=== PATIENT | female | born 1955 | race Caucasian/White ===

== ENCOUNTER 2022-09-22 14:19 | Inpatient (IN) ==
[2022-09-22] MEDS ORDERED: ACETAMINOPHEN 500 MG TAB PO PRN (14:46)
[2022-09-22] MEDS ORDERED: MoRPHine SULFATE 2 MG/ML CARP IV PRN ×2 (14:46→20:45)
[2022-09-22] MEDS ORDERED: MoRPHine SULFATE 4 MG/ML 1 ML CARP\\VIAL IV PRN ×2 (14:46→20:45)
--- NOTE | 2022-09-22 14:51 | Emergency Department Note ---
Impression & Plan Intertrochanteric fracture of left hip, Fall ED Provider Note NAME: LAKSHMI CHEN AGE: 67 SEX: F : 1955 ARRIVES VIA: Ambulance INFORMANT: Patient ED PROVIDER(S): Art Haile DO CHIEF COMPLAINT: left hip pain HPI: Patient is a 67-year-old female who presents to the ER as she was getting out of the car. She kicked the door open and fell onto her left hip. Pain is a 4 out of 10. She is unable to walk since then. Denies hitting her head or neck. Has some tingling/numbness in the leg. No chest pain or shortness of breath. No nausea, vomiting, or diarrhea. No other exacerbating or remitting factors. ROS: See above HPI for pertinent positives & negatives. A total of 10 systems reviewed and were otherwise negative. PAST MEDICAL HISTORY:See Below PAST SURGICAL HISTORY:See Below FAMILY HISTORY:See Below SOCIAL HISTORY:See Below HOME MEDICATIONS:See Below ALLERGIES:See Below VITALS:See Below PHYSICAL EXAMINATION: GENERAL: Sitting up in bed, alert, well appearing, well nourished, no distress, non-toxic EYE EXAM: normal conjunctiva. PERRL and EOM's grossly intact. OROPHARYNX: no exudate, no erythema, lips, buccal mucosa, and tongue normal and mucous membranes are moist NECK: supple, no nuchal rigidity, no adenopathy, non-tender LUNGS: Clear to auscultation. Normal chest wall mechanics HEART: no murmurs, S1 normal and S2 normal ABDOMEN: abdomen soft, non-tender, normo-active bowel sounds, no masses, no rebound or guarding. UPPER EXTREMITIES: upper extremities are grossly normal. LOWER EXTREMITIES: No tenderness at the entire right lower extremity palpation. Unable to move left hip and moderate pain over left pelvis and hip. No tenderness throughout the knee mcdonald ankle. Plantar and dorsiflexion intact. DPs 2 out of 4 bilaterally. NEURO EXAM: Normal sensorium, cranial nerves II-XII grossly intact, normal speech, no gross weakness of arms, no gross weakness of legs. MEDICAL DECISION MAKING: Patient is a 67-year-old female that presents ER following mechanical fall. Complaining of left hip pain. Unable to move it. IV was established blood was obtained. Labs show no significant leukocytosis. Mild anemia 10. INR unremarkable. BMP with mild hyponatremia 133. LFTs bilirubin was unremarkable. COVID was negative. X-ray left hip shows inner troches fracture. Discussed with Dr. Foley. Discussed with the [facility] hospitalist Clarita for further evaluation. Later had 9:30 PM received a text message from Dr. Schwartz. Any question if this was a pathological fracture. He recommended a CT which I did order. Triage Nursing notes reviewed. Limited review of prior medical records performed Vital Signs: reviewed and remarkable for no significant abnormalities Differential diagnosis: Differential diagnoses include major intracranial, cervical, spinal, thoracic, abdominal, pelvic and neurologic injury. Fracture, contusion, sprain, strain, laceration, abrasions included as well. ER treatment provided: See below Diagnostics interpreted by me: ECG: none Cardiac Monitoring: An order was placed for continuous cardiac monitoring. The monitor shows a rate of 80 with sinus rhythm. Laboratory studies: As stated above and show below. Imaging studies: X-rays of the left hip show inotrope fracture Consultation(s): Discussed with Dr. Foley from orthopedics as described above Discussed with S as above Discussed with Dr. Ashraf as described above Procedures: none Critical Care: None Past Med/Surg History Medical History (Updated 09/22/22 @ 21:26 by Art Haile DO) Anemia Chronic kidney disease follows w/ dr. pineda ([facility]) Connective tissue disease Degenerative disc disease Diabetes mellitus, type 2 NIDDM Glaucoma (increased eye pressure) "PRE-GLAUCOMA" Hyperlipidemia Hypertension Pulmonary hypertension Sjogren's disease Transient ischemic attack (TIA) 2009 Valvular heart disease follows w/ dr. 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 Beliefs That Will Affect Care: None Current Living Situation: Family Current Living Situation Comment: lives w/ sister Feels Safe at Home: Yes Assistive Devices: Denture - Upper, Denture - Lower and Glasses Allergies Allergies Allergy/AdvReac Type Severity Reaction Status Date / Time hydrochlorothiazide AdvReac hyponatremi Verified 09/22/22 18:46 a Home Meds Home Medications Medication Instructions Recorded Confirmed ascorbic acid (vitamin C) 500 mg 500 mg PO DAILY 11/22/18 09/22/22 tablet (Vitamin C) aspirin 81 mg tablet,delayed 2 tab PO QPM 11/22/18 09/22/22 release atorvastatin 10 mg tablet 10 mg PO PM 11/22/18 09/22/22 bimatoprost 0.01 % eye drops 1 drp OPB PM 11/22/18 09/22/22 (Lumigan) calcium carbonate 500 mg calcium 500 mg PO DAILY 11/22/18 09/22/22 (1,250 mg) tablet (Calcium 500) cholecalciferol (vitamin D3) 25 1,000 unit PO DAILY 11/22/18 09/22/22 mcg (1,000 unit) tablet (Vitamin D3) cinnamon bark 500 mg capsule 1 dose PO BID 11/22/18 09/22/22 (Cinnamon) coenzyme Q10 100 mg capsule 100 mg PO DAILY 11/22/18 09/22/22 (CoQ-10) cyanocobalamin (vitamin B-12) 1,000 mcg PO QAM 11/22/18 09/22/22 1,000 mcg tablet (Vitamin B-12) ferrous gluconate 240 mg (27 mg 240 mg PO TID 11/22/18 09/22/22 iron) tablet hydroxychloroquine 200 mg tablet 200 mg PO PM 11/22/18 09/22/22 metformin 1,000 mg tablet 1,000 mg PO BID 11/22/18 09/22/22 metoprolol succinate 50 mg capsule 50 mg PO BID 11/22/18 09/22/22 sprinkle, ext. release 24 hr vit A 300 mcg-C 200 mg-E 27 1 tab PO DAILY 11/22/18 09/22/22 mg-lutein 2 mg and minerals tablet (Ocuvite with Lutein) glucosamine sulf dipot 1 cap PO BID 05/27/19 09/22/22 chlr,msm,chond 550 mg-C 30 mg-eleno 1 mg capsule (Glucosamine Chondroitin) amlodipine 5 mg tablet 5 mg PO DAILY 09/22/22 09/22/22 furosemide 20 mg tablet 20 mg PO SUTUTHSA 09/22/22 09/22/22 furosemide 20 mg tablet 40 mg PO MOWEFR 09/22/22 09/22/22 glyburide 5 mg tablet 5 mg PO BID 09/22/22 09/22/22 Results & Data (ED) Vital Signs Vital Signs - 24 hr 09/22/22 14:08 09/22/22 16:08 09/22/22 18:00 Temperature 36.6 C Temperature Source Oral Pulse Rate 87 Pulse Rate [Apical] 100 H 100 H Respiratory Rate 18 15 17 Respiratory Effort / Characteristics Non-Labored Spontaneous Respiratory Depth Normal Respiratory Pattern Regular Blood Pressure 147/71 H Blood Pressure [Left Arm] 133/70 129/72 Blood Pressure Mean 96 Blood Pressure Mean [Left Arm] 91 91 Blood Pressure Position Sitting Pulse Oximetry 99 98 99 Oxygen Delivery Method Room Air Room Air Room Air Sepsis Recent Fever Within 48 Hours No Sepsis New/Unexplained Change in Mental Status N/A Sepsis Action Taken by Nursing No Action Required Laboratory Data Result diagrams: 09/22/22 15:32 09/22/22 15:32 Lab Results 09/22/22 09/22/22 09/22/22 Range/Units 15:32 15:32 15:32 WBC 8.93 (4.8-10.8) K/ul RBC 3.18 L (3.93-5.22) M/uL Hgb 10.2 L (12.0-16.0) g/dl Hct 29.3 L (34.1-44.9) % MCV 92.1 (80.0-100.0) fL MCH 32.1 (25.0-34.0) pg MCHC 34.8 (32.0-36.0) g/dL RDW Std Deviation 41.0 (36.4-46.3) fL RDW Coeff of Evlira 12.1 (11.5-14.5) % Plt Count 187 (130-400) K/uL MPV 9.8 (9.4-12.3) fL Immature Gran % (Auto) 0.6 % Neut % (Auto) 81.9 % Lymph % (Auto) 11.0 % Esmeralda % (Auto) 5.0 % Eos % (Auto) 1.1 % Baso % (Auto) 0.4 % Neut # (Auto) 7.31 H (1.4-6.5) K/uL Lymph # (Auto) 0.98 L (1.2-3.4) K/uL Esmeralda # (Auto) 0.45 (0.24-0.82) K/uL Eos # (Auto) 0.10 (0-0.50) K/uL Baso # (Auto) 0.04 (0-0.2) K/uL Immature Gran # (Auto) 0.05 H (0.00-0.02) K/uL PT 10.9 (9.0-12.0) Seconds INR 1.0 (0.9-1.1) APTT 23.4 (21.0-31.0) Seconds PTT Ratio 0.9 Sodium 133 L (136-145) mmol/L Potassium 4.9 (3.5-5.1) mmol/L Chloride 96 L (98-107) mmol/L Carbon Dioxide 27 (21-32) mmol/L Anion Gap 10 (3-11) BUN 16 (6-23) mg/dl Creatinine 0.83 (0.6-1.2) mg/dl Est Cr Clr Drug Dosing 59.5 ml/min Est GFR ( Amer) 83.4 ml/min Est GFR (Non-Af Amer) 71.9 ml/min BUN/Creatinine Ratio 19.3 (10-20) Glucose 268 H (70-99(Fasting)) mg/dl Calcium 8.9 (8.5-10.1) mg/dl Total Bilirubin 0.3 (0.2-1.0) mg/dl AST 15 (13-39) U/L ALT 11 (7-52) U/L Alkaline Phosphatase 43 (34-104) U/L Total Protein 6.9 (6.0-8.3) gm/dl Albumin 4.3 (3.4-5.0) gm/dl Globulin 2.6 (2.5-4.0) gm/dl Albumin/Globulin Ratio 1.7 (0.9-2) SARS-CoV-2, RNA, NAAT (NEGATIVE) 09/22/22 Range/Units 15:44 WBC (4.8-10.8) K/ul RBC (3.93-5.22) M/uL Hgb (12.0-16.0) g/dl Hct (34.1-44.9) % MCV (80.0-100.0) fL MCH (25.0-34.0) pg MCHC (32.0-36.0) g/dL RDW Std Deviation (36.4-46.3) fL RDW Coeff of Elvira (11.5-14.5) % Plt Count (130-400) K/uL MPV (9.4-12.3) fL Immature Gran % (Auto) % Neut % (Auto) % Lymph % (Auto) % Esmeralda % (Auto) % Eos % (Auto) % Baso % (Auto) % Neut # (Auto) (1.4-6.5) K/uL Lymph # (Auto) (1.2-3.4) K/uL Esmeralda # (Auto) (0.24-0.82) K/uL Eos # (Auto) (0-0.50) K/uL Baso # (Auto) (0-0.2) K/uL Immature Gran # (Auto) (0.00-0.02) K/uL PT (9.0-12.0) Seconds INR (0.9-1.1) APTT (21.0-31.0) Seconds PTT Ratio Sodium (136-145) mmol/L Potassium (3.5-5.1) mmol/L Chloride (98-107) mmol/L Carbon Dioxide (21-32) mmol/L Anion Gap (3-11) BUN (6-23) mg/dl Creatinine (0.6-1.2) mg/dl Est Cr Clr Drug Dosing ml/min Est GFR ( Amer) ml/min Est GFR (Non-Af Amer) ml/min BUN/Creatinine Ratio (10-20) Glucose (70-99(Fasting)) mg/dl Calcium (8.5-10.1) mg/dl Total Bilirubin (0.2-1.0) mg/dl AST (13-39) U/L ALT (7-52) U/L Alkaline Phosphatase (34-104) U/L Total Protein (6.0-8.3) gm/dl Albumin (3.4-5.0) gm/dl Globulin (2.5-4.0) gm/dl Albumin/Globulin Ratio (0.9-2) SARS-CoV-2, RNA, NAAT NEGATIVE (NEGATIVE) Administered Medications Discontinued Medications Morphine Sulfate (Morphine Sulfate 2 Mg/Ml Carp) 2 mg IV Q1H PRN PRN Reason: Moderate Pain (Rating 3,4,5,6) Stop: 10/06/22 14:45 Last Admin: 09/22/22 18:52 Dose: 2 mg Documented By: ML Imaging Data Radiologist's Impression: Hip/Pelvis X-Ray 09/22/22 14:46 SINGLE VIEW PELVIS; 2 VIEWS LEFT HIP CLINICAL HISTORY: Left hip pain. FINDINGS: An AP view of the pelvis with AP and crosstable lateral portable views of the left hip are correlated with pelvic CT dated 04/03/2010. The skeletal structures are osteopenic. There is a comminuted and mildly displaced intertrochanteric fracture of the left proximal femur. There is medial displacement of the lesser trochanter. Overlying soft tissue edema is noted. There is chronic appearing posttraumatic deformity of the left pubic ring. The bony pelvis and right hip otherwise appear maintained. Mild arthritic change and joint space narrowing is seen in both hips. Is minimal degenerative sclerosis of the sacroiliac joints. Lumbosacral spondylosis is partially imaged. No bowel obstruction is seen. There is atherosclerotic calcification of the femoral arter ies. IMPRESSION: 1. Comminuted and mildly displaced intertrochanteric fracture of the left proximal femur as above. 2. No additional acute fracture is identified. 3. Posttraumatic deformity of the left pubic ring is likely chronic. Electronically signed by: Singh Ashraf M.D. 09/22/2022 4:33 PM Discharge Plan Visit Data Chief Complaint: Fall Stated Complaint: FALL/LEFT HIP PAIN ED Provider: Art Haile Discharge Problem: Intertrochanteric fracture of left hip, Fall Patient Disposition: Admitted As Inpatient Discharge Instructions Interventions: ED Discharge Assessment Last Done: 09/22/22 20:27
[2022-09-22 15:45] LABS: Basophils # (auto) 0.04 K/uL (0-0.2); Basophils % (auto) 0.4 %; Eosinophils % (auto) 1.1 %; Hematocrit (blood only) 29.3 % (34.1-44.9); Hemoglobin 10.2 g/dl (12.0-16.0); Immature Granulocytes # (auto) 0.05 K/uL (0.00-0.02); Immature Granulocytes % (auto) 0.6 %; Lymphocytes # (auto) 0.98 K/uL (1.2-3.4); Mean Corpuscular Hemoglobin 32.1 pg (25.0-34.0); Mean Corpuscular Hgb Conc 34.8 g/dL (32.0-36.0); Mean Corpuscular Volume 92.1 fL (80.0-100.0); Mean Platelet Volume 9.8 fL (9.4-12.3); Monocytes # (auto) 0.45 K/uL (0.24-0.82); Neutrophils # (auto) 7.31 K/uL (1.4-6.5); Neutrophils % (auto) 81.9 %; Platelet Count 187 K/uL (130-400); RDW Coefficient of Variation 12.1 % (11.5-14.5); Red Blood Count 3.18 M/uL (3.93-5.22); White Blood Count 8.93 K/ul (4.8-10.8)
[2022-09-22 15:58] LABS: Partial Thromboplastin Ratio 0.9; Partial Thromboplastin Time 23.4 Seconds (21.0-31.0); Prothrombin Time 10.9 Seconds (9.0-12.0)
[2022-09-22 16:17] LABS: Albumin Globulin Ratio 1.7 (0.9-2); Albumin Level 4.3 gm/dl (3.4-5.0); BUN Creatinine Ratio 19.3 (10-20); Bilirubin,Total 0.3 mg/dl (0.2-1.0); Calcium 8.9 mg/dl (8.5-10.1); Creatinine Clr Calc Pharmacy 59.5 ml/min; Est GFR (African American) 83.4 ml/min; Est GFR (Non-African American) 71.9 ml/min; Globulin 2.6 gm/dl (2.5-4.0); Potassium 4.9 mmol/L (3.5-5.1); Total Protein 6.9 gm/dl (6.0-8.3)
--- NOTE | 2022-09-22 16:35 | XRay Report ---
SINGLE VIEW PELVIS; 2 VIEWS LEFT HIP CLINICAL HISTORY: Left hip pain. FINDINGS: An AP view of the pelvis with AP and crosstable lateral portable views of the left hip are correlated with pelvic CT dated 04/03/2010. The skeletal structures are osteopenic. There is a comminu gudelia and mildly displaced intertrochanteric fracture of the left proximal femur. There is medial displ acement of the lesser trochanter. Overlying soft tissue edema is noted. There is chronic appearing po sttraumatic deformity of the left pubic ring. The bony pelvis and right hip otherwise appear maintain ed. Mild arthritic change and joint space narrowing is seen in both hips. Is minimal degenerative scl erosis of the sacroiliac joints. Lumbosacral spondylosis is partially imaged. No bowel obstruction is seen. There is atherosclerotic calcification of the femoral arteries. IMPRESSION: 1. Comminuted and mildly displaced intertrochanteric fracture of the left proximal femur as above. 2. No additional acute fracture is identified. 3. Posttraumatic deformity of the left pubic ring is likely chronic. Electronically signed by: Singh Ashraf M.D. 09/22/2022 4:33 PM
--- NOTE | 2022-09-22 16:54 | Electrocardiogram Report ---
Test Reason : Blood Pressure : / mmHG Vent. Rate : 085 BPM Atrial Rate : 085 BPM P-R Int : 132 ms QRS Dur : 076 ms QT Int : 360 ms P-R-T Axes : -03 057 028 degrees QTc Int : 428 ms Normal sinus rhythm Nonspecific T wave abnormality Abnormal ECG When compared with ECG of 31-MAR-2010 07:01, Nonspecific T wave abnormality, worse in Inferior leads Nonspecific T wave abnormality now evident in Anterolateral leads Confirmed by Surinder Murphy ([id number]) on 09/22/2022 4:53:57 PM Referred By: REFERRED SELF Confirmed By:Surinder Murphy
--- NOTE | 2022-09-22 19:03 | History & Physical Report ---
Date of Service September 22, 2022 Assessment & Plan (1) Intertrochanteric fracture of left hip: Plan: Patient is 67 y/o F with PMH HTN, dyslipidemia, CVA, DM II, iron deficiency anemia, anemia of chronic disease, connective tissue disorder, CKD II, mitral regurgitation, pulmonary hypertension and others listed below presents to ER with c/o mechanical fall and left hip pain Left Hip Xray: Comminuted and mildly displaced intertrochanteric fracture of the left proximal femur. Posttraumatic deformity of the left pubic ring is likely chronic. In ER given 2mg Morphine IV with moderate pain relief Bedrest Pain control Ortho consult. Dr Foley recommends NPO midnight with plans for procedure tomorrow CBC, BMP in am (2) Diabetes mellitus, type 2: Plan: A1c: 6.7 on 03/29/2022 Hold home oral medication Basal bolus insulin per protocol A1c in a.m. (3) Hypertension: Plan: Continue amlodipine (4) Hyperlipidemia: Plan: Continue statin (5) Transient ischemic attack (TIA): Plan: Continue aspirin, statin (6) Connective tissue disease: Plan: Follows with [facility] Continue hydroxychloroquine (7) Anemia: Plan: Anemia of chronic disease, iron deficiency anemia Hgb: 10. Baseline 10-12 Continue iron supplement Monitor H&H (8) Valvular heart disease: (9) Pulmonary hypertension: Plan: Follows with [facility] cardiology History echo in 08/18/22: EF: 60-645, grade I diastolic dysfunction, moderate- severe MR, moderate TR, mild pulmonary hypertension Monitor volume status closely Plan to resume Lasix on POD #1 DVT Prophylaxis SCDs Full Code as per discussion with pt Follows with Cyn Vivar PA-C for routine care Pt was seen and care coordinated with Dr Urias. See addendum History of Present Illness Chief Complaint: fall, hip pain Primary Care Provider: Emilee Hdz DO Patient is 67 y/o F with PMH HTN, dyslipidemia, CVA, DM II, iron deficiency anemia, anemia of chronic disease, connective tissue disorder, CKD II, mitral regurgitation, pulmonary hypertension and others listed below presents to ER with c/o fall and left hip pain. Patient states today was getting out of car and she leaned against the car door and it opened and she fell out onto left side. Had pain in left hip and was unable to get up. Denies hitting head or LOC. Denies any other known injury. Denies dizziness or CP, SOB prior to fall. Reports started amlodipine in August and patient reports feeling dizzy and achy. She reports was taken off losartan in August. Denies fever/chills, diaphoresis, N/V/D/C, [place], syncope, vision changes, neck pain, CP, SOB, orthopnea, palpitations, cough, sore throat, choking, otalgia, rhinorrhea, abdominal pain, paresthesias, weakness, extremity edema, rashes, urinary symptoms. History echo in 08/18/22: EF: 60-645, grade I diastolic dysfunction, moderate- severe MR, moderate TR, mild pulmonary hypertension. Allergies Allergy/AdvReac Type Severity Reaction Status Date / Time hydrochlorothiazide AdvReac hyponatremi Verified 09/22/22 18:46 a Home Medications Medication Instructions Recorded Confirmed Type ascorbic acid (vitamin C) 500 mg 500 mg PO DAILY 11/22/18 09/22/22 History tablet (Vitamin C) aspirin 81 mg tablet,delayed 2 tab PO QPM 11/22/18 09/22/22 History release atorvastatin 10 mg tablet 10 mg PO PM 11/22/18 09/22/22 History bimatoprost 0.01 % eye drops 1 drp OPB PM 11/22/18 09/22/22 History (Lumigan) calcium carbonate 500 mg calcium 500 mg PO DAILY 11/22/18 09/22/22 History (1,250 mg) tablet (Calcium 500) cholecalciferol (vitamin D3) 25 1,000 unit PO DAILY 11/22/18 09/22/22 History mcg (1,000 unit) tablet (Vitamin D3) cinnamon bark 500 mg capsule 1 dose PO BID 11/22/18 09/22/22 History (Cinnamon) coenzyme Q10 100 mg capsule 100 mg PO DAILY 11/22/18 09/22/22 History (CoQ-10) cyanocobalamin (vitamin B-12) 1,000 mcg PO QAM 11/22/18 09/22/22 History 1,000 mcg tablet (Vitamin B-12) ferrous gluconate 240 mg (27 mg 240 mg PO TID 11/22/18 09/22/22 History iron) tablet hydroxychloroquine 200 mg tablet 200 mg PO PM 11/22/18 09/22/22 History metformin 1,000 mg tablet 1,000 mg PO BID 11/22/18 09/22/22 History metoprolol succinate 50 mg capsule 50 mg PO BID 11/22/18 09/22/22 History sprinkle, ext. release 24 hr vit A 300 mcg-C 200 mg-E 27 1 tab PO DAILY 11/22/18 09/22/22 History mg-lutein 2 mg and minerals tablet (Ocuvite with Lutein) glucosamine sulf dipot 1 cap PO BID 05/27/19 09/22/22 History chlr,msm,chond 550 mg-C 30 mg-eleno 1 mg capsule (Glucosamine Chondroitin) amlodipine 5 mg tablet 5 mg PO DAILY 09/22/22 09/22/22 History furosemide 20 mg tablet 20 mg PO SUTUTHSA 09/22/22 09/22/22 History furosemide 20 mg tablet 40 mg PO MOWEFR 09/22/22 09/22/22 History glyburide 5 mg tablet 5 mg PO BID 09/22/22 09/22/22 History Past Med/Surg History Medical History Anemia Chronic kidney disease follows w/ dr. pineda ([facility]) Connective tissue disease Degenerative disc disease Diabetes mellitus, type 2 NIDDM Glaucoma (increased eye pressure) "PRE-GLAUCOMA" Hyperlipidemia Hypertension Pulmonary hypertension Sjogren's disease Transient ischemic attack (TIA) 2009 Valvular heart disease follows w/ dr. 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 Beliefs That Will Affect Care: None Current Living Situation: Family Current Living Situation Comment: lives w/ sister Feels Safe at Home: Yes Assistive Devices: Denture - Upper, Denture - Lower and Glasses Review of Systems Review of Systems: All systems reviewed & are unremarkable except as noted in HPI & below Physical Exam Physical Exam: General: no acute distress, WDWN elderly female Head: normocephalic, atraumatic Eyes: conjunctiva non-injected, anicteric ENT: normal inspection external ears, nose, mucous membranes moist Neck: supple, trachea midline Lungs: clear, no respiratory distress, no wheezing/rhonchi/rales CV: RRR, + murmur, trace pretibial edema Abd: normal BS, soft, non-tender Ext: no cyanosis, no calf tenderness; LLE: +foot externally rotated and shortened. +pain to lateral hip with palpation, ROM not tested, distal pulses palpable, sensation to light touch intact Neuro: A&O x 3, no focal deficits noted, normal affect Skin: warm, dry Results & Data Results & Data ([facility]) Vital Signs (Past 12 Hours) Vital Signs Temp Pulse Pulse Resp BP BP Pulse Ox 09/22/22 18:00 100 H 17 129/72 99 09/22/22 16:08 100 H 15 133/70 98 09/22/22 14:08 36.6 C 87 18 147/71 H 99 O2 Del Method 09/22/22 18:00 Room Air 09/22/22 16:08 Room Air 09/22/22 14:08 Room Air Laboratory Results Short CBC 09/22/22 Range/Units 15:32 WBC 8.93 (4.8-10.8) K/ul Hgb 10.2 L (12.0-16.0) g/dl Hct 29.3 L (34.1-44.9) % Plt Count 187 (130-400) K/uL BMP 09/22/22 15:32 Sodium 133 L Potassium 4.9 Chloride 96 L Carbon Dioxide 27 BUN 16 Creatinine 0.83 Glucose 268 H Calcium 8.9 Liver Function 09/22/22 Range/Units 15:32 Total Bilirubin 0.3 (0.2-1.0) mg/dl AST 15 (13-39) U/L ALT 11 (7-52) U/L Alkaline Phosphatase 43 (34-104) U/L Albumin 4.3 (3.4-5.0) gm/dl Urine 09/22/22 Range/Units 18:35 Urine Color Yellow Urine Appearance Clear (Clear) Urine pH 5.0 (4.5-7.5) Ur Specific [place] 1.011 (1.000-1.030) Urine Protein Negative (Negative) Urine Glucose (UA) 2+ H (Negative) Diagnostic Findings Hip/Pelvis X-Ray 09/22/22 14:46 SINGLE VIEW PELVIS; 2 VIEWS LEFT HIP CLINICAL HISTORY: Left hip pain. FINDINGS: An AP view of the pelvis with AP and crosstable lateral portable views of the left hip are correlated with pelvic CT dated 04/03/2010. The skeletal structures are osteopenic. There is a comminuted and mildly displaced intertrochanteric fracture of the left proximal femur. There is medial displacement of the lesser trochanter. Overlying soft tissue edema is noted. There is chronic appearing posttraumatic deformity of the left pubic ring. The bony pelvis and right hip otherwise appear maintained. Mild arthritic change and joint space narrowing is seen in both hips. Is minimal degenerative sclerosis of the sacroiliac joints. Lumbosacral spondylosis is partially imaged. No bowel obstruction is seen. There is atherosclerotic calcification of the femoral arteries. IMPRESSION: 1. Comminuted and mildly displaced intertrochanteric fracture of the left proximal femur as above. 2. No additional acute fracture is identified. 3. Posttraumatic deformity of the left pubic ring is likely chronic. Electronically signed by: Singh Ashraf M.D. 09/22/2022 4:33 PM Femur X-Ray 09/22/22 19:06 LEFT FEMUR 2 VIEWS CLINICAL HISTORY: Left hip pain. Proximal hip fracture. FINDINGS: AP and crosstable lateral views of the left femur correlated with radiograph 7 the left hip and bony pelvis performed the same day 09/22/2022. The skeletal structures are osteopenic. There is significant abnormality of the intertrochanteric left femur. There is acute appearing avulsion with medial displacement of the lesser trochanter. The intertrochanteric cortex and greater trochanter appear lucent, likely resenting age indeterminant fracture. The distal femur appears intact. There are chronic appearing fractures of the left pubic ring degenerative change is noted in the left hip and knee joints. Mild soft tissue edema overlies left hip. There is evidence of chronic calcification of the left femoral artery. IMPRESSION: 1. Significant abnormality involving the intertrochanteric left femur as above. 2. There is acute appearing avulsion of the lesser trochanter which is medially displaced. 3. Lucency throughout the intertrochanteric region and the greater trochanter is also likely posttraumatic. An underlying osteolytic lesion would be difficult to exclude. Consider a CT scan of the left hip for further assessment. 4. There are chronic appearing left pubic ring fractures. Electronically signed by: Singh Ashraf M.D. 09/22/2022 8:27 PM ECG Rate (beats per minute): 85 Rhythm: sinus rhythm Additional Comments: nonspecific t wave changes inferior, anterior, lateral Code Status & VTE Plan VTE Prophylaxis Plan VTE Prophylaxis will be ordered: Yes Supervising Physician Co-Signing Physician Notes Pt seen and examined by me, care coordinated with Yazan Andrade PA-C, please refer to her note above for further detail. Pt is 67 y/o F w/ HTN, dyslipidemia, CVA, DM II, iron deficiency anemia, anemia of chronic disease, connective tissue disorder, CKD II, mitral regurgitation, pulmonary hypertension who presents w/ L hip fx after mechanical fall. Currently laying in bed, in no acute distress. She is awake alert oriented answering questions appropriately. Heart sounds regular, positive murmur, lung sounds clear to auscultation bilaterally without any wheezing rhonchi or crackles. Abdomen soft nontender nondistended. No lower extremity edema. Patient reports being quite active, walks daily, lifts small weights. Never experiences any chest pain shortness of breath with exercise. She has history of mitral regurg. Followed by cardiology. Her last echo was done in August. echo in 08/18/22: EF: 60-645, grade I diastolic dysfunction, moderate-severe MR, moderate TR, mild pulmonary hypertension. Orthopedic surgeon also present at the bedside. Plan for surgical repair tomorrow morning. Continue to closely monitor the patient. Plan to resume furosemide when appropriate after surgery. MD Adonay
--- NOTE | 2022-09-22 19:05 | History & Physical Report ---
Date of Service September 22, 2022 Assessment & Plan (1) Intertrochanteric fracture of left hip: I discussed the diagnosis and treatment options with her at bedside. I recommended intramedullary nail fixation of her left hip. She understands the risk, benefits, and alternatives to the procedure and has elected to proceed. Questions were answered at bedside. Time was spent describing the procedure and postop expectations. She will be n.p.o. past midnight tonight. We will plan to fix her hip tomorrow morning. History of Present Illness Chief Complaint: Left intertrochanteric hip fracture . Primary Care Provider: Emilee Hdz DO Nemo is a pleasant 67-year-old female who is normally a community ambulator without assistance. She lives in a ranch style house with her sister. She has friends and family that lives nearby. She was getting out of her car today when she fell directly onto her left hip. She began having left hip pain. She came to the emergency room where radiographs demonstrated a displaced left intertrochanteric hip fracture. She is being admitted to the hospitalist service. Orthopedics was consulted to evaluate and treat. . Allergies Allergy/AdvReac Type Severity Reaction Status Date / Time hydrochlorothiazide AdvReac hyponatremi Verified 09/22/22 18:46 a Home Medications Medication Instructions Recorded Confirmed Type ascorbic acid (vitamin C) 500 mg 500 mg PO BID 11/22/18 09/22/22 History tablet (Vitamin C) aspirin 81 mg tablet,delayed 2 tab PO QPM 11/22/18 09/22/22 History release atorvastatin 10 mg tablet 10 mg PO PM 11/22/18 09/22/22 History bimatoprost 0.01 % eye drops 1 drp OPB PM 11/22/18 09/22/22 History (Lumigan) calcium carbonate 500 mg calcium 500 mg PO DAILY 11/22/18 09/22/22 History (1,250 mg) tablet (Calcium 500) cholecalciferol (vitamin D3) 25 1,000 unit PO DAILY 11/22/18 09/22/22 History mcg (1,000 unit) tablet (Vitamin D3) cinnamon bark 500 mg capsule 1 dose PO BID 11/22/18 09/22/22 History (Cinnamon) coenzyme Q10 100 mg capsule 100 mg PO DAILY 11/22/18 09/22/22 History (CoQ-10) cyanocobalamin (vitamin B-12) 1,000 mcg PO QAM 11/22/18 09/22/22 History 1,000 mcg tablet (Vitamin B-12) ferrous gluconate 240 mg (27 mg 240 mg PO TID 11/22/18 09/22/22 History iron) tablet glipizide 5 mg tablet 5 mg PO BID 11/22/18 09/22/22 History hydroxychloroquine 200 mg tablet 200 mg PO PM 11/22/18 09/22/22 History metformin 1,000 mg tablet 1,000 mg PO BID 11/22/18 09/22/22 History metoprolol succinate 50 mg capsule 50 mg PO BID 11/22/18 09/22/22 History sprinkle, ext. release 24 hr vit A 300 mcg-C 200 mg-E 27 1 tab PO DAILY 11/22/18 09/22/22 History mg-lutein 2 mg and minerals tablet (Ocuvite with Lutein) glucosamine sulf dipot 1 cap PO BID 05/27/19 09/22/22 History chlr,msm,chond 550 mg-C 30 mg-eleno 1 mg capsule (Glucosamine Chondroitin) amlodipine 5 mg tablet 5 mg PO DAILY 09/22/22 09/22/22 History furosemide 20 mg tablet 20 mg PO SUTUTHSA 09/22/22 09/22/22 History furosemide 20 mg tablet 40 mg PO MOWEFR 09/22/22 09/22/22 History losartan 50 mg tablet 50 mg PO DAILY 09/22/22 09/22/22 History Past Med/Surg History Medical History (Updated 09/22/22 @ 19:03 by Genaro Foley DO) Anemia Chronic kidney disease follows w/ dr. pineda ([facility]) Degenerative disc disease Diabetes mellitus, type 2 NIDDM Glaucoma (increased eye pressure) "PRE-GLAUCOMA" Hyperlipidemia Hypertension Pulmonary hypertension Sjogren's disease Transient ischemic attack (TIA) 2010 Valvular heart disease follows w/ dr. 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 Physical Exam On physical examination of the left hip, her leg is shortened and externally rotated. She has active dorsiflexion plantarflexion of her left ankle. Sensation is intact throughout. . Constitutional WD/WN, vitals as above Eyes PERRL, conjunctivae normal, anicteric sclerae ENMT external ear and nose normal, oropharynx normal Neck trachea midline, no thyromegaly Respiratory normal respiratory effort, lungs clear to auscultation Cardiovascular RRR, no murmur, no edema Gastrointestinal (Abdomen) normal bowel sounds, soft, nontender, no hepatosplenomegaly Skin no rashes, warm and dry Psychiatric A+Ox3, euthymic affect Results & Data Results & Data Laboratory Results . Diagnostic Findings X-rays of her left hip show a comminuted displaced left intertrochanteric hip fracture. PG Care Time/CCT Total # of Minutes Spent Total Time Spent with Patient: Total time spent is greater than 50% in coordination of care (as documented) at patient's floor/unit and/or counseling patient: Coding Level of Care Code 79028 Initial Inpt Care Lvl 2 (57 - DECISION FOR SURGERY) Diagnoses Intertrochanteric fracture of left hip S72.142A
[2022-09-22 19:09] LABS: Appearance Urine Clear (Clear); Bilirubin Urine Negative (Negative); Blood Urine Negative (Negative); Color Urine Yellow; Glucose Urine UA 2+ (Negative); Ketones Urine Trace (Negative); Leukocyte Esterase Urine Negative (Negative); Nitrite Urine Negative (Negative); Protein Urine Negative (Negative); Specific Gravity Urine 1.011 (1.000-1.030); Urobilinogen Urine Negative (Negative)
--- NOTE | 2022-09-22 20:29 | XRay Report ---
LEFT FEMUR 2 VIEWS CLINICAL HISTORY: Left hip pain. Proximal hip fracture. FINDINGS: AP and crosstable lateral views of the left femur correlated with radiograph 7 the left hip and bony pelvis performed the same day 09/22/2022. The skeletal structures are osteopenic. There is s ignificant abnormality of the intertrochanteric left femur. There is acute appearing avulsion with me dial displacement of the lesser trochanter. The intertrochanteric cortex and greater trochanter appea r lucent, likely resenting age indeterminant fracture. The distal femur appears intact. There are chr onic appearing fractures of the left pubic ring degenerative change is noted in the left hip and knee joints. Mild soft tissue edema overlies left hip. There is evidence of chronic calcification of the left femoral artery. IMPRESSION: 1. Significant abnormality involving the intertrochanteric left femur as above. 2. There is acute appearing avulsion of the lesser trochanter which is medially displaced. 3. Lucency throughout the intertrochanteric region and the greater trochanter is also likely posttrau matic. An underlying osteolytic lesion would be difficult to exclude. Consider a CT scan of the left hip for further assessment. 4. There are chronic appearing left pubic ring fractures. Electronically signed by: Singh Ashraf M.D. 09/22/2022 8:27 PM
[2022-09-22] MEDS ORDERED: GLUCOSE 10 TAB/TUBE PO PRN (20:45)
[2022-09-22] MEDS ORDERED: ONDANSETRON INJ 2 MG/ML 2 ML VIAL IV PRN (20:45)
[2022-09-22] MEDS ORDERED: CARBOHYDRATES FOR HYPOGLYCEMIA PO PRN (20:45)
[2022-09-22] MEDS ORDERED: NALOXONE HCL 0.4 MG/1 ML VIAL/CARP IV PRN (20:45)
[2022-09-22] MEDS ORDERED: MAGNESIUM HYDROXIDE SUSP 30 ML UDC PO PRN ×2 (20:45)
[2022-09-22] MEDS ORDERED: POLYETHYLENE (MIRALAX) 17 GM PACK PO PRN (20:45)
[2022-09-22] MEDS ORDERED: DEXTROSE 50% 50 ML SYRINGE IV PRN (20:45)
[2022-09-22] MEDS ORDERED: bisacodyL 10 MG SUPP PR PRN (20:45)
[2022-09-22] MEDS ORDERED: GLUCOSE 40% GEL 15 GM TUBE PO PRN (20:45)
[2022-09-22] MEDS ORDERED: oxyCODONE HCL IR 5 MG TAB (IMMEDIATE RELEASE) PO PRN (20:45)
[2022-09-22] MEDS ORDERED: GLUCAGON FOR INJ 1 MG VIAL SQ PRN (20:45)
[2022-09-22] MEDS ORDERED: DOCUSATE SODIUM/SENNA 50/8.6MG TAB PO SCH (21:00)
[2022-09-22] MEDS ORDERED: INSULIN ASPART PER UNIT SC SCH (21:00)
[2022-09-22] MEDS ORDERED: ASPIRIN 81 MG ECTAB PO SCH (21:30)
[2022-09-22] MEDS: HYDROXYCHLOROQUINE SULFATE 200 MG TAB PO SCH (22:12)
[2022-09-22] MEDS: ATORVASTATIN 10 MG TAB PO SCH (22:14)
[2022-09-22] MEDS: LANTUS PER UNIT CHARGE SQ SCH (22:20)
[2022-09-22] MEDS ORDERED: Nursing to Pharmacy Communication SCH (23:45)
[2022-09-23] MEDS ORDERED: LACTATED RINGER'S 1,000 ML IV SCH
[2022-09-23] MEDS: INSULIN ASPART PER UNIT SC SCH ×5 (00:15→21:09)
[2022-09-23] MEDS ORDERED: ceFAZolin 2000MG 2,000 MG/15 ML SYR IV SCH (06:00)
[2022-09-23] MEDS ORDERED: TRANEXAMIC ACID / 0.7% NACL 1,000 MG/100 ML BAG IV SCH ×2 (06:00→06:30)
[2022-09-23 06:42] LABS: Hematocrit (blood only) 23.1 % (34.1-44.9); Mean Corpuscular Hemoglobin 31.4 pg (25.0-34.0); Mean Corpuscular Hgb Conc 34.6 g/dL (32.0-36.0); Mean Corpuscular Volume 90.6 fL (80.0-100.0); Platelet Count 170 K/uL (130-400); RDW Standard Deviation 39.9 fL (36.4-46.3); Red Blood Count 2.55 M/uL (3.93-5.22); White Blood Count 6.63 K/ul (4.8-10.8)
[2022-09-23 07:05] LABS: BUN Creatinine Ratio 25.7 (10-20); Calcium 8.5 mg/dl (8.5-10.1); Est GFR (African American) 102.5 ml/min; Est GFR (Non-African American) 88.4 ml/min
--- NOTE | 2022-09-23 07:50 | Hospitalist Progress Note ---
Date of Service September 23, 2022 Assessment & Plan (1) Intertrochanteric fracture of left hip: Plan: 67 y/o F w/ HTN, dyslipidemia, CVA, DM II, iron deficiency anemia, anemia of chronic disease, connective tissue disorder, CKD II, mitral regurgitation, pulmonary hypertension who presents w/ L hip fx after mechanical fall. Left Hip Xray: Comminuted and mildly displaced intertrochanteric fracture of the left proximal femur. Posttraumatic deformity of the left pubic ring is likely chronic. In ER given 2mg Morphine IV with moderate pain relief Bedrest Pain control Orthopedics consulted. Plan for surgical repair today with Dr. Foley. Monitor CBC, BMP (2) Diabetes mellitus, type 2: Plan: A1c: 6.7 on 03/29/2022 Hold home oral medication Basal bolus insulin per protocol Current A1c 7.0% (3) Hypertension: Plan: hold amlodipine for now (4) Hyperlipidemia: Plan: Continue statin (5) Transient ischemic attack (TIA): Plan: Continue aspirin, statin (6) Connective tissue disease: Plan: Follows with [facility] rheumatology Continue hydroxychloroquine (7) Anemia: Plan: Anemia of chronic disease, iron deficiency anemia Hgb: 10. Baseline 10-12 Continue iron supplement Monitor H&H (8) Valvular heart disease: (9) Pulmonary hypertension: Plan: Follows with [facility] cardiology History echo in 08/18/22: EF: 60-645, grade I diastolic dysfunction, moderate- severe MR, moderate TR, mild pulmonary hypertension Monitor volume status closely Plan to resume Lasix on POD #1 DVT Prophylaxis SCDs Full Code as per discussion with pt Follows with Cyn Vivar PA-C for routine care Admission and Anticipated Discharge Date Admission Date: September 22, 2022 Subjective Patient seen in follow-up of left hip fracture. She is lying in bed, in no acute distress. Pain seems to be well controlled. Plan for surgical repair later today. No chest pain, shortness of breath, palpitations. No abdominal pain nausea vomiting. No fevers chills. Review of Systems Review of Systems: All systems reviewed & are unremarkable except as noted in Subjective Physical Exam Physical Exam: General: no acute distress, WDWN elderly female Head: normocephalic, atraumatic Eyes: conjunctiva non-injected, anicteric ENT: normal inspection external ears, nose, mucous membranes moist Neck: supple Lungs: clear, no respiratory distress, no wheezing/rhonchi/rales CV: RRR, + murmur, trace pretibial edema Abd: normal BS, soft, non-tender Ext: no cyanosis, no calf tenderness; LLE: +pain to lateral hip with palpation, ROM not tested, distal pulses palpable, sensation to light touch intact Neuro: A&O x 3, no focal deficits noted, normal affect Skin: warm, dry Results & Data Results & Data ([facility]) Vital Signs (Past 12 Hours) Vital Signs Temp Pulse Pulse Pulse Resp BP BP 09/22/22 20:45 36.6 C 81 18 09/23/22 03:00 36.6 C 95 H 16 97/63 L 09/23/22 00:44 104 H 09/22/22 23:33 36.4 C L 66 16 115/52 L 09/22/22 23:09 36.9 C 105 H 16 09/22/22 22:42 36.6 C 81 18 127/80 09/22/22 20:48 36.6 C 81 18 127/80 09/22/22 20:27 93 H 135/86 09/22/22 20:00 92 H 18 127/70 BP Pulse Ox O2 Del Method 09/22/22 20:45 127/80 99 Room Air 09/23/22 03:00 100 Room Air 09/23/22 00:44 09/22/22 23:33 92 Room Air 09/22/22 23:09 127/78 96 Room Air 09/22/22 22:42 99 Room Air 09/22/22 20:48 99 Room Air 09/22/22 20:27 97 Room Air 09/22/22 20:00 99 Room Air Laboratory Results 09/23/22 09/23/22 09/23/22 Range/Units 06:10 06:10 06:10 WBC 6.63 (4.8-10.8) K/ul RBC 2.55 L (3.93-5.22) M/uL Hgb 8.0 L (12.0-16.0) g/dl Hct 23.1 L (34.1-44.9) % MCV 90.6 (80.0-100.0) fL MCH 31.4 (25.0-34.0) pg MCHC 34.6 (32.0-36.0) g/dL RDW Std Deviation 39.9 (36.4-46.3) fL RDW Coeff of Elvira 12.0 (11.5-14.5) % Plt Count 170 (130-400) K/uL MPV 10.0 (9.4-12.3) fL Immature Gran % (Auto) % Neut % (Auto) % Lymph % (Auto) % [place] % (Auto) % Eos % (Auto) % Baso % (Auto) % Neut # (Auto) (1.4-6.5) K/uL Lymph # (Auto) (1.2-3.4) K/uL [place] # (Auto) (0.24-0.82) K/uL Eos # (Auto) (0-0.50) K/uL Baso # (Auto) (0-0.2) K/uL Immature Gran # (Auto) (0.00-0.02) K/uL PT (9.0-12.0) Seconds INR (0.9-1.1) APTT (21.0-31.0) Seconds PTT Ratio Sodium 136 (136-145) mmol/L Potassium 4.0 (3.5-5.1) mmol/L Chloride 100 (98-107) mmol/L Carbon Dioxide 30 (21-32) mmol/L Anion Gap 6 (3-11) BUN 18 (6-23) mg/dl Creatinine 0.70 (0.6-1.2) mg/dl Est Cr Clr Drug Dosing 70.0 ml/min Est GFR ( Amer) 102.5 ml/min Est GFR (Non-Af Amer) 88.4 ml/min BUN/Creatinine Ratio 25.7 H (10-20) Glucose 136 H (70-99(Fasting)) mg/dl POC Glucose (70-99) mg/dl Estimat Average Glucose Pending Hemoglobin A1c Pending Calcium 8.5 (8.5-10.1) mg/dl Total Bilirubin (0.2-1.0) mg/dl AST (13-39) U/L ALT (7-52) U/L Alkaline Phosphatase (34-104) U/L Total Protein (6.0-8.3) gm/dl Albumin (3.4-5.0) gm/dl Globulin (2.5-4.0) gm/dl Albumin/Globulin Ratio (0.9-2) Urine Color Urine Appearance (Clear) Urine pH (4.5-7.5) Ur Specific [place] (1.000-1.030) Urine Protein (Negative) Urine Glucose (UA) (Negative) Urine Ketones (Negative) Urine Blood (Negative) Urine Nitrite (Negative) Urine Bilirubin (Negative) Urine Urobilinogen (Negative) Ur Leukocyte Esterase (Negative) SARS-CoV-2, RNA, NAAT (NEGATIVE) Blood Type Antibody Screen 09/23/22 09/23/22 09/22/22 Range/Units 05:57 00:12 20:58 WBC (4.8-10.8) K/ul RBC (3.93-5.22) M/uL Hgb (12.0-16.0) g/dl Hct (34.1-44.9) % MCV (80.0-100.0) fL MCH (25.0-34.0) pg MCHC (32.0-36.0) g/dL RDW Std Deviation (36.4-46.3) fL RDW Coeff of Elvira (11.5-14.5) % Plt Count (130-400) K/uL MPV (9.4-12.3) fL Immature Gran % (Auto) % Neut % (Auto) % Lymph % (Auto) % [place] % (Auto) % Eos % (Auto) % Baso % (Auto) % Neut # (Auto) (1.4-6.5) K/uL Lymph # (Auto) (1.2-3.4) K/uL [place] # (Auto) (0.24-0.82) K/uL Eos # (Auto) (0-0.50) K/uL Baso # (Auto) (0-0.2) K/uL Immature Gran # (Auto) (0.00-0.02) K/uL PT (9.0-12.0) Seconds INR (0.9-1.1) APTT (21.0-31.0) Seconds PTT Ratio Sodium (136-145) mmol/L Potassium (3.5-5.1) mmol/L Chloride (98-107) mmol/L Carbon Dioxide (21-32) mmol/L Anion Gap (3-11) BUN (6-23) mg/dl Creatinine (0.6-1.2) mg/dl Est Cr Clr Drug Dosing ml/min Est GFR ( Amer) ml/min Est GFR (Non-Af Amer) ml/min BUN/Creatinine Ratio (10-20) Glucose (70-99(Fasting)) mg/dl POC Glucose 140 H 329 H* (70-99) mg/dl Estimat Average Glucose Hemoglobin A1c Calcium (8.5-10.1) mg/dl Total Bilirubin (0.2-1.0) mg/dl AST (13-39) U/L ALT (7-52) U/L Alkaline Phosphatase (34-104) U/L Total Protein (6.0-8.3) gm/dl Albumin (3.4-5.0) gm/dl Globulin (2.5-4.0) gm/dl Albumin/Globulin Ratio (0.9-2) Urine Color Urine Appearance (Clear) Urine pH (4.5-7.5) Ur Specific [place] (1.000-1.030) Urine Protein (Negative) Urine Glucose (UA) (Negative) Urine Ketones (Negative) Urine Blood (Negative) Urine Nitrite (Negative) Urine Bilirubin (Negative) Urine Urobilinogen (Negative) Ur Leukocyte Esterase (Negative) SARS-CoV-2, RNA, NAAT (NEGATIVE) Blood Type A Negative Antibody Screen NEGATIVE 09/22/22 09/22/22 09/22/22 Range/Units 20:44 18:35 15:44 WBC (4.8-10.8) K/ul RBC (3.93-5.22) M/uL Hgb (12.0-16.0) g/dl Hct (34.1-44.9) % MCV (80.0-100.0) fL MCH (25.0-34.0) pg MCHC (32.0-36.0) g/dL RDW Std Deviation (36.4-46.3) fL RDW Coeff of Elvira (11.5-14.5) % Plt Count (130-400) K/uL MPV (9.4-12.3) fL Immature Gran % (Auto) % Neut % (Auto) % Lymph % (Auto) % [place] % (Auto) % Eos % (Auto) % Baso % (Auto) % Neut # (Auto) (1.4-6.5) K/uL Lymph # (Auto) (1.2-3.4) K/uL [place] # (Auto) (0.24-0.82) K/uL Eos # (Auto) (0-0.50) K/uL Baso # (Auto) (0-0.2) K/uL Immature Gran # (Auto) (0.00-0.02) K/uL PT (9.0-12.0) Seconds INR (0.9-1.1) APTT (21.0-31.0) Seconds PTT Ratio Sodium (136-145) mmol/L Potassium (3.5-5.1) mmol/L Chloride (98-107) mmol/L Carbon Dioxide (21-32) mmol/L Anion Gap (3-11) BUN (6-23) mg/dl Creatinine (0.6-1.2) mg/dl Est Cr Clr Drug Dosing ml/min Est GFR ( Amer) ml/min Est GFR (Non-Af Amer) ml/min BUN/Creatinine Ratio (10-20) Glucose (70-99(Fasting)) mg/dl POC Glucose 285 H (70-99) mg/dl Estimat Average Glucose Hemoglobin A1c Calcium (8.5-10.1) mg/dl Total Bilirubin (0.2-1.0) mg/dl AST (13-39) U/L ALT (7-52) U/L Alkaline Phosphatase (34-104) U/L Total Protein (6.0-8.3) gm/dl Albumin (3.4-5.0) gm/dl Globulin (2.5-4.0) gm/dl Albumin/Globulin Ratio (0.9-2) Urine Color Yellow Urine Appearance Clear (Clear) Urine pH 5.0 (4.5-7.5) Ur Specific [place] 1.011 (1.000-1.030) Urine Protein Negative (Negative) Urine Glucose (UA) 2+ H (Negative) Urine Ketones Trace H (Negative) Urine Blood Negative (Negative) Urine Nitrite Negative (Negative) Urine Bilirubin Negative (Negative) Urine Urobilinogen Negative (Negative) Ur Leukocyte Esterase Negative (Negative) SARS-CoV-2, RNA, NAAT NEGATIVE (NEGATIVE) Blood Type Antibody Screen 09/22/22 09/22/22 09/22/22 Range/Units 15:32 15:32 15:32 WBC 8.93 (4.8-10.8) K/ul RBC 3.18 L (3.93-5.22) M/uL Hgb 10.2 L (12.0-16.0) g/dl Hct 29.3 L (34.1-44.9) % MCV 92.1 (80.0-100.0) fL MCH 32.1 (25.0-34.0) pg MCHC 34.8 (32.0-36.0) g/dL RDW Std Deviation 41.0 (36.4-46.3) fL RDW Coeff of Elvira 12.1 (11.5-14.5) % Plt Count 187 (130-400) K/uL MPV 9.8 (9.4-12.3) fL Immature Gran % (Auto) 0.6 % Neut % (Auto) 81.9 % Lymph % (Auto) 11.0 % [place] % (Auto) 5.0 % Eos % (Auto) 1.1 % Baso % (Auto) 0.4 % Neut # (Auto) 7.31 H (1.4-6.5) K/uL Lymph # (Auto) 0.98 L (1.2-3.4) K/uL [place] # (Auto) 0.45 (0.24-0.82) K/uL Eos # (Auto) 0.10 (0-0.50) K/uL Baso # (Auto) 0.04 (0-0.2) K/uL Immature Gran # (Auto) 0.05 H (0.00-0.02) K/uL PT 10.9 (9.0-12.0) Seconds INR 1.0 (0.9-1.1) APTT 23.4 (21.0-31.0) Seconds PTT Ratio 0.9 Sodium 133 L (136-145) mmol/L Potassium 4.9 (3.5-5.1) mmol/L Chloride 96 L (98-107) mmol/L Carbon Dioxide 27 (21-32) mmol/L Anion Gap 10 (3-11) BUN 16 (6-23) mg/dl Creatinine 0.83 (0.6-1.2) mg/dl Est Cr Clr Drug Dosing 59.5 ml/min Est GFR ( Amer) 83.4 ml/min Est GFR (Non-Af Amer) 71.9 ml/min BUN/Creatinine Ratio 19.3 (10-20) Glucose 268 H (70-99(Fasting)) mg/dl POC Glucose (70-99) mg/dl Estimat Average Glucose Hemoglobin A1c Calcium 8.9 (8.5-10.1) mg/dl Total Bilirubin 0.3 (0.2-1.0) mg/dl AST 15 (13-39) U/L ALT 11 (7-52) U/L Alkaline Phosphatase 43 (34-104) U/L Total Protein 6.9 (6.0-8.3) gm/dl Albumin 4.3 (3.4-5.0) gm/dl Globulin 2.6 (2.5-4.0) gm/dl Albumin/Globulin Ratio 1.7 (0.9-2) Urine Color Urine Appearance (Clear) Urine pH (4.5-7.5) Ur Specific [place] (1.000-1.030) Urine Protein (Negative) Urine Glucose (UA) (Negative) Urine Ketones (Negative) Urine Blood (Negative) Urine Nitrite (Negative) Urine Bilirubin (Negative) Urine Urobilinogen (Negative) Ur Leukocyte Esterase (Negative) SARS-CoV-2, RNA, NAAT (NEGATIVE) Blood Type Antibody Screen Medications Administered Current Inpatient Medications Acetaminophen (Acetaminophen 500 Mg Tab) 1,000 mg PO Q8H PRN PRN Reason: Mild Pain (Rating 1,2,3) Stop: 10/22/22 14:45 Amlodipine Besylate (Amlodipine Besylate 5 Mg Tab) 5 mg PO DAILY [facility] Stop: 10/23/22 08:59 Aspirin (Aspirin 81 Mg Ectab) 162 mg PO QPM [facility] Stop: 10/22/22 21:29 Last Admin: 09/22/22 22:13 Dose: 162 mg Atorvastatin Calcium (Atorvastatin 10 Mg Tab) 10 mg PO PM [facility] Stop: 10/22/22 21:29 Last Admin: 09/22/22 22:14 Dose: 10 mg Bimatoprost (Bimatoprost 0.01% Op Soln 2.5 Ml Btl) 1 drops OPB PM [facility] Stop: 10/23/22 21:29 Bisacodyl (Bisacodyl 10 Mg Supp) 10 mg GA DAILY PRN PRN Reason: Constipation Stop: 10/22/22 20:44 Calcium Carbonate (Calcium Carbonate 500 Mg Chewable Tab) 500 mg PO DAILY [facility] Stop: 10/23/22 08:59 Cyanocobalamin (Cyanocobalamin (B-12) 500 Mcg Tablet) 1,000 mcg PO QAM [facility] Stop: 10/23/22 08:59 Dextrose (Dextrose 50% 50 Ml Syringe) 25 - 50 ml IV UD PRN; Protocol PRN Reason: Hypoglycemia Protocol Stop: 10/22/22 20:44 Ferrous Sulfate (Ferrous Sulfate 325 Mg Tab) 325 mg PO DAILY [facility] Stop: 10/23/22 08:59 Furosemide (Furosemide 40 Mg Tab) 40 mg PO MOWEFR [facility] Stop: 10/25/22 08:59 Furosemide (Furosemide 20 Mg Tab) 20 mg PO SUTUTHSA [facility] Stop: 10/24/22 08:59 Glucagon (Glucagon For Inj 1 Mg Vial) 1 mg SQ UD PRN; Protocol PRN Reason: Hypoglycemia Protocol Stop: 10/22/22 20:44 Glucose (Glucose 40% Gel 15 Gm Tube) 15 - 30 gm PO UD PRN; Protocol PRN Reason: Hypoglycemia Protocol Stop: 10/22/22 20:44 Glucose (Glucose 10 Tab/Tube) 4 - 8 tab PO UD PRN; Protocol PRN Reason: Hypoglycemia Treatment Stop: 10/22/22 20:44 Hydroxychloroquine Sulfate (Hydroxychloroquine Sulfate 200 Mg Tab) 200 mg PO PM [facility] Stop: 10/22/22 20:59 Last Admin: 09/22/22 22:12 Dose: 200 mg Tranexamic Acid (Tranexamic Acid / 0.7% Nacl) 1,000 mg in 100 mls @ 600 mls/hr IV TODAY@06 [facility] Tranexamic Acid (Tranexamic Acid / 0.7% Nacl) 1,000 mg in 100 mls @ 600 mls/hr IV TODAY@0630 [facility] Cefazolin Sodium (Ancef 2000mg) 2,000 mg in 15 mls @ 3.75 mls/min IV PREOP [facility]; Protocol Stop: 09/24/22 05:59 Lactated Ringer's (Lr) 1,000 mls @ 80 mls/hr IV .[id number] [facility] Stop: 09/23/22 12:29 Last Admin: 09/23/22 00:07 Dose: 80 mls/hr Insulin Aspart (Insulin Aspart Per Unit) 0 units SC Q6 [facility] Stop: 10/23/22 00:00 Last Admin: 09/23/22 06:03 Dose: Not Given Insulin Glargine (Lantus Per Unit Charge) 0 - 8 units SQ BID [facility] Stop: 10/22/22 20:59 Last Admin: 09/22/22 22:20 Dose: 8 units Magnesium Hydroxide (Magnesium Hydroxide Susp 30 Ml Udc) 30 ml PO Q12H PRN PRN Reason: Constipation Stop: 10/22/22 20:44 Metoprolol Succinate (Metoprolol Succ 50mg Ext Rel Tab) 50 mg PO BID [facility] Stop: 10/23/22 08:59 Miscellaneous (Carbohydrates For Hypoglycemia ) 15 - 30 gm PO UD PRN PRN Reason: Hypoglycemia Protocol Stop: 10/22/22 20:44 Morphine Sulfate (Morphine Sulfate 2 Mg/Ml Carp) 2 mg IV Q3H PRN PRN Reason: Pain (1,2,3,4,5) & Pre PT Stop: 10/06/22 20:44 Morphine Sulfate (Morphine Sulfate 4 Mg/Ml 1 Ml Carp\Vial) 4 mg IV Q3H PRN PRN Reason: Pain (6,7,8,9,10) Stop: 10/06/22 20:44 Naloxone HCl (Naloxone Hcl 0.4 Mg/1 Ml Vial/Carp) 0.1 mg IV UD PRN PRN Reason: Opiate Overdose Stop: 10/22/22 20:44 Ondansetron HCl (Ondansetron Inj 2 Mg/Ml 2 Ml Vial) 4 mg IV Q6H PRN PRN Reason: Nausea Stop: 10/22/22 20:44 Oxycodone HCl (Oxycodone Hcl Ir 5 Mg Tab (Immediate Release)) 5 mg PO Q4H PRN PRN Reason: MODERATE Pain (4,5,6) & Pre PT Stop: 10/06/22 20:44 Last Admin: 09/22/22 23:15 Dose: 5 mg Polyethylene Glycol (Polyethylene (Miralax) 17 Gm Pack) 17 gm PO DAILY PRN PRN Reason: Constipation Stop: 10/22/22 20:44 Senna/Docusate Sodium (Docusate Sodium/Senna 50/8.6mg Tab) 2 tab PO HS YUNG Stop: 10/22/22 20:59 Last Admin: 09/22/22 22:11 Dose: 2 tab Vitamin D (Cholecalciferol 1,000 Units 25 Mcg Tab) 1,000 units PO DAILY [facility] Stop: 10/23/22 08:59
--- NOTE | 2022-09-23 07:55 | Anesthesiology Consultation ---
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 History Surgery Operation Date: 09/23/22 10:30 Proposed Procedures p Intramedullary Pranav Femur - Genaro Foley DO Height/Weight Height: 5 ft 3 in Weight: 67.585 kg Allergies Allergy/AdvReac Type Severity Reaction Status Date / Time hydrochlorothiazide AdvReac hyponatremi Verified 09/22/22 18:46 a Medications Home Medications Medication Instructions Recorded Confirmed Last Taken ascorbic acid (vitamin C) 500 mg 500 mg PO DAILY 11/22/18 09/22/22 09/22/22 tablet (Vitamin C) aspirin 81 mg tablet,delayed 2 tab PO QPM 11/22/18 09/22/22 09/21/22 release atorvastatin 10 mg tablet 10 mg PO PM 11/22/18 09/22/22 09/21/22 bimatoprost 0.01 % eye drops 1 drp OPB PM 11/22/18 09/22/22 09/21/22 (Lumigan) calcium carbonate 500 mg calcium 500 mg PO DAILY 11/22/18 09/22/22 09/22/22 (1,250 mg) tablet (Calcium 500) cholecalciferol (vitamin D3) 25 1,000 unit PO DAILY 11/22/18 09/22/22 09/22/22 mcg (1,000 unit) tablet (Vitamin D3) cinnamon bark 500 mg capsule 1 dose PO BID 11/22/18 09/22/22 09/22/22 (Cinnamon) coenzyme Q10 100 mg capsule 100 mg PO DAILY 11/22/18 09/22/22 09/22/22 (CoQ-10) cyanocobalamin (vitamin B-12) 1,000 mcg PO QAM 11/22/18 09/22/22 09/22/22 1,000 mcg tablet (Vitamin B-12) ferrous gluconate 240 mg (27 mg 240 mg PO TID 11/22/18 09/22/22 09/22/22 iron) tablet hydroxychloroquine 200 mg tablet 200 mg PO PM 11/22/18 09/22/22 09/21/22 metformin 1,000 mg tablet 1,000 mg PO BID 11/22/18 09/22/22 09/21/22 metoprolol succinate 50 mg capsule 50 mg PO BID 11/22/18 09/22/22 09/22/22 sprinkle, ext. release 24 hr vit A 300 mcg-C 200 mg-E 27 1 tab PO DAILY 11/22/18 09/22/22 09/22/22 mg-lutein 2 mg and minerals tablet (Ocuvite with Lutein) glucosamine sulf dipot 1 cap PO BID 05/27/19 09/22/22 09/22/22 chlr,msm,chond 550 mg-C 30 mg-eleno 1 mg capsule (Glucosamine Chondroitin) amlodipine 5 mg tablet 5 mg PO DAILY 09/22/22 09/22/22 09/22/22 furosemide 20 mg tablet 20 mg PO SUTUTHSA 09/22/22 09/22/22 09/21/22 furosemide 20 mg tablet 40 mg PO MOWEFR 09/22/22 09/22/22 09/22/22 glyburide 5 mg tablet 5 mg PO BID 09/22/22 09/22/22 09/22/22 Active Medications Generic Name Dose Route Start Last Admin Trade Name Minesh PRN Reason Stop Dose Admin Aspirin 162 mg 09/22/22 21:30 09/22/22 22:13 Aspirin 81 Mg Ectab PO 10/22/22 21:29 162 mg QPM YUNG Administration Atorvastatin Calcium 10 mg 09/22/22 21:30 09/22/22 22:14 Atorvastatin 10 Mg Tab PO 10/22/22 21:29 10 mg PM YUNG Administration Hydroxychloroquine Sulfate 200 mg 09/22/22 21:00 09/22/22 22:12 Hydroxychloroquine Sulfate 200 Mg Tab PO 10/22/22 20:59 200 mg PM YUNG Administration Lactated Ringer's 1,000 mls @ 80 mls/hr 09/23/22 00:00 09/23/22 00:07 Lr IV 09/23/22 12:29 80 mls/hr .[id number] YUNG Administration Insulin Aspart 0 units 09/23/22 00:00 09/23/22 06:03 Insulin Aspart Per Unit SC 10/23/22 00:00 Not Given Q6 YUNG Insulin Glargine 0 - 8 units 09/22/22 21:00 09/22/22 22:20 Lantus Per Unit Charge SQ 10/22/22 20:59 8 units BID YUNG Administration Oxycodone HCl 5 mg 09/22/22 20:45 09/22/22 23:15 Oxycodone Hcl Ir 5 Mg Tab (Immediate Release) PO 10/06/22 20:44 5 mg Q4H PRN Administration MODERATE Pain (4,5,6) & Pre PT Senna/Docusate Sodium 2 tab 09/22/22 21:00 09/22/22 22:11 Docusate Sodium/Senna 50/8.6mg Tab PO 10/22/22 20:59 2 tab HS YUNG Administration Past Medical History Medical History Anemia Chronic kidney disease follows w/ dr. pineda ([facility]) Connective tissue disease Degenerative disc disease Diabetes mellitus, type 2 NIDDM Glaucoma (increased eye pressure) "PRE-GLAUCOMA" Hyperlipidemia Hypertension Pulmonary hypertension Sjogren's disease Transient ischemic attack (TIA) 2009 Valvular heart disease follows w/ dr. chan Past Family History Family History Father Family history of diabetes mellitus Brother Family hx of colon cancer Past Surgical History Surgical History History of adenoidectomy History of cataract surgery RT CATARACT History of colonoscopy History of esophagogastroduodenoscopy (EGD) History of tonsillectomy History of tooth extraction Social History Smoking Status: Never smoker Hx Alcohol Use: No Hx Substance Use: No substance use type: does not use Physical Exam Vital Signs Last Vital Signs Temp 97.9 F 09/23/22 03:00 Pulse 93 H 09/23/22 07:49 Resp 16 09/23/22 03:00 BP 97/63 L 09/23/22 03:00 Pulse Ox 100 09/23/22 03:00 O2 Del Method 09/23/22 03:00 Testing Laboratory Results 09/23/22 06:10 09/23/22 06:10 PT 10.9 Seconds (9.0-12.0) 09/22/22 15:32 INR 1.0 (0.9-1.1) 09/22/22 15:32 APTT 23.4 Seconds (21.0-31.0) 09/22/22 15:32 Urine Color Yellow 09/22/22 18:35 Urine Appearance Clear (Clear) 09/22/22 18:35 Urine pH 5.0 (4.5-7.5) 09/22/22 18:35 Ur Specific [place] 1.011 (1.000-1.030) 09/22/22 18:35 Urine Protein Negative (Negative) 09/22/22 18:35 Urine Glucose (UA) 2+ (Negative) H 09/22/22 18:35 Urine Ketones Trace (Negative) H 09/22/22 18:35 Urine Nitrite Negative (Negative) 09/22/22 18:35 Ur Leukocyte Esterase Negative (Negative) 09/22/22 18:35 Blood Type A Negative 09/22/22 20:58 Antibody Screen NEGATIVE 09/22/22 20:58 09/23/22 09/23/22 09/22/22 05:57 00:12 20:44 POC Glucose 140 H 329 H* 285 H Electrocardiogram Date: 09/22/22 Normal sinus rhythm, rate 85 bpm Nonspecific T wave abnormality Abnormal ECG When compared with ECG of 31-MAR-2010 07:01, Nonspecific T wave abnormality, worse in Inferior leads Nonspecific T wave abnormality now evident in Anterolateral leads Confirmed by Surinder Murphy ([id number]) on 09/22/2022 4:53:57 PM
[2022-09-23 08:03] LABS: Estimated Average Glucose 154 mg/dl
[2022-09-23] MEDS: LANTUS PER UNIT CHARGE SQ SCH (08:41)
[2022-09-23] MEDS: FERROUS SULFATE 325 MG TAB PO SCH (08:42)
[2022-09-23] MEDS: METOPROLOL SUCC 50MG EXT REL TAB PO SCH ×2 (08:42→21:08)
[2022-09-23] MEDS ORDERED: CYANOCOBALAMIN (B-12) 500 MCG TABLET PO SCH (09:00)
[2022-09-23] MEDS ORDERED: CHOLECALCIFEROL 1,000 UNITS 25 MCG TAB PO SCH (09:00)
[2022-09-23] MEDS ORDERED: CALCIUM CARBONATE 500 MG CHEWABLE TAB PO SCH (09:00)
[2022-09-23] MEDS ORDERED: amLODIPine BESYLATE 5 MG TAB PO SCH (09:00)
--- NOTE | 2022-09-23 09:05 | CT Scan Report ---
LEFT HIP CT WITHOUT CONTRAST CLINICAL HISTORY: Left hip pain/ fx ? Pathological fracture COMPARISON STUDY: Left femur radiographs performed earlier today. TECHNIQUE: Axial images of the left hip were obtained without IV contrast. Sagittal and coronal recon structions were viewed. Automated exposure control was utilized for the study. A dose lowering techn ique was utilized adhering to the principles of ALARA. FINDINGS: Note is made of an acute displaced significantly comminuted and moderately displaced intert rochanteric fracture of the left femur. No underlying osseous lesion is identified by CT. There is as sociated moderate intramuscular hemorrhage within the adjacent musculature, including the left iliacu s and adductor muscles. There is no soft tissue gas. No additional acute fractures are present. Moder ate degenerative changes of the left sacroiliac joint are present. There is an old left inferior pubi c ramus fracture. IMPRESSION: 1. Acute comminuted displaced intertrochanteric fracture of the left femur. No underlying lesion by C T. 2. Moderate associated intramuscular hemorrhage, as described above. ACT 112: Negative or not required by law. Electronically signed by: Derian Chacko M.D. 09/23/2022 9:04 AM
[2022-09-23] MEDS ORDERED: BUPIVACAINE 0.5 % 5 MG/1 ML PF 10ML VIAL ONE (10:21)
[2022-09-23] MEDS ORDERED: ATROPINE SULFATE 0.1 MG/ML 10ML SYR IV PRN (10:48)
[2022-09-23] MEDS ORDERED: ONDANSETRON INJ 2 MG/ML 2 ML VIAL IV PRN ×2 (10:48→16:40)
[2022-09-23] MEDS ORDERED: fentaNYL citrate 100 MCG/2 ML VIAL IV PRN (10:48)
[2022-09-23] MEDS ORDERED: ePHEDrine sulfate 50 MG/ML AMP IV PRN (10:48)
[2022-09-23] MEDS ORDERED: fentaNYL citrate 100 MCG/2 ML VIAL ONE (10:52)
[2022-09-23] MEDS ORDERED: MIDAZOLAM HCL 1 MG/ML 2ML VIAL ONE (10:52)
[2022-09-23] MEDS ORDERED: BUPIVACAINE/EPINEPHRINE 0.25% 1:200,000 30 ML VIAL ONE (11:17)
--- NOTE | 2022-09-23 12:54 | Operative Report ---
PG Post Operative Report Pre & Post Diagnosis Operation Date: 09/23/22 10:30 Pre-Op Diagnosis: Intertrochanteric fracture of left hip Post-Op Diagnosis: Intertrochanteric fracture of left hip I identified the patient and participated in the time-out.: Yes Procedure Operation Date: 09/23/22 10:30 Actual Procedures p Intramedullary Nail Fixation Left Hip(Left) - Genaro Foley DO Surgeon Genaro Foley DO [employer] Genaro Watson PA-C Estimated Blood Loss 50 Findings Consistent with Post-Op Diagnosis Specimens None Description of Procedure On September 23, 2022 Nemo was brought down from her hospital room to the preoperative holding area. The operative extremity identified and signed. She is given a preoperative antibiotic. She was taken back the operating room and given a spinal anesthetic. She was transferred over to the fracture table. The left leg was brought out to traction. The left hip was then prepped and draped in sterile fashion. A timeout was done. The patient and the operative extremity was properly identified. She does have a history of a prior hip fracture that was treated nonoperatively. It made the reduction in this hip fracture fairly difficult. I was able to get adequate reduction of the hip under fluoroscopic imaging. A longitudinal incision was then made proximal to the greater trochanter. Dissection was taken down through the fascia. A guidepin was placed at the tip of the greater trochanter and sent down the femoral canal. Appropriate placement of the guidepin was checked on orthogonal fluoroscopic images. A 17 mm opening reamer was then used to open up the greater trochanter. A ball-tipped guidewire was then sent down the femoral canal. A single 12.5 mm reamer was then sent down the femoral canal. A Synthes 380 mm TFN nail was then impacted down the femoral shaft. Appropriate placement was checked on fluoroscopy. A lateral incision was made for the helical blade and the cannula was advanced to the lateral cortex. A guidepin was then placed into the center center position of the femoral head. The lateral cortex was drilled. A helical blade was then impac gudelia into place. The fracture was then compressed and the helical blade was locked. The outrigger was then removed. Final fluoroscopic images of the hip showed the fracture to be in acceptable alignment. Attention was turned to the distal femur. A single locking screw was placed using the perfect [place] technique. The wounds were then irrigated. The deep fascia was closed with #1 Vicryl. Skin was closed with 2-0 Vicryl and juan carlos. She was then placed in a soft dressing. She was then transferred back to the hospital bed. She was taken to the postanesthesia care unit in stable condition. She tolerated the procedure well. Genaro Watson PA-C, was present for the entire procedure. He was critical for patient positioning, prepping, draping, retraction exposure, wound closure and application of sterile dressing. I attest to the content of the Intraoperative Record and any orders documented therein. Any exceptions are noted below.
--- NOTE | 2022-09-23 13:00 | Fluoroscopy Report ---
FL hip LT 2-3V CLINICAL HISTORY: LEFT HIP LONG NAIL COMPARISON STUDY: Left hip radiographs and left hip CT August 23, 2022. FLUOROSCOPY TIME: 115 seconds. FLUOROSCOPIC IMAGES: 3 FINDINGS: Fluoroscopy was provided during internal fixation of the intertrochanteric fracture of the left femur with trochanteric nail. Fracture alignment has significantly improved. No unexpected radio paque foreign bodies. IMPRESSION: Fluoroscopy provided during internal fixation of the intertrochanteric fracture of the l eft femur. ACT 112: Negative or not required by law. Electronically signed by: Derian Chacko M.D. 09/23/2022 12:59 PM
--- NOTE | 2022-09-23 13:34 | Anesthesiology Progress Note ---
Date of Service September 23, 2022 Anesthesia Post Procedure Vital Signs Vital Signs: Temp Pulse Pulse Pulse Resp BP BP 09/23/22 13:30 98.1 F 92 H 24 09/23/22 13:20 93 H 20 09/23/22 13:10 94 H 12 09/23/22 13:01 98.2 F 86 12 09/23/22 09:35 09/23/22 07:54 98.2 F 105 H 16 09/23/22 07:49 93 H 09/22/22 20:45 97.9 F 81 18 09/23/22 03:00 97.9 F 95 H 16 97/63 L 09/23/22 00:44 104 H 09/22/22 23:33 97.5 F L 66 16 115/52 L 09/22/22 23:09 98.5 F 105 H 16 09/22/22 22:42 97.9 F 81 18 127/80 09/22/22 20:48 97.9 F 81 18 127/80 09/22/22 20:27 93 H 135/86 09/22/22 20:00 92 H 18 127/70 09/22/22 18:00 100 H 17 129/72 09/22/22 16:08 100 H 15 133/70 09/22/22 14:08 97.9 F 87 18 147/71 H BP Pulse Ox O2 Del Method O2 Flow Rate 09/23/22 13:30 120/59 L 100 Room Air 09/23/22 13:20 101/60 100 Oxymask 4 09/23/22 13:10 97/65 L 100 Oxymask 6 09/23/22 13:01 80/48 L 98 Oxymask 6 09/23/22 09:35 Room Air 09/23/22 07:54 125/73 99 Room Air 09/23/22 07:49 09/22/22 20:45 127/80 99 Room Air 09/23/22 03:00 100 Room Air 09/23/22 00:44 09/22/22 23:33 92 Room Air 09/22/22 23:09 127/78 96 Room Air 09/22/22 22:42 99 Room Air 09/22/22 20:48 99 Room Air 09/22/22 20:27 97 Room Air 09/22/22 20:00 99 Room Air 09/22/22 18:00 99 Room Air 09/22/22 16:08 98 Room Air 09/22/22 14:08 99 Room Air Pain Intensity Left Hip: Pain Intensity: 2 Transfer of Care Handoff Completed per policy Notes Mental Status: alert / awake / arousable and participated in evaluation Patient Amnestic to Procedure: Yes Nausea / Vomiting: adequately controlled Pain: adequately controlled Airway Patency, RR, SpO2: stable & adequate BP & HR: stable & adequate Hydration State: stable & adequate Neuraxial Anesthesia: was administered and sensory block is resolving Anesthetic Complications: no major complications apparent and Pt Satisfied with anesthetic care
[2022-09-23] MEDS ORDERED: SOD PHOSPHATE/SOD BIPHOSPHATE ENEMA 132 ML BTL PR PRN (14:44)
[2022-09-23] MEDS ORDERED: oxyCODONE HCL IR 5 MG TAB (IMMEDIATE RELEASE) PO PRN (14:44)
[2022-09-23] MEDS ORDERED: PHARMACY GLYCEMIC MGMT CONSULT PRN (14:44)
[2022-09-23] MEDS: ACETAMINOPHEN 500 MG TAB PO PRN ×2 (17:22→23:31)
--- NOTE | 2022-09-23 19:34 | XRay Report ---
XR hip LT min 2V CLINICAL HISTORY: Post-Operative implant position COMPARISON: Left hip radiographs and CT of the left hip September 22, 2022. FINDINGS: Postoperative findings consistent with internal fixation of the intertrochanteric fracture of the left femur are noted. Fracture alignment has significantly improved. Skin juan carlos are present . There are no unexpected radiopaque foreign bodies. Old left inferior pubic ramus fracture is presen t. IMPRESSION: Expected findings following internal fixation of the intertrochanteric fracture of the le ft femur. ACT 112: Negative or not required by law. Electronically signed by: Derian Chacko M.D. 09/23/2022 7:33 PM
[2022-09-23] MEDS ORDERED: LANTUS PER UNIT CHARGE SQ SCH (21:00)
[2022-09-23] MEDS: ATORVASTATIN 10 MG TAB PO SCH (21:08)
[2022-09-23] MEDS: APIXABAN 2.5 MG TAB PO SCH (21:08)
[2022-09-23] MEDS: HYDROXYCHLOROQUINE SULFATE 200 MG TAB PO SCH (21:08)
[2022-09-23] MEDS: BIMATOPROST 0.01% OP SOLN 2.5 ML BTL OPB SCH (21:09)
--- NOTE | 2022-09-24 07:26 | Hospitalist Progress Note ---
Date of Service September 24, 2022 Assessment & Plan (1) Intertrochanteric fracture of left hip: Plan: 67 y/o F w/ HTN, dyslipidemia, CVA, DM II, iron deficiency anemia, anemia of chronic disease, connective tissue disorder, CKD II, mitral regurgitation, pulmonary hypertension who presents w/ L hip fx after mechanical fall. Left Hip Xray: Comminuted and mildly displaced intertrochanteric fracture of the left proximal femur. Posttraumatic deformity of the left pubic ring is likely chronic. Orthopedics consulted. Pt s/p surgical repair on 09/[address] Foley. Pain control DVT ppx - apixaban 2.5 bid started by surgery - will hold now Monitor CBC, BMP Acute on chronic anemia Patient has history of iron-deficiency anemia, follows with Dr. Estrada Baseline Hgb 10-12 Now superimposed blood loss anemia due to surgery Current hemoglobin 5.8 2 units of PRBCs ordered Patient denies any chest pain palpitations or shortness of breath Continue close monitor H&H Continue iron supplement (2) Diabetes mellitus, type 2: Plan: A1c: 6.7 on 03/29/2022 Hold home oral medication Basal bolus insulin per protocol Current A1c 7.0% (3) Hypertension: Plan: hold amlodipine for now (4) Hyperlipidemia: Plan: Continue statin (5) Transient ischemic attack (TIA): Plan: Continue aspirin, statin (6) Connective tissue disease: Plan: Follows with [facility]ology Continue hydroxychloroquine (7) Anemia: Plan: Acute on chronic anemia Patient has history of iron-deficiency anemia, follows with Dr. Estrada Baseline Hgb 10-12 Now superimposed blood loss anemia due to surgery Current hemoglobin 5.8 2 units of PRBCs ordered Patient denies any chest pain palpitations or shortness of breath Continue close monitor H&H Continue iron supplement (8) Valvular heart disease: (9) Pulmonary hypertension: Plan: Follows with [facility] cardiology History echo in 08/18/22: EF: 60-645, grade I diastolic dysfunction, moderate- severe MR, moderate TR, mild pulmonary hypertension Monitor volume status closely Plan to resume Lasix after surgery DVT Prophylaxis SCDs Full Code as per discussion with pt Follows with Cyn Vivar PA-C for routine care Admission and Anticipated Discharge Date Admission Date: September 22, 2022 Subjective Patient seen in follow-up of left hip fracture. She is lying in bed, in no acute distress. Pain seems to be well controlled. She is s/p surgical repair yesterday No chest pain, shortness of breath, palpitations. No abdominal pain nausea vomiting. No fevers chills. Bleeding at surg. site noted by nursing staff. This AM at my exam dressings are clean and dry. Hgb low this AM - chronically low however now decreased d/t bleed - 2 units of pRBCs ordered Review of Systems Review of Systems: All systems reviewed & are unremarkable except as noted in Subjective Physical Exam Physical Exam: General: no acute distress, WDWN elderly female Head: normocephalic, atraumatic Eyes: conjunctiva non-injected, anicteric ENT: normal inspection external ears, nose, mucous membranes moist Neck: supple Lungs: clear, no respiratory distress, no wheezing/rhonchi/rales CV: RRR, + murmur, trace pretibial edema Abd: normal BS, soft, non-tender Ext: LLE: +pain to lateral hip with palpation, ROM not tested, distal pulses palpable, sensation to light touch intact Neuro: A&O x 3, no focal deficits noted, normal affect Skin: warm, dry Results & Data Results & Data ([facility]) Vital Signs (Past 12 Hours) Vital Signs Temp Pulse Pulse Resp BP BP Pulse Ox 09/24/22 03:16 36.6 C 95 H 18 108/68 100 09/24/22 00:07 93 H 09/23/22 23:20 36.9 C 76 20 121/69 97 09/23/22 23:18 09/23/22 19:46 36.8 C 107 H 18 117/72 100 O2 Del Method 09/24/22 03:16 Room Air 09/24/22 00:07 09/23/22 23:20 Room Air 09/23/22 23:18 Room Air 09/23/22 19:46 Room Air Laboratory Results 09/24/22 09/24/22 09/24/22 Range/Units 11:29 07:26 06:51 WBC (4.8-10.8) K/ul RBC (3.93-5.22) M/uL Hgb (12.0-16.0) g/dl Hct (34.1-44.9) % MCV (80.0-100.0) fL MCH (25.0-34.0) pg MCHC (32.0-36.0) g/dL RDW Std Deviation (36.4-46.3) fL RDW Coeff of Elvira (11.5-14.5) % Plt Count (130-400) K/uL MPV (9.4-12.3) fL Sodium (136-145) mmol/L Potassium (3.5-5.1) mmol/L Chloride (98-107) mmol/L Carbon Dioxide (21-32) mmol/L Anion Gap (3-11) BUN (6-23) mg/dl Creatinine (0.6-1.2) mg/dl Est Cr Clr Drug Dosing ml/min Est GFR ( Amer) ml/min Est GFR (Non-Af Amer) ml/min BUN/Creatinine Ratio (10-20) Glucose (70-99(Fasting)) mg/dl POC Glucose 217 H 168 H (70-99) mg/dl Calcium (8.5-10.1) mg/dl Phosphorus (2.5-4.9) mg/dl Magnesium (1.7-2.4) mg/dl Blood Type Blood Type Recheck A Negative Antibody Screen Crossmatch 09/24/22 09/24/22 09/23/22 Range/Units 06:51 06:51 20:33 WBC 7.79 (4.8-10.8) K/ul RBC 1.85 L (3.93-5.22) M/uL Hgb 5.8 L* (12.0-16.0) g/dl Hct 16.8 L* (34.1-44.9) % MCV 90.8 (80.0-100.0) fL MCH 31.4 (25.0-34.0) pg MCHC 34.5 (32.0-36.0) g/dL RDW Std Deviation 39.8 (36.4-46.3) fL RDW Coeff of Elvira 12.0 (11.5-14.5) % Plt Count 145 (130-400) K/uL MPV 10.6 (9.4-12.3) fL Sodium 136 (136-145) mmol/L Potassium 4.7 (3.5-5.1) mmol/L Chloride 101 (98-107) mmol/L Carbon Dioxide 30 (21-32) mmol/L Anion Gap 5 (3-11) BUN 21 (6-23) mg/dl Creatinine 0.73 (0.6-1.2) mg/dl Est Cr Clr Drug Dosing 67.1 ml/min Est GFR ( Amer) 97.4 ml/min Est GFR (Non-Af Amer) 84.0 ml/min BUN/Creatinine Ratio 28.8 H (10-20) Glucose 147 H (70-99(Fasting)) mg/dl POC Glucose 273 H (70-99) mg/dl Calcium 8.4 L (8.5-10.1) mg/dl Phosphorus 3.8 (2.5-4.9) mg/dl Magnesium 1.5 L (1.7-2.4) mg/dl Blood Type Blood Type Recheck Antibody Screen Crossmatch 09/23/22 09/23/22 09/22/22 Range/Units 16:31 14:08 20:58 WBC (4.8-10.8) K/ul RBC (3.93-5.22) M/uL Hgb (12.0-16.0) g/dl Hct (34.1-44.9) % MCV (80.0-100.0) fL MCH (25.0-34.0) pg MCHC (32.0-36.0) g/dL RDW Std Deviation (36.4-46.3) fL RDW Coeff of Elvira (11.5-14.5) % Plt Count (130-400) K/uL MPV (9.4-12.3) fL Sodium (136-145) mmol/L Potassium (3.5-5.1) mmol/L Chloride (98-107) mmol/L Carbon Dioxide (21-32) mmol/L Anion Gap (3-11) BUN (6-23) mg/dl Creatinine (0.6-1.2) mg/dl Est Cr Clr Drug Dosing ml/min Est GFR ( Amer) ml/min Est GFR (Non-Af Amer) ml/min BUN/Creatinine Ratio (10-20) Glucose (70-99(Fasting)) mg/dl POC Glucose 284 H 221 H (70-99) mg/dl Calcium (8.5-10.1) mg/dl Phosphorus (2.5-4.9) mg/dl Magnesium (1.7-2.4) mg/dl Blood Type A Negative Blood Type Recheck Antibody Screen NEGATIVE Crossmatch See Detail Medications Administered Current Inpatient Medications Acetaminophen (Acetaminophen 500 Mg Tab) 1,000 mg PO Q6H PRN PRN Reason: Moderate Pain Stop: 10/23/22 14:43 Last Admin: 09/23/22 23:31 Dose: 1,000 mg Amlodipine Besylate (Amlodipine Besylate 5 Mg Tab) 5 mg PO DAILY YUNG Stop: 10/23/22 08:59 Apixaban (Apixaban 2.5 Mg Tab) 2.5 mg PO BID YUNG Stop: 10/23/22 20:59 Last Admin: 09/23/22 21:08 Dose: 2.5 mg Atorvastatin Calcium (Atorvastatin 10 Mg Tab) 10 mg PO PM YUNG Stop: 10/22/22 21:29 Last Admin: 09/23/22 21:08 Dose: 10 mg Bimatoprost (Bimatoprost 0.01% Op Soln 2.5 Ml Btl) 1 drops OPB PM YUNG Stop: 10/23/22 21:29 Last Admin: 09/23/22 21:09 Dose: 1 drops Dextrose (Dextrose 50% 50 Ml Syringe) 25 - 50 ml IV UD PRN; Protocol PRN Reason: Hypoglycemia Protocol Stop: 10/22/22 20:44 Ferrous Sulfate (Ferrous Sulfate 325 Mg Tab) 325 mg PO DAILY YUNG Stop: 10/23/22 08:59 Last Admin: 09/23/22 08:42 Dose: 325 mg Furosemide (Furosemide 40 Mg Tab) 40 mg PO MOWEFR YUNG Stop: 10/25/22 08:59 Furosemide (Furosemide 20 Mg Tab) 20 mg PO SUTUTHSA YUNG Stop: 10/24/22 08:59 Glucagon (Glucagon For Inj 1 Mg Vial) 1 mg SQ UD PRN; Protocol PRN Reason: Hypoglycemia Protocol Stop: 10/22/22 20:44 Glucose (Glucose 40% Gel 15 Gm Tube) 15 - 30 gm PO UD PRN; Protocol PRN Reason: Hypoglycemia Protocol Stop: 10/22/22 20:44 Glucose (Glucose 10 Tab/Tube) 4 - 8 tab PO UD PRN; Protocol PRN Reason: Hypoglycemia Treatment Stop: 10/22/22 20:44 Hydroxychloroquine Sulfate (Hydroxychloroquine Sulfate 200 Mg Tab) 200 mg PO PM [facility] Stop: 10/22/22 20:59 Last Admin: 09/23/22 21:08 Dose: 200 mg Insulin Aspart (Insulin Aspart Per Unit) 0 units SC ACHS YUNG Stop: 10/23/22 16:29 Last Admin: 09/23/22 21:09 Dose: 6 units Insulin Glargine (Lantus Per Unit Charge) 8 units SQ HS YUNG Stop: 10/23/22 20:59 Last Admin: 09/23/22 21:09 Dose: 8 units Metoprolol Succinate (Metoprolol Succ 50mg Ext Rel Tab) 50 mg PO BID [facility] Stop: 10/23/22 08:59 Last Admin: 09/23/22 21:08 Dose: 50 mg Miscellaneous (Carbohydrates For Hypoglycemia ) 15 - 30 gm PO UD PRN PRN Reason: Hypoglycemia Protocol Stop: 10/22/22 20:44 Miscellaneous Information (Pharmacy Glycemic Mgmt Consult) 1 each N/A UD PRN; Protocol PRN Reason: Consult Stop: 10/23/22 14:43 Multivitamins/Minerals (Cerovite Adv Formula Tab) 1 tab PO QDL [facility] Stop: 10/24/22 11:29 Ondansetron HCl (Ondansetron Inj 2 Mg/Ml 2 Ml Vial) 2 mg IV Q4H PRN PRN Reason: Nausea Stop: 10/23/22 16:39 Oxycodone HCl (Oxycodone Hcl Ir 5 Mg Tab (Immediate Release)) 5 mg PO Q6H PRN PRN Reason: Pain Stop: 10/07/22 14:43 Polyethylene Glycol (Polyethylene (Miralax) 17 Gm Pack) 17 gm PO Q6 [facility] Stop: 10/25/22 17:59 Sodium Biphosphate/Sodium Phosphate (Sod Phosphate/Sod Biphosphate Enema 132 Ml Btl) 132 ml ID DAILY PRN PRN Reason: Constipation Stop: 10/23/22 14:43
[2022-09-24 07:45] LABS: Hematocrit (blood only) 16.8 % (34.1-44.9); Hemoglobin 5.8 g/dl (12.0-16.0); Mean Corpuscular Hemoglobin 31.4 pg (25.0-34.0); Mean Corpuscular Hgb Conc 34.5 g/dL (32.0-36.0); Mean Corpuscular Volume 90.8 fL (80.0-100.0); Mean Platelet Volume 10.6 fL (9.4-12.3); Platelet Count 145 K/uL (130-400); RDW Standard Deviation 39.8 fL (36.4-46.3); Red Blood Count 1.85 M/uL (3.93-5.22); White Blood Count 7.79 K/ul (4.8-10.8)
[2022-09-24] MEDS ORDERED: SODIUM CHLORIDE 0.9% 250 ML IV PRN (07:46)
[2022-09-24 07:53] LABS: BUN Creatinine Ratio 28.8 (10-20); Calcium 8.4 mg/dl (8.5-10.1); Creatinine Clr Calc Pharmacy 67.1 ml/min; Est GFR (African American) 97.4 ml/min; Magnesium 1.5 mg/dl (1.7-2.4); Phosphorus 3.8 mg/dl (2.5-4.9); Potassium 4.7 mmol/L (3.5-5.1)
--- NOTE | 2022-09-24 09:31 | Pharmacy Report ---
Pharmacy Glycemic Short Note 2 - Date of Service September 24, 2022 - Glycemic Short BSG Results (Last 24 hours): 09/23/22 09/23/22 09/23/22 14:08 16:31 20:33 Glucose POC Glucose 221 H 284 H 273 H 09/24/22 09/24/22 06:51 07:26 Glucose 147 H POC Glucose 168 H OUTPATIENT ANTIDIABETIC REGIMEN: * Metformin 1000 mg PO BID * Glyburide 5 mg PO BID HbA1c: 7% (09/23/22) ASSESSMENT: * DC is a 67 year old female POD #1 s/p intramedullary nail fixation of left hip * No perioperative steroids nor ongoing * BSGs elevated postoperatively, ranging 221-284 mg/dL w/ fasting BSG this morning of 168 mg/dL * Reasonable outpatient glycemic control with multiple oral medications * Will increase Lantus to ~0.2 unit/kg today and allow for HS dose up to weight- based stress of 2 basal dosing (~25 units) PLAN FOR INPATIENT GLYCEMIC CONTROL: * Hold outpatient oral diabetes medications * Basal insulin * Lantus 15 units SC daily * Lantus 0-10 units SC HS (see EHR for details) * Bolus insulin * NovoLog per scale ACHS or Q6hrs while NPO * Goal Range: Low 110 mg/dL - High 140 mg/dL * Correction Factor: 20 mg/dL/unit * Nutritional / Prandial insulin per carb ratio of 1 unit per 6 grams CHO consumed
[2022-09-24] MEDS: INSULIN ASPART PER UNIT SC SCH ×4 (09:36→21:24)
[2022-09-24] MEDS: ACETAMINOPHEN 500 MG TAB PO PRN ×2 (09:36→21:45)
[2022-09-24] MEDS: LANTUS PER UNIT CHARGE SQ SCH (09:36)
[2022-09-24] MEDS: METOPROLOL SUCC 50MG EXT REL TAB PO SCH ×2 (09:37→21:45)
[2022-09-24] MEDS: FERROUS SULFATE 325 MG TAB PO SCH (09:38)
[2022-09-24] MEDS: CEROVITE ADV FORMULA TAB PO SCH (09:38)
[2022-09-24] MEDS: FUROSEMIDE 20 MG TAB PO SCH (09:38)
[2022-09-24] MEDS ORDERED: MAGNESIUM SULFATE / D5W 1 GM/100 ML BAG IV ONE (12:38)
[2022-09-24] MEDS ORDERED: HYDROCORTISONE 1% CRM 30 GM TUBE EXT PRN (12:48)
[2022-09-24] MEDS: MAGNESIUM OXIDE 400 MG TAB PO SCH ×2 (14:36→21:44)
[2022-09-24 17:31] LABS: Hematocrit (blood only) 26.4 % (34.1-44.9); Hemoglobin 9.3 g/dl (12.0-16.0)
[2022-09-24] MEDS ORDERED: LANTUS PER UNIT CHARGE SQ SCH (21:00)
[2022-09-24] MEDS: HYDROXYCHLOROQUINE SULFATE 200 MG TAB PO SCH (21:44)
[2022-09-24] MEDS: BIMATOPROST 0.01% OP SOLN 2.5 ML BTL OPB SCH (21:44)
[2022-09-24] MEDS: ATORVASTATIN 10 MG TAB PO SCH (21:44)
--- NOTE | 2022-09-25 07:36 | Hospitalist Progress Note ---
Date of Service September 25, 2022 Assessment & Plan (1) Intertrochanteric fracture of left hip: Plan: 67 y/o F w/ HTN, dyslipidemia, CVA, DM II, iron deficiency anemia, anemia of chronic disease, connective tissue disorder, CKD II, mitral regurgitation, pulmonary hypertension who presents w/ L hip fx after mechanical fall. Left Hip Xray: Comminuted and mildly displaced intertrochanteric fracture of the left proximal femur. Posttraumatic deformity of the left pubic ring is likely chronic. Orthopedics consulted. Pt s/p surgical repair on 09/[address] Foley. Pain control Weight-bear as tolerated DVT ppx - apixaban 2.5 bid started by surgery - plan for 4 weeks PT/OT Monitor CBC, BMP Acute on chronic anemia Patient has history of iron-deficiency anemia, follows with Dr. Estrada Baseline Hgb 10-12 Now superimposed blood loss anemia due to surgery hemoglobin 5.8 on 09/24 s/p 2 units of PRBCs Patient denies any chest pain palpitations or shortness of breath Continue close monitor H&H, current hgb 8.6 Continue iron supplement (2) Diabetes mellitus, type 2: Plan: A1c: 6.7 on 03/29/2022 Hold home oral medication Basal bolus insulin per protocol Current A1c 7.0% (3) Hypertension: Plan: hold amlodipine for now (4) Hyperlipidemia: Plan: Continue statin (5) Transient ischemic attack (TIA): Plan: Continue aspirin, statin (6) Connective tissue disease: Plan: Follows with [facility] rheumatology Continue hydroxychloroquine (7) Anemia: (8) Valvular heart disease: (9) Pulmonary hypertension: Plan: Follows with [facility] cardiology History echo in 08/18/22: EF: 60-645, grade I diastolic dysfunction, moderate- severe MR, moderate TR, mild pulmonary hypertension Monitor volume status closely Plan to resume Lasix after surgery DVT Prophylaxis SCDs, apixaban Full Code as per discussion with pt Follows with Cyn Vivar PA-C for routine care Admission and Anticipated Discharge Date Admission Date: September 22, 2022 Subjective Patient seen in follow-up of left hip fracture. She is lying in bed, in no acute distress. Pain seems to be well controlled. She is s/p surgical repair No chest pain, shortness of breath, palpitations. No abdominal pain nausea vomiting. No fevers chills. Yesterday Hgb 5.8 and pt received 2 units of pRBCs. Hgb seem stable - apixaban resumed. Review of Systems Review of Systems: All systems reviewed & are unremarkable except as noted in Subjective Physical Exam Physical Exam: General: no acute distress, WDWN elderly female Head: normocephalic, atraumatic Eyes: conjunctiva non-injected, anicteric ENT: normal inspection external ears, nose, mucous membranes moist Neck: supple Lungs: clear, no respiratory distress, no wheezing/rhonchi/rales CV: RRR, + murmur, trace pretibial edema Abd: normal BS, soft, non-tender Ext: LLE: +pain to lateral hip with palpation, ROM not tested, distal pulses palpable, sensation to light touch intact Neuro: A&O x 3, no focal deficits noted, normal affect Skin: warm, dry Results & Data Results & Data ([facility]) Vital Signs (Past 12 Hours) Vital Signs Temp Pulse Pulse Resp BP Pulse Ox O2 Del Method 09/25/22 07:21 Room Air 09/25/22 06:01 74 09/25/22 02:58 36.6 C 72 18 125/70 99 Room Air 09/24/22 23:29 36.7 C 86 18 121/67 96 Room Air 09/24/22 23:21 89 Laboratory Results 09/25/22 09/25/22 09/25/22 Range/Units 08:51 08:51 07:41 WBC 6.16 (4.8-10.8) K/ul RBC 2.76 L (3.93-5.22) M/uL Hgb 8.6 L (12.0-16.0) g/dl Hct 24.1 L (34.1-44.9) % MCV 87.3 (80.0-100.0) fL MCH 31.2 (25.0-34.0) pg MCHC 35.7 (32.0-36.0) g/dL RDW Std Deviation 46.2 (36.4-46.3) fL RDW Coeff of Elvira 14.5 (11.5-14.5) % Plt Count 137 (130-400) K/uL MPV 9.7 (9.4-12.3) fL Platelet Estimate Normal (Normal) Sodium 136 (136-145) mmol/L Potassium 3.9 (3.5-5.1) mmol/L Chloride 100 (98-107) mmol/L Carbon Dioxide 30 (21-32) mmol/L Anion Gap 6 (3-11) BUN 13 (6-23) mg/dl Creatinine 0.66 (0.6-1.2) mg/dl Est Cr Clr Drug Dosing 74.3 ml/min Est GFR ( Amer) 104.5 ml/min Est GFR (Non-Af Amer) 90.1 ml/min BUN/Creatinine Ratio 19.7 (10-20) Glucose 215 H (70-99(Fasting)) mg/dl POC Glucose 147 H (70-99) mg/dl Calcium 8.1 L (8.5-10.1) mg/dl Phosphorus 3.4 (2.5-4.9) mg/dl Magnesium 1.7 (1.7-2.4) mg/dl Blood Type Antibody Screen Crossmatch 09/24/22 09/24/22 09/24/22 Range/Units 20:24 16:56 16:28 WBC (4.8-10.8) K/ul RBC (3.93-5.22) M/uL Hgb 9.3 L D (12.0-16.0) g/dl Hct 26.4 L (34.1-44.9) % MCV (80.0-100.0) fL MCH (25.0-34.0) pg MCHC (32.0-36.0) g/dL RDW Std Deviation (36.4-46.3) fL RDW Coeff of Elvira (11.5-14.5) % Plt Count (130-400) K/uL MPV (9.4-12.3) fL Platelet Estimate (Normal) Sodium (136-145) mmol/L Potassium (3.5-5.1) mmol/L Chloride (98-107) mmol/L Carbon Dioxide (21-32) mmol/L Anion Gap (3-11) BUN (6-23) mg/dl Creatinine (0.6-1.2) mg/dl Est Cr Clr Drug Dosing ml/min Est GFR ( Amer) ml/min Est GFR (Non-Af Amer) ml/min BUN/Creatinine Ratio (10-20) Glucose (70-99(Fasting)) mg/dl POC Glucose 106 H 115 H (70-99) mg/dl Calcium (8.5-10.1) mg/dl Phosphorus (2.5-4.9) mg/dl Magnesium (1.7-2.4) mg/dl Blood Type Antibody Screen Crossmatch 09/24/22 09/22/22 Range/Units 11:29 20:58 WBC (4.8-10.8) K/ul RBC (3.93-5.22) M/uL Hgb (12.0-16.0) g/dl Hct (34.1-44.9) % MCV (80.0-100.0) fL MCH (25.0-34.0) pg MCHC (32.0-36.0) g/dL RDW Std Deviation (36.4-46.3) fL RDW Coeff of Elvira (11.5-14.5) % Plt Count (130-400) K/uL MPV (9.4-12.3) fL Platelet Estimate (Normal) Sodium (136-145) mmol/L Potassium (3.5-5.1) mmol/L Chloride (98-107) mmol/L Carbon Dioxide (21-32) mmol/L Anion Gap (3-11) BUN (6-23) mg/dl Creatinine (0.6-1.2) mg/dl Est Cr Clr Drug Dosing ml/min Est GFR ( Amer) ml/min Est GFR (Non-Af Amer) ml/min BUN/Creatinine Ratio (10-20) Glucose (70-99(Fasting)) mg/dl POC Glucose 217 H (70-99) mg/dl Calcium (8.5-10.1) mg/dl Phosphorus (2.5-4.9) mg/dl Magnesium (1.7-2.4) mg/dl Blood Type A Negative Antibody Screen NEGATIVE Crossmatch See Detail Medications Administered Current Inpatient Medications Acetaminophen (Acetaminophen 500 Mg Tab) 1,000 mg PO Q6H PRN PRN Reason: Moderate Pain Stop: 10/23/22 14:43 Last Admin: 09/24/22 21:45 Dose: 1,000 mg Amlodipine Besylate (Amlodipine Besylate 5 Mg Tab) 5 mg PO DAILY [facility] Stop: 10/23/22 08:59 Apixaban (Apixaban 2.5 Mg Tab) 2.5 mg PO BID [facility] Stop: 10/23/22 20:59 Last Admin: 09/23/22 21:08 Dose: 2.5 mg Atorvastatin Calcium (Atorvastatin 10 Mg Tab) 10 mg PO PM [facility] Stop: 10/22/22 21:29 Last Admin: 09/24/22 21:44 Dose: 10 mg Bimatoprost (Bimatoprost 0.01% Op Soln 2.5 Ml Btl) 1 drops OPB PM [facility] Stop: 10/23/22 21:29 Last Admin: 09/24/22 21:44 Dose: 1 drops Dextrose (Dextrose 50% 50 Ml Syringe) 25 - 50 ml IV UD PRN; Protocol PRN Reason: Hypoglycemia Protocol Stop: 10/22/22 20:44 Ferrous Sulfate (Ferrous Sulfate 325 Mg Tab) 325 mg PO DAILY [facility] Stop: 10/23/22 08:59 Last Admin: 09/24/22 09:38 Dose: 325 mg Furosemide (Furosemide 40 Mg Tab) 40 mg PO MOWEFR [facility] Stop: 10/25/22 08:59 Furosemide (Furosemide 20 Mg Tab) 20 mg PO SUTUTHSA [facility] Stop: 10/24/22 08:59 Last Admin: 09/24/22 09:38 Dose: 20 mg Glucagon (Glucagon For Inj 1 Mg Vial) 1 mg SQ UD PRN; Protocol PRN Reason: Hypoglycemia Protocol Stop: 10/22/22 20:44 Glucose (Glucose 40% Gel 15 Gm Tube) 15 - 30 gm PO UD PRN; Protocol PRN Reason: Hypoglycemia Protocol Stop: 10/22/22 20:44 Glucose (Glucose 10 Tab/Tube) 4 - 8 tab PO UD PRN; Protocol PRN Reason: Hypoglycemia Treatment Stop: 10/22/22 20:44 Hydrocortisone (Hydrocortisone 1% Crm 30 Gm Tube) 1 appln EXT BID PRN PRN Reason: itching, rash Stop: 10/24/22 12:47 Last Admin: 09/24/22 14:36 Dose: 1 appln Hydroxychloroquine Sulfate (Hydroxychloroquine Sulfate 200 Mg Tab) 200 mg PO PM [facility] Stop: 10/22/22 20:59 Last Admin: 09/24/22 21:44 Dose: 200 mg Insulin Aspart (Insulin Aspart Per Unit) 0 units SC ACHS [facility] Stop: 10/23/22 16:29 Last Admin: 09/24/22 21:24 Dose: Not Given Insulin Glargine (Lantus Per Unit Charge) 15 units SQ DAILY [facility] Stop: 10/24/22 08:59 Last Admin: 09/24/22 09:36 Dose: 15 units Insulin Glargine (Lantus Per Unit Charge) 0 units SQ HS [facility]; Protocol Stop: 10/24/22 20:59 Last Admin: 09/24/22 21:24 Dose: Not Given Magnesium Oxide (Magnesium Oxide 400 Mg Tab) 400 mg PO BID [facility] Stop: 10/24/22 12:44 Last Admin: 09/24/22 21:44 Dose: 400 mg Metoprolol Succinate (Metoprolol Succ 50mg Ext Rel Tab) 50 mg PO BID [facility] Stop: 10/23/22 08:59 Last Admin: 09/24/22 21:45 Dose: 50 mg Miscellaneous (Carbohydrates For Hypoglycemia ) 15 - 30 gm PO UD PRN PRN Reason: Hypoglycemia Protocol Stop: 10/22/22 20:44 Miscellaneous Information (Pharmacy Glycemic Mgmt Consult) 1 each N/A UD PRN; Protocol PRN Reason: Consult Stop: 10/23/22 14:43 Multivitamins/Minerals (Cerovite Adv Formula Tab) 1 tab PO QDL [facility] Stop: 10/24/22 11:29 Last Admin: 09/24/22 09:38 Dose: 1 tab Ondansetron HCl (Ondansetron Inj 2 Mg/Ml 2 Ml Vial) 2 mg IV Q4H PRN PRN Reason: Nausea Stop: 10/23/22 16:39 Oxycodone HCl (Oxycodone Hcl Ir 5 Mg Tab (Immediate Release)) 5 mg PO Q6H PRN PRN Reason: Pain Stop: 10/07/22 14:43 Polyethylene Glycol (Polyethylene (Miralax) 17 Gm Pack) 17 gm PO Q6 [facility] Stop: 10/25/22 17:59 Sodium Biphosphate/Sodium Phosphate (Sod Phosphate/Sod Biphosphate Enema 132 Ml Btl) 132 ml [place] DAILY PRN PRN Reason: Constipation Stop: 10/23/22 14:43
[2022-09-25] MEDS: INSULIN ASPART PER UNIT SC SCH ×4 (08:06→21:04)
[2022-09-25] MEDS: MAGNESIUM OXIDE 400 MG TAB PO SCH ×2 (08:07→20:14)
[2022-09-25] MEDS: FERROUS SULFATE 325 MG TAB PO SCH (08:07)
[2022-09-25] MEDS: METOPROLOL SUCC 50MG EXT REL TAB PO SCH ×2 (08:08→20:14)
[2022-09-25] MEDS: LANTUS PER UNIT CHARGE SQ SCH (08:10)
--- NOTE | 2022-09-25 08:54 | Orthopedic Progress Note ---
Date of Service September 25, 2022 Assessment & Plan (1) Intertrochanteric fracture of left hip: Overall she is doing fairly well. She not in too much pain in the left hip. She will be seen by physical therapy again today for ambulation and range of motion exercises. She will likely need SNF placement. She is currently on Eliquis 2.5 mg twice a day for 4 weeks for DVT prophylaxis. She can be weightbearing as tolerated. She is orthopedically stable for discharge when medically ready. Full orthopedic discharge instructions were placed in the discharge summary. Faith Chester was seen and examined at bedside this morning. Overall she is doing fair ly well. She is having too much pain in the left hip. She was not able to ambulate yesterday with physical therapy. She has no new complaints.. Review of Systems All systems reviewed & are unremarkable except as noted in HPI & below. Physical Exam On physical examination of the left hip, the dressings are clean and dry. Her leg is out full extension. She is at dorsiflexion plantarflexion of her left ankle.. Results & Data Results & Data Laboratory Results . Diagnostic Findings . PG Care Time/CCT Total # of Minutes Spent Total Time Spent with Patient: Total time spent is greater than 50% in coordination of care (as documented) at patient's floor/unit and/or counseling patient: Coding Level of Care Code 64843 Post Operative Follow-Up Diagnoses Intertrochanteric fracture of left hip S72.142A
[2022-09-25] MEDS ORDERED: FUROSEMIDE 40 MG TAB PO SCH (09:00)
[2022-09-25] MEDS: APIXABAN 2.5 MG TAB PO SCH ×2 (09:29→20:14)
[2022-09-25 09:37] LABS: BUN Creatinine Ratio 19.7 (10-20); Calcium 8.1 mg/dl (8.5-10.1); Creatinine Clr Calc Pharmacy 74.3 ml/min; Est GFR (African American) 104.5 ml/min; Est GFR (Non-African American) 90.1 ml/min; Magnesium 1.7 mg/dl (1.7-2.4); Phosphorus 3.4 mg/dl (2.5-4.9); Potassium 3.9 mmol/L (3.5-5.1)
[2022-09-25 09:44] LABS: Hematocrit (blood only) 24.1 % (34.1-44.9); Hemoglobin 8.6 g/dl (12.0-16.0); Mean Corpuscular Hemoglobin 31.2 pg (25.0-34.0); Mean Corpuscular Hgb Conc 35.7 g/dL (32.0-36.0); Mean Corpuscular Volume 87.3 fL (80.0-100.0); Mean Platelet Volume 9.7 fL (9.4-12.3); Platelet Count 137 K/uL (130-400); Platelet Estimate Normal (Normal); RDW Coefficient of Variation 14.5 % (11.5-14.5); RDW Standard Deviation 46.2 fL (36.4-46.3); Red Blood Count 2.76 M/uL (3.93-5.22); White Blood Count 6.16 K/ul (4.8-10.8)
[2022-09-25] MEDS: CEROVITE ADV FORMULA TAB PO SCH (11:56)
[2022-09-25] MEDS: POLYETHYLENE (MIRALAX) 17 GM PACK PO SCH (17:00)
[2022-09-25] MEDS: HYDROXYCHLOROQUINE SULFATE 200 MG TAB PO SCH (20:13)
[2022-09-25] MEDS: ATORVASTATIN 10 MG TAB PO SCH (20:14)
[2022-09-25] MEDS: BIMATOPROST 0.01% OP SOLN 2.5 ML BTL OPB SCH (20:14)
[2022-09-25] MEDS: ACETAMINOPHEN 500 MG TAB PO PRN (21:03)
[2022-09-26] MEDS: POLYETHYLENE (MIRALAX) 17 GM PACK PO SCH ×3 (00:26→13:13)
--- NOTE | 2022-09-26 07:15 | Orthopedic Progress Note ---
Date of Service September 26, 2022 Assessment & Plan (1) Intertrochanteric fracture of left hip: Overall she is doing well. She is not having too much pain in the left hip. She will be seen by physical therapy for ambulation and range of motion exercises. She is orthopedically stable for discharge to rehab when medically ready. Full orthopedic discharge instructions were placed in the discharge summary. She will be on Eliquis 2.5 mg twice a day for 4 weeks. She will follow-up orthopedics in 2 weeks. Faith Chester was seen and examined at bedside this morning. Overall she is doing okay. She was able to ambulate some yesterday with physical therapy. She is not having too much pain. She has no complaints.. Review of Systems All systems reviewed & are unremarkable except as noted in HPI & below. Physical Exam On physical examination of the left hip, the dressings are clean and dry. Her leg is out full extension. She has active dorsiflexion plantarflexion of her left ankle.. Results & Data Results & Data Laboratory Results . Diagnostic Findings . PG Care Time/CCT Total # of Minutes Spent Total Time Spent with Patient: Total time spent is greater than 50% in coordination of care (as documented) at patient's floor/unit and/or counseling patient: Coding Level of Care Code 89312 Post Operative Follow-Up Diagnoses Intertrochanteric fracture of left hip S72.142A
[2022-09-26 08:25] LABS: Hemoglobin 8.7 g/dl (12.0-16.0); Mean Corpuscular Hemoglobin 31.3 pg (25.0-34.0); Mean Corpuscular Hgb Conc 34.8 g/dL (32.0-36.0); Mean Corpuscular Volume 89.9 fL (80.0-100.0); Mean Platelet Volume 9.9 fL (9.4-12.3); Platelet Count 164 K/uL (130-400); RDW Coefficient of Variation 13.6 % (11.5-14.5); Red Blood Count 2.78 M/uL (3.93-5.22)
[2022-09-26] MEDS: METOPROLOL SUCC 50MG EXT REL TAB PO SCH (08:27)
[2022-09-26] MEDS: MAGNESIUM OXIDE 400 MG TAB PO SCH (08:27)
[2022-09-26] MEDS: APIXABAN 2.5 MG TAB PO SCH (08:27)
[2022-09-26] MEDS: FERROUS SULFATE 325 MG TAB PO SCH (08:28)
[2022-09-26] MEDS: FUROSEMIDE 20 MG TAB PO SCH (08:28)
[2022-09-26] MEDS: LANTUS PER UNIT CHARGE SQ SCH (08:34)
[2022-09-26] MEDS: INSULIN ASPART PER UNIT SC SCH ×2 (08:34→13:11)
[2022-09-26 08:48] LABS: Calcium 8.3 mg/dl (8.5-10.1); Est GFR (African American) 102.5 ml/min; Est GFR (Non-African American) 88.4 ml/min; Magnesium 1.9 mg/dl (1.7-2.4); Phosphorus 3.6 mg/dl (2.5-4.9); Potassium 3.7 mmol/L (3.5-5.1)
--- NOTE | 2022-09-26 08:52 | Hospitalist Progress Note ---
Date of Service September 26, 2022 Assessment & Plan (1) Intertrochanteric fracture of left hip: Plan: 67 y/o F w/ HTN, dyslipidemia, CVA, DM II, iron deficiency anemia, anemia of chronic disease, connective tissue disorder, CKD II, mitral regurgitation, pulmonary hypertension who presents w/ L hip fx after mechanical fall. Left Hip Xray: Comminuted and mildly displaced intertrochanteric fracture of the left proximal femur. Posttraumatic deformity of the left pubic ring is likely chronic. Orthopedics consulted. Pt s/p surgical repair on 09/[address] Foley. Pain control Weight-bear as tolerated DVT ppx - apixaban 2.5 bid started by surgery - plan for 4 weeks PT/OT Monitor CBC, BMP Acute on chronic anemia Patient has history of iron-deficiency anemia, follows with Dr. Estrada Baseline Hgb 10-12 Now superimposed blood loss anemia due to surgery hemoglobin 5.8 on 09/24 s/p 2 units of PRBCs Patient denies any chest pain palpitations or shortness of breath Continue close monitor H&H, current hgb 8.7 (stable from yesterday) Continue iron supplement (2) Diabetes mellitus, type 2: Plan: A1c: 6.7 on 03/29/2022 Hold home oral medication Basal bolus insulin per protocol Current A1c 7.0% (3) Hypertension: Plan: hold amlodipine for now (4) Hyperlipidemia: Plan: Continue statin (5) Transient ischemic attack (TIA): Plan: Continue aspirin, statin (6) Connective tissue disease: Plan: Follows with [facility] rheumatology Continue hydroxychloroquine (7) Anemia: (8) Valvular heart disease: (9) Pulmonary hypertension: Plan: Follows with [facility] cardiology History echo in 08/18/22: EF: 60-645, grade I diastolic dysfunction, moderate- severe MR, moderate TR, mild pulmonary hypertension Monitor volume status closely Plan to resume Lasix after surgery DVT Prophylaxis SCDs, apixaban Full Code as per discussion with pt Follows with Cyn Vivar PA-C for routine care Admission and Anticipated Discharge Date Admission Date: September 22, 2022 Subjective Patient seen in follow-up of left hip fracture. She is sitting up in chair, in no acute distress. Pain is well controlled. She is s/p surgical repair No chest pain, shortness of breath, palpitations. No abdominal pain nausea vomiting. No fevers chills. Received 2 units of pRBCs. Hgb stable and pt is on apixaban. Review of Systems Review of Systems: All systems reviewed & are unremarkable except as noted in Subjective Physical Exam Physical Exam: General: no acute distress, WDWN elderly female Head: normocephalic, atraumatic Eyes: conjunctiva non-injected, anicteric ENT: normal inspection external ears, nose, mucous membranes moist Neck: supple Lungs: clear, no respiratory distress, no wheezing/rhonchi/rales CV: RRR, + murmur, trace pretibial edema Abd: normal BS, soft, non-tender Ext: LLE: +pain to lateral hip with palpation, ROM not tested, distal pulses palpable, sensation to light touch intact Neuro: A&O x 3, no focal deficits noted, normal affect Skin: warm, dry Results & Data Results & Data ([facility]) Vital Signs (Past 12 Hours) Vital Signs Temp Pulse Pulse Pulse Resp BP BP 09/26/22 08:18 36.9 C 101 H 18 135/75 09/26/22 07:26 92 H 09/26/22 04:00 37.0 C 80 19 120/66 09/26/22 00:00 89 09/25/22 22:17 37.2 C 84 118/68 Pulse Ox O2 Del Method 09/26/22 08:18 99 Room Air 09/26/22 07:26 09/26/22 04:00 97 Room Air 09/26/22 00:00 09/25/22 22:17 96 Room Air Laboratory Results 09/26/22 09/26/22 09/26/22 Range/Units 08:01 07:55 07:55 WBC 6.20 (4.8-10.8) K/ul RBC 2.78 L (3.93-5.22) M/uL Hgb 8.7 L (12.0-16.0) g/dl Hct 25.0 L (34.1-44.9) % MCV 89.9 (80.0-100.0) fL MCH 31.3 (25.0-34.0) pg MCHC 34.8 (32.0-36.0) g/dL RDW Std Deviation 45.0 (36.4-46.3) fL RDW Coeff of Elvira 13.6 (11.5-14.5) % Plt Count 164 (130-400) K/uL MPV 9.9 (9.4-12.3) fL Platelet Estimate (Normal) Sodium 136 (136-145) mmol/L Potassium 3.7 (3.5-5.1) mmol/L Chloride 99 (98-107) mmol/L Carbon Dioxide 32 (21-32) mmol/L Anion Gap 5 (3-11) BUN 14 (6-23) mg/dl Creatinine 0.70 (0.6-1.2) mg/dl Est Cr Clr Drug Dosing 70.0 ml/min Est GFR ( Amer) 102.5 ml/min Est GFR (Non-Af Amer) 88.4 ml/min BUN/Creatinine Ratio 20.0 (10-20) Glucose 140 H (70-99(Fasting)) mg/dl POC Glucose 134 H (70-99) mg/dl Calcium 8.3 L (8.5-10.1) mg/dl Phosphorus 3.6 (2.5-4.9) mg/dl Magnesium 1.9 (1.7-2.4) mg/dl 09/25/22 09/25/22 09/25/22 Range/Units 20:38 16:39 11:39 WBC (4.8-10.8) K/ul RBC (3.93-5.22) M/uL Hgb (12.0-16.0) g/dl Hct (34.1-44.9) % MCV (80.0-100.0) fL MCH (25.0-34.0) pg MCHC (32.0-36.0) g/dL RDW Std Deviation (36.4-46.3) fL RDW Coeff of Elvira (11.5-14.5) % Plt Count (130-400) K/uL MPV (9.4-12.3) fL Platelet Estimate (Normal) Sodium (136-145) mmol/L Potassium (3.5-5.1) mmol/L Chloride (98-107) mmol/L Carbon Dioxide (21-32) mmol/L Anion Gap (3-11) BUN (6-23) mg/dl Creatinine (0.6-1.2) mg/dl Est Cr Clr Drug Dosing ml/min Est GFR ( Amer) ml/min Est GFR (Non-Af Amer) ml/min BUN/Creatinine Ratio (10-20) Glucose (70-99(Fasting)) mg/dl POC Glucose 100 H 199 H 199 H (70-99) mg/dl Calcium (8.5-10.1) mg/dl Phosphorus (2.5-4.9) mg/dl Magnesium (1.7-2.4) mg/dl 09/25/22 09/25/22 Range/Units 08:51 08:51 WBC 6.16 (4.8-10.8) K/ul RBC 2.76 L (3.93-5.22) M/uL Hgb 8.6 L (12.0-16.0) g/dl Hct 24.1 L (34.1-44.9) % MCV 87.3 (80.0-100.0) fL MCH 31.2 (25.0-34.0) pg MCHC 35.7 (32.0-36.0) g/dL RDW Std Deviation 46.2 (36.4-46.3) fL RDW Coeff of Elvira 14.5 (11.5-14.5) % Plt Count 137 (130-400) K/uL MPV 9.7 (9.4-12.3) fL Platelet Estimate Normal (Normal) Sodium 136 (136-145) mmol/L Potassium 3.9 (3.5-5.1) mmol/L Chloride 100 (98-107) mmol/L Carbon Dioxide 30 (21-32) mmol/L Anion Gap 6 (3-11) BUN 13 (6-23) mg/dl Creatinine 0.66 (0.6-1.2) mg/dl Est Cr Clr Drug Dosing 74.3 ml/min Est GFR ( Amer) 104.5 ml/min Est GFR (Non-Af Amer) 90.1 ml/min BUN/Creatinine Ratio 19.7 (10-20) Glucose 215 H (70-99(Fasting)) mg/dl POC Glucose (70-99) mg/dl Calcium 8.1 L (8.5-10.1) mg/dl Phosphorus 3.4 (2.5-4.9) mg/dl Magnesium 1.7 (1.7-2.4) mg/dl Medications Administered Current Inpatient Medications Acetaminophen (Acetaminophen 500 Mg Tab) 1,000 mg PO Q6H PRN PRN Reason: Moderate Pain Stop: 10/23/22 14:43 Last Admin: 09/25/22 21:03 Dose: 1,000 mg Amlodipine Besylate (Amlodipine Besylate 5 Mg Tab) 5 mg PO DAILY [facility] Stop: 10/23/22 08:59 Apixaban (Apixaban 2.5 Mg Tab) 2.5 mg PO BID [facility] Stop: 10/23/22 20:59 Last Admin: 09/26/22 08:27 Dose: 2.5 mg Atorvastatin Calcium (Atorvastatin 10 Mg Tab) 10 mg PO PM [facility] Stop: 10/22/22 21:29 Last Admin: 09/25/22 20:14 Dose: 10 mg Bimatoprost (Bimatoprost 0.01% Op Soln 2.5 Ml Btl) 1 drops OPB PM [facility] Stop: 10/23/22 21:29 Last Admin: 09/25/22 20:14 Dose: 1 drops Dextrose (Dextrose 50% 50 Ml Syringe) 25 - 50 ml IV UD PRN; Protocol PRN Reason: Hypoglycemia Protocol Stop: 10/22/22 20:44 Ferrous Sulfate (Ferrous Sulfate 325 Mg Tab) 325 mg PO DAILY [facility] Stop: 10/23/22 08:59 Last Admin: 09/26/22 08:28 Dose: 325 mg Furosemide (Furosemide 40 Mg Tab) 40 mg PO MOWEFR [facility] Stop: 10/25/22 08:59 Last Admin: 09/25/22 08:06 Dose: 40 mg Furosemide (Furosemide 20 Mg Tab) 20 mg PO SUTUTHSA [facility] Stop: 10/24/22 08:59 Last Admin: 09/26/22 08:28 Dose: 20 mg Glucagon (Glucagon For Inj 1 Mg Vial) 1 mg SQ UD PRN; Protocol PRN Reason: Hypoglycemia Protocol Stop: 10/22/22 20:44 Glucose (Glucose 40% Gel 15 Gm Tube) 15 - 30 gm PO UD PRN; Protocol PRN Reason: Hypoglycemia Protocol Stop: 10/22/22 20:44 Glucose (Glucose 10 Tab/Tube) 4 - 8 tab PO UD PRN; Protocol PRN Reason: Hypoglycemia Treatment Stop: 10/22/22 20:44 Hydrocortisone (Hydrocortisone 1% Crm 30 Gm Tube) 1 appln EXT BID PRN PRN Reason: itching, rash Stop: 10/24/22 12:47 Last Admin: 09/24/22 14:36 Dose: 1 appln Hydroxychloroquine Sulfate (Hydroxychloroquine Sulfate 200 Mg Tab) 200 mg PO PM [facility] Stop: 10/22/22 20:59 Last Admin: 09/25/22 20:13 Dose: 200 mg Insulin Aspart (Insulin Aspart Per Unit) 0 units SC ACHS [facility] Stop: 10/23/22 16:29 Last Admin: 09/26/22 08:34 Dose: 5 units Insulin Glargine (Lantus Per Unit Charge) 15 units SQ DAILY [facility] Stop: 10/24/22 08:59 Last Admin: 09/26/22 08:34 Dose: 15 units Magnesium Oxide (Magnesium Oxide 400 Mg Tab) 400 mg PO BID [facility] Stop: 10/24/22 12:44 Last Admin: 09/26/22 08:27 Dose: 400 mg Metoprolol Succinate (Metoprolol Succ 50mg Ext Rel Tab) 50 mg PO BID [facility] Stop: 10/23/22 08:59 Last Admin: 09/26/22 08:27 Dose: 50 mg Miscellaneous (Carbohydrates For Hypoglycemia ) 15 - 30 gm PO UD PRN PRN Reason: Hypoglycemia Protocol Stop: 10/22/22 20:44 Miscellaneous Information (Pharmacy Glycemic Mgmt Consult) 1 each N/A UD PRN; Protocol PRN Reason: Consult Stop: 10/23/22 14:43 Multivitamins/Minerals (Cerovite Adv Formula Tab) 1 tab PO QDL [facility] Stop: 10/24/22 11:29 Last Admin: 09/25/22 11:56 Dose: 1 tab Ondansetron HCl (Ondansetron Inj 2 Mg/Ml 2 Ml Vial) 2 mg IV Q4H PRN PRN Reason: Nausea Stop: 10/23/22 16:39 Oxycodone HCl (Oxycodone Hcl Ir 5 Mg Tab (Immediate Release)) 5 mg PO Q6H PRN PRN Reason: Pain Stop: 10/07/22 14:43 Polyethylene Glycol (Polyethylene (Miralax) 17 Gm Pack) 17 gm PO Q6 [facility] Stop: 10/25/22 17:59 Last Admin: 09/26/22 06:05 Dose: 17 gm Sodium Biphosphate/Sodium Phosphate (Sod Phosphate/Sod Biphosphate Enema 132 Ml Btl) 132 ml [place] DAILY PRN PRN Reason: Constipation Stop: 10/23/22 14:43
--- NOTE | 2022-09-26 12:36 | Discharge Summary ---
Date of Service September 26, 2022 Admission HPI Per Admitting Provider Patient is 67 y/o F with PMH HTN, dyslipidemia, CVA, DM II, iron deficiency anemia, anemia of chronic disease, connective tissue disorder, CKD II, mitral regurgitation, pulmonary hypertension and others listed below presents to ER with c/o fall and left hip pain. Patient states today was getting out of car and she leaned against the car door and it opened and she fell out onto left side. Had pain in left hip and was unable to get up. Denies hitting head or LOC. Denies any other known injury. Denies dizziness or CP, SOB prior to fall. Reports started amlodipine in August and patient reports feeling dizzy and achy. She reports was taken off losartan in August. Denies fever/chills, diaphoresis, N/V/D/C, [place], syncope, vision changes, neck pain, CP, SOB, orthopnea, palpitations, cough, sore throat, choking, otalgia, rhinorrhea, abdominal pain, paresthesias, weakness, extremity edema, rashes, urinary symptoms. History echo in 08/18/22: EF: 60-645, grade I diastolic dysfunction, moderate- severe MR, moderate TR, mild pulmonary hypertension. Admission Exam Per Admitting Provider General: no acute distress, WDWN elderly female Head: normocephalic, atraumatic Eyes: conjunctiva non-injected, anicteric ENT: normal inspection external ears, nose, mucous membranes moist Neck: supple, trachea midline Lungs: clear, no respiratory distress, no wheezing/rhonchi/rales CV: RRR, + murmur, trace pretibial edema Abd: normal BS, soft, non-tender Ext: no cyanosis, no calf tenderness; LLE: +foot externally rotated and shortened. +pain to lateral hip with palpation, ROM not tested, distal pulses palpable, sensation to light touch intact Neuro: A&O x 3, no focal deficits noted, normal affect Skin: warm, dry Principal Diagnosis Intertrochanteric fracture of left hip s/p Intramedullary Nail Fixation Left Hip(Left) Discharge Exam General: no acute distress, WDWN elderly female Head: normocephalic, atraumatic Eyes: conjunctiva non-injected, anicteric ENT: normal inspection external ears, nose, mucous membranes moist Neck: supple Lungs: clear, no respiratory distress, no wheezing/rhonchi/rales CV: RRR, + murmur, trace pretibial edema Abd: normal BS, soft, non-tender Ext: LLE: +pain to lateral hip with palpation, ROM not tested, distal pulses palpable, sensation to light touch intact Neuro: A&O x 3, no focal deficits noted, normal affect Skin: warm, dry Discharge Data Allergies Allergy/AdvReac Type Severity Reaction Status Date / Time tomato Allergy Unknown Verified 09/23/22 16:21 hydrochlorothiazide AdvReac hyponatremi Verified 09/22/22 18:46 a Procedures Performed Operation Date: 09/23/22 10:30 Actual Procedures p Intramedullary Nail Fixation Left Hip(Left) - Genaro Foley DO Ordered Studies 09/22/22 21:26 CT hip LT wo con Urgent FINDINGS: Note is made of an acute displaced significantly comminuted and moderately displaced intertrochanteric fracture of the left femur. No underlying osseous lesion is identified by CT. There is associated moderate intramuscular hemorrhage within the adjacent musculature, including the left iliacus and adductor muscles. There is no soft tissue gas. No additional acute fractures are present. Moderate degenerative changes of the left sacroiliac joint are present. There is an old left inferior pubic ramus fracture. IMPRESSION: 1. Acute comminuted displaced intertrochanteric fracture of the left femur. No underlying lesion by CT. 2. Moderate associated intramuscular hemorrhage, as described above. 09/23/22 FL hip LT 2-3V Routine Hospital Course (1) Intertrochanteric fracture of left hip: 67 y/o F w/ HTN, dyslipidemia, CVA, DM II, iron deficiency anemia, anemia of chronic disease, connective tissue disorder, CKD II, mitral regurgitation, pulmonary hypertension who presents w/ L hip fx after mechanical fall. Left Hip Xray: Comminuted and mildly displaced intertrochanteric fracture of the left proximal femur. Posttraumatic deformity of the left pubic ring is likely chronic. Orthopedics consulted. Pt s/p surgical repair on 09/[address] Foley. Pain control Weight-bear as tolerated DVT ppx - apixaban 2.5 bid started by surgery - plan for 4 weeks PT/OT Monitor CBC, BMP Acute on chronic anemia Patient has history of iron-deficiency anemia, follows with Dr. Natalie Baseline Hgb 10-12 Now superimposed blood loss anemia due to surgery hemoglobin 5.8 on 09/24 s/p 2 units of PRBCs Patient denies any chest pain palpitations or shortness of breath Continue close monitor H&H, current hgb 8.7 (stable from yesterday) Continue iron supplement (2) Diabetes mellitus, type 2: A1c: 6.7 on 03/29/2022 Hold home oral medication Basal bolus insulin per protocol Current A1c 7.0% (3) Hypertension: hold amlodipine for now (4) Hyperlipidemia: Continue statin (5) Transient ischemic attack (TIA): Continue aspirin, statin (6) Connective tissue disease: Follows with [facility] Continue hydroxychloroquine (7) Anemia: (8) Valvular heart disease: (9) Pulmonary hypertension: Follows with [facility] cardiology History echo in 08/18/22: EF: 60-645, grade I diastolic dysfunction, moderate- severe MR, moderate TR, mild pulmonary hypertension Monitor volume status closely Resumed Lasix after surgery DVT Prophylaxis SCDs, apixaban Full Code as per discussion with pt Follows with Cyn Vivar PA-C for routine care Total Time Total Time Spent Total Time Spent (In Minutes): 40 Discharge Plan Discharge Items Patient Disposition: Transfer Inpatient Rehab Fac Reason For Visit: FEMUR FRACTURE Discharge Diagnosis: Intertrochanteric fracture of left hip s/p Intramedullary Nail Fixation Left Hip(Left) - Genaro Foley DO Activity: Per Instructions section Non-emergency contact: Primary Care Provider and Surgeon Call non-emergency contact if: you have any medication questions and your symptoms worsen Follow-up/Referrals: Emilee Hdz DO [Primary Care Provider] - Diet: Carb Consistent or DM2 and Heart Healthy Addtl Attending Provider Instructions: Follow up with the primary care doctor, and follow-up with orthopedic surgeon in 2 weeks. Take Eliquis 2.5 mg twice a day for 4 weeks to prevent blood clots. Read instructions from orthopedic surgeon below in detail. Eliquis is a blood thinner. Decrease your intake of aspirin to 81 mg a day. Also decrease your amlodipine, blood pressure medication, to 2.5 mg daily. Monitor your blood pressure and adjust the dose with your primary care physician. For pain, take Tylenol 1000 mg 3 times a day, the max daily dose is 3000 mg. For more severe pain, use oxycodone, as prescribed. Addtl File System Installer Provider Instructions: ORTHOPEDIC INSTRUCTIONS Hip Fracture Activity and Therapy Recommendations: 1. You were shown a series of exercises in the hospital. Do these exercises three times each day if you are able. 2. Get up and walk several times each day if you are capable. Make sure you have assistance is needed. For the first four weeks, try not to stand or walk for more than one hour at a time. If you do stand or walk for more than one hour, you will not hurt anything, but your leg will likely swell. 3. As you feel comfortable, you may change from the walker or crutches to a cane and then to independent walking if you are able. Please be safe. Medications: 1. Narcotic You will likely be sent from the hospital with the narcotic pain medication that worked best throughout your stay. 2. Eliquis You will likely be required to take Eliquis twice a day for 4 weeks after discharge from the hospital 3. Other medications may be given for specific circumstances. If you have any questions, please call the office at [phone]. 4. Resume previous home medications unless otherwise instructed TEDs/Elastic Stockings: The white elastic stockings help limit swelling and prevent blood clots from forming in your legs. The more you wear them, the more they work. Wear them for six weeks. Dressing Care: Margarita can be open to air as long as the incisions are not draining. If the incisions are draining or if the margarita are getting caught on your clothes then please cover the margarita with dry gauze. Change the dressings as necessary to keep the incision as dry as possible Showering: You may shower 5 days from the day of surgery as long as the incisions are not draining. Do not soak the incision. Let soapy water run over the margarita and pat them dry. Things To Watch For: 1. Drainage from the incision site that occurs more than one week after your surgery. 2. Increased redness at the incision site. 3. Fever above 102 degrees Fahrenheit. 4. Unusual chest pain or shortness of breath. 5. Call [facility] at with any of the above problems Follow-Up Visit: Follow-up with Dr. Foley's PA (Genaro Walter) 2-3 weeks after your day of surgery. He will remove your margarita and answer any questions. If you have any additional questions or concerns, Dr Foley is usually in the office at the same time and will be available Please call the office to get an appointment for a time that works for you. Pending Studies at Discharge: No Stand-Alone Forms: [facility] Skilled Items Patient informed of condition?: Yes DNR: No Discharge Level of Care: Acute rehab Communicable Disease: No Discharge Prognosis: Stable Lines: None Urinary Catheter: No Medications and DC Order Prescriptions: New Eliquis 2.5 mg Tablet 2.5 mg PO BID 28 Days Qty: 56 0RF magnesium oxide 400 mg (241.3 mg magnesium) Tablet 400 mg PO BID 7 Days Qty: 14 0RF acetaminophen [Tylenol Extra Strength] 500 mg Tablet 1,000 mg PO Q6H PRN (Reason: pain) 5 Days Qty: 10 0RF oxycodone 5 mg Tablet 5 mg PO Q6H PRN (Reason: pain) Qty: 7 0RF Continued Glucosamine Chondroitin 550-30-1 mg Capsule 1 cap PO BID atorvastatin 10 mg Tablet 10 mg PO PM cyanocobalamin (vitamin B-12) [Vitamin B-12] 1,000 mcg Tablet 1,000 mcg PO QAM calcium carbonate [Calcium 500] 500 mg calcium (1,250 mg) Tablet 500 mg PO DAILY Rx Instructions: AT LUNCH ascorbic acid (vitamin C) [Vitamin C] 500 mg Tablet 500 mg PO DAILY metformin 1,000 mg Tablet 1,000 mg PO BID ferrous gluconate 240 mg (27 mg iron) Tablet 240 mg PO TID hydroxychloroquine 200 mg Tablet 200 mg PO PM coenzyme Q10 [CoQ-10] 100 mg Capsule 100 mg PO DAILY Rx Instructions: AT LUNCH cinnamon bark [Cinnamon] 500 mg Capsule 1 dose PO BID Ocuvite with Lutein 1,000 unit-200 mg-60 unit-2 mg Tablet 1 tab PO DAILY Rx Instructions: LUNCH cholecalciferol (vitamin D3) [Vitamin D3] 1,000 unit Tablet 1,000 unit PO DAILY Rx Instructions: LUNCH TIME Lumigan 0.01 % Drops 1 drp OPB PM metoprolol succinate 50 mg Capsule,Sprinkle,Er 24hr 50 mg PO BID furosemide 20 mg tablet 40 mg PO MOWEFR furosemide 20 mg tablet 20 mg PO SUTUTHSA glyburide 5 mg tablet 5 mg PO BID Changed aspirin 81 mg Tablet,Delayed Release (Dr/Ec) 81 mg PO QPM Qty: 10 0RF amlodipine 5 mg tablet 2.5 mg PO DAILY Qty: 10 0RF Discharge Orders: Discharge Order (Routine); Ordered 09/26/22 Ordered By: Frederic Urias Admission Data Admit Date/Time: 09/22/22 18:34 Attending Provider: Frederic Urias Admit Provider: Frederic Urias Primary Care Provider: Emilee Hdz Other Providers: [facility]
[2022-09-26] MEDS: CEROVITE ADV FORMULA TAB PO SCH (13:13)
== END 2022-09-26 16:34 | DRG 481 ==
LOC: ED 14:19 → 2W 18:34

== ENCOUNTER 2024-09-01 08:20 | Inpatient (IN) ==
[2024-09-01] MEDS: ASPIRIN CHEW 324 MG PO STA (08:46)
[2024-09-01 08:56] LABS: Basophils # (auto) 0.05 K/uL (0.00-0.20); Basophils % (auto) 0.5 %; Eosinophils # (auto) 0.08 K/uL (0.00-0.50); Eosinophils % (auto) 0.8 %; Hematocrit (blood only) 28.3 % (37.0-47.0); Hemoglobin 9.5 g/dl (12.0-16.0); Immature Granulocytes # (auto) 0.06 K/uL (0.01-0.20); Immature Granulocytes % (auto) 0.6 %; Lymphocytes # (auto) 1.13 K/uL (1.20-3.40); Lymphocytes % (auto) 11.6 %; Mean Corpuscular Hemoglobin 30.5 pg (25.0-34.0); Mean Corpuscular Hgb Conc 33.6 g/dL (32.0-36.0); Mean Platelet Volume 9.3 fL (9.4-12.4); Monocytes % (auto) 5.1 %; Neutrophils # (auto) 7.93 K/uL (1.40-6.50); Neutrophils % (auto) 81.4 %; Platelet Count 282 K/uL (130-400); RDW Coefficient of Variation 12.9 % (11.5-14.5); RDW Standard Deviation 42.3 fL (36.4-46.3); Red Blood Count 3.11 M/uL (4.20-5.40); White Blood Count 9.75 K/ul (4.8-10.8)
[2024-09-01 09:12] LABS: BUN Creatinine Ratio 16.2 (10-20); Calcium 9.2 mg/dl (8.6-10.3); Creatinine Clr Calc Pharmacy 62.8 ml/min; Potassium 4.3 mmol/L (3.5-5.1)
[2024-09-01 09:19] LABS: Troponin I High Sensitivity 7.3 pg/ml (0-14)
--- OUTSIDE RECORDS SUMMARY | 2024-09-01 09:28 | External Medical Summary | Summary of Care ---
Author Name Unknown Organization [facility] Address [address] [place] [address] Phone [phone] Care Team Providers Care Tire Service Technician Name Role Phone Cyn Vivar PA-C Primary Care Provider [phone] [phone] Reason for Visit * Reason Comments eRx-Medication Refill Encounter Details Date Type Department Care Team (Late st Contact Info) Description 07/30/2024 Refill Cardiology, [facility] [address] [place] [address] Jennifer Dunbar PA-C [address] [place] [address] Sinus tachycardia; HTN, goal below 130/80 Allergies Active Allergy Reactions Criticality Noted Date Comments Hydrochlorothiazide 09/19/2019 Hyponatremia documented as of this encounter (statuses as of 07/31/2024) Medications Medication Sig Dispensed Refills Start Date End Date Status OSTEO BI-FLEX ADV TRIPLE ST PO TABS one pill twice a day 60 Tab 0 08/29/2010 Active OCUVITE-LUTEIN PO CAPS 2 CAPSULE DAILY 60 Cap 0 08/29/2010 Active BIMATOPROST 0.01 % OP SOLN One drop each eye before bedtime 02/27/2013 Active CO Q10 100 MG PO CAPS 1 CAPSULE DAILY 1 Cap 0 02/27/2013 Active CALCIUM 600+D 600-200 MG-UNIT PO TABS 1 TABLET DAILY WITH FOOD 60 Tab 0 02/27/2013 Active VITAMIN C 500 MG PO TABS 1 daily 02/27/2013 Active CINNAMON 500 MG PO CAPS 1 twice daily 02/27/2013 Active Cholecalciferol (VITAMIN D3) 2000 UNITS Capsule Take 1,000 Units by mouth daily. 07/28/2015 Active vitamin b 12 (CYANOCOBALAMIN) 1000 MCG TABS Take 1 Tablet by mouth in the morning. 07/28/2015 Active Blood Glucose Monitoring Suppl (DIATHRIVE BLOOD GLUCOSE METER) DEVIIndications: Type 2 diabetes mellitus with hemoglobin A1c goal of less than 7.0% ([facility]) Use as directed. 04/28/2019 Active Glucose Blood In Vitro StripIndications :Type 2 diabetes mellitus with hemoglobin A1c goal of less than 7.0% ([facility]) Check blood sugars two times daily. 1 Box Dosing Unit 3 04/28/2019 Active Ferrous Gluconate 256 (28 Fe) MG Oral Tablet (Ferate) Take 2 Tablets by mouth in the morning. Patient takes one at breakfast and one at dinner. . Active Hair Skin & Nails Gummies 1250-7.5-7.5 MCG-MG-UNT Oral Tablet Chewable (Biotin w/ Vitamins C & E) Take by mouth 1 Each daily . Active Aspirin 81 MG Oral Tablet Delayed Release Take 1 Tablet by mouth in the morning and 1 Tablet in the evening. Active Acetaminophen 500 MG Oral Tablet (Tylenol) 2 Tablets. 09/26/2022 Active NATURAL SUPPLEMENT Take 1 Tablet by mouth in the morning. Nervive. Active NATURAL SUPPLEMENT Take 2 Tablets by mouth in the morning. Total Beets. Active glyBURIDE 5 MG Oral Tablet (Diabeta)Indicat ions:Type 2 diabetes mellitus with hemoglobin A1c goal of less than 7.0% (HCC) TAKE 1 TABLET BY MOUTH IN THE MORNING AND BEFORE BEDTIME 180 Tablet 2 01/16/2024 Active metFORMIN HCl 1000 MG Oral Tablet (Glucophage)Andra cations:Type 2 diabetes mellitus with hemoglobin A1c goal of less than 7.0% (HCC) TAKE 1 TABLET BY MOUTH TWICE DAILY WITH MORNING AND EVENING MEALS 180 Tablet 1 02/09/2024 Active Hydroxychloroqui ne Sulfate 200 MG Oral Tablet (Plaquenil)Indic ations:Polyarthr itis of hand TAKE 1 TABLET BY MOUTH AT BEDTIME 90 Tablet 3 02/09/2024 Active Atorvastatin Calcium 10 MG Oral Tablet (Lipitor)Indicat ions:Dyslipidemi a, goal LDL below 70 TAKE 1 TABLET BY MOUTH IN THE MORNING 90 Tablet 1 04/10/2024 Active Furosemide 20 MG Oral Tablet (Lasix)Indicatio ns:HTN, goal below 130/80,Hyperkale brittaney,Hyponatremia TAKE 2 TABLETS BY MOUTH IN THE MORNING 180 Tablet 3 05/19/2024 Active amLODIPine Besylate 5 MG Oral Tablet (Norvasc)Indicat ions:HTN, goal below 130/80,Hyperkale brittaney,Hyponatremia TAKE 1 TABLET BY MOUTH IN THE MORNING 90 Tablet 3 05/19/2024 Active Metoprolol Succinate ER 50 MG Oral Tablet Extended Release 24 Hour (toPROL XL)Indications:S inus tachycardia,HTN, goal below 130/80 TAKE 1 TABLET BY MOUTH IN THE MORNING AND 1 TABLET BY MOUTH BEFORE BEDTIME 180 Tablet 07/31/2024 Active Metoprolol Succinate ER 50 MG Oral Tablet Extended Release 24 Hour (toPROL XL)Indications:S inus tachycardia,HTN, goal below 130/80 TAKE 1 TABLET BY MOUTH IN THE MORNING AND 1 TABLET BY MOUTH BEFORE BEDTIME 180 Tablet 3 08/06/2023 4 Discontinued documented as of this encounter (statuses as of 07/31/2024) Active Problems Problem Noted Date Diagnosed Date Pulmonary hypertension 03/13/2023 Normochromic normocytic anemia 04/05/2021 Type 2 diabetes mellitus wit h stage 2 chronic kidney disease and hypertension 10/31/2019 Type 2 diabetes mellitus wit h hemoglobin A1c goal of less than 7.0% 09/30/2018 Hypercalcemia 06/13/2018 Age-related osteoporosis wit hout current pathological fracture 03/29/2018 Iron deficiency anemia 03/10/2014 HTN, goal below 150/90 11/21/2013 Asymptomatic left ventricular dysfunction 2011 Diffuse connective tissue disease 02/14/2011 Cerebrovascular disease, arteriosclerotic, post- stroke 08/12/2010 Dyslipidemia, goal LDL below 70 documented as of this encounter (statuses as of 07/31/2024) Resolved Problems Problem Noted Date Diagnosed Date Resolved Date Pulmonary hypertension 10/31/201905/02 Hypertensive kidney disease with chronic kidney disease stage III 09/30/2018 04/28/2019 Diabetes mellitus with stage 3 chronic kidney disease 09/30/2018 04/28/2019 Type 2 diabetes mellitus wit h hemoglobin A1c goal of less than 7.0% 09/20/2017 09/20/2017 Overview: ICD-10 update of inactive term Diabetes mellitus due to und erlying condition with diabetic chronic kidney disease 09/20/201704/2017 DM kidney disease 09/20/2017 09/20/2017 Diabetic nephropathy associa gudelia with type 2 diabetes mellitus 09/20/2017 04/28/2019 Encounter for long-term (cur rent) use of medications 03/20/2017 03/14/2024 Kidney disease, chronic, sta ge III (GFR 30-59 ml/min) 03/20/2017 04/28/2019 Routine medical exam 03/02/2016 017 Inflammatory polyarthritis 02/04/2016 0 03/19/2017 Overweight (BMI 25.0-29.9) 09/01/2015 0 03/19/2017 Overview: bmi= 26.78 09/01/15 CKD (chronic kidney disease) stage 2, GFR 60-89 ml/min 03/25/2015 03/20/2017 HTN, goal below 140/90 12/31/201403/02 Closed fracture of left hip 09/17/2014 03/19/2017 HTN, goal below 140/80 11/21/201312/31 Overweight (BMI 25.0-29.9) 09/02/2013 0 03/19/2017 Overview: bmi= 26.15 09/02/13 Acute URI 09/02/2013 03/19/2017 Vitamin D deficiency 09/02/2013 020 Screen for colon cancer 02/27/2013 06/0 02/2017 Proteinuria 08/27/2012 03/19/2017 Osteoporosis 08/22/2012 03/29/2018 Other screening mammogram 08/22/2012 Osteoporosis 02/14/2011 08/22/2012 Overview: T score left femoral neck -2.6 Type 2 diabetes mellitus wit h hemoglobin A1c goal of 7.0%-8.0% 04/14/2010 08/22/2012 Overview: ICD-10 update of inactive term Type 2 diabetes mellitus wit h hemoglobin A1c goal of 7.0%-8.0% 04/14/2010 04/14/2010 Overview: ICD-10 update of inactive term Tachycardia 04/14/2010 09/20/2017 Other specified anemias 04/11/201005/2012 Iron deficiency anemia 04/07/201003/10 MOLD CONTACT ALLERGY 02/03/2010 017 Family history of diabetes mellitus 02/03/2010 08/18/2011 FAMILY HX- COLON CANCER 02/03/201002/2017 PAST HX OF PANCREATIC CYST (RESOLVED) 02/03/2010 03/19/2017 HTN, goal below 130/80 11/21 Type 2 diabetes mellitus wit h hemoglobin A1c goal of less than 7.0% 08/27/2012 Overview: ICD-10 update of inactive term Adenomatous polyp of colon 0 03/14/2024 documented as of this encounter (statuses as of 07/31/2024) Immunizations Name Administration Dates Next Due COVID-19 mRNA, LNP-s, No Pre serve, 2-Dose Series ([employer]) 09/28/2021,01/28/2021,12/31/2020 COVID-19, MRNA-LNP, 23-24, P F, 30 MCG/0.3 mL, 12 YRS AND ABOVE, IM ([facility] 08/09/2023 Covid-19, Mrna, Lnp-s, Pf, B ivalent, 30 Mcg, IM, 12 yrs and above ([employer]) 08/07/2022 Pneumococcal Conjugate Vacc, 13 Valent (Prevnar) 03/29/2018 Pneumococcal Polysaccharide PPV23 (Pneumovax) 05/26/2019,07/04/2010 Season Influenza, Quad, PF, Adjuvanted, 65+ Yrs, IM (FLUAD) 08/03/2020 Seasonal Influenza Vac., MDV , IM, 0.5 mL (Fluzone) 07/28/2015,07/15/2014,07/22/2013,02/2012,08/18/2011 Seasonal Influenza, High Dos e, Trivalent, PF, IM (Fluzone HD) 07/23/2024 Seasonal Influenza, PF, 6 M & above, IM , (FluLaval or Fluzone) 07/15/2019,08/05/2018,07/30/2017 08/09/2018 Seasonal Influenza, Quadriva lent Hd (Fluzone Hd) 07/23/2023,08/02/2022,07/19/2021 Seasonal Influenza, Quadriva lent, No Preserve, IM 08/07/2016 08/07/2017 Varicella Zoster Vaccine (Adult) 02/26/2012 Zoster Vaccine Recombinant (Shingrix) 03/25/2020 ,11/24/2019 documented as of this encounter Social History Tobacco Use Types Packs/Day Years Used Date Smoking Tobacco: Never Smokeless Tobacco: Never Alcohol Use Standard Drinks/Week Comments No 0 (1 standard drink = 0.6 oz pur e alcohol) PHQ-2 Answer Date Recorded PHQ Adult Total Score 0 03/14/2024 Hunger Vital Sign Answer Date Recorded Within the past 12 months, y ou worried that your food would run out before you got the money to buy more. Never true 02/29/20 23 Within the past 12 months, t he food you bought just didn't last and you didn't have money to get more. Never true 02/28/2023 Utilities Answer Date Recorded Do you have trouble paying y our heating, water, or electric bill? (Adult - for ages 18 years and over) Not on file 04/01/2024 Is your family able to pay t he heat, water, or electric bill? (Household - for ages 0-17 years) Not on file 04/01/2024 Does your family have access to good internet? (Household - for ages 0-17 years) Not on file 04/01/2024 Social Connections Answer Date Recorded How often do you feel lonely or isolated from those around you? (Adult - for ages 18 years and over) Not on file 04/01/2024 Sex and Gender Information Value Date Recorded Sex Assigned at Female 04/29/2022 7:20 AM EDT Gender Identity Female 04/29/2022 7:20 AM EDT Sexual Orientation Straight 04/29/2022 7: 20 AM EDT Job Start Date Occupation Industry Not on file Not on file Not on file documented as of this encounter Miscellaneous Notes * Telephone Encounter - Allen Schilling [facility] - 07/31/2024 3:11 PM EDTSigned Prescriptions: Disp Refills Metoprolol Succinate ER 50 MG Oral Tablet *180 Ta*0 Sig: TAKE 1 TABLET BY MOUTH IN THE MORNING AND 1 TABLET BY MOUTH BEFORE BEDTIMEAuthorizing Provider: JENNIFER DUNBAR User: ALLEN SCHILLING * Telephone Encounter - Allen Schilling RPh - 07/31/2024 3:05 PM EDT Pulse on 03/25/24 elevated. Pt was being seen for humerus fracture and reported 7/10 pain. Previous HR readings within protocol parameters. RX authorized. Zero refills given until upcoming appt. 09/26/2024 Thank you, Allen Schilling, PharmD Clinical Pharmacist [facility]) [phone] 07/31/2024, 3:10 PM documented in this encounter Plan of Treatment Upcoming Encounters Date Type Department Care Team (Late st Contact Info) Description 09/24/2024 8:20 AM EST [facility] [address] [place] [id number] Cyn Vivar PA-C [address] [place] [address] 09/26/2024 9:30 AM EST Office Visit Cardiology, [facility] [address] [facility] [place] [id number] Jennifer Dunbar PA-C [address] [place] [address] 01/22/2025 9:40 AM EDT Office Visit Rheumatology [address] [place] [address] Genaro Johnson MD [address] [place] [address] 08/04/2025 11:15 AM EDT Imaging Radiology [facility], [place] [address] [place] [address] Health Maintenance Due Date Last Done Comments Hepatitis C Screening 1971 DTap/Tdap Vaccines (1 - Tdap) 01/18/1972 Cologuard 1998 Sigmoidoscopy 1998 DXA Scan 02/19/2015 02/19/2013, 12/2010, 02/14/2011 Colonoscopy 03/14/2018 03/14/2013, 02/14, 04/06/2010 Colorectal Cancer Screening 10/01/2018 Adult Wellness Visit 2019 Fecal Occult Blood Test 09/30/2019 09/30/2018, 09/24 COVID-19 Vaccine ( season) 2024 08/09/2023, 08/07/2022, 09/28/2021, Additional history exists Mammogram 07/25/2024 07/25/2023, 07/15, 07/10/2023, Additional history exists HbA1c 08/29/2024 02/27/2024, 08/17, 03/13/2023, Additional history exists Albumin/Creatinine Ratio 09/13/2024 023, 03/13/2023, 10/03/2021, Additional history exists GFR 01/27/2025 01/28/2024, 1006/2023, 06/21/2023, Additional history exists Diabetic Eye Exam 02/26/2025 02/27/2024, , 08/27/2023, Additional history exists Depression Screening 03/14/2025 03/14/2024, 09/20/2017, 03/04/2015 Diabetic Foot Exam 03/14/2025 03/14/2024, 0 03/13/2023, 11/02/2021, Additional history exists *BISPHONATE OR OTHER ACCEPTABLE MEDICATION NEEDED FOR OSTEOPOROSIS (REFER TO SMARTSET #1146) Addressed 03/29/2018 (Refused) Overridden wi th the intention of not completing the topic RETIRED - COLONOSCOPY-EVERY 5 YRS AGES 18-100 Discontinued 03/29/2018 (Declined), 03/18/2013, 03/14/2013, Additional history exists Pneumococcal Vaccine: 65+ Years Completed 05/26/2019, 03/29/2018, 07/04/2010 Zoster Vaccines Completed 03/25/2020, 11/15, 02/26/2012 VITAMIN D LEVEL ONCE IN A LIFETIME-USE SMARTSET# 49382 Completed 04/30/2020, 03/26/2018, 08/24/2015, Additional history exists Influenza Vaccine (FLU shot) Completed 07/23/2024, 07/23/2023, 08/02/2022, Additional history exists HPV (Gardasil) Vaccine Aged Out No lo nger eligible based on patient's age to complete this topic Hepatitis B Vaccine Aged Out No longe r eligible based on patient's age to complete this topic MENINGOCOCCAL (MENACTRA/MENVEO) Aged Out No longer eligible based on patient's age to complete this topic documented as of this encounter Medical Devices Not on filedocumented as of this encounter Visit Diagnoses Diagnosis Sinus tachycardia Other specified cardiac dysrhythmias HTN, goal below 130/80 Unspecified essential hypertension Screening mammogram for breast cancer documented in this encounter Care Teams Tire Service Technician Relationship Specialty Start Date End Date Cyn Vivar PA-C [address] [place] [facility] [place] [address] PCP - General Physician Motor Equipment Lieutenant 05/03/22 documented as of this encounter
--- OUTSIDE RECORDS SUMMARY | 2024-09-01 09:28 | External Medical Summary | Summary of Care ---
Author Name Unknown Organization [facility] Address [address] [facility] [place] [address] Phone [phone] Care Team Providers Care Margarine Churn Operator Name Role Phone Cyn Vivar PA-C Primary Care Provider [phone] [phone] Reason for Visit * Reason Comments eRx-Medication Refill Encounter Details Date Type Department Care Team (Late st Contact Info) Description 08/24/2024 Refill [facility] [address] [place] [address] MayRich MD [address] [place], [place] [id number] Type 2 diabetes mellitus with hemoglobin A1c goal of less than 7.0% ([facility]) Allergies Active Allergy Reactions Criticality Noted Date Comments Hydrochlorothiazide 09/19/2019 Hyponatremia documented as of this encounter (statuses as of 08/25/2024) Medications OSTEO BI-FLEX ADV TRIPLE ST PO TABS one pill twice a day 60 Tab 0 08/29/20 10 Active OCUVITE-LUTEIN PO CAPS 2 CAPSULE DAILY 60 Cap 0 08/29/20 10 Active BIMATOPROST 0.01 % OP SOLN One drop each eye before bedtime 02/28/20 13 Active CO Q10 100 MG PO CAPS 1 CAPSULE DAILY 1 Cap 0 02/28/20 13 Active CALCIUM 600+D 600-200 MG-UNIT PO TABS 1 TABLET DAILY WITH FOOD 60 Tab 0 02/28/20 13 Active VITAMIN C 500 MG PO TABS 1 daily 02/28/20 13 Active CINNAMON 500 MG PO CAPS 1 twice daily 02/28/20 13 Active Cholecalcifero l (VITAMIN D3) 2000 UNITS Capsule Take 1,000 Units by mouth daily. 07/28/20 Active vitamin b 12 (CYANOCOBALAMI N) 1000 MCG TABS Take 1 Tablet by mouth in the morning. 07/28/20 Active Blood Glucose Monitoring Suppl (DIATHRIVE BLOOD GLUCOSE METER) DEVIIndication s:Type 2 diabetes mellitus with hemoglobin A1c goal of less than 7.0% ([facility]) Use as directed. 04/28/20 Active Glucose Blood In Vitro StripIndicatio ns:Type 2 diabetes mellitus with hemoglobin A1c goal of less than 7.0% ([facility]) Check blood sugars two times daily. 1 Box Dosing Unit 3 04/28/20 Active Ferrous Gluconate 256 (28 Fe) MG [...] 500 MG Oral Tablet (Tylenol) 2 Tablets. 09/26/20 Active NATURAL SUPPLEMENT Take 1 Tablet by mouth in the morning. Nervive. Active NATURAL SUPPLEMENT Take 2 Tablets by mouth in the morning. Total Beets. Active glyBURIDE 5 MG Oral Tablet (Diabeta)Indic ations:Type 2 diabetes mellitus with hemoglobin A1c goal of less than 7.0% ([facility]) TAKE 1 TABLET BY MOUTH IN THE MORNING AND BEFORE BEDTIME 180 Tablet 2 01/16/20 24 Active Hydroxychloroq uine Sulfate 200 MG Oral Tablet (Plaquenil)Ind ications:Polya rthritis of hand TAKE 1 TABLET BY MOUTH AT BEDTIME 90 Tablet 3 02/09/20 24 Active Atorvastatin Calcium 10 MG Oral Tablet (Lipitor)Indic ations:Dyslipi demia, goal LDL below 70 TAKE 1 TABLET BY MOUTH IN THE MORNING 90 Tablet 1 04/10/20 24 Active Furosemide 20 MG Oral Tablet (Lasix)Indicat ions:HTN, goal below 130/80,Hyperka lemia,Hyponatr emia TAKE 2 TABLETS BY MOUTH IN THE MORNING 180 Tablet 3 05/19/20 24 Active amLODIPine Besylate 5 MG Oral Tablet (Norvasc)Indic ations:HTN, goal below 130/80,Hyperka lemia,Hyponatr emia TAKE 1 TABLET BY MOUTH IN THE MORNING 90 Tablet 3 05/19/20 24 Active Metoprolol Succinate ER 50 MG Oral Tablet Extended Release 24 Hour (toPROL XL)Indications :Sinus tachycardia,HT N, goal below 130/80 TAKE 1 TABLET BY MOUTH IN THE MORNING AND 1 TABLET BY MOUTH BEFORE BEDTIME 180 Tablet 07/31/20 24 Active metFORMIN HCl 1000 MG Oral Tablet (Glucophage)In dications:Type 2 diabetes mellitus with hemoglobin A1c goal of less than 7.0% (HCC) TAKE 1 TABLET BY MOUTH TWICE DAILY WITH MORNING AND EVENING MEALS 180 Tablet 2 08/25/20 24 Active metFORMIN HCl 1000 MG Oral Tablet (Glucophage)In dications:Type 2 diabetes mellitus with hemoglobin A1c goal of less than 7.0% (HCC) TAKE 1 TABLET BY MOUTH TWICE DAILY WITH MORNING AND EVENING MEALS 180 Tablet 1 02/09/20 24 024 Discontinued documented as of this encounter (statuses as of 08/25/2024) Active Problems Problem Noted Date Diagnosed Date [...] as of this encounter (statuses as of 08/25/2024) Resolved Problems Problem Noted Date Diagnosed Date Resolved Date Pulmonary hypertension 10/31/201905/02 Hypertensive kidney disease with chronic kidney disease stage III 09/30/2018 04/28/2019 Diabetes mellitus with stage 3 chronic kidney disease 09/30/2018 04/28/2019 Type 2 diabetes mellitus wit h hemoglobin A1c goal of less than 7.0% 09/20/2017 09/20/2017 Overview (02/08/2016): ICD-10 update of inactive term Diabetes mellitus [...] 03/19/2017 Overweight (BMI 25.0-29.9) 09/01/2015 0 03/19/2017 Overview (09/01/2015): bmi= 26.78 09/01/15 CKD (chronic kidney disease) stage 2, GFR 60-89 ml/min 03/25/2015 03/20/2017 HTN, goal below 140/90 12/31/201403/02 Closed fracture of left hip 09/17/2014 03/19/2017 HTN, goal below 140/80 11/21/201312/31 Overweight (BMI 25.0-29.9) 09/02/2013 0 03/19/2017 Overview (09/02/2013): bmi= 26.15 09/02/13 Acute URI 09/02/2013 03/19/2017 Vitamin D deficiency 09/02/2013 020 Screen for colon cancer 02/27/2013 06/0 02/2017 Proteinuria 08/27/2012 03/19/2017 Osteoporosis 08/22/2012 03/29/2018 Other screening mammogram 08/22/2012 Osteoporosis 02/14/2011 08/22/2012 Overview (02/14/2011): T score left femoral neck -2.6 Type 2 diabetes mellitus wit h hemoglobin A1c goal of 7.0%-8.0% 04/14/2010 08/22/2012 Overview (02/10/2016): ICD-10 update of inactive term Type 2 diabetes mellitus wit h hemoglobin A1c goal of 7.0%-8.0% 04/14/2010 04/14/2010 Overview (02/10/2016): ICD-10 update of inactive term Tachycardia 04/14/2010 09/20/2017 Other specified anemias 04/11/2010 0505/2012 Iron deficiency anemia 04/07/201003/10 MOLD CONTACT ALLERGY 02/03/2010 017 Family history of diabetes mellitus 02/03/2010 08/18/2011 FAMILY HX- COLON CANCER 02/03/201002/2017 PAST HX OF PANCREATIC CYST (RESOLVED) 02/03/2010 03/19/2017 HTN, goal below 130/80 11/21 Type 2 diabetes mellitus wit h hemoglobin A1c goal of less than 7.0% 08/27/2012 Overview (02/08/2016): ICD-10 update of inactive term Adenomatous polyp of colon 0 03/14/2024 documented as of this encounter (statuses as of 08/25/2024) Immunizations Name Administration Dates Next Due COVID-19 mRNA, LNP-s, No Pre serve, 2-Dose Series ([employer]) 09/28/2021,01/28/2021,12/31/2020 COVID-19, MRNA-LNP, PF, 30 M CG/0.3 mL, 12 YRS AND ABOVE, IM ([employer]) 08/09/2023 Covid-19, Mrna, Lnp-s, Pf, B ivalent, 30 Mcg, IM, 12 yrs and above ([employer]) 08/07/2022 Pneumococcal Conjugate Vacc, 13 Valent (Prevnar) [...] years and over) Not on file 04/01/2024 Comments No Sex and Gender Information Value Date Recorded Sex Assigned at Female 04/29/2022 7:20 AM EDT Legal Sex Female 6:47 AM EST Gender Identity Female 04/29/2022 7:20 AM EDT Sexual Orientation Straight 04/29/2022 7: 20 AM EDT Occupation Industry Job Start Date Job End Date teacher Not on file Not on file Not on file documented as of this encounter Miscellaneous Notes * Telephone Encounter - Kami Barrett [facility] - 08/25/2024 5:21 PM ESTSigned Prescriptions: Disp Refills metFORMIN HCl 1000 MG Oral Tablet (Glucoph*180 Ta*2 Sig: TAKE 1 TABLET BY MOUTH TWICE DAILY WITH MORNING AND EVENING MEALSAuthorizing Provider: CYN VIVAR AOrdering User: KAMI BARRETT documented in this encounter Plan of Treatment Upcoming Encounters Date Type Department Care Team (Late st Contact Info) Description 09/24/2024 8:20 AM EST Office Visit [facility] [address] [place] [address] Cyn Vivar PA-C [address] [place] [address] 09/26/2024 9:30 AM EST Office Visit Cardiology, [facility] [address] [facility] [place] [address] Jose Carlos Fuchs PA-C [address] [place] [address] 01/22/2025 9:40 AM EDT Office Visit Rheumatology [address] [place] [address] Genaro Johnson MD [address] [place] [address] [place] [address] 08/04/2025 11:15 AM EDT Imaging Radiology [address], [place] [address] [place] [address] Health Maintenance Due Date Last Done Comments Hepatitis C Screening 1971 DTap/Tdap Vaccines (1 - Tdap) 01/18/1972 Cologuard 1998 Sigmoidoscopy 1998 DXA Scan 02/19/2015 02/19/2013, 12/2010, 02/14/2011 Colonoscopy 03/14/2018 03/14/2013, 02/14, 04/06/2010 Colorectal Cancer Screening 10/01/2018 Adult Wellness Visit 2019 Fecal Occult Blood Test 09/30/2019 09/30/2018, 09/24 COVID-19 Vaccine ( season) 2024 08/09/2023, 08/07/2022, 09/28/2021, Additional history exists HbA1c 08/29/2024 02/27/2024, 08/17, 03/13/2023, Additional history exists Albumin/Creatinine Ratio 09/13/202409/13/ 023, 03/13/2023, 10/03/2021, Additional history exists GFR 01/27/2025 01/28/2024, 06/2023, 06/21/2023, Additional history exists Diabetic Eye Exam 02/26/2025 02/27/2024, , 08/27/2023, Additional history exists Depression Screening 03/14/2025 03/14/2024, 09/20/2017, 03/04/2015 Diabetic Foot Exam 03/14/2025 03/14/2024, 0 03/13/2023, 11/02/2021, Additional history exists Mammogram 07/31/2025 07/31/2024, 07/15, 07/25/2023, Additional history exists *BISPHONATE OR OTHER ACCEPTABLE [...] D LEVEL ONCE IN A LIFETIME-USE SMARTSET# [id number] Completed 04/30/2020, 03/26/2018, 08/24/2015, Additional history exists [...] as of this encounter Visit Diagnoses Diagnosis Type 2 diabetes mellitus with hemoglobin A1c goal of less than 7.0% (HCC) Screening mammogram for breast cancer documented in this encounter Care Teams Margarine Churn Operator Relationship Specialty Start Date End Date Cyn Vivar PA-C [address] [facility] [place] [address] PCP - General Physician Outdoor Power Equipment Mechanic 05/03/22 documented as of this encounter
--- OUTSIDE RECORDS SUMMARY | 2024-09-01 09:28 | External Medical Summary | Summary of Care ---
Author Name Unknown Organization [facility] Address [address] [facility] [place] [address] Phone [phone] Care Team Providers Care Railroad Dining Car Stewardess Name Role Phone Cyn Vivar PA-C Primary Care Provider [phone] [phone] Reason for Visit * Reason Onset Date Comments Test Results 08/29/2024 Encounter Details Date Type Department Care Team (Late st Contact Info) Description 08/29/2024 Telephone [facility] [address] [place] [address] Cyn Vivar PA-C [address] [place] [address] Test Results Allergies Active Allergy Reactions Criticality Noted Date Comments Hydrochlorothiazide 09/19/2019 Hyponatremia documented as of this encounter (statuses as of 08/29/2024) Medications OSTEO BI-FLEX ADV TRIPLE ST PO TABS one pill twice a day 60 Tab 0 0 Active OCUVITE-LUTEIN PO CAPS 2 CAPSULE DAILY 60 Cap 0 0 Active BIMATOPROST 0.01 % OP SOLN One drop each eye before bedtime 3 Active CO Q10 100 MG PO CAPS 1 CAPSULE DAILY 1 Cap 0 3 Active CALCIUM 600+D 600-200 MG-UNIT PO TABS 1 TABLET DAILY WITH FOOD 60 Tab 0 3 Active VITAMIN C 500 MG PO TABS 1 daily 3 Active CINNAMON 500 MG PO CAPS 1 twice daily 3 Active Cholecalciferol (VITAMIN D3) 2000 UNITS Capsule Take 1,000 Units by mouth daily. 5 Active vitamin b 12 (CYANOCOBALAMIN ) 1000 MCG TABS Take 1 Tablet by mouth in the morning. 5 Active Blood Glucose Monitoring Suppl (DIATHRIVE BLOOD GLUCOSE METER) DEVIIndications :Type 2 diabetes mellitus with hemoglobin A1c goal of less than 7.0% ([facility]) Use as directed. 9 Active Glucose Blood In Vitro StripIndication s:Type 2 diabetes mellitus with hemoglobin A1c goal of less than 7.0% ([facility]) Check blood sugars two times daily. 1 Box Dosing Unit 3 9 Active Ferrous Gluconate 256 (28 Fe) MG [...] 500 MG Oral Tablet (Tylenol) 2 Tablets. 2 Active NATURAL SUPPLEMENT Take 1 Tablet by mouth in the morning. Nervive. Active NATURAL SUPPLEMENT Take 2 Tablets by mouth in the morning. Total Beets. Active glyBURIDE 5 MG Oral Tablet (Diabeta)Indica tions:Type 2 diabetes mellitus with hemoglobin A1c goal of less than 7.0% ([facility]) TAKE 1 TABLET BY MOUTH IN THE MORNING AND BEFORE BEDTIME 180 Tablet 2 4 Active Hydroxychloroqu ine Sulfate 200 MG Oral Tablet (Plaquenil)Andra cations:Polyart hritis of hand TAKE 1 TABLET BY MOUTH AT BEDTIME 90 Tablet 3 4 Active Atorvastatin Calcium 10 MG Oral Tablet (Lipitor)Indica tions:Dyslipide brittaney, goal LDL below 70 TAKE 1 TABLET BY MOUTH IN THE MORNING 90 Tablet 1 4 Active Furosemide 20 MG Oral Tablet (Lasix)Indicati ons:HTN, goal below 130/80,Hyperkal emia,Hyponatrem ia TAKE 2 TABLETS BY MOUTH IN THE MORNING 180 Tablet 3 4 Active amLODIPine Besylate 5 MG Oral Tablet (Norvasc)Indica tions:HTN, goal below 130/80,Hyperkal emia,Hyponatrem ia TAKE 1 TABLET BY MOUTH IN THE MORNING 90 Tablet 3 4 Active Metoprolol Succinate ER 50 MG Oral Tablet Extended Release 24 Hour (toPROL XL)Indications: Sinus tachycardia,HTN , goal below 130/80 TAKE 1 TABLET BY MOUTH IN THE MORNING AND 1 TABLET BY MOUTH BEFORE BEDTIME 180 Tablet 4 Active metFORMIN HCl 1000 MG Oral Tablet (Glucophage)Ind ications:Type 2 diabetes mellitus with hemoglobin A1c goal of less than 7.0% (HCC) TAKE 1 TABLET BY MOUTH TWICE DAILY WITH MORNING AND EVENING MEALS 180 Tablet 2 4 Active documented as of this encounter (statuses as of 08/29/2024) Active Problems Problem Noted Date Diagnosed Date [...] as of this encounter (statuses as of 08/29/2024) Resolved Problems Problem Noted Date Diagnosed Date [...] as of this encounter (statuses as of 08/29/2024) Immunizations Name Administration Dates Next Due COVID-19 mRNA, LNP-s, No Pre serve, 2-Dose Series ([employer]) 09/28/2021,01/28/2021,12/31/2020 COVID-19, MRNA-LNP, PF, 30 M CG/0.3 mL, 12 YRS AND ABOVE, IM ([facility]) 08/09/2023 Covid-19, Mrna, Lnp-s, Pf, B ivalent, 30 Mcg, IM, 12 yrs and above ([employer]) 08/07/2022 Pneumococcal Conjugate Vacc, 13 Valent (Prevnar) [...] encounter Miscellaneous Notes * Telephone Encounter - Marion Mukherjee LPN - 08/29/2024 1:09 PM EST Sent MyG message to patient regarding message from provider. * Telephone Encounter - Marion Mukherjee LPN - 08/29/2024 1:08 PM EST ----- Message from Cyn Vivar sent at 08/28/2024 4:31 PM EST ----- Great news! Mammo was totally normal. Recommended repeat in 1 year as per norm. Please call the office at [phone] if you have any questions or concerns. documented in this encounter Plan of Treatment Upcoming Encounters Date Type Department Care Team (Late st Contact Info) Description 09/24/2024 8:20 AM EST Office Visit [facility] [address] [place] [address] Cyn Vivar PA-C [address] [place] [address] 09/26/2024 9:30 AM EST Office Visit Cardiology, [facility] [address] [facility] [place] [address] Jose Carlos Fuchs PA-C [address] [facility] [place] [address] 01/22/2025 9:40 AM EDT Office Visit Rheumatology [address] [place] [address] Genaro Johnson MD [address] [place] [address] [place] [address] 08/04/2025 11:15 AM EDT Imaging Radiology [address] [facility] [place] [address] Health Maintenance Due Date Last Done Comments [...] D LEVEL ONCE IN A LIFETIME-USE SMARTSET# [id number] Completed 04/30/2020, 03/26/2018, 08/24/2015, Additional history exists [...] Not on filedocumented as of this encounter Care Teams Railroad Dining Car Stewardess Relationship Specialty Start Date End Date Cyn Vivar PA-C [address] [place] [address] PCP - General Physician Chemical Radiation Technician 05/03/22 documented as of this encounter
--- OUTSIDE RECORDS SUMMARY | 2024-09-01 09:28 | External Medical Summary | Summary of Care ---
Author Name Unknown Organization [facility] Address [address] [facility] [place] [address] Phone [phone] Care Team Providers Care Pantograph I Engraver Name Role Phone Cyn Vivar PA-C Primary Care Provider [phone] [phone] Reason for Visit * Reason Onset Date Comments Immunizations fLU VACCINE Medication Administration 07/23/2024 Flu an d/or Pneumo Inj Encounter Details Date Type Department Care Team (Late st Contact Info) Description 07/23/2024 11:00 AM EDT Immunization Ancillary Department, [facility] [address] [place] [address] [facility] [address] [place] [address] Need for prophylactic vaccination and inoculation against influenza* Allergies Active Allergy Reactions Criticality Noted Date Comments Hydrochlorothiazide 09/19/2019 Hyponatremia documented as of this encounter (statuses as of 07/23/2024) Medications Medication Sig Dispensed Refills Start Date [...] Glucose Monitoring Suppl (DIATHRIVE BLOOD GLUCOSE METER) DEVIIndications:Ty pe 2 diabetes mellitus with hemoglobin A1c goal of less than 7.0% (HCC) Use as directed. 04/28/2019 Active Glucose Blood In Vitro StripIndications:T ype 2 diabetes mellitus with hemoglobin A1c goal of less than 7.0% (HCC) Check blood sugars two times daily. 1 [...] mouth in the morning. Total Beets. Active Metoprolol Succinate ER 50 MG Oral Tablet Extended Release 24 Hour (toPROL XL)Indications:Sin us tachycardia,HTN, goal below 130/80 TAKE 1 TABLET BY MOUTH IN THE MORNING AND 1 TABLET BY MOUTH BEFORE BEDTIME 180 Tablet 3 08/06/2023 Active glyBURIDE 5 MG Oral Tablet (Diabeta)Indicatio ns:Type 2 diabetes mellitus with hemoglobin A1c goal of less than 7.0% (HCC) TAKE 1 TABLET BY MOUTH IN THE MORNING AND BEFORE BEDTIME 180 Tablet 2 01/16/2024 Active metFORMIN HCl 1000 MG Oral Tablet (Glucophage)Indica tions:Type 2 diabetes mellitus with hemoglobin A1c goal of less than 7.0% (HCC) TAKE 1 TABLET BY MOUTH TWICE DAILY WITH MORNING AND EVENING MEALS 180 Tablet 1 02/09/2024 Active Hydroxychloroquine Sulfate 200 MG Oral Tablet (Plaquenil)Indicat ions:Polyarthritis of hand TAKE 1 TABLET BY MOUTH AT BEDTIME 90 Tablet 3 02/09/2024 Active Atorvastatin Calcium 10 MG Oral Tablet (Lipitor)Indicatio ns:Dyslipidemia, goal LDL below 70 TAKE 1 TABLET BY MOUTH IN THE MORNING 90 Tablet 1 04/10/2024 Active Furosemide 20 MG Oral Tablet (Lasix)Indications :HTN, goal below 130/80,Hyperkalemi a,Hyponatremia TAKE 2 TABLETS BY MOUTH IN THE MORNING 180 Tablet 3 05/19/2024 Active amLODIPine Besylate 5 MG Oral Tablet (Norvasc)Indicatio ns:HTN, goal below 130/80,Hyperkalemi a,Hyponatremia TAKE 1 TABLET BY MOUTH IN THE MORNING 90 Tablet 3 05/19/2024 Active documented as of this encounter (statuses as of 07/23/2024) Active Problems Problem Noted Date Diagnosed Date [...] as of this encounter (statuses as of 07/23/2024) Resolved Problems Problem Noted Date Diagnosed Date [...] deficiency 09/02/2013 020 Screen for colon cancer 02/27/201302/2017 Proteinuria 08/27/2012 03/19/2017 Osteoporosis 08/22/2012 03/29/2018 Other [...] Tachycardia 04/14/2010 09/20/2017 Other specified anemias 04/11/2010 050 05/2012 Iron deficiency anemia 04/07/201003/10 MOLD CONTACT ALLERGY [...] as of this encounter (statuses as of 07/23/2024) Immunizations Name Administration Dates Next Due COVID-19 mRNA, LNP-s, No Pre serve, 2-Dose Series ([facility]) 09/28/2021,01/28/2021,12/31/2020 COVID-19, MRNA-LNP, 23-24, P F, 30 MCG/0.3 mL, 12 YRS AND ABOVE, IM ([facility]) 08/09/2023 Covid-19, Mrna, Lnp-s, Pf, B ivalent, 30 Mcg, IM, 12 yrs and above ([facility]) 08/07/2022 Pneumococcal Conjugate Vacc, 13 Valent (Prevnar) [...] on file documented as of this encounter Progress Notes * Christin Pan LPN - 07/23/2024 10:55 AM EDT PRE - ADMINISTRATION DOCUMENTATION Are you experiencing any cold symptoms or fever? No Have you had Guillain-Center Syndrome (an illness that causes paralysis) within the last 6 weeks? No Have you had the flu shot in the past? YES Have you ever had a reaction to the flu shot? No Christin Hastingshizer, GAS METER REPAIRER, 07/23/2024 10:55 AM Immunization Administration Documentation Time Out Procedure Performed: Yes Patient Identified (Ask Name/Date of ): Yes Does the patient have a fever greater than 101 degrees today? No Patient allergic to latex? No VFC Stock: No Immunization(s) verified: Yes, Immunization Name: Flu, VIS Sheet(s) given: Yes Verified Side and Site: Yes Verified Shot(s) with Parent(s)/Patient: Yes documented in this encounter Nursing Notes * Christin Pan LPN - 07/23/2024 10:54 AM EDT Pre-Administration Time Out Procedure Performed: Yes Patient Identified (Ask Name/Date of ): Yes Does the patient have a fever greater than 101 degrees today? No Patient allergic to latex? No Has the patient ever fainted after receiving an injection? No VFC Stock: No Immunization(s) verified: Yes, Immunization Name: Flu, VIS Sheet(s) given: Yes Verified Side and Site: Yes Verified Shot(s) with Parent(s)/Patient: Yes documented in this encounter Plan of Treatment Upcoming Encounters Date Type Department Care Team (Late st Contact Info) Description 07/31/2024 11:30 AM EDT Imaging Radiology [facility] [address] [place] [address] 09/24/2024 8:20 AM EST Office Visit [facility] [address] [place] [address] Cyn Vivar PA-C [address] [place] [address] 09/26/2024 9:30 AM EST Office Visit Cardiology, [address] [place] [address] Jose Carlos Fuchs PA-C [address] [place] [address] 01/22/2025 9:40 AM EDT Office Visit Rheumatology [facility] [address] [place] [address] Genaro Johnson MD [address] [place] [address] Health Maintenance Due Date Last Done Comments [...] D LEVEL ONCE IN A LIFETIME-USE SMARTSET# [id number] Completed 04/30/2020, 03/26/2018, 08/24/2015, Additional history exists [...] as of this encounter Visit Diagnoses Diagnosis Need for prophylactic vaccination and inoculation against influenza- Primary documented in this encounter Care Teams Pantograph I Engraver Relationship Specialty Start Date End Date Cyn Vivar PA-C [address] [facility] [address] PCP - General Physician Barge Pilot 05/03/22 documented as of this encounter
--- OUTSIDE RECORDS SUMMARY | 2024-09-01 09:29 | External Medical Summary | Summary of Care ---
Author Name Unknown Organization [facility] Address [address] [facility] [place] [address] Phone [phone] Care Team Providers Care Door Cutter Name Role Phone Cyn Vivar PA-C Primary Care Provider [phone] [phone] Reason for Visit * Reason Onset Date Comments Health Maintenance 06/17/2024 Encounter Details Date Type Department Care Team (Late st Contact Info) Description 06/17/2024 Telephone [facility] [address] [place] [address] Cyn Vivar PA-C [address] [place] [address] Health Maintenance Allergies Active Allergy Reactions Criticality Noted Date Comments Hydrochlorothiazide 09/19/2019 Hyponatremia documented as of this encounter (statuses as of 06/17/2024) Medications Medication Sig Dispensed Refills Start Date [...] Oral Tablet Extended Release 24 Hour (toPROL XL)Indications:[facility] us tachycardia,HTN, goal below 130/80 TAKE 1 [...] as of this encounter (statuses as of 06/17/2024) Active Problems Problem Noted Date Diagnosed Date [...] as of this encounter (statuses as of 06/17/2024) Resolved Problems Problem Noted Date Diagnosed Date [...] 09/02/2013 020 Screen for colon cancer 02/27/2013 0602/2017 Proteinuria 08/27/2012 03/19/2017 Osteoporosis 08/22/2012 03/29/2018 Other [...] Tachycardia 04/14/2010 09/20/2017 Other specified anemias 04/11/2010 05/0 05/2012 Iron deficiency anemia 04/07/201003/10 MOLD CONTACT [...] as of this encounter (statuses as of 06/17/2024) Immunizations Name Administration Dates Next Due COVID-19 mRNA, LNP-s, No Pre serve, 2-Dose Series ([employer]) 09/28/2021,01/28/2021,12/31/2020 COVID-19, MRNA-LNP, 23-24, P F, 30 MCG/0.3 mL, 12 YRS AND ABOVE, IM ([email or web address]) 08/09/2023 Covid-19, Mrna, Lnp-s, Pf, B ivalent, 30 Mcg, IM, 12 yrs and above ([employer]) 08/07/2022 Pneumococcal Conjugate Vacc, 13 Valent (Prevnar) 03/29/2018 Pneumococcal Polysaccharide PPV23 (Pneumovax) 05/26/2019,07/04/2010 Season Influenza, Quad, PF, Adjuvanted, 65+ Yrs, IM (FLUAD) 08/03/2020 Seasonal Influenza, PF, 6 M & above, IM , (FluLaval or Fluzone) 07/15/2019,08/05/2018,07/30/2017 08/09/2018 Seasonal Influenza, Quadriva lent Hd (Fluzone Hd) 07/23/2023,08/02/2022,07/19/2021 Seasonal Influenza, Quadriva lent, No Preserve, IM 08/07/2016 08/07/2017 Seasonal Influenza, Trivalen t, (IIV3), with Preserv, (Fluzone) 07/28/2015,07/15/2014,07/22/2013,02/2012,08/18/2011 Varicella Zoster Vaccine (Adult) 02/26/2012 Zoster Vaccine [...] encounter Miscellaneous Notes * Telephone Encounter - Crista QuevedoCAMPBELL - 06/17/2024 1:12 PM EDT Care Gaps Comprehensive Care Outreach Last Office/Telemedicine Visit: 03/14/2024 (in office), Visit date not found (telemedicine) Next Office Visit: 09/24/2024 Hemoglobin AIC Results: Lab Results Component Value Date/Time HEMOGLOBIN A1C - [facility] 6.7 (H) 02/27/2024 09:40 AM HEMOGLOBIN A1C - [facility] 6.7 (H) 09/13/2023 08:58 AM HEMOGLOBIN A1C - [facility] 6.6 (H) 03/13/2023 08:52 AM HEMOGLOBIN A1C - [facility] 6.8 (H) 11/01/2020 09:42 AM HEMOGLOBIN A1C - [facility] 6.6 (H) 04/30/2020 11:00 AM HEMOGLOBIN A1C - [facility] 7.0 (H) 10/31/2019 11:16 AM BP Readings from Last 1 Encounters: 03/25/24 114/68 Reviewed Health Maintenance below: Health Maintenance Topic Date Due Hepatitis C Screening Never done DTap/Tdap Vaccines (1 - Tdap) Never done DXA Scan 02/19/2015 Colorectal Cancer Screening 10/01/2018 Adult Wellness Visit Never done Influenza Vaccine (FLU shot) (1) 06/15/2024 COVID-19 Vaccine ( season) 2024 Albumin/Creatinine Ratio 09/13/2024 Mammogram 07/25/2024 Mamm scheduled Flu scheduled Care Gap Outreach Action Taken: Spoke to patient documented in this encounter Plan of Treatment Upcoming Encounters Date Type Department Care Team (Late st Contact Info) Description 07/23/2024 11:00 AM EDT Immunization Ancillary Department, [place] [address] [facility] [address] [place] [address] [facility] [address] 07/31/2024 11:30 AM EDT Imaging Radiology [facility] [address] [place] [address] 09/24/2024 8:20 AM EST Office Visit Family Practice, [place] [address] [facility] [place] [address] Cyn Vivar PA-C [address] [facility] [place] [address] 09/26/2024 9:30 AM EST Office Visit Cardiology, [address] [place] [address] Jose Carlos Fuchs PA-C [address] [place] [address] 01/22/2025 9:40 AM EDT Office Visit Rheumatology [place] [address] [address] [facility] [place] [address] Genaro Johnson MD [facility] [employer] [place] [address] Scheduled Orders Name Type Priority Associated Diagnoses Orde r Schedule MAMMOGRAM SCREENING ANTHONY BILATERAL Medical Imaging Routine Encounter for screening mammogram for malignant neoplasm of breast Expected: 06/17/2024, Expires: 07/17/2025 Health Maintenance Due Date Last Done Comments Hepatitis C Screening 1971 DTap/Tdap Vaccines (1 - Tdap) 01/18/1972 Cologuard 1998 Sigmoidoscopy 1998 DXA Scan 02/19/2015 02/19/2013, 0512/2010, 02/14/2011 Colonoscopy 03/14/2018 03/14/2013, 02/14, 04/06/2010 Colorectal Cancer Screening 10/01/2018 Adult Wellness Visit 2019 Fecal Occult Blood Test 09/30/2019 09/30/2018, 09/24 COVID-19 Vaccine ( season) 2024 08/09/2023, 08/07/2022, 09/28/2021, Additional history exists Influenza Vaccine (FLU shot) (#1) 2024 07/23/2023, 08/02/2022, 07/19/2021, Additional history exists Mammogram 07/25/2024 07/25/2023, 07/15, 07/10/2023, Additional history exists HbA1c 08/29/2024 02/27/2024, 08/17, 03/13/2023, Additional history exists Albumin/Creatinine Ratio 09/13/202409/13/ 023, 03/13/2023, 10/03/2021, Additional history exists GFR 01/27/2025 01/28/2024, 100 06/2023, 06/21/2023, Additional history exists Diabetic Eye [...] D LEVEL ONCE IN A LIFETIME-USE SMARTSET# [id number] Completed 04/30/2020, 03/26/2018, 08/24/2015, Additional history exists HPV (Gardasil) Vaccine Aged [...] as of this encounter Visit Diagnoses Diagnosis Encounter for screening mammogram for malignant neoplasm of breast- Primary Other screening mammogram documented in this encounter Care Teams Door Cutter Relationship Specialty Start Date End Date Cyn Vivar PA-C [address] [facility] [place] [address] PCP - General Physician Carpet Sewer 05/03/22 documented as of this encounter
--- OUTSIDE RECORDS SUMMARY | 2024-09-01 09:29 | External Medical Summary | Summary of Care ---
Author Name Unknown Organization [facility] Address [address] [facility] [place] [address] Phone [phone] Care Team Providers Care Spinal Surgeon Name Role Phone Cyn Vivar PA-C Primary Care Provider [phone] [phone] Encounter Details Date Type Department Care Team (Late st Contact Info) Description 05/01/2024 Patient Reported Data Patient Survey Ortho OBERD Allergies Active Allergy Reactions Criticality Noted Date Comments Hydrochlorothiazide 09/19/2019 Hyponatremia documented as of this encounter (statuses as of 05/01/2024) Medications Medication Sig Dispensed Refills Start Date [...] Oral Tablet (Tylenol) 2 Tablets. 09/26/2022 Active amLODIPine Besylate 5 MG Oral Tablet (Norvasc)Indicatio ns:Hyperkalemia,Hy ponatremia,HTN, goal below 130/80 TAKE 1 TABLET BY MOUTH IN THE MORNING 90 Tablet 3 05/25/2023 Active NATURAL SUPPLEMENT Take 1 Tablet by mouth in the morning. Nervive. Active NATURAL SUPPLEMENT Take 2 Tablets by mouth in the morning. Total Beets. Active Furosemide 20 MG Oral Tablet (Lasix)Indications :HTN, goal below 130/80,Hyperkalemi a,Hyponatremia Take 2 Tablets by mouth in the morning. In the morning.. 180 Tablet 3 06/05/2023 Active Metoprolol Succinate ER 50 MG Oral [...] THE MORNING 90 Tablet 1 04/10/2024 Active documented as of this encounter (statuses as of 05/01/2024) Active Problems Problem Noted Date Diagnosed Date [...] as of this encounter (statuses as of 05/01/2024) Resolved Problems Problem Noted Date Diagnosed Date [...] 09/02/2013 020 Screen for colon cancer 02/27/2013 060 02/2017 Proteinuria 08/27/2012 03/19/2017 Osteoporosis 08/22/2012 03/29/2018 [...] mellitus 02/03/2010 08/18/2011 FAMILY HX- COLON CANCER 02/03/2010 0602/2017 PAST HX OF PANCREATIC CYST (RESOLVED) 02/03/2010 03/19/2017 HTN, goal below 130/80 11/21 Type 2 diabetes mellitus wit h hemoglobin A1c goal of less than 7.0% 08/27/2012 Overview: ICD-10 update of inactive term Adenomatous polyp of colon 0 03/14/2024 documented as of this encounter (statuses as of 05/01/2024) Immunizations Name Administration Dates Next Due COVID-19 mRNA, LNP-s, No Pre serve, 2-Dose Series ([employer]) 09/28/2021,01/28/2021,12/31/2020 COVID-19, MRNA-LNP, 23-24, P F, 30 MCG/0.3 mL, 12 YRS AND ABOVE, IM ([employer]) 08/09/2023 Covid-19, Mrna, Lnp-s, Pf, B ivalent, [...] No Preserve, IM 08/07/2016 08/07/2017 Seasonal Influenza, Split, I IV3, With Preserve, Inj 07/28/2015,07/15/2014,07/22/2013,02/2012,08/18/2011 Varicella Zoster Vaccine (Adult) 02/26/2012 Zoster [...] money to buy more. Never true 02/29/20 Within the past 12 months, t he [...] on file documented as of this encounter Plan of Treatment Upcoming Encounters Date Type Department Care Team (Late st Contact Info) Description 05/06/2024 9:15 AM EDT Office Visit Orthopaedics [facility] [place] [address] [place] [phone] Sebastián Barba PA-C [address] [place] [address] 06/26/2024 9:30 AM EDT Office Visit Cardiology, [facility] [address] [place] [address] Jose Carlos Fuchs PA-C [address] [place] [address] 09/24/2024 8:20 AM EST [address] [address] Cyn Vivar PA-C [address] [place] [address] 01/22/2025 9:40 AM EDT Office Visit Rheumatology [facility] [address] [place] [address] Genaro Johnson MD [address] [place] [address] Health Maintenance Due Date Last Done Comments Hepatitis C Screening 1971 DTaP,Tdap,and Td Vaccines (1 - Tdap) 01/18/1972 Cologuard 1998 Sigmoidoscopy 1998 DXA Scan 02/19/2015 02/19/2013, 12/2010, 02/14/2011 Colonoscopy 03/14/2018 03/14/2013, 02/14, 04/06/2010 Colorectal Cancer Screening 10/01/2018 Fecal Occult Blood Test 09/30/2019 09/30/2018, 09/24 COVID-19 Vaccine ( season) 2023 08/09/2023, 08/07/2022, 09/28/2021, Additional history exists Influenza Vaccine (FLU shot) (#1) 2024 07/23/2023, 08/02/2022, 07/19/2021, Additional history exists Mammogram 07/25/2024 07/25/2023, 07/15, 07/10/2023, Additional history exists HbA1c 08/29/2024 02/27/2024, 08/17, 03/13/2023, Additional history exists Albumin/Creatinine Ratio 09/13/202409/13/2 023, 03/13/2023, 10/03/2021, Additional history exists GFR [...] D LEVEL ONCE IN A LIFETIME-USE SMARTSET# [id number] Completed 04/30/2020, 03/26/2018, 08/24/2015, Additional history exists [...] filedocumented as of this encounter Care Teams Spinal Surgeon Relationship Specialty Start Date End Date Cyn Vivar PA-C [address] [facility] [place] [address] PCP - General Physician Endoscope Technician 05/03/22 documented as of this encounter
--- OUTSIDE RECORDS SUMMARY | 2024-09-01 09:29 | External Medical Summary | Summary of Care ---
Author Name Unknown Organization [facility] Address [address] [facility] [place] [address] Phone [phone] Care Team Providers Care Corporate Financial Analyst Name Role Phone Cyn Vivar PA-C Primary Care Provider +1 -[phone] Encounter Details Date Type Department Care Team [...] mRNA, LNP-s, No Pre serve, 2-Dose Series (tado) 09/28/2021,01/28/2021,12/31/2020 COVID-19, MRNA-LNP, 23-24, P F, 30 MCG/0.3 mL, 12 YRS AND ABOVE, IM ([employer]ComirnatSteelHouse) 08/09/2023 Covid-19, Mrna, Lnp-s, Pf, B ivalent, [...] 05/06/2024 9:15 AM EDT Office Visit Orthopaedics [facility] [address] [place] [phone] Sebastián Barba PA-C [address] [place] [address] 06/26/2024 9:30 AM EDT Office Visit Cardiology, [facility] [address] [place] [address] Jose Carlos Fuchs PA-C [address] [place] [address] 09/24/2024 8:20 AM EST Office [address] [address] Cyn Vivar PA-C [address] [place] [address] 01/22/2025 9:40 AM EDT Office Visit Rheumatology [facility] [address] [place] [address] Genaro Johnson MD [address] [place] [address] Health Maintenance Due Date Last Done Comments [...] D LEVEL ONCE IN A LIFETIME-USE SMARTSET# [id number] Completed 04/30/2020, 03/26/2018, 08/24/2015, Additional history exists [...] filedocumented as of this encounter Care Teams Corporate Financial Analyst Relationship Specialty Start Date End Date Cyn Vivar PA-C [address] [facility] [place] [address] PCP - General Physician Stave Hewer 05/03/22 documented as of this encounter
--- OUTSIDE RECORDS SUMMARY | 2024-09-01 09:29 | External Medical Summary | Summary of Care ---
Author Name Unknown Organization [facility] Address [address] [place] [place] [address] Phone [phone] Care Team Providers Care Facility Environmental Technician Name Role Phone Cyn Vivar PA-C Primary Care Provider +1 -[phone] Reason for Visit * Reason Comments eRx-Medication Refill Encounter Details Date Type Department Care Team (Late st Contact Info) Description 05/17/2024 Refill Cardiology, [facility] [address] [place] [address] Jennifer Dunbar PA-C [address] [place] [address] HTN, goal below 130/80; Hyperkalemia; Hyponatremia Allergies Active Allergy Reactions Criticality Noted Date Comments Hydrochlorothiazide 09/19/2019 Hyponatremia documented as of this encounter (statuses as of 05/19/2024) Medications Medication Sig Dispensed Refills Start Date [...] hemoglobin A1c goal of less than 7.0% ([facility]) Use as directed. 04/28/2019 Active Glucose Blood In Vitro StripIndications :Type 2 diabetes mellitus with hemoglobin A1c goal of less than 7.0% ([facility]) Check blood sugars two times daily. [...] 08/06/2023 Active glyBURIDE 5 MG Oral Tablet (Diabeta)Indicat ions:Type 2 diabetes mellitus with hemoglobin A1c goal of less than 7.0% ([facility]) TAKE 1 TABLET BY MOUTH IN THE [...] THE MORNING 90 Tablet 3 05/19/2024 Active amLODIPine Besylate 5 MG Oral Tablet (Norvasc)Indicat ions:Hyperkalemi a,Hyponatremia,H TN, goal below 130/80 TAKE 1 TABLET BY MOUTH IN THE MORNING 90 Tablet 3 05/25/2023 4 Discontinued Furosemide 20 MG Oral Tablet (Lasix)Indicatio ns:HTN, goal below 130/80,Hyperkale brittaney,Hyponatremia Take 2 Tablets by mouth in the morning. In the morning.. 180 Tablet 3 06/05/2023 4 Discontinued documented as of this encounter (statuses as of 05/19/2024) Active Problems Problem Noted Date Diagnosed Date [...] as of this encounter (statuses as of 05/19/2024) Resolved Problems Problem Noted Date Diagnosed Date [...] as of this encounter (statuses as of 05/19/2024) Immunizations Name Administration Dates Next Due COVID-19 mRNA, LNP-s, No Pre serve, 2-Dose Series ([employer]) 09/28/2021,01/28/2021,12/31/2020 COVID-19, MRNA-LNP, 23-24, P F, 30 MCG/0.3 mL, 12 YRS AND ABOVE, IM ([facility]) 08/09/2023 Covid-19, Mrna, Lnp-s, Pf, B ivalent, 30 Mcg, IM, 12 yrs and above ([employer]) 08/07/2022 Pneumococcal Conjugate Vacc, 13 Valent (Prevnar) [...] encounter Miscellaneous Notes * Telephone Encounter - Jennifer Dunbar PA-C - 05/19/2024 4:32 PM EDTSigned Prescriptions: Disp Refills Furosemide 20 MG Oral Tablet (Lasix) 180 Ta*3 Sig: TAKE 2 TABLETS BY MOUTH IN THE MORNING Authorizing Provider: JENNIFER DUNBAR amLODIPine Besylate 5 MG Oral Tablet (Norv*90 Tab*3 Sig: TAKE 1 TABLET BY MOUTH IN THE MORNING Authorizing Provider: JENNIFER DUNBAR < BR> * Telephone Encounter - Nicole Kaur CMA - 05/19/2024 12:59 PM EDTPending Prescriptions: Disp Refills Furosemide 20 MG Oral Tablet 180 Ta*3 Sig: TAKE 2 TABLETS BY MOUTH IN THE MORNING amLODIPine Besylate 5 MG Oral Tablet 90 Tab*3 Sig: TAKE 1 TABLET BY MOUTH IN THE MORNING * Telephone Encounter - Nicole Kaur CMA - 05/19/2024 12:56 PM EDT Did you pend patient's preferred pharmacy and medication before forwarding?yes Pharmacy: [facility] Pending Prescriptions: Disp Refills Furosemide 20 MG Oral Tablet (Lasix) [Pha*180 Ta*3 Sig: TAKE 2 TABLETS BY MOUTH IN THE MORNING amLODIPine Besylate 5 MG Oral Tablet (Nor*90 Tab*3 Sig: TAKE 1 TABLET BY MOUTH IN THE MORNING Last Visit: 12/19/2023 (in office), Visit date not found (telemedicine) Next Visit: 06/26/2024 If no future appointments scheduled, and last appointment is greater than a year ago, please schedule patient for a follow-up appointment Last date the medication was ordered: 05/25/23 - amlodipine 06/05/23 - furosemide Is this request for a controlled substance?No Urine Drug Screen:No results found for this or any previous visit. Patient Phone Numbers Labs: Lab Results Component Value Date/Time CREAT 0.8 01/28/2024 09:51 AM CREAT 0.8 11/01/2020 09:42 AM POTASSIUM 4.6 01/28/2024 09:51 AM POTASSIUM 4.7 11/01/2020 09:42 AM TSH 0.47 04/01/2024 10:03 AM TSH 0.72 09/20/2017 08:22 AM LDLCALC 41 09/13/2023 08:58 AM LDLCALC 34 11/01/2020 09:42 AM LDLDIRECT 37 03/13/2023 08:52 AM LDLDIRECT NOT APPLICABLE 11/01/2020 09:42 AM LDLDIRECT 87 03/03/2014 08:39 AM ALT 12 01/28/2024 09:51 AM ALT 17 11/01/2020 09:42 AM HGBA1C 6.7 (H) 02/27/2024 09:40 AM HGBA1C 6.8 (H) 11/01/2020 09:42 AM documented in this encounter Plan of Treatment Upcoming Encounters Date Type Department Care Team (Late st Contact Info) Description 06/26/2024 9:30 AM EDT Office Visit Cardiology, [facility] [address] [place] [address] Jennifer Dunbar PA-C [address] [place] [address] 09/24/2024 8:20 AM EST Office [address] [address] Cyn Vivar PA-C [address] [place] [address] 01/22/2025 9:40 AM EDT Office Visit Rheumatology [facility] [address] [place] [address] Genaro Johnson MD [address] [place], [place] [address] Health Maintenance Due Date Last Done Comments [...] D LEVEL ONCE IN A LIFETIME-USE SMARTSET# [id number] Completed 04/30/2020, 03/26/2018, 08/24/2015, Additional history exists [...] as of this encounter Visit Diagnoses Diagnosis HTN, goal below 130/80 Unspecified essential hypertension Hyperkalemia Hyperpotassemia Hyponatremia Hyposmolality and/or hyponatremia documented in this encounter Care Teams Facility Environmental Technician Relationship Specialty Start Date End Date Cyn Vivar PA-C [address] [place] [address] PCP - General Physician Edge Beader 05/03/22 documented as of this encounter
--- OUTSIDE RECORDS SUMMARY | 2024-09-01 09:29 | External Medical Summary | Summary of Care ---
Author Name Unknown Organization [facility] Address [address] [facility] [place] [address] Phone [phone] Care Team Providers Care Mat Maker Name Role Phone Cyn Vivar PA-C Primary Care Provider +1 -[phone] Encounter Details Date Type Department Care Team [...] mRNA, LNP-s, No Pre serve, 2-Dose Series ([employer]) 09/28/2021,01/28/2021,12/31/2020 COVID-19, MRNA-LNP, 23-24, P F, 30 MCG/0.3 mL, 12 YRS AND ABOVE, IM ([employer]-ComirnatbiNu) 08/09/2023 Covid-19, Mrna, Lnp-s, Pf, B ivalent, [...] 05/06/2024 9:15 AM EDT Office Visit Orthopaedics [facility] [address] [place] [phone] Sebastián Barba PA-C [address] [place] [address] 06/26/2024 9:30 AM EDT Office Visit Cardiology, [facility] [address] [place] [address] Jose Carlos Fuchs PA-C [address] [place] [address] 09/24/2024 8:20 AM EST Office [address] [address] Cyn Vivar PA-C [address] [place] [address] 01/22/2025 9:40 AM EDT Office Visit Rheumatology [facility] [address] [email or web address] [address] Genaro Johnson MD [address] [place] [address] Health Maintenance Due Date Last Done Comments [...] D LEVEL ONCE IN A LIFETIME-USE SMARTSET# [id number] Completed 04/30/2020, 03/26/2018, 08/24/2015, Additional history exists [...] filedocumented as of this encounter Care Teams Mat Maker Relationship Specialty Start Date End Date Cyn Vivar PA-C [address] [facility] [place] [address] PCP - General Physician Pulmonary Specialist 05/03/22 documented as of this encounter
--- OUTSIDE RECORDS SUMMARY | 2024-09-01 09:29 | External Medical Summary | Summary of Care ---
Author Name Unknown Organization [facility] Address [address] [facility] [place] [address] Phone [phone] Care Team Providers Care Water Aerobics Instructor Name Role Phone Cyn Vivar PA-C Primary Care Provider +1 -[phone] Encounter Details Date Type Department Care Team (Latest Contact Info) Description 05/06/2024 9:15 AM EDT - 05/06/2024 11:59 PM EDT Hospital Encounter [facility]iology [facility] [place] [facility] [place] [address] Arrived Discharge Disposition: Home - Self Care Allergies Active Allergy Reactions Criticality Noted Date Comments Hydrochlorothiazide 09/19/2019 Hyponatremia documented as of this encounter (statuses as of 05/07/2024) Medications Medication Sig Dispensed Refills Start Date [...] as of this encounter (statuses as of 05/07/2024) Active Problems Problem Noted Date Diagnosed Date [...] as of this encounter (statuses as of 05/07/2024) Resolved Problems Problem Noted Date Diagnosed Date [...] term Tachycardia 04/14/2010 09/20/2017 Other specified anemias 04/11/20100 05/2012 Iron deficiency anemia 04/07/201003/10 MOLD CONTACT ALLERGY 02/03/2010 017 Family history of diabetes mellitus 02/03/2010 08/18/2011 FAMILY HX- COLON CANCER 02/03/[address] 02/2017 PAST HX OF PANCREATIC CYST (RESOLVED) 02/03/2010 03/19/2017 HTN, goal below 130/80 11/21 Type 2 diabetes mellitus wit h hemoglobin A1c goal of less than 7.0% 08/27/2012 Overview: ICD-10 update of inactive term Adenomatous polyp of colon 0 03/14/2024 documented as of this encounter (statuses as of 05/07/2024) Immunizations Name Administration Dates Next Due COVID-19 mRNA, LNP-s, No Pre serve, 2-Dose Series ([employer]) 09/28/2021,01/28/2021,12/31/2020 COVID-19, MRNA-LNP, 23-24, P F, 30 MCG/0.3 mL, 12 YRS AND ABOVE, IM (Centrify-ComirnatLumate) 08/09/2023 Covid-19, Mrna, Lnp-s, Pf, B ivalent, 30 Mcg, IM, 12 yrs and above ([employer]) 08/07/2022 Pneumococcal Conjugate Vacc, 13 Valent (Prevnar) [...] 06/26/2024 9:30 AM EDT Office Visit Cardiology, [facility] [address] [place] [address] Jose Carlos Fuchs PA-C [address] [place] [address] 09/24/2024 8:20 AM EST Office Visit [facility] [address] [facility] [phone] Cyn Vivar PA-C [address] [facility] [place] [address] 01/22/2025 9:40 AM EDT Office Visit Rheumatology [facility] [address] [facility] [place] [address] Genaro Johnson MD [address] [place] [address] Pending Results Name Type Priority Associated Diagnoses Date /Time XR SHOULDER, 2 OR MORE VIEWS Medical Imaging Routine Closed fracture of proximal end of right humerus, unspecified fracture morphology, initial encounter 05/06/2024 9:29 AM EDT Health Maintenance Due Date Last Done Comments [...] D LEVEL ONCE IN A LIFETIME-USE SMARTSET# [id number] Completed 04/30/2020, 03/26/2018, 08/24/2015, Additional history exists *BASELINE EKG FOR HTN Completed 12/14/2021 , 12/08/2020, 08/08/2019, Additional history exists HPV (Gardasil) Vaccine Aged [...] filedocumented as of this encounter Care Teams Water Aerobics Instructor Relationship Specialty Start Date End Date Cyn Vivar PA-C [address] [facility] [place] [address] PCP - General Physician Probation Agent 05/03/22 documented as of this encounter
--- OUTSIDE RECORDS SUMMARY | 2024-09-01 09:29 | External Medical Summary | Summary of Care ---
Author Name Unknown Organization [facility] Address [address] [facility] [place] [address] Phone [phone] Care Team Providers Care Tab Builder Name Role Phone Cyn Vivar PA-C Primary Care Provider +1 -[phone] Encounter Details Date Type Department Care Team [...] mRNA, LNP-s, No Pre serve, 2-Dose Series ([employer]) 09/28/2021,01/28/2021,12/31/2020 COVID-19, MRNA-LNP, 23-24, P F, 30 MCG/0.3 mL, 12 YRS AND ABOVE, IM ([employer]imark-ComirnatEasel) 08/09/2023 Covid-19, Mrna, Lnp-s, Pf, B ivalent, [...] 05/06/2024 9:15 AM EDT Office Visit Orthopaedics [facility] [address] [place] [phone] Sebastián Barba PA-C [address] [place] [address] 06/26/2024 9:30 AM EDT Office Visit Cardiology, [facility] [address] [place] [address] Jose Carlos Fuchs PA-C [address] [address] 09/24/2024 8:20 AM EST Office [address] [address] Cyn Vivar PA-C [address] [place] [address] 01/22/2025 9:40 AM EDT Office Visit Rheumatology [facility] [address] [place] [address] Genaro Johnson MD [address] [employer] [place] [address] Health Maintenance Due Date Last Done Comments [...] D LEVEL ONCE IN A LIFETIME-USE SMARTSET# [id number] Completed 04/30/2020, 03/26/2018, 08/24/2015, Additional history exists [...] filedocumented as of this encounter Care Teams Tab Builder Relationship Specialty Start Date End Date Cyn Vivar PA-C [address] [facility] [place] [address] PCP - General Physician Loom Doffer 05/03/22 documented as of this encounter
--- OUTSIDE RECORDS SUMMARY | 2024-09-01 09:29 | External Medical Summary | Summary of Care ---
Author Name Unknown Organization [facility] Address [address] [facility] [place] [address] Phone [phone] Care Team Providers Care Entry Level Name Role Phone Cyn Vivar PA-C Primary Care Provider +1 -[phone] Encounter Details Date Type Department Care Team [...] mRNA, LNP-s, No Pre serve, 2-Dose Series ([employer]) 09/28/2021,01/28/2021,12/31/2020 COVID-19, MRNA-LNP, 23-24, P F, 30 MCG/0.3 mL, 12 YRS AND ABOVE, IM ([employer]-ComirnatThinkature) 08/09/2023 Covid-19, Mrna, Lnp-s, Pf, B ivalent, [...] 05/06/2024 9:15 AM EDT Office Visit Orthopaedics [facility] 16 [place] [phone] Sebastián Barba PA-C 16 [place] [address] 06/26/2024 9:30 AM EDT Office Visit Cardiology, [facility] [address] [place] [address] Jose Carlos Fuchs PA-C [address] [address] 09/24/2024 8:20 AM EST Office Visit [address] [address] Cyn Vivar PA-C [address] [place] [address] 01/22/2025 9:40 AM EDT Office Visit Rheumatology [facility] [address] [place] [address] Genaro Johnson MD [address] [place] [address] Health Maintenance Due Date Last Done Comments [...] D LEVEL ONCE IN A LIFETIME-USE SMARTSET# [id number] Completed 04/30/2020, 03/26/2018, 08/24/2015, Additional history exists [...] filedocumented as of this encounter Care Teams Entry Level Relationship Specialty Start Date End Date Cyn Vivar PA-C [address] [facility] [place] [address] PCP - General Physician Materials Planner 05/03/22 documented as of this encounter
--- OUTSIDE RECORDS SUMMARY | 2024-09-01 09:29 | External Medical Summary | Summary of Care ---
Author Name Unknown Organization [facility] Address [address] [address] Phone [phone] Care Team Providers Care Natural History Collections Curator Name Role Phone Cyn Vivar PA-C Primary Care Provider +1 -[phone] Reason for Visit * Reason Comments Follow Up Right shoulder f/u Encounter Details Date Type Department Care Team (Late st Contact Info) Description 05/06/2024 9:15 AM EDT Office Visit Orthopaedics [facility] [address] [place] [phone] Sebastián Barba PA-C [address] [facility] [place] [address] Closed fracture of proximal end of right humerus, unspecified fracture morphology, initial encounter* Allergies Active Allergy Reactions Criticality Noted Date Comments Hydrochlorothiazide 09/19/2019 Hyponatremia documented as of this encounter (statuses as of 05/06/2024) Medications Medication Sig Dispensed Refills Start Date [...] hemoglobin A1c goal of less than 7.0% ([facility]) Use as directed. 04/28/2019 Active Glucose Blood In Vitro StripIndications:T ype 2 diabetes mellitus with hemoglobin A1c goal of less than 7.0% ([facility]) Check blood sugars two times daily. [...] Active amLODIPine Besylate 5 MG Oral Tablet (Norvasc)Jeffersontio ns:Hyperkalemia,Hy ponatremia,HTN, goal below 130/80 TAKE 1 [...] as of this encounter (statuses as of 05/06/2024) Active Problems Problem Noted Date Diagnosed Date [...] as of this encounter (statuses as of 05/06/2024) Resolved Problems Problem Noted Date Diagnosed Date [...] as of this encounter (statuses as of 05/06/2024) Immunizations Name Administration Dates Next Due COVID-19 mRNA, LNP-s, No Pre serve, 2-Dose Series (Rayn) 09/28/2021,01/28/2021,12/31/2020 COVID-19, MRNA-LNP, 23-24, P F, 30 MCG/0.3 mL, 12 YRS AND ABOVE, IM ([employer]cake-ComirnatLight-Based Technologies) 08/09/2023 Covid-19, Mrna, Lnp-s, Pf, B ivalent, 30 Mcg, IM, 12 yrs and above (Rayn) 08/07/2022 Pneumococcal Conjugate Vacc, 13 Valent (Prevnar) [...] as of this encounter Progress Notes * Sebastián Barba PA-C - 05/06/2024 11:47 AM EDT CLINIC NOTE Orthopaedics [facility] [place] [address] [place] : 1955 05/06/2024 HISTORY: 69-year-old female here today for followup closed treatment of right proximal humerus fracture. She has been working with physical therapy. She reports minimal pain in her right shoulder. She reports improvement with her motion. She otherwise denies any neurological symptoms, fevers, chills. PHYSICAL EXAMINATION: Right shoulder shows deltoid and axillary nerve are clinically intact, she was at least 90 degrees of active forward elevation. Grossly intact sensation light touch, intact neurovascular exam. IMAGING: Repeat radiographs right shoulder show no change in alignment, interval callus formation, humeral head well-positioned in respect to the glenoid. ASSESSMENT: 69-year-old female right proximal humerus fracture, closed treatment PLAN: Patient will continue to progress with therapy. She was advised that at 12 weeks from injury she can progress activities as tolerated without restrictions. She may follow up as needed. This note was created in part with dictation software. It may contain grammatical and word substitution errors. Sebastián Barba PA-C 05/06/2024 11:47 AM documented in this encounter Plan of Treatment Upcoming Encounters Date Type Department Care Team (Late st Contact Info) Description 06/26/2024 9:30 AM EDT Office Visit Cardiology, [facility] [address] [place] [address] Jose Carlos Fuchs PA-C [address] [place] [address] 09/24/2024 8:20 AM EST Office Visit [facility] [address] [facility] [place] [address] Cyn Vivar PA-C [address] [place] [address] 01/22/2025 9:40 AM EDT Office Visit Rheumatology [place] [phone] [facility] [place] [address] Genaro Johnson MD [address] [place] [address] Pending Results Name Type Priority Associated Diagnoses [...] D LEVEL ONCE IN A LIFETIME-USE SMARTSET# [id number] Completed 04/30/2020, 03/26/2018, 08/24/2015, Additional history exists [...] as of this encounter Visit Diagnoses Diagnosis Closed fracture of proximal end of right humerus, unspecified fracture morphology, initial encounter- Primary documented in this encounter Care Teams Natural History Collections Curator Relationship Specialty Start Date End Date Cyn Vivar PA-C [address] [place] [address] PCP - General Physician Autocutter 05/03/22 documented as of this encounter
--- OUTSIDE RECORDS SUMMARY | 2024-09-01 09:30 | External Medical Summary | Summary of Care ---
Author Name Unknown Organization [facility] Address [address] [facility] [place] [address] Phone [phone] Care Team Providers Care Claims Technician Name Role Phone Cyn Vivar PA-C Primary Care Provider [phone] [phone] Reason for Referral * Evaluate & Treat - Unlimited Visits (Within 10 days (routine)) - Authorized Specialty Diagnoses / Procedures Referred By Contac t Referred To Contact Physical Therapy / Physical Medicine And Rehab Diagnoses Closed fracture of proximal end of right humerus, unspecified fracture morphology, initial encounter Sebastián Barba PA-C [address] [place] [address] Referral ID Status Reason Start Date Expiration Date Visits Requested Visits Authorized [id number] Authorized Specialty Services Required 04/04/2024 [id number] Question Answer Referral Priority Within 10 days (routine) Where should this appointment be scheduled? [facility] Comments R prox humerus fx, non-operative tx See PT packet Reason for Visit * Reason Comments NEW PATIENT Right shoulder * Evaluate & Treat - Unlimited Visits (Within 3 days (urgent)) - Authorized Specialty Diagnoses / Procedures Referred By Contac t Referred To Contact Orthopaedic Surgery / Orthopedics Diagnoses Closed fracture of proximal end of right humerus, unspecified fracture morphology, initial encounter Mik Clark PA-C [address] [place] [address] Charles Diaz, DO [address] [facility] [place] [address] Referral ID Status Reason Start Date Expiration Date Visits Requested Visits Authorized [id number] Authorized Specialty Services Required 03/25/2024 [id number] Encounter Details Date Type Department Care Team (Late st Contact Info) Description 04/04/2024 11:00 AM EDT Office Visit Orthopaedics [facility] [address] [place] [phone] Sebastián Barba PA-C [address] [place] [address] Closed fracture of proximal end of right humerus, unspecified fracture morphology, initial encounter* Allergies Active Allergy Reactions Criticality Noted Date Comments Hydrochlorothiazide 09/19/2019 Hyponatremia documented as of this encounter (statuses as of 04/04/2024) Medications Medication Sig Dispensed Refills Start Date [...] hemoglobin A1c goal of less than 7.0% ([facility]) Use as directed. 04/28/2019 Active Glucose Blood In Vitro StripIndications:T ype 2 diabetes mellitus with hemoglobin A1c goal of less than 7.0% ([facility]) Check blood sugars two times daily. [...] Oral Tablet (Tylenol) 2 Tablets. 09/26/2022 Active Atorvastatin Calcium 10 MG Oral Tablet (Lipitor)Indicatio ns:Dyslipidemia, goal LDL below 70 TAKE 1 TABLET BY MOUTH IN THE MORNING 90 Tablet 3 05/12/2023 Active amLODIPine Besylate 5 MG Oral Tablet [...] AT BEDTIME 90 Tablet 3 02/09/2024 Active documented as of this encounter (statuses as of 04/04/2024) Active Problems Problem Noted Date Diagnosed Date [...] as of this encounter (statuses as of 04/04/2024) Resolved Problems Problem Noted Date Diagnosed Date [...] 02/03/2010 08/18/2011 FAMILY HX- COLON CANCER 02/03/2010 060 02/2017 PAST HX OF PANCREATIC CYST (RESOLVED) 02/03/2010 03/19/2017 HTN, goal below 130/80 11/21 Type 2 diabetes mellitus wit h hemoglobin A1c goal of less than 7.0% 08/27/2012 Overview: ICD-10 update of inactive term Adenomatous polyp of colon 0 03/14/2024 documented as of this encounter (statuses as of 04/04/2024) Immunizations Name Administration Dates Next Due COVID-19 mRNA, LNP-s, No Pre serve, 2-Dose Series ([employer]) 09/28/2021,01/28/2021,12/31/2020 COVID-19, MRNA-LNP, 23-24, P F, 30 MCG/0.3 mL, 12 YRS AND ABOVE, IM ([employer]-Comirnaty) 08/09/2023 Covid-19, Mrna, Lnp-s, Pf, B ivalent, [...] Progress Notes * Sebastián Barba PA-C - 04/04/2024 11:17 AM EDT Orthopaedic Clinic History and Physical 04/04/2024 ? Name: Nemo Plata ? ? ? History of Present Illness: Bvxwj-xedd-qanvubyd 69-year-old female sustained a mechanical fall on 03/23/2024. She states that she tripped in a doorway, she fell approximately 2 feet onto her right side injuring her right shoulder. She previously saw another physician family assistant, x-rays demonstrated a 4 part right proximal humerus fracture, CT was ordered to evaluate fracture morphology. She was then scheduled for follow-up with myself. She reports mild to moderate pain in the right shoulder. Otherwise denies any neurological symptoms, fevers, chills. Past Medical History: Diagnosis Date Adenomatous polyp of colon 2009 Benign neoplasm of colon 04/06/10 adenomatous tissue--repeat 3 years Benign neoplasm of colon 03/14/13 repeat in 5 years-COLONOSCOPY FLEXIBLE PROXIMAL DIAGNOSTIC performed by Germaine Monteiro MD at END[facility]COPY [facility], normal tissue at previous polyp site, repeat colonoscopy in 5 year Diffuse connective tissue disease (HCC) 02/14/2011 DM type 2, goal A1c below 7 Dyslipidemia, goal LDL below 70 Family history of diabetes mellitus 02/03/2010 FAMILY HX- COLON CANCER 02/03/2010 HTN, goal below 150/90 11/21/2013 Iron deficiency anemia 04/07/2010 MOLD CONTACT ALLERGY 02/03/2010 Osteoporosis 02/14/2011 T score left femoral neck -2.6 Other specified anemias 04/11/2010 PAST HX OF PANCREATIC CYST (RESOLVED) 02/03/2010 Tachycardia 04/14/2010 ? Past Surgical History: Procedure Laterality Date BREAST LESION,OTHER,EXCISION Right 06/13/2010 Benign COLONOSCOPY 04/06/10 adenomatous tissue--repeat 3 years COLONOSCOPY, DIAGNOSTIC (RECTUM) 03/14/2013 repeat in 5 years-COLONOSCOPY FLEXIBLE PROXIMAL DIAGNOSTIC performed by Germaine Monteiro MD at [facility]COPY [facility], normal tissue at previous polyp site, repeat colonoscopy in 5 years REMOVE TONSILS & ADENOIDS, UNDER 12 ? Family History Problem Relation Name Age of Onset Cancer Brother colon Cancer Father leukemia Diabetes Father Arthritis Mother RA and OA Musculo-skeletal Disorder Mother 78 knee replacement ? ? Social History Socioeconomic History Marital status: Single Spouse name: Not on file Number of children: 0 Years of education: Not on file Highest education level: Not on file Occupational History Occupation: teacher Employer: [employer] Comment: retired lbd teacher from [employer] Tobacco Use Smoking status: Never Smokeless tobacco: Never Vaping Use Vaping status: Never Used Substance and Sexual Activity Alcohol use: No Drug use: No Sexual activity: Never Other Topics Concern Service Not Asked Blood Transfusions Not Asked Caffeine Concern Not Asked Occupational Exposure Not Asked Hobby Hazards Not Asked Sleep Concern Not Asked Stress Concern Not Asked Weight Concern Not Asked Special Diet Not Asked Back Care Not Asked Exercise Not Asked Bike Helmet Not Asked Seat Belt Yes Self-Exams Not Asked Social History Narrative job: Teacher- [employer] at [employer]- retired at age 55 employer: n/a education: Master equivalent service: no hobbies/interests: Cruising, pan, reading,. music transfusions: yes exercise: walk diet: Watch carbs protestant/anglican: Islam of [place] marital status: single children: 0 gc: 0 ggc: 0 pets: no exposure to violence/threats/abuse: no things to improve: weight Social Determinants of Health Financial Resource Strain: Not on file Food Insecurity: No Food Insecurity (02/28/2023) Hunger Vital Sign Worried About Running Out of Food in the Last Year: Never true Ran Out of Food in the Last Year: Never true Transportation Needs: Not on file Social Connections: Unknown (04/01/2024) Social Connections How often do you feel lonely or isolated from those around you? (Adult - for ages 18 years and over): Not on file Housing Stability: Not on file ? Current Outpatient Medications Medication Sig Dispense Refill OSTEO BI-FLEX ADV TRIPLE ST PO TABS one pill twice a day 60 Tab 0 OCUVITE-LUTEIN PO CAPS 2 CAPSULE DAILY 60 Cap 0 BIMATOPROST 0.01 % OP SOLN One drop each eye before bedtime CO Q10 100 MG PO CAPS 1 CAPSULE DAILY 1 Cap 0 CALCIUM 600+D 600-200 MG-UNIT PO TABS 1 TABLET DAILY WITH FOOD 60 Tab 0 VITAMIN C 500 MG PO TABS 1 daily CINNAMON 500 MG PO CAPS 1 twice daily Cholecalciferol (VITAMIN D3) 2000 UNITS Capsule Take 1,000 Units by mouth daily. vitamin b 12 (CYANOCOBALAMIN) 1000 MCG TABS Take 1 Tablet by mouth in the morning. Blood Glucose Monitoring Suppl (MetaNotes[employer] BLOOD GLUCOSE METER) OTTO Use as directed. Glucose Blood In Vitro Strip Check blood sugars two times daily. 1 Box Dosing Unit 3 Ferrous Gluconate 256 (28 Fe) MG Oral Tablet (Ferate) Take 2 Tablets by mouth in the morning. Patient takes one at breakfast and one at dinner. . Hair Skin & Nails Gummies 1250-7.5-7.5 MCG-MG-UNT Oral Tablet Chewable (Biotin w/ Vitamins C & E) Take by mouth 1 Each daily . Aspirin 81 MG Oral Tablet Delayed Release Take 1 Tablet by mouth in the morning and 1 Tablet in theevening. Acetaminophen 500 MG Oral Tablet (Tylenol) 2 Tablets. Atorvastatin Calcium 10 MG Oral Tablet (Lipitor) TAKE 1 TABLET BY MOUTH IN THE MORNING 90 Tablet 3 amLODIPine Besylate 5 MG Oral Tablet (Norvasc) TAKE 1 TABLET BY MOUTH IN THE MORNING 90 Tablet 3 NATURAL SUPPLEMENT Take 1 Tablet by mouth in the morning. Nervive. NATURAL SUPPLEMENT Take 2 Tablets by mouth in the morning. Total Beets. Furosemide 20 MG Oral Tablet (Lasix) Take 2 Tablets by mouth in the morning. In the morning.. 180 Tablet 3 Metoprolol Succinate ER 50 MG Oral Tablet Extended Release 24 Hour (toPROL XL) TAKE 1 TABLET BY MOUTH IN THE MORNING AND 1 TABLET BY MOUTH BEFORE BEDTIME 180 Tablet 3 glyBURIDE 5 MG Oral Tablet (Diabeta) TAKE 1 TABLET BY MOUTH IN THE MORNING AND BEFORE BEDTIME 180 Tablet 2 metFORMIN HCl 1000 MG Oral Tablet (Glucophage) TAKE 1 TABLET BY MOUTH TWICE DAILY WITH MORNING AND EVENING MEALS 180 Tablet 1 Hydroxychloroquine Sulfate 200 MG Oral Tablet (Plaquenil) TAKE 1 TABLET BY MOUTH AT BEDTIME 90 Tablet 3 No current facility-administered medications for this visit. ? Review of patient's allergies indicates: Allergen Reactions Hctz [Hydrochlorothiazide] Hyponatremia ? ? ? Review of Systems CONSTITUTIONAL: No weight loss, no weakness and no fatigue. RESP: No cough, no sputum, no wheezing and no SOB. CARDIAC: No chest pain, no orthopnea and no dyspnea on exertion. GI: No pain, no heartburn, no diarrhea, no constipation. MSK: As above. NEURO: No memory loss and no weakness. PSYCH: Denies feeling down, depressed or hopeless in past month, denies being bothered by little interest or pleasure in doing things in past month and no insomnia. HEME: No fever, no chills, no sweats and no bleeding/bruising. ENDO: No unplanned weight change. SKIN: No rash, no itching and no new/changing skin lesions. ? Physical Exam There were no vitals taken for this visit. CONSTITUTIONAL State of Health: Well. Level of consciousness: Alert. Distress: None. NEURO: Oriented to self, place and time. PSYCH: Normal mood and affect. EYES: Sclerae and conjunctivae normal. HEART: Pulses equal bilaterally LUNGS: Normal respiratory effort, SKIN: Warm, dry, intact. MUSCULOSKELETAL Right shoulder reveals intact skin. Deltoid and axillary nerve are clinically intact. Shoulder motion not assessed. Grossly intact sensation light touch. ? Imaging: Radiograph repeat radiographs right shoulder today show no further displacement of the fractures. Humeral head well-positioned in respect to the glenoid. ? ? Assessment and Plan: 69-year-old female right proximal humerus fracture, 2 weeks from injury. I discussed proximal humerus fractures at length with the patient. We discussed both operative and nonoperative treatment. Nonoperative treatment includes analgesia, sling immobilization followed by progressive mobilization with physical therapy, repeat radiographs to assess for changes in fractureposition and healing. Operative treatment would include open reduction and internal fixation and insome cases, shoulder arthroplasty depending on age and fracture morphology. In cases of fragility fractures, we recommend a HiROC consultation for evaluation of underlying osteoporosis / metabolic bone disease with a goal of preventing future fragility fracture. The patient has elected for: Closed treatment. She will continue with sling. She was provided with the rehab packet as well as physical therapy prescription. She will follow up with me in 4 weeks forrepeat radiographs of right shoulder including AP of glenohumeral joint, scapular Y, Velpeau axillary view. ? ? This note was created in part with dictation software. It may contain grammatical and word substitution errors. Sebastián Barba PA-C 04/04/2024 11:17 AM documented in this encounter Plan of Treatment Upcoming Encounters Date Type Department Care Team (Late st Contact Info) Description 05/06/2024 9:15 AM EDT Office Visit Orthopaedics [facility] [address] [place] [phone] Sebastián Barba PA-C [address] [place] [address] 06/26/2024 9:30 AM EDT Office Visit Cardiology, [facility] 132 [facility] [place] [address] Jose Carlos Fuchs PA-C [facility] [address] 09/24/2024 8:20 AM EST Office Visit [facility] [address] [place] [phone] Cyn Vivar PA-C [address] [place] [address] 01/22/2025 9:40 AM EDT Office Visit Rheumatology [address] [place] [address] Genaro Johnson MD [address] [place] [address] Pending Results Name Type Priority Associated Diagnoses Date /Time XR SHOULDER, 2 OR MORE VIEWS Medical Imaging Routine Closed fracture of proximal end of right humerus, unspecified fracture morphology, initial encounter 04/04/2024 10:57 AM EDT Scheduled Orders Name Type Priority Associated Diagnoses Orde r Schedule PROX HUM FX W/OM Procedures Routine Closed fracture of proximal end of right humerus, unspecified fracture morphology, initial encounter Ordered: 04/04/2024 Scheduled Referrals Name Type Priority Associated Diagnoses Orde r Schedule PHYSICAL THERAPY REFERRAL OP Referral Within 10 days (routine) Closed fracture of proximal end of right humerus, unspecified fracture morphology, initial encounter Ordered: 04/04/2024 Health Maintenance Due Date Last Done Comments Hepatitis C Screening 1971 DTaP,Tdap,and Td Vaccines (1 - Tdap) 01/18/1972 Cologuard 1998 Sigmoidoscopy 1998 DXA Scan 02/19/2015 02/19/2013, 12/2010, 02/14/2011 Colonoscopy 03/14/2018 03/14/2013, 02/14, 04/06/2010 Colorectal Cancer Screening 10/01/2018 Fecal Occult Blood Test 09/30/2019 09/30/2018, 09/24 COVID-19 Vaccine ( season) 2023 08/09/2023, 08/07/2022, 09/28/2021, Additional history exists Mammogram 07/25/2024 07/25/2023, 07/15, 07/10/2023, Additional history exists Diabetic Eye Exam 08/27/2024 08/27/2023, (Done elsewhere), 02/04/2021, Additional history exists HbA1c 08/29/2024 02/27/2024, 08/17, 03/13/2023, Additional history exists Albumin/Creatinine Ratio 09/13/2024 023, 03/13/2023, 10/03/2021, Additional history exists GFR 01/27/2025 01/28/2024, 06/2023, 06/21/2023, Additional history exists Depression Screening 03/14/2025 03/14/2024, [...] D LEVEL ONCE IN A LIFETIME-USE SMARTSET# [id number] Completed 04/30/2020, 03/26/2018, 08/24/2015, Additional history exists Influenza Vaccine (FLU shot) Completed 07/23/2023, 08/02/2022, 07/19/2021, Additional history exists GARDASIL-HPV IMMUNIZATION SERIES Aged Out No longer eligible based on patient's age to complete this topic Hepatitis B Aged Out No longer eligi ble based on patient's age to complete this topic MENINGOCOCCAL (MENACTRA/MENVEO) Aged Out No longer eligible based on patient's age to complete this topic documented as of this encounter Medical Devices Not on filedocumented as of this encounter Visit Diagnoses Diagnosis Closed fracture of proximal end of right humerus, unspecified fracture morphology, initial encounter- Primary documented in this encounter Care Teams Claims Technician Relationship Specialty Start Date End Date Cyn Vivar PA-C [address] [facility] [phone] PCP - General Physician Oven Attendant 05/03/22 documented as of this encounter
--- OUTSIDE RECORDS SUMMARY | 2024-09-01 09:30 | External Medical Summary | Summary of Care ---
Author Name Unknown Organization [facility] Address [address] [facility] [place] [address] Phone [phone] Care Team Providers Care Bladder Trimmer Name Role Phone Cyn Vivar PA-C Primary Care Provider [phone] Encounter Details Date Type Department Care Team [...] mRNA, LNP-s, No Pre serve, 2-Dose Series ([employer]) 09/28/2021,01/28/2021,12/31/2020 COVID-19, MRNA-LNP, 23-24, P F, 30 MCG/0.3 mL, 12 YRS AND ABOVE, IM ([employer]-ComirnatFuturefleet) 08/09/2023 Covid-19, Mrna, Lnp-s, Pf, B ivalent, [...] 05/06/2024 9:15 AM EDT Office Visit Orthopaedics [facility] [address] [place] [phone] Sebastián Barba PA-C [address] [place] [address] 06/26/2024 9:30 AM EDT Office Visit Cardiology, [facility] [address] [place] [address] Jose Carlos Fuchs PA-C [address] [place] [address] 09/24/2024 8:20 AM EST [address] [address] Cyn Vivar PA-C [address] [place] [address] 01/22/2025 9:40 AM EDT Office Visit Rheumatology [facility] [address] [place] [address] Genaro Johnson MD [address] [place] [address] Health Maintenance Due Date Last Done Comments [...] D LEVEL ONCE IN A LIFETIME-USE SMARTSET# [id number] Completed 04/30/2020, 03/26/2018, 08/24/2015, Additional history exists [...] filedocumented as of this encounter Care Teams Bladder Trimmer Relationship Specialty Start Date End Date Cyn Vivar PA-C [address] [facility] [place] [address] PCP - General Physician Assistant Buyer 05/03/22 documented as of this encounter
--- OUTSIDE RECORDS SUMMARY | 2024-09-01 09:30 | External Medical Summary | Summary of Care ---
Author Name Unknown Organization [facility] Address [address] [facility] [place] [address] Phone [phone] Care Team Providers Care Department Store General Manager Name Role Phone Cyn Vivar PA-C Primary Care Provider [phone] [phone] Encounter Details Date Type Department Care Team [...] mRNA, LNP-s, No Pre serve, 2-Dose Series ([employer]) 09/28/2021,01/28/2021,12/31/2020 COVID-19, MRNA-LNP, 23-24, P F, 30 MCG/0.3 mL, 12 YRS AND ABOVE, IM ([employer]-ComirnatEqu[employer]) 08/09/2023 Covid-19, Mrna, Lnp-s, Pf, B [...] 05/06/2024 9:15 AM EDT Office Visit Orthopaedics [facility] [address] [place] [phone] Sebastián Barba PA-C [address] [place] [address] 06/26/2024 9:30 AM EDT Office Visit Cardiology, [facility] [address] [place] [address] Jose Carlos Fuchs PA-C [address] [address] 09/24/2024 8:20 AM EST [address] [address] Cyn Vivar PA-C [address] [place] [address] 01/22/2025 9:40 AM EDT Office Visit Rheumatology [facility] [address] [place] [address] Genaro Johnson MD [address] [place] [address] Health Maintenance Due Date Last Done Comments [...] D LEVEL ONCE IN A LIFETIME-USE SMARTSET# [id number] Completed 04/30/2020, 03/26/2018, 08/24/2015, Additional history exists [...] filedocumented as of this encounter Care Teams Department Store General Manager Relationship Specialty Start Date End Date Cyn Vivar PA-C [address] [facility] [place] [address] PCP - General Physician Inker 05/03/22 documented as of this encounter
--- OUTSIDE RECORDS SUMMARY | 2024-09-01 09:30 | External Medical Summary | Summary of Care ---
Author Name Unknown Organization [facility] Address [address] [facility] [place] [address] Phone [phone] Care Team Providers Care Wind Energy Technician Name Role Phone Cyn Vivar PA-C Primary Care Provider [phone] Reason for Visit * Reason Comments eRx-Medication Refill Encounter Details Date Type Department Care Team (Late st Contact Info) Description 04/10/2024 Refill [facility] [address] [place] [address] Cyn Vivar PA-C [address] [place] [address] Dyslipidemia, goal LDL below 70 Allergies Active Allergy Reactions Criticality Noted Date Comments Hydrochlorothiazide 09/19/2019 Hyponatremia documented as of this encounter (statuses as of 04/10/2024) Medications Medication Sig Dispensed Refills Start Date [...] goal of less than 7.0% ([facility]) Use as directed. 04/28/2019 Active Glucose Blood In Vitro StripIndications :Type 2 diabetes mellitus with hemoglobin A1c goal of less than 7.0% ([facility]) Check blood sugars two times [...] Beets. Active Furosemide 20 MG Oral Tablet (Lasix)Indicatio [...] goal of less than 7.0% ([facility]) TAKE 1 TABLET BY MOUTH [...] THE MORNING 90 Tablet 1 04/10/2024 Active Atorvastatin Calcium 10 MG Oral Tablet (Lipitor)Indicat ions:Dyslipidemi a, goal LDL below 70 TAKE 1 TABLET BY MOUTH IN THE MORNING 90 Tablet 3 05/12/2023 4 Discontinued documented as of this encounter (statuses as of 04/10/2024) Active Problems Problem Noted Date Diagnosed Date [...] as of this encounter (statuses as of 04/10/2024) Resolved Problems Problem Noted Date Diagnosed Date [...] as of this encounter (statuses as of 04/10/2024) Immunizations Name Administration Dates Next Due COVID-19 mRNA, LNP-s, No Pre serve, 2-Dose Series (Octro) 09/28/2021,01/28/2021,12/31/2020 COVID-19, MRNA-LNP, 23-24, P F, 30 MCG/0.3 mL, 12 YRS AND ABOVE, IM (transOMIC-ComirnatTM3 Systems) 08/09/2023 Covid-19, Mrna, Lnp-s, Pf, B ivalent, 30 Mcg, IM, 12 yrs and above (Octro) 08/07/2022 Pneumococcal Conjugate Vacc, 13 Valent (Prevnar) 03/29/2018 Pneumococcal Polysaccharide PPV23 (Pneumovax) 05/26/2019,07/04/2010 Season Influenza, Quad, PF, Adjuvanted, 65+ Yrs, IM (FLUAD) 08/03/2020 Seasonal Influenza, PF, 6 M & above, IM , (FluLaval or Fluzone) 07/15/2019,08/05/2018,07/30/2017 08/09/2018 Seasonal Influenza, Quadriva lent Hd (Fluzone Hd) 07/23/2023,08/02/2022,07/19/2021 Seasonal Influenza, Quadriva lent, No Preserve, IM 08/07/2016 08/07/2017 Seasonal Influenza, Split, I IV3, With Preserve, Inj 07/28/2015,07/15/2014,07/22/2013,10/0 02/2012,08/18/2011 Varicella Zoster Vaccine (Adult) 02/26/2012 Zoster Vaccine [...] encounter Miscellaneous Notes * Telephone Encounter - Dot Mayen RPh - 04/10/2024 11:43 AM EDTSigned Prescriptions: Disp Refills Atorvastatin Calcium 10 MG Oral Tablet (Li*90 Tab*1 Sig: TAKE 1 TABLET BY MOUTH IN THE MORNINGAuthorizing Provider: CYN VIVAR AOrdering User: DOT MAYEN documented in this encounter Plan of Treatment Upcoming Encounters Date Type Department Care Team (Late st Contact Info) Description 05/06/2024 9:15 AM EDT Office Visit [facility]opaedics [place] [place] [address] [place] [phone] Sebastián Barba PA-C [address] [place] [address] 06/26/2024 9:30 AM EDT Office Visit Cardiology, [facility] 132 [facility] [place] [address] Jose Carlos Fuchs PA-C 132 [facility] [place] [address] 09/24/2024 8:20 AM EST Office Visit [facility] [place] [address] [place] [phone] Cyn Vivar PA-C [address] [place] [address] 01/22/2025 9:40 AM EDT Office Visit Rheumatology [place] [address] [place] [address] Genaor Johnson MD [address] [place] [address] [place] [address] Health Maintenance Due Date Last Done Comments [...] D LEVEL ONCE IN A LIFETIME-USE SMARTSET# [id number] Completed 04/30/2020, 03/26/2018, 08/24/2015, Additional history exists [...] as of this encounter Visit Diagnoses Diagnosis Dyslipidemia, goal LDL below 70 Other and unspecified hyperlipidemia documented in this encounter Care Teams Wind Energy Technician Relationship Specialty Start Date End Date Cyn Vivar PA-C [address] [facility] [place] [address] PCP - General Physician Fundraising Coordinator 05/03/22 documented as of this encounter
--- OUTSIDE RECORDS SUMMARY | 2024-09-01 09:30 | External Medical Summary | Summary of Care ---
Author Name Unknown Organization [facility] Address [address] [place] [address] Phone [phone] Care Team Providers Care Sales Estimator Name Role Phone Cyn Vivar PA-C Primary Care Provider +1 -[phone] Encounter Details Date Type Department Care Team (Late st Contact Info) Description 04/07/2024 Orders Only Outcomes Research Department [address] [place], [place] [id number] Miri Boyce CHRA [employer] Other*[id number] Allergies Active Allergy Reactions Criticality Noted Date Comments Hydrochlorothiazide 09/19/2019 Hyponatremia documented as of this encounter (statuses as of 04/07/2024) Medications Medication Sig Dispensed Refills Start Date [...] hemoglobin A1c goal of less than 7.0% ([facility]) Use as directed. 04/28/2019 Active Glucose Blood In Vitro StripIndications:T ype 2 diabetes mellitus with hemoglobin A1c goal of less than 7.0% ([facility]) Check blood sugars two times daily. 1 [...] hemoglobin A1c goal of less than 7.0% ([facility]) TAKE 1 TABLET BY MOUTH IN THE [...] as of this encounter (statuses as of 04/07/2024) Active Problems Problem Noted Date Diagnosed Date [...] as of this encounter (statuses as of 04/07/2024) Resolved Problems Problem Noted Date Diagnosed Date [...] kidney disease 09/20/2017 09/20/2017 Diabetic nephropathy associa gduelia with type 2 diabetes mellitus 09/20/2017 04/28/2019 [...] as of this encounter (statuses as of 04/07/2024) Immunizations Name Administration Dates Next Due COVID-19 mRNA, LNP-s, No Pre serve, 2-Dose Series ([employer]) 09/28/2021,01/28/2021,12/31/2020 COVID-19, MRNA-LNP, 23-24, P F, 30 MCG/0.3 mL, 12 YRS AND ABOVE, IM ([employer]ir[employer]) 08/09/2023 Covid-19, Mrna, Lnp-s, Pf, B ivalent, [...] 05/06/2024 9:15 AM EDT Office Visit Orthopaedics [facility] [address] [place] [phone] Sebastián Barba PA-C 16 [facility] [place] [address] 06/26/2024 9:30 AM EDT Office Visit Cardiology, [facility] 132 [facility] [place] [address] Jose Carlos Fuchs PA-C 132 [facility] [place] [address] 09/24/2024 8:20 AM EST Office Visit [facility] [place] [address] [facility] [phone] Cyn Vivar PA-C [address] [facility] [place] [address] 01/22/2025 9:40 AM EDT Office Visit Rheumatology [address] [place] [address] Genaro Johnson MD [facility] [address] [place] [address] Scheduled Orders Name Type Priority Associated Diagnoses Orde r Schedule MYCODE SUBSEQUENT ADULT Lab Routine [employer] Other*[id number] Every 6 Months for 2 Occurrences starting 04/07/2024 until 04/27/2025 Health Maintenance Due Date Last Done Comments [...] D LEVEL ONCE IN A LIFETIME-USE SMARTSET# [id number] Completed 04/30/2020, 03/26/2018, 08/24/2015, Additional history exists [...] as of this encounter Visit Diagnoses Diagnosis My[employer] Research Other*[id number] documented in this encounter Care Teams Sales Estimator Relationship Specialty Start Date End Date Cyn Vivar PA-C [address] [facility] [place] [address] PCP - General Physician Diesel Powerplant Supervisor 05/03/22 documented as of this encounter
--- OUTSIDE RECORDS SUMMARY | 2024-09-01 09:30 | External Medical Summary | Summary of Care ---
Author Name Unknown Organization [facility] Address [address] [facility] [place] [address] Phone [phone] Care Team Providers Care Music Producer Name Role Phone Cyn Vivar PA-C Primary Care Provider +1 [phone] Reason for Visit * Reason Comments Outpatient Testing Encounter Details Date Type Department Care Team (Late st Contact Info) Description 04/01/2024 10:00 AM EDT Laboratory Laboratory, [place] [address] [place] [address] [place], Laboratory [address] [place], [place] [phone] [employer] Other*[id number]; Multiple thyroid nodules Allergies Active Allergy Reactions Criticality Noted Date Comments Hydrochlorothiazide 09/19/2019 Hyponatremia documented as of this encounter (statuses as of 04/01/2024) Medications Medication Sig Dispensed Refills Start Date [...] hemoglobin A1c goal of less than 7.0% ([facility]) Use as directed. 04/28/2019 Active Glucose Blood In Vitro StripIndications:T ype 2 diabetes mellitus with hemoglobin A1c goal of less than 7.0% ([facility]) Check blood sugars two times [...] as of this encounter (statuses as of 04/01/2024) Active Problems Problem Noted Date Diagnosed Date [...] as of this encounter (statuses as of 04/01/2024) Resolved Problems Problem Noted Date Diagnosed Date [...] as of this encounter (statuses as of 04/01/2024) Immunizations Name Administration Dates Next Due COVID-19 mRNA, LNP-s, No Pre serve, 2-Dose Series ([employer]) 09/28/2021,01/28/2021,12/31/2020 COVID-19, MRNA-LNP, 23-24, P F, 30 MCG/0.3 mL, 12 YRS AND ABOVE, IM ([facility]) 08/09/2023 Covid-19, Mrna, Lnp-s, Pf, B ivalent, 30 Mcg, IM, 12 yrs and above ([employer]) 08/07/2022 Pneumococcal Conjugate Vacc, 13 Valent (Prevnar) [...] money to get more. Never true 02/28/2023 Sex and Gender Information Value Date Recorded [...] Care Team (Late st Contact Info) Description 04/01/2024 10:30 AM EDT Imaging Radiology, [address] [address] Multiple thyroid nodules 04/04/2024 11:00 AM EDT Office Visit Orthopaedics [facility] 16 [place] [phone] Sebastián Barba PA-C 16 [place] [address] 06/26/2024 9:30 AM EDT Office Visit Cardiology, [facility] 132 [facility] [place] [address] Jose Carlos Fuchs PA-C [address] [place] [address] 09/24/2024 8:20 AM EST Office Visit Family Practice, [address] [phone] Cyn Vivar PA-C [address] [place] [address] 01/22/2025 9:40 AM EDT Office Visit Rheumatology [facility] [address] [facility] [place] [address] Genaro Johnson MD [address] [place] [address] Pending Results Name Type Priority Associated Diagnoses Date /Time MYCODE INITIAL ADULT Lab Routine MyCode Research Other*[id number] 04/01/2024 10:03 AM EDT TSH Lab Routine Multiple thyroid nodules 04/01/2024 10:03 AM EDT T4, FREE Lab Routine Multiple thyroid nodules 04/01/2024 10:03 AM EDT THYROID ANTIBODY AND TPO ANTIBODY Lab Routine Multiple thyroid nodules 04/01/2024 10:03 AM EDT MYCODE INITIAL ADULT-PINK Lab Routine [employer] Other*[id number] 04/01/2024 10:03 AM EDT MYCODE SST1 Lab Routine [employer] Other*[id number] 04/01/2024 10:03 AM EDT MYCODE SST2 Lab Routine [employer] Other*[id number] 04/01/2024 10:03 AM EDT Health Maintenance Due Date Last [...] 10/03/2021, Additional history exists GFR 01/27/2025 01/28/2024, 10/0 06/2023, 06/21/2023, Additional history exists Depression Screening [...] D LEVEL ONCE IN A LIFETIME-USE SMARTSET# [id number] Completed 04/30/2020, 03/26/2018, 08/24/2015, Additional history exists [...] as of this encounter Visit Diagnoses Diagnosis Multiple thyroid nodules Nontoxic multinodular goiter [employer] Other*[id number] Multiple thyroid nodules Nontoxic multinodular goiter documented in this encounter Care Teams Music Producer Relationship Specialty Start Date End Date Cyn Vivar PA-C [address] [facility] [place] [address] PCP - General Physician Ear Mold Laboratory Technician 05/03/22 documented as of this encounter
--- OUTSIDE RECORDS SUMMARY | 2024-09-01 09:30 | External Medical Summary | Summary of Care ---
Author Name Unknown Organization [facility] Address [address] [facility] [place] [address] Phone [phone] Care Team Providers Care Peel Oven Tender Name Role Phone Cyn Vivra PA-C Primary Care Provider +1 [phone] Encounter Details Date Type Department Care Team (Latest Contact Info) Description 04/04/2024 10:44 AM EDT - 04/04/2024 11:59 PM EDT Hospital Encounter Radiology [facility] [place] 16 [place] [address] Arrived Discharge Disposition: Home - Self Care Allergies Active Allergy Reactions Criticality Noted Date Comments Hydrochlorothiazide 09/19/2019 Hyponatremia documented as of this encounter (statuses as of 04/05/2024) Medications Medication Sig Dispensed Refills Start Date [...] as of this encounter (statuses as of 04/05/2024) Active Problems Problem Noted Date Diagnosed Date [...] as of this encounter (statuses as of 04/05/2024) Resolved Problems Problem Noted Date Diagnosed Date [...] as of this encounter (statuses as of 04/05/2024) Immunizations Name Administration Dates Next Due COVID-19 mRNA, LNP-s, No Pre serve, 2-Dose Series ([employer]) 09/28/2021,01/28/2021,12/31/2020 COVID-19, MRNA-LNP, 23-24, P F, 30 MCG/0.3 mL, 12 YRS AND ABOVE, IM ([employer]) 08/09/2023 Covid-19, Mrna, Lnp-s, Pf, B ivalent, 30 Mcg, IM, 12 yrs and above ([employer]) 08/07/2022 Pneumococcal Conjugate Vacc, 13 Valent (Prevnar) [...] EDT Office Visit Orthopaedics [facility] [address] [place] [phone] Sebastián Barba PA-C 16 [place] [address] 06/26/2024 9:30 AM EDT Office Visit Cardiology, [facility] 132 [facility] [place] [address] Jose Carlos Fuchs PA-C [address] [place] [address] 09/24/2024 8:20 AM EST Office Visit [facility], [place] [address] [facility], [place] [phone] Cyn Vivar PA-C [address] [facility] [address] 01/22/2025 9:40 AM EDT Office Visit Rheumatology [place] [phone] [employer] [place] [address] Genaro Johnson MD [email or web address] [place] [address] Pending Results Name Type Priority Associated Diagnoses Date /Time XR SHOULDER, 2 OR MORE VIEWS Medical Imaging Routine Closed fracture of proximal end of right humerus, unspecified fracture morphology, initial encounter 04/04/2024 10:57 AM EDT Health Maintenance Due Date Last [...] D LEVEL ONCE IN A LIFETIME-USE SMARTSET# [id number] Completed 04/30/2020, 03/26/2018, 08/24/2015, Additional history exists [...] filedocumented as of this encounter Care Teams Peel Oven Tender Relationship Specialty Start Date End Date Cyn Vivar PA-C [address] [facility] [place] [address] PCP - General Physician Records Associate 05/03/22 documented as of this encounter
--- OUTSIDE RECORDS SUMMARY | 2024-09-01 09:30 | External Medical Summary | Summary of Care ---
Author Name Unknown Organization [facility] Address [address] [facility] [place] [address] Phone [phone] Care Team Providers Care Char Conveyor Tender Cellar Name Role Phone Cyn Vivar PA-C Primary Care Provider +1 -[phone] Encounter Details Date Type Department Care Team [...] mRNA, LNP-s, No Pre serve, 2-Dose Series ([employer]) 09/28/2021,01/28/2021,12/31/2020 COVID-19, MRNA-LNP, 23-24, P F, 30 MCG/0.3 mL, 12 YRS AND ABOVE, IM ([employer]natThe [facility]) 08/09/2023 Covid-19, Mrna, Lnp-s, Pf, B ivalent, [...] 05/06/2024 9:15 AM EDT Office Visit Orthopaedics [facility] 16 [place] [phone] Sebastián Barba PA-C 16 [place] [address] 06/26/2024 9:30 AM EDT Office Visit Cardiology, [facility] [address] [place] [address] Jose Carlos Fuchs PA-C [address] [address] 09/24/2024 8:20 AM EST Office [address] [address] Cyn Vivar PA-C [address] [place] [address] 01/22/2025 9:40 AM EDT Office Visit Rheumatology [facility] [address] [email or web address] [address] Genaro Johnson MD [address] [place] [address] Health Maintenance Due Date Last Done Comments [...] D LEVEL ONCE IN A LIFETIME-USE SMARTSET# [id number] Completed 04/30/2020, 03/26/2018, 08/24/2015, Additional history exists [...] filedocumented as of this encounter Care Teams Char Conveyor Tender Cellar Relationship Specialty Start Date End Date Cyn Vivar PA-C [address] [facility] [place] [address] PCP - General Physician Physical Therapist Center Manager 05/03/22 documented as of this encounter
--- OUTSIDE RECORDS SUMMARY | 2024-09-01 09:31 | External Medical Summary | Summary of Care ---
Author Name Unknown Organization [facility] Address [address] [place] [address] Phone [phone] Care Team Providers Care Material Coordinator Name Role Phone Cyn Vivar PA-C Primary Care Provider +1 -[phone] Reason for Visit * Reason Onset Date Comments Test Results 03/27/2024 Encounter Details Date Type Department Care Team (Late st Contact Info) Description [facility] [address] [place] [address] Mik Clark PA-C [address] [place] [address] Test Results Allergies Active Allergy Reactions Criticality Noted Date Comments Hydrochlorothiazide 09/19/2019 Hyponatremia documented as of this encounter (statuses as of 03/28/2024) Medications Medication Sig Dispensed Refills Start Date [...] hemoglobin A1c goal of less than 7.0% ([facility]) Use as directed. 04/28/2019 Active Glucose Blood In Vitro StripIndications:T ype 2 diabetes mellitus with hemoglobin A1c goal of less than 7.0% ([facility]) Check blood sugars two times daily. [...] as of this encounter (statuses as of 03/28/2024) Active Problems Problem Noted Date Diagnosed Date [...] as of this encounter (statuses as of 03/28/2024) Resolved Problems Problem Noted Date Diagnosed Date [...] as of this encounter (statuses as of 03/28/2024) Immunizations Name Administration Dates Next Due COVID-19 mRNA, LNP-s, No Pre serve, 2-Dose Series ([employer]) 09/28/2021,01/28/2021,12/31/2020 COVID-19, MRNA-LNP, 23-24, P F, 30 MCG/0.3 mL, 12 YRS AND ABOVE, IM ([facility]) 08/09/2023 Covid-19, Mrna, Lnp-s, Pf, B ivalent, 30 Mcg, IM, 12 yrs and above ([employer]) 08/07/2022 Pneumococcal Conjugate Vacc, 13 Valent (Prevnar) [...] encounter Miscellaneous Notes * Telephone Encounter - Cyn Vivar PA-C - 03/28/2024 1:[address] had thyroid nodules that need follows up on I did order lab work as well as an ultrasound to rule out anything dnagerous Multiple thyroid nodules (Primary) - US HEAD AND NECK; Future; Expected date: 03/28/2024 - TSH; Future; Expected date: 03/28/2024 - T4, FREE; Future; Expected date: 03/28/2024 - THYROID ANTIBODY AND TPO ANTIBODY; Future; Expected date: 03/28/2024 Cyn Vivar PA-C 03/28/2024 1:25 PM * Telephone Encounter - Mik Clark PA-C - 03/28/2024 7:58 AM EDT Report reviewed * Telephone Encounter - Tea Hernandez OSA - 03/27/2024 10:10 PM EDT Luis Manuel- The radiologist discovered an unexpected or indeterminate finding on [place]o [place]ata ([id number]) and asksthat you review the following report. Study Type:CT UPPER EXTREMITY RIGHT WO CONTRAST Date of Study: 03/27/2024 MPRESSION: Acute-subacute comminuted right proximal humerus fracture, with post-traumatic changes in the surrounding muscles/soft tissues/SA-SD bursa. Likely additional acute-subacute slightly displaced right anteromedial 2nd rib fracture. Incompletely evaluated numerous thyroid nodules. If not previously assessed/worked up, then RECOMMEND non emergent (outpatient) thyroid ultrasound for better characterization (e.g. TIRADS), when patient is able (given humerus fracture). Please respond to this encounter to acknowledge receipt of this message and take responsibility to ensure this report is reviewed. Thank you, NOEL Awad Client Service [facility] documented in this encounter Plan of Treatment Upcoming Encounters Date Type Department Care Team (Late st Contact Info) Description 04/04/2024 11:00 AM EDT Office Visit Orthopaedics [facility] [address] [place] [phone] Sebastián Barba PA-C 16 [place] [address] 06/26/2024 9:30 AM EDT Office Visit Cardiology, [facility] [place] [address] Jose Carlos Fuchs PA-C [address] [facility] [place] [address] 09/24/2024 8:20 AM EST Office Visit [facility] [address] [place] [phone] Cyn Vivar PA-C [address] [place] [address] 01/22/2025 9:40 AM EDT Office Visit Rheumatology [facility] [address] [place], [place] [address] Genaro Johnson MD [address] [employer] [place], [place] [address] Scheduled Orders Name Type Priority Associated Diagnoses Orde r Schedule US HEAD AND NECK Medical Imaging Routine Multiple thyroid nodules Expected: 03/28/2024, Expires: 04/27/2025 TSH Lab Routine Multiple thyroid nodules Expected: 03/28/2024 (Approximate), Expires: 03/28/2025 T4, FREE Lab Routine Multiple thyroid nodules Expected: 03/28/2024 (Approximate), Expires: 03/28/2025 THYROID ANTIBODY AND TPO ANTIBODY Lab Routine Multiple thyroid nodules Expected: 03/28/2024 (Approximate), Expires: 03/28/2025 Health Maintenance Due Date Last Done Comments [...] 01/27/2025 01/28/2024, 1006/2023, 06/21/2023, Additional history exists Depression Screening 03/14/2025 [...] D LEVEL ONCE IN A LIFETIME-USE SMARTSET# [id number] Completed 04/30/2020, 03/26/2018, 08/24/2015, Additional history exists [...] this encounter Visit Diagnoses Diagnosis Multiple thyroid nodules- Primary Nontoxic multinodular goiter documented in this encounter Care Teams Material Coordinator Relationship Specialty Start Date End Date Cyn Vivar PA-C [address] [facility] [place] [address] PCP - General Physician Neurology Nurse 05/03/22 documented as of this encounter
--- OUTSIDE RECORDS SUMMARY | 2024-09-01 09:31 | External Medical Summary ---
Author Name Unknown Address Unknown Organization K01:LAB[facility]ATORY C - [address] [place] [address] Laboratory Report Ordering Provider Test Date Status AMIE MILLERJIMMY 04/01/2024 10:03:58 Final Observation Date Value Abnormality Reference (Units ) Status T4, Free 04/01/2024 10:03:58 1.5 0.9-1.7 (n g/dL) Final Performing Location [facility] - [address] [place] [address]
--- OUTSIDE RECORDS SUMMARY | 2024-09-01 09:31 | External Medical Summary | Summary of Care ---
Author Name Unknown Organization [facility] Address [address] [place] [address] Phone [phone] Care Team Providers Care Clock Repairer Name Role Phone Cyn Vivar PA-C Primary Care Provider +1 -[phone] Encounter Details Date Type Department Care Team (Late st Contact Info) Description [facility] [address] [place] [address] Mik Clark PA-C [address] [place] [address] Allergies Active Allergy Reactions Criticality Noted Date Comments Hydrochlorothiazide 09/19/2019 Hyponatremia documented as of this encounter (statuses as of 03/26/2024) Medications Medication Sig Dispensed Refills Start Date [...] A1c goal of less than 7.0% ([facility]) Use as directed. 04/28/2019 Active Glucose Blood In Vitro StripIndications:T ype 2 diabetes mellitus with hemoglobin A1c goal of less than 7.0% ([facility]) Check blood sugars two times daily. 1 [...] as of this encounter (statuses as of 03/26/2024) Active Problems Problem Noted Date Diagnosed Date [...] as of this encounter (statuses as of 03/26/2024) Resolved Problems Problem Noted Date Diagnosed Date [...] as of this encounter (statuses as of 03/26/2024) Immunizations Name Administration Dates Next Due COVID-19 mRNA, LNP-s, No Pre serve, 2-Dose Series ([employer]) 09/28/2021,01/28/2021,12/31/2020 COVID-19, MRNA-LNP, 23-24, P F, 30 MCG/0.3 mL, 12 YRS AND ABOVE, IM ([employer]irnat[employer]) 08/09/2023 Covid-19, Mrna, Lnp-s, Pf, B ivalent, [...] encounter Miscellaneous Notes * Telephone Encounter - Angeline Rodriguez MED ASSIST - 03/25/2024 2:18 PM EDT Luis Manuel I saw this patient today for proximal humerus fracture of right shoulder, initial injury on Thursday 03/22. Has xray in chart and will be getting CT. My recommendation was for urgent surgical consult. Patient is requesting [facility]. Could she please be added to Dr. Nelson's schedule this week? Thank you so much! --Mik Spoke with Holger regarding this, he will discuss this with dr. nelson documented in this encounter Plan of Treatment Upcoming Encounters Date Type Department Care Team (Late st Contact Info) Description 06/26/2024 9:30 AM EDT Office Visit Cardiology, [facility] [address] [place] [address] Jose Carlos Fuchs PA-C [address] [place] [address] 09/24/2024 8:20 AM EST Office Visit [address] [place] [address] Cyn Vivar PA-C [address] [place] [address] 01/22/2025 9:40 AM EDT Office Visit Rheumatology [facility] [address] [employer] [place] [address] Genaro Johnson MD [email or web address] [place] [address] Health Maintenance Due Date Last Done Comments [...] D LEVEL ONCE IN A LIFETIME-USE SMARTSET# [id number] Completed 04/30/2020, 03/26/2018, 08/24/2015, Additional history exists [...] filedocumented as of this encounter Care Teams Clock Repairer Relationship Specialty Start Date End Date Cyn Vivar PA-C [address] [place] [address] PCP - General Physician Bakery Associate 05/03/22 documented as of this encounter
--- OUTSIDE RECORDS SUMMARY | 2024-09-01 09:31 | External Medical Summary | Summary of Care ---
Author Name Unknown Organization [facility] Address [address] [address] Phone [phone] Care Team Providers Care Bricklayer Paving Brick Name Role Phone Cyn Vivar PA-C Primary Care Provider +1 [phone] Reason for Visit * Reason Onset Date Comments Test Results 03/27/2024 Encounter Details Date Type Department Care Team (Late st Contact Info) Description 03/27[facility] [address] [place] [address] Mik Clark PA-C [address] [place] [address] Test Results Allergies Active Allergy Reactions Criticality Noted Date Comments Hydrochlorothiazide 09/19/2019 Hyponatremia documented as of this encounter (statuses as of 03/31/2024) Medications Medication Sig Dispensed Refills Start Date [...] as of this encounter (statuses as of 03/31/2024) Active Problems Problem Noted Date Diagnosed Date [...] as of this encounter (statuses as of 03/31/2024) Resolved Problems Problem Noted Date Diagnosed Date [...] as of this encounter (statuses as of 03/31/2024) Immunizations Name Administration Dates Next Due COVID-19 mRNA, LNP-s, No Pre serve, 2-Dose Series (Accumetrics) 09/28/2021,01/28/2021,12/31/2020 COVID-19, MRNA-LNP, 23-24, P F, 30 MCG/0.3 mL, 12 YRS AND ABOVE, IM (Sigma Force-ComirfirsthealthNtirety) 08/09/2023 Covid-19, Mrna, Lnp-s, Pf, B ivalent, 30 Mcg, IM, 12 yrs and above (Accumetrics) 08/07/2022 Pneumococcal Conjugate Vacc, 13 Valent (Prevnar) [...] encounter Miscellaneous Notes * Telephone Encounter - Radha Mendez OSA - 03/31/2024 1:58 PM EDT Done. 03/31/2024 * Telephone Encounter - Radha Mendez OSA - 03/31/2024 9:47 AM EDT LMOM to schedule. Spoke with [employer] here at [facility] and she states that patient can be "reclined" not completely flat. She states she can also place a pillow under her elbow so that her shoulder isn't back if need be. 03/31/2024 * Telephone Encounter - Lissette Best LPN - 03/29/2024 9:38 AM EDT Patient was contacted and verbalized understanding. When called for her appt please make sure she is able to get the ultrasound done due to her having a broken shoulder and is not able to lay completely flat. * Telephone Encounter - Cyn Vivar PA-C [...] Hernandez OSA - 03/27/2024 10:10 PM EDT Hello- The radiologist discovered an unexpected or indeterminate finding on Nemo Plata ([id number]) and asksthat you review the following report. [...] reviewed. Thank you, NOEL Awad Client Service [facility] documented in this encounter Plan of Treatment Upcoming Encounters Date Type Department Care Team (Late st Contact Info) Description 04/01/2024 10:00 AM EDT [facility] [address] [facility] [phone] [facility] [address] [place] [place] [id number] 04/01/2024 10:30 AM EDT Imaging Radiology, [facility] [address] [place] [id number] 04/04/2024 11:00 AM EDT Office Visit Orthopaedics [facility] [address] [place] [phone] Sebastián Barba PA-C [address] [place] [address] 06/26/2024 9:30 AM EDT Office Visit Cardiology, [facility] [address] [facility] [place] [address] Jose Carlos Fuchs PA-C [address] [facility] [address] 09/24/2024 8:20 AM EST Office Visit Family Practice, [facility] [address] [facility] [phone] Cyn Vivar PA-C [address] [place] [id number] 01/22/2025 9:40 AM EDT Office Visit Rheumatology [place] [id number] [facility] [place] [address] Genaro Johnson MD [facility] [place] [address] Scheduled Orders Name Type Priority Associated Diagnoses [...] D LEVEL ONCE IN A LIFETIME-USE SMARTSET# [id number] Completed 04/30/2020, 03/26/2018, 08/24/2015, Additional history exists [...] goiter documented in this encounter Care Teams Bricklayer Paving Brick Relationship Specialty Start Date End Date Cyn Vivar PA-C [address] [place] [id number] PCP - General Physician Stock Controller 05/03/22 documented as of this encounter
--- OUTSIDE RECORDS SUMMARY | 2024-09-01 09:31 | External Medical Summary ---
Author Name Unknown Address Unknown Organization K01:LABORATORY [facility] - [address] [address] Laboratory Report Ordering Provider Test Date Status JACKLYN SHOOK 04/01/2024 10:03:58 Final Observation Date Value Abnormality Reference (Units ) Status MYCODE SPECIMEN-SST 04/01/2024 10:03:58 Freezing of extracted DNA, whole blood and/or serum. Final Performing Location LABORATORY [facility] - [address] [place] [address]
--- OUTSIDE RECORDS SUMMARY | 2024-09-01 09:31 | External Medical Summary | Summary of Care ---
Author Name Unknown Organization [facility] Address [address] [address] Phone [phone] Care Team Providers Care Program Management Manager Name Role Phone Cyn Vivar PA-C Primary Care Provider +1 [phone] Reason for Visit * Reason Onset Date Comments Test Results 03/27/2024 Encounter Details Date Type Department Care Team (Late st Contact Info) Description 03/27[facility]24 [facility] [address] [place] [address] Mik Clark PA-C [address] [place] [address] Test Results Allergies Active Allergy [...] A1c goal of less than 7.0% ([facility]) Use as directed. 04/28/2019 Active Glucose Blood In Vitro StripIndications:T ype 2 diabetes mellitus with hemoglobin A1c goal of less than 7.0% ([facility]) Check blood sugars two times daily. [...] mRNA, LNP-s, No Pre serve, 2-Dose Series (RoomClip) 09/28/2021,01/28/2021,12/31/2020 COVID-19, MRNA-LNP, 23-24, P F, 30 MCG/0.3 mL, 12 YRS AND ABOVE, IM (Finicity-[facility]Stat[facility]) 08/09/2023 Covid-19, Mrna, Lnp-s, Pf, B ivalent, 30 Mcg, IM, 12 yrs and above (RoomClip) 08/07/2022 Pneumococcal Conjugate Vacc, 13 Valent (Prevnar) [...] AM EDT LMOM to schedule. Spoke with [employer] here at [facility] and she states that patient can be [...] unexpected or indeterminate finding on Nemo Plata ([id number]) and asksthat you review the following report. [...] reviewed. Thank you, NOEL Awad Client Service [facility] [place] documented in this encounter Plan of Treatment Upcoming Encounters Date Type Department Care Team (Late st Contact Info) Description 04/04/2024 11:00 AM EDT Office Visit [facility] [address] [place] [address] [place] [address] Sebastián Barba PA-C [address] [place] [address] 06/26/2024 9:30 AM EDT Office Visit Cardiology, [facility] [address] [place] [address] Jose Carlos Fuchs PA-C [address] [facility] [place] [address] 09/24/2024 8:20 AM EST Office Visit Family Practice, [facility] [address] [place] [phone] Cyn Vivar PA-C [address] [place] [address] 01/22/2025 9:40 AM EDT Office Visit Rheumatology [facility] [address] [facility] [place] [address] Genaro Johnson MD [address] [employer] [place] [address] Scheduled Orders Name Type Priority Associated Diagnoses [...] MEDICATION NEEDED FOR OSTEOPOROSIS (REFER TO SMARTSET #[id number]) Addressed 03/29/2018 (Refused) Overridden wi th the intention of not completing the topic RETIRED - COLONOSCOPY-EVERY 5 YRS AGES 18-100 Discontinued 03/29/2018 (Declined), 03/18/2013, 03/14/2013, Additional history exists Pneumococcal Vaccine: 65+ Years Completed 05/26/2019, 03/29/2018, 07/04/2010 Zoster Vaccines Completed 03/25/2020, 11/15, 02/26/2012 VITAMIN D LEVEL ONCE IN A LIFETIME-USE SMARTSET# [id number] Completed 04/30/2020, 03/26/2018, 08/24/2015, Additional history exists [...] goiter documented in this encounter Care Teams Program Management Manager Relationship Specialty Start Date End Date Cyn Vivar PA-C [address] [place], [place] [phone] PCP - General Physician Credit Administration Officer 05/03/22 documented as of this encounter
--- OUTSIDE RECORDS SUMMARY | 2024-09-01 09:31 | External Medical Summary ---
Author Name Unknown Address Unknown Organization K01:LABORATORY [facility] - [address] [address] Laboratory Report Ordering Provider Test Date Status JACKLYN SHOOK 04/01/2024 10:03:58 Final Observation Date Value Abnormality Reference (Units ) Status DatalogixTREVOR SPECIMEN-LAV 04/01/2024 10:03:58 Freezing of extracted DNA, whole blood and/or serum. Final Performing Location LABORATORY [facility] - [address] [place] [address]
--- OUTSIDE RECORDS SUMMARY | 2024-09-01 09:31 | External Medical Summary ---
Author Name Unknown Address Unknown Organization K01:LABORATORY [facility] - [address] [place] [address] Laboratory Report Ordering Provider Test Date Status ANGELLA MILLER 04/01/2024 10:03:58 Final Observation Date Value Abnormality Reference (Units ) Status TSH 04/01/2024 10:03:58 0.47 0.27-4.20 (uIU/mL) Final Performing Location LABORATORY [facility] - [address] [facility] [address]
--- OUTSIDE RECORDS SUMMARY | 2024-09-01 09:31 | External Medical Summary | Summary of Care ---
Author Name Unknown Organization [facility] Address [address] [address] Phone [phone] Care Team Providers Care Software Trainer Name Role Phone Cyn Vivar PA-C Primary Care Provider [phone] [phone] Reason for Visit * Reason Onset Date Comments Test Results 03/27/2024 Encounter Details Date Type Department Care Team (Late st Contact Info) Description 03/27[facility] [address] [place] [address] Mik Clark PA-C [address] [place] [address] Test Results Allergies Active Allergy Reactions Criticality Noted Date Comments Hydrochlorothiazide 09/19/2019 Hyponatremia documented as of this encounter (statuses as of 03/29/2024) Medications Medication Sig Dispensed Refills Start Date [...] of less than 7.0% ([facility]) Use as directed. 04/28/2019 Active Glucose Blood In Vitro StripIndications:T ype 2 diabetes mellitus with hemoglobin A1c goal of less than 7.0% ([facility]) Check blood sugars two times daily. 1 [...] as of this encounter (statuses as of 03/29/2024) Active Problems Problem Noted Date Diagnosed Date [...] as of this encounter (statuses as of 03/29/2024) Resolved Problems Problem Noted Date Diagnosed Date [...] as of this encounter (statuses as of 03/29/2024) Immunizations Name Administration Dates Next Due COVID-19 mRNA, LNP-s, No Pre serve, 2-Dose Series (SkemA) 09/28/2021,01/28/2021,12/31/2020 COVID-19, MRNA-LNP, 23-24, P F, 30 MCG/0.3 mL, 12 YRS AND ABOVE, IM (SYLOB-Comirunc health nashMogotest) 08/09/2023 Covid-19, Mrna, Lnp-s, Pf, B ivalent, 30 Mcg, IM, 12 yrs and above (SkemA) 08/07/2022 Pneumococcal Conjugate Vacc, 13 Valent (Prevnar) [...] encounter Miscellaneous Notes * Telephone Encounter - Lissette Best LPN [...] unexpected or indeterminate finding on Nemo Plata ([id number]) and asksthat you review the following report. [...] reviewed. Thank you, NOEL Awad Client Service [facility] documented in this encounter Plan of Treatment Upcoming Encounters Date Type Department Care Team (Late st Contact Info) Description 04/04/2024 11:00 AM EDT Office Visit Orthopaedics [place] [address] [place] [phone] Sebastián Barba PA-C [address] [place] [address] 06/26/2024 9:30 AM EDT Office Visit Cardiology, [facility] [place] [address] Jose Carlos Fuchs PA-C [address] [place] [address] 09/24/2024 8:20 AM EST Office Visit [facility] [address] [place] [phone] Cyn Vivar PA-C [address] [place] [address] 01/22/2025 9:40 AM EDT Office Visit Rheumatology [place] [address] [employer] [place] [address] Genaro Johnson MD [facility] [employer] [place] [address] Scheduled Orders Name Type Priority Associated Diagnoses [...] D LEVEL ONCE IN A LIFETIME-USE SMARTSET# [id number] Completed 04/30/2020, 03/26/2018, 08/24/2015, Additional history exists [...] goiter documented in this encounter Care Teams Software Trainer Relationship Specialty Start Date End Date Cyn Vivar PA-C [address] [facility] [place] [address] PCP - General Physician Reliability Engineer 05/03/22 documented as of this encounter
--- OUTSIDE RECORDS SUMMARY | 2024-09-01 09:31 | External Medical Summary ---
Author Name Unknown Address Unknown Organization K01:[facility]ORY [facility] [place] [address] [address] Laboratory Report Ordering Provider Test Date Status JACKLYN SHOOK 04/01/2024 10:03:58 Final Observation Date Value Abnormality Reference (Units ) Status MYCODE SPECIMEN-SST 04/01/2024 10:03:58 Freezing of extracted DNA, whole blood and/or serum. Final Performing Location [facility] [place] [address] [place] [address]
--- OUTSIDE RECORDS SUMMARY | 2024-09-01 09:31 | External Medical Summary | Summary of Care ---
Author Name Unknown Organization [facility] Address [address] [facility] [place] [address] Phone [phone] Care Team Providers Care Azure Principal Solution Specialist Name Role Phone Cyn Vivar PA-C Primary Care Provider +1 [phone] Encounter Details Date Type Department Care Team (Late st Contact Info) Description 03/31/2024 Orders Only PATIENT PORTAL DO NOT DELETE THIS DEPT USED BY KATHLEEN HINDS [id number] Allergies Active Allergy Reactions Criticality Noted Date [...] 02/03/2010 08/18/2011 FAMILY HX- COLON CANCER 02/03/2010 06/0 02/2017 PAST HX OF PANCREATIC CYST (RESOLVED) 02/03/2010 03/19/2017 HTN, goal below 130/80 11/21 Type 2 diabetes mellitus wit h hemoglobin A1c goal of less than 7.0% 08/27/2012 Overview: ICD-10 update of inactive term Adenomatous polyp of colon 0 03/14/2024 documented as of this encounter (statuses as of 03/31/2024) Immunizations Name Administration Dates Next Due COVID-19 mRNA, LNP-s, No Pre serve, 2-Dose Series ([employer]) 09/28/2021,01/28/2021,12/31/2020 COVID-19, MRNA-LNP, 23-24, P F, 30 MCG/0.3 mL, 12 YRS AND ABOVE, IM (TwitJump-ComirnatBlockTrail) 08/09/2023 Covid-19, Mrna, Lnp-s, Pf, B ivalent, [...] 04/04/2024 11:00 AM EDT Office Visit Orthopaedics [place] [address] [place] [phone] Sebastián Barba PA-C 16 [place] [address] 06/26/2024 9:30 AM EDT Office Visit Cardiology, [facility] 132 [facility] [place] [address] Jose Carlos Fuchs PA-C 132 [facility] [place] [address] 09/24/2024 8:20 AM EST Office Visit Family [facility] [address] [place] [address] Cyn Vivar PA-C [address] [place] [address] 01/22/2025 9:40 AM EDT Office Visit Rheumatology [place] [address] [facility] [place] [address] Genaro Johnson MD [facility] [place] [address] Health Maintenance Due Date Last Done Comments [...] 01/28/2024, 100 06/2023, 06/21/2023, Additional history exists Depression Screening [...] D LEVEL ONCE IN A LIFETIME-USE SMARTSET# [id number] Completed 04/30/2020, 03/26/2018, 08/24/2015, Additional history exists [...] filedocumented as of this encounter Care Teams Azure Principal Solution Specialist Relationship Specialty Start Date End Date Cyn Vivar PA-C [address] [facility] [place] [address] PCP - General Physician Senior Construction Estimator 05/03/22 documented as of this encounter
--- OUTSIDE RECORDS SUMMARY | 2024-09-01 09:31 | External Medical Summary | Summary of Care ---
Author Name Unknown Organization [facility] Address [address] [facility] [place] [address] Phone [phone] Care Team Providers Care Breakdown Mill Operator Name Role Phone Cyn Vivar PA-C Primary Care Provider +1 -[phone] Reason for Visit * Reason Comments Outpatient Testing Encounter Details Date Type Department Care Team (Late st Contact Info) Description 04/01/2024 10:00 AM EDT Laboratory Laboratory, [facility] [address] [place] [address] [facility], Laboratory [address] [place], [place] [phone] [employer] Other*[id number]; Multiple thyroid nodules Allergies Active Allergy Reactions [...] mRNA, LNP-s, No Pre serve, 2-Dose Series (Zhihu) 09/28/2021,01/28/2021,12/31/2020 COVID-19, MRNA-LNP, 23-24, P F, 30 MCG/0.3 mL, 12 YRS AND ABOVE, IM (Inertia Beverage Groupirat[facility] kings mountainSimplist) 08/09/2023 Covid-19, Mrna, Lnp-s, Pf, B ivalent, 30 Mcg, IM, 12 yrs and above (Zhihu) 08/07/2022 Pneumococcal Conjugate Vacc, 13 Valent (Prevnar) [...] Description 04/01/2024 10:30 AM EDT Imaging Radiology, [address] [address] 04/04/2024 11:00 AM EDT Office Visit [facility]opaedics [facility] 16 [place] [phone] Sebastián Barba PA-C 16 [place] [address] 06/26/2024 9:30 AM EDT Office Visit Cardiology, [facility] [place] [address] Jose Carlos Fuchs PA-C [address] [facility] [place] [address] 09/24/2024 8:20 AM EST Office Visit Family Practice, [address] [phone] Cyn Vivar PA-C [address] [place] [address] 01/22/2025 9:40 AM EDT Office Visit Rheumatology [facility] [address] [facility] [place] [address] Genaro Johnson MD [address] [facility] [place] [address] Pending Results Name Type Priority Associated Diagnoses Date /Time MYCODE INITIAL ADULT Lab Routine [employer] Other*[id number] 04/01/2024 10:03 AM EDT TSH Lab Routine Multiple thyroid nodules 04/01/2024 10:03 AM EDT T4, FREE Lab Routine Multiple thyroid nodules 04/01/2024 10:03 AM EDT THYROID ANTIBODY AND TPO ANTIBODY Lab Routine Multiple thyroid nodules 04/01/2024 10:03 AM EDT MYCODE INITIAL ADULT-PINK Lab Routine [employer] Other*[id number] 04/01/2024 10:03 AM EDT MYCODE SST1 Lab Routine [employer] Other*[id number] 04/01/2024 10:03 AM EDT MYCODE SST2 Lab Routine [employer] Other*[id number] 04/01/2024 10:03 AM EDT Health Maintenance Due [...] D LEVEL ONCE IN A LIFETIME-USE SMARTSET# [id number] Completed 04/30/2020, 03/26/2018, 08/24/2015, Additional history exists [...] this encounter Visit Diagnoses Diagnosis [employer] Other*[id number] Multiple thyroid nodules Nontoxic multinodular goiter documented in this encounter Care Teams Breakdown Mill Operator Relationship Specialty Start Date End Date Mingear, Cyn A, PA-C [address] [place] [address] PCP - General Physician Industrial Relations Commissioner 05/03/22 documented as of this encounter
--- OUTSIDE RECORDS SUMMARY | 2024-09-01 09:32 | External Medical Summary | Summary of Care ---
Author Name Unknown Organization [facility] Address [address] [address] Phone [phone] Care Team Providers Care Debate Director Name Role Phone Cyn Vivar PA-C Primary Care Provider [phone] Reason for Referral * Evaluate & Treat - Unlimited Visits (Within 3 days (urgent)) - Authorized Specialty Diagnoses / Procedures Referred By Linda casillas Referred To Contact Orthopaedic Surgery / Orthopedics Diagnoses Closed fracture of proximal end of right humerus, unspecified fracture morphology, initial encounter Mik Clark PA-C [address] [place] [address] Charles Diaz, DO [address] [facility] [address] Referral ID Status Reason Start Date Expiration Date Visits Requested Visits Authorized [id number] Authorized Specialty Services Required 03/25/2024 999 [id number] Question Answer Referral Priority Within 3 days (urgent) Where should this appointment be scheduled? [facility] What body part is the patient being seen for? Shoulder What condition is the patient being seen for? Fracture including related infection * Precert (Within 10 days (routine)) - Authorized Specialty Diagnoses / Procedures Referred By Linda casillas Referred To Contact Radiology Diagnoses Closed fracture of proximal end of right humerus, unspecified fracture morphology, initial encounter Procedures CT UPPER EXTREMITY RIGHT WO CONTRAST Mik Clark PA-C [address] [place] [address] Referral ID Status Reason Start Date Expiration Date V isits Requested Visits Authorized [id number] Authorized 03/26/2024 999 999 Reason for Visit * Reason Comments NEW PATIENT Fracture * Evaluate & Treat - Unlimited Visits (Within 3 days (urgent)) - Authorized Specialty Diagnoses / Procedures Referred By Contac t Referred To Contact Orthopaedic Surgery / Orthopedics Diagnoses Injury of right shoulder, initial encounter Loretta Leon PA-C [address] [place] [address] Referral ID Status Reason Start Date Expiration Date Visits Requested Visits Authorized [id number] Authorized Specialty Services Required 03/25/2024 999 [id number] Encounter Details Date Type Department Care Team ([facility] st Contact Info) Description 03/25/2024 12:30 PM EDT Office Visit Orthopaedics [facility] [address] [place] [id number] Mik Clark PA-C [address] [place] [id number] Closed fracture of proximal end of right humerus, unspecified fracture morphology, initial encounter* Allergies Active Allergy Reactions Criticality Noted Date Comments Hydrochlorothiazide 09/19/2019 Hyponatremia documented as of this encounter (statuses as of 03/25/2024) Medications Medication Sig Dispensed Refills Start Date [...] goal of less than 7.0% ([facility]) Use as directed. 04/28/2019 Active Glucose Blood In Vitro StripIndications:T ype 2 diabetes mellitus with hemoglobin A1c goal of less than 7.0% ([facility]) Check blood sugars two times [...] as of this encounter (statuses as of 03/25/2024) Active Problems Problem Noted Date Diagnosed Date [...] as of this encounter (statuses as of 03/25/2024) Resolved Problems Problem Noted Date Diagnosed Date [...] as of this encounter (statuses as of 03/25/2024) Immunizations Name Administration Dates Next Due COVID-19 mRNA, LNP-s, No Pre serve, 2-Dose Series (apta[employer]me) 09/28/2021,01/28/2021,12/31/2020 COVID-19, MRNA-LNP, 23-24, P F, 30 MCG/0.3 mL, 12 YRS AND ABOVE, IM ([facility] 08/09/2023 Covid-19, Mrna, Lnp-s, Pf, B ivalent, 30 Mcg, IM, 12 yrs and above (apta[employer]me) 08/07/2022 Pneumococcal Conjugate Vacc, 13 Valent (Prevnar) [...] as of this encounter Progress Notes * Mik Clark PA-C - 03/25/2024 12:47 PM EDT Nemo Plata is a 69 year old right hand dominant female who is being seen because of an injury to her Right shoulder. Her injury was on Sunday03/22/2024 after she tripped while walking and landed directly on the right shoulder. She did not think it was broken at first, but pain and bruising persisted, prompting PCPand ortho evaluation today. She has been out of protection. She is still uncomfortable, pain rated 7/10 today. Her activity has been restricted, unable to lift right arm. Past Medical History: Diagnosis Date Adenomatous polyp of colon 2009 Benign neoplasm of colon 04/06/10 adenomatous tissue--repeat 3 years Benign neoplasm of colon 03/14/13 repeat in 5 years-COLONOSCOPY FLEXIBLE PROXIMAL DIAGNOSTIC performed by Germaine Monteiro MD at [facility], normal tissue at previous polyp site, [...] OF PANCREATIC CYST (RESOLVED) 02/03/2010 Tachycardia 04/14/2010 She has a history of no respiratory, cardiac or gastro-intestional problems except as noted above. Has known osteoporosis, prior left hip fracture s/p ORIF. Review of Symptoms is otherwise normal. Family History Problem Relation Name Age of Onset Cancer Brother colon Cancer Father leukemia Diabetes Father Arthritis Mother RA and OA Musculo-skeletal Disorder Mother 78 knee replacement On exam, her shoulder shows normal alignment, significant tenderness, pain on gentle motion, significant swelling, and significant ecchymosis. Neurovascular exam is intact. Her contralateral extremity is normal. Xray right shoulder: I reviewed xrays obtained here today. These Xrays show comminuted proximal humerus fracture with large subacromial fragment, axillary view shows good alignment of GH joint. Assessment: Right proximal humerus fracture Plan: Discussed exam, imaging findings, diagnosis, and treatment options with patient We will plan to continue protection. A new shoulder immobilizer was applied to be worn at all times. CT ordered with 3D recon for further evaluation of fracture Recommend urgent surgical consult- patient prefers [facility] due to location- urgent referral placed to Dr. Diaz Offered additional pain medications, but patient feels she is tolerating well with tylenol Follow up with me prn Mik Clark PA-C [facility] 03/25/2024 12:47 PM Enc #: [phone] documented in this encounter Nursing Notes * Cat Snider LPN - 03/25/2024 12:23 PM EDT Fell on Sunday injured right shoulder documented in this encounter Plan of Treatment Upcoming Encounters Date Type Department Care Team (Late st Contact Info) Description 06/26/2024 9:30 AM EDT Office Visit Cardiology, [facility] [address] [place] [address] Jose Carlos Fuchs PA-C [address] [place] [address] 09/24/2024 8:20 AM EST Office Visit [facility] [address] [place] [id number] Cyn Vivar PA-C [address] [place] [address] 01/22/2025 9:40 AM EDT Office Visit Rheumatology [place] [id number] [facility] [place] [address] Genaro Johnson MD [facility] [place] [address] Pending Results Name Type Priority Associated Diagnoses Date /Time XR SHOULDER, 1 VIEW Medical Imaging Routine Closed fracture of proximal end of right humerus, unspecified fracture morphology, initial encounter 03/25/2024 12:50 PM EDT Scheduled Orders Name Type Priority Associated Diagnoses Orde r Schedule CT UPPER EXTREMITY RIGHT WO CONTRAST Medical Imaging Routine Closed fracture of proximal end of right humerus, unspecified fracture morphology, initial encounter Expected: 03/26/2024, Expires: 04/24/2025 CT 3D RECONSTRUCTION MUSCULOSKELETAL Medical Imaging Routine Closed fracture of proximal end of right humerus, unspecified fracture morphology, initial encounter Expected: 03/26/2024, Expires: 04/24/2025 Scheduled Referrals Name Type Priority Associated Diagnoses Orde r Schedule ORTHOPAEDICS REFERRAL OP Referral Within 3 days (urgent) Closed fracture of proximal end of right humerus, unspecified fracture morphology, initial encounter Ordered: 03/25/2024 Health Maintenance Due Date Last Done Comments [...] MEDICATION NEEDED FOR OSTEOPOROSIS (REFER TO SMARTSET #[id number]) Addressed 03/29/2018 (Refused) Overridden wi th the intention of not completing the topic RETIRED - COLONOSCOPY-EVERY 5 YRS AGES 18-100 Discontinued 03/29/2018 (Declined), 03/18/2013, 03/14/2013, Additional history exists Pneumococcal Vaccine: 65+ Years Completed 05/26/2019, 03/29/2018, 07/04/2010 Zoster Vaccines Completed 03/25/2020, 11/15, 02/26/2012 VITAMIN D LEVEL ONCE IN A LIFETIME-USE SMARTSET# [id number] Completed 04/30/2020, 03/26/2018, 08/24/2015, Additional history exists [...] Primary documented in this encounter Care Teams Debate Director Relationship Specialty Start Date End Date Cyn Vivar PA-C [address] [facility] [place] [phone] PCP - General Physician [employer]or [employer] 05/03/22 documented as of this encounter
--- OUTSIDE RECORDS SUMMARY | 2024-09-01 09:32 | External Medical Summary | Summary of Care ---
Author Name Unknown Organization [facility] Address [address] [address] Phone [phone] Care Team Providers Care Financial Project Manager Name Role Phone Cyn Vivar PA-C Primary Care Provider [phone] Reason for Visit * Reason Comments Follow Up Patient is here toda y for a follow up. Patient states no concerns. Encounter Details Date Type Department Care Team (Latest Contact Info) Description 03/14/2024 8:00 AM EDT Office Visit [facility] [address] [place] [phone] Cyn Vivar PA-C [address] [place] [address] Age-related osteoporosis without current pathological fracture*; Type 2 diabetes mellitus with stage 2 chronic kidney disease and hypertension (HCC); Encounter for screening mammogram for breast cancer; Primary open angle glaucoma (POAG) of both eyes, indeterminate stage; Dyslipidemia, goal LDL below 70; HTN, goal below 150/90; Other iron deficiency anemia; Diffuse connective tissue disease (HCC); Deficiency of other specified B group vitamins Allergies Active Allergy Reactions Criticality Noted Date Comments Hydrochlorothiazide 09/19/2019 Hyponatremia documented as of this encounter (statuses as of 03/14/2024) Medications Medication Sig Dispensed Refills Start Date [...] as of this encounter (statuses as of 03/14/2024) Active Problems Problem Noted Date Diagnosed Date [...] as of this encounter (statuses as of 03/14/2024) Resolved Problems Problem Noted Date Diagnosed Date [...] as of this encounter (statuses as of 03/14/2024) Immunizations Name Administration Dates Next Due COVID-19 mRNA, LNP-s, No Pre serve, 2-Dose Series ([employer]) 09/28/2021,01/28/2021,12/31/2020 COVID-19, MRNA-LNP, 23-24, P F, 30 MCG/0.3 mL, 12 YRS AND ABOVE, IM ([employer]) 08/09/2023 Covid-19, Mrna, Lnp-s, Pf, B ivalent, 30 Mcg, IM, 12 yrs and above ([employer]) 08/07/2022 Pneumococcal Conjugate Vacc, 13 Valent (Prevnar) [...] pur e alcohol) PHQ-2 Answer Date Recorded PHQ-2 Score 0 10/24/2019 Hunger Vital Sign Answer Date Recorded Within [...] on file documented as of this encounter Last Filed Vital Signs Vital Sign Reading Time Taken Comments Blood Pressure 138/66 03/14/2024 7:49 AM EDT Pulse 73 03/14/2024 7:49 AM EDT Temperature 36.1 C (97 F) 03/14/2024 7:49 AM EDT Respiratory Rate 18 03/14/2024 7:49 AM EDT Oxygen Saturation - - Inhaled Oxygen Concentration - - Weight 63.2 kg (139 lb 6.4 oz) 03/14/2024 7:49 A M EDT Height 161 cm (5' 3.39") 03/14/2024 7:49 AM EDT Body Mass Index 24.39 03/14/2024 7:49 AM EDT documented in this encounter Patient Instructions * Patient Instructions* Casandra Alvarez LPN - 03/14/2024 7:48 AM EDT Osteoporosis: Screening for Bone Loss The strength of bones is measured by their density (thickness). High bone density means bones are less likely to fracture. If you are at risk for bone loss, your healthcare provider may refer you forbone density testing. Bone Density Testing Bone density testing is safe, quick, easy, and painless. Testing can detect osteoporosis before a fracture happens. It can also predict the risk of future fractures. And testing can measure the response to treatment. There are two types of tests that you may have: Peripheral tests are used for screening. They measure density in the finger, wrist, knee, mcdonald, or heel. A common peripheral test is the quantitative ultrasound (QUS). Central tests are used for diagnosis. They measure density in the hip or spine. The main centraltest is the dual energy x-ray absorptiometry (DXA). The DXA is the standard bone density test. Who Should Be Tested? All postmenopausal women under age 65, with one or more risk factors in addition to menopause. All women age 65 and older. Postmenopausal women with fractures. Women who are thinking about treatment for osteoporosis. Women who have been on hormone therapy for a long time. Men or women with certain medical conditions or who are taking certain medications (such as glucocorticoids or prednisone) for a long period. Common Testing Sites Any bone can fracture, but with osteoporosis some bones fracture more easily. These include bones in the spine, wrist, shoulder, and hip. Thats why bone density testing may be done at one or more of these sites. Understanding Your Results The results of your test may seem confusing at first. Dont be afraid to ask your provider to explain. Your bone mineral density (BMD) describes the thickness of the bone that was scanned. Your healthcare provider will compare your BMD with the BMD of young, healthy bone. The result is called a T-score. Bones remodel at different rates. So, a healthy T-score in the wrist doesnt mean the spine is also healthy. Thats why more than one site may be scanned. [id number] [facility], [address] [place] [address]. All rights reserved. This information is not intended as a substitute for professional medical care. Always follow your healthcare professional's instructions Diabetes: Keeping Feet Healthy Inspect your feet every day for signs of a problem. Diabetes can damage nerves in your feet and cause neuropathy. This condition makes it hard for you to feel injuries or sore spots. Diabetes can also change blood flow, making it harder for small problems, like a blister, to heal properly. In fact, minor injuries can quickly become serious infections that send you to the hospital. Practice self-care to protect your feet and keep them healthy. Take Special Care Inspect your feet daily for problems such as redness, blisters, cracks, dry skin, or numbness. Use a mirror to see the bottoms of your feet. Or, ask for help. Manage your diabetes. Monitor and control your blood sugar. Take all your medications as prescribed. Avoid walking barefoot, even indoors. Wash your feet with warm water and mild soap. Dry well, especially between toes. Dont treat corns or calluses yourself. Talk to your doctor or clay shop supervisor (a doctor who specializes in foot care) if you need assistance trimming your toenails. Use moisturizing cream or lotion if you have dry skin, but dont use it between toes. Dont use heating pads on your feet. If you have neuropathy, you could get a burn and not feel it. Stop smoking. Smoking restricts blood flow and can make it harder for wounds to heal. Have Regular Checkups Foot problems can develop quickly. So be sure to follow your healthcare teams schedule for regular checkups. During office visits, take off your shoes and socks as soon as you get in the exam room. Ask your healthcare provider to examine your feet for problems. This will make it easier to find and treat small skin irritations before they get worse. Regular checkups can also help keep track of the blood flow and feeling in your feet. If you have neuropathy, you may need to have checkups more often. Wear Proper Footwear Wearing proper footwear is very important. If areas of your feet have been damaged by too much pressure, your healthcare provider may recommend changing your footwear. In some cases, avoiding high heels or tight work boots may be all thats needed. Or, your healthcare provider may recommend special shoes or custom inserts. These help protect your feet and keep existing irritations from getting worse. If you need special footwear, ask your healthcare provider if you qualify for [employer] diabetic shoe program. Make Sure Shoes and Socks Fit Any pair of shoes--new or old--should feel comfortable as soon as you put them on. There shouldnt be any rubbing when you walk. Wear the right shoe for any activity. For instance, a running shoe is designed to keep your feet injury-free while jogging. Buy shoes at the end of the day, when your feet are larger. Make sure they provide support without feeling too loose. Make sure your socks fit, t oo. Wear soft, seamless, well-padded socks for activity. Cotton or microfiber socks are best to help to absorb sweat. To protect your feet, avoid shoes that are open-toed or open-heeled. If you have questions about what kinds of shoes and socks are best, talk to your healthcare team. Get Regular Exercise Regular exercise improves blood flow in your feet. It also increases foot strength and flexibility.Gentle exercises, like walking or riding a stationary bicycle, are best. You can also do special foot exercises. Just be sure to talk with your healthcare provider before starting any exercise program. Also mention if any exercise causes pain, redness, or other signs of foot problems. Note: If you have any kind of break in the skin of your foot or ankle, keep the area clean. Then call your doctor--especially if the area doesnt appear to be healing. [id number] [employer], [address] [place] [address], [place] [id number]. All rights reserved. This information is not intended as a substitute for professional medical care. Always follow your healthcare professional's instructions. documented in this encounter Progress Notes * Casandra Alvarez LPN - 03/14/2024 7:48 AM EDT Images from the original note were not included. The importance of having a yearly diabetic eye exam has been discussed with patient. Order and/or Referral placed along with patient instructions. Provider made aware. Casandra Alvarez LPN Socks and Shoes Removed for Annual Diabetic Foot Screening RIGHT FOOT: No Reddened, Cracking, Or Open Areas Noted. RIGHT Dorsalis Pedis Pulse: Palpable RIGHT Posterior Tibial Pulse: Palpable RIGHT Monofilament:Patient reports feeling monofilament pressure on plantar surface of foot LEFT FOOT: No Reddened, Cracking or Open Areas Noted. LEFT Dorsalis Pedis Pulse: Palpable LEFT Posterior Tibial Pulse: Palpable LEFT Monofilament:Patient reports feeling monofilament pressure on plantar surface of foot Do you need diabetic shoes: No Dexa scan ordered today. Provider aware. Casandra Alvarez LPN Diabetic Retinopathy: Evaluating Your Eyes Diabetic retinopathy is a condition that happens when diabetes damages blood vessels in the rear ofthe eye. It can lead to vision loss. To help catch it early, have a complete dilated eye exam at least once a year. During the exam, the eye healthcare provider will review your medical history, examine your eyes, and check your vision. Women who are and have pre-existing type 1 or type 2 diabetes have an increased risk of retinopathy. Women with diabetes should have an eye exam before or in the first trimester. They should continue to be monitored every trimester and for 1 year after delivery, depending on the severity of the retinopathy. The retina is the light-sensitive part of the eye that allows you to see. High blood sugar can damage blood vessels of the retina and cause them to leak or bleed. This damage can lead to abnormal blood vessel growth. This condition is called diabetic retinopathy. You may not have symptoms early in the disease. Later, there may be floaters, blurred vision, or poor night vision. There may also be partial or complete vision loss. Early cases of diabetic retinopathy can be treated by carefully controlling blood sugar, blood pressure, and cholesterol. Surgery or laser treatments may help restore lost vision. Laser surgery can shrink abnormal blood vessels or close ones that are leaking. Medicines injected in the eye can help decrease swelling of the retina. Home care Take all medicines, including insulin or oral diabetic medicine, exactly as prescribed. Follow the diet advised by your healthcare provider. If you have high cholesterol, follow a low-fat, low-cholesterol diet. Monitor blood sugars as advised. Try to achieve your ideal weight. If you smoke, quit smoking. Tobacco use worsens the effect of diabetes on your blood vessels. If you have high blood pressure, consider buying an automatic blood pressure machine. These are available at most pharmacies. Use this to monitor your blood pressure. Report your blood pressure readings to your healthcare provider. Exercise regularly. Follow-up care Follow up with your healthcare provider, or as advised. You must have a complete eye exam at least once a year, more often if needed. Untreated diabetic retinopathy can lead to complete loss of vision. Occupational therapists can help you adapt to any vision loss you have, including learning techniques to safely administer insulin. When to seek medical advice Call your healthcare provider right away if any of these occur. Increasing blurriness or any sudden changes in your vision Sudden flashes of light inside your eye New floaters (small dots or strings that seem to be moving across your field of vision) Eye pain, redness, or discharge from your eyelid New dark spots appearing in your field of vision Halos around lights Dimness of vision Partial or complete loss of vision Women with diabetes should have a complete eye exam before becoming , or as soon as possible when they find out they are . Retinopathy sometimes worsens during . Your eye exam Your eye healthcare provider uses an eye chart and other tools to check your vision. Then he or sheexamines your eyes for signs of disease. You are given eye drops to widen (dilate) your pupils. Youmay have one or more of the following tests: Tonometry to measure fluid pressure inside the eye. Slit lamp exam to allow the healthcare provider to view the structures of your eye. Ultrasound to create an image of the eye using sound waves. Ultrasound may be used if blood is found in the clear gel that fills the eye (vitreous). Ocular coherence tomography (OCT) to create an image of the retina using light waves. This shows ifthere is fluid leaking into certain parts of the eye. It can also measure the thickness of the retina. Fluorescein angiography This test may be done to check the health of the inside lining of the eye (retina). It also checks the tiny blood vessels (capillaries) that carry blood to the retina. During the test: Photographs are taken of the retina. A dye is then injected into the bloodstream through the arm or hand. The dye travels to the capillaries in the eye. More photographs are taken of the retina. The dye causes the capillaries to stand out on the photographs. You may feel brief nausea during the procedure. For a few hours after the test, your skin, eyes, and urine may appear yellow. Talk with your healthcare provider for more information about this test. Date Last Reviewed: 03/15/201619998729-[address] [employer]. [address] [place] [address]. All rights reserved. This information is not intended as a substitute for professional medical care. Always follow your healthcare professional's instructions. DM Foot Exam completed today. Provider aware. Casandra Alvarez LPN * Cyn Vivar PA-C - 03/14/2024 7:45 AM EDT Images from the original note were not included. History of Present Illness Nemo Plata is a 69 year old female that presents for Follow Up (Patient is here today for a followup. /Patient states no concerns. ) Here for regular return Labs are current She is due for several hm issues but has historically wanted to be conservative. Doing well overall. Has no significant concerns. Results for orders placed or performed in visit on 02/27/24 HEMOGLOBIN A1C Result Value Ref Range Hemoglobin A1C 6.7 (H) 4.0 - 5.6 % Estimated Average Glucose 146 (H) <126 mg/dL Hemoglobin AIC Results: Lab Results Component Value Date/Time HEMOGLOBIN A1C - [facility] 6.7 (H) 02/27/2024 09:40 AM HEMOGLOBIN A1C - [facility] 6.7 (H) 09/13/2023 08:58 AM HEMOGLOBIN A1C - [facility] 6.6 (H) 03/13/2023 08:52 AM HEMOGLOBIN A1C - [facility] 6.8 (H) 11/01/2020 09:42 AM HEMOGLOBIN A1C - [facility] 6.6 (H) 04/30/2020 11:00 AM HEMOGLOBIN A1C - [facility] 7.0 (H) 10/31/2019 11:16 AM Past Medical History: Diagnosis Date Adenomatous polyp of colon 2009 Benign neoplasm of colon 04/06/10 adenomatous tissue--repeat 3 years Benign neoplasm of colon 03/14/13 repeat in 5 years-COLONOSCOPY FLEXIBLE PROXIMAL DIAGNOSTIC performed by Germaine Monteiro MD at [facility], normal tissue at previous polyp site, repeat [...] OF PANCREATIC CYST (RESOLVED) 02/03/2010 Tachycardia 04/14/2010 Hydroxychloroquine Sulfate 200 MG Oral Tablet (Plaquenil) metFORMIN HCl 1000 MG Oral Tablet (Glucophage) glyBURIDE 5 MG Oral Tablet (Diabeta) Metoprolol Succinate ER 50 MG Oral Tablet Extended Release 24 Hour (toPROL XL) Furosemide 20 MG Oral Tablet (Lasix) NATURAL SUPPLEMENT NATURAL SUPPLEMENT amLODIPine Besylate 5 MG Oral Tablet (Norvasc) Atorvastatin Calcium 10 MG Oral Tablet (Lipitor) Acetaminophen 500 MG Oral Tablet (Tylenol) Aspirin 81 MG Oral Tablet Delayed Release Ferrous Gluconate 256 (28 Fe) MG Oral Tablet (Ferate) Hair Skin & Nails Gummies 1250-7.5-7.5 MCG-MG-UNT Oral Tablet Chewable (Biotin w/ Vitamins C & E) Blood Glucose Monitoring Suppl (DIATHRIVE BLOOD GLUCOSE METER) OTTO Glucose Blood In Vitro Strip Cholecalciferol (VITAMIN D3) 2000 UNITS Capsule vitamin b 12 (CYANOCOBALAMIN) 1000 MCG TABS BIMATOPROST 0.01 % OP SOLN CALCIUM 600+D 600-200 MG-UNIT PO TABS CINNAMON 500 MG PO CAPS CO Q10 100 MG PO CAPS VITAMIN C 500 MG PO TABS OCUVITE-LUTEIN PO CAPS OSTEO BI-FLEX ADV TRIPLE ST PO TABS Extensive ROS Constitutional (f/c/wt/vision/hearing): Negative and wears galsses, eye exam current, just a few weeks ago, sees Dr Goldberg, return in June for her glaucoma, pressures were 15 and 15 Resp (cough/sob/dan): Negative CV (cp/palp/fluttering/diaphoresis/dan/pnd):Negative GI (n/v/d/hrtburn): Negative Endo (hair/cold or heat intol/ 3 p's): Negative Neuro (shaking/weak/fatigu/parasthesi/): Negative Skin (rash/easy bruis/xerosis): Negative Psy (si/hi/halluc/): Negative (nocturia/hesit/drib/sexual review): Negative Lymph (swollen glands/b sx's/: Negative Physical Exam Vitals: 03/14/24 0749 Temp: 36.1 C (97 F) Pulse: 73 Resp: 18 BP: 138/66 BMI: 24.39 BP Readings from Last 3 Encounters: 03/14/24 138/66 02/04/24 142/63 01/22/24 130/60 Wt Readings from Last 3 Encounters: 03/14/24 63.2 kg (139 lb 6.4 oz) 02/04/24 64.1 kg (141 lb 6.4 oz) 01/22/24 63 kg (139 lb) BMI Readings from Last 3 Encounters: 03/14/24 24.39 kg/m 02/04/24 25.05 kg/m 01/22/24 24.62 kg/m Ht Readings from Last 3 Encounters: 03/14/24 1.61 m (5' 3.39") 03/13/23 1.6 m (5' 3") 05/03/22 1.6 m (5' 3") General: alert, healthy, and no distress Head: Normocephalic, No masses, lesions, tenderness or abnormalities Eye Exam: PERRLA, extraocular movements intact, conjunctiva are pink and non- injected, sclera clear Ears: External ears normal, Canals clear, TM's Normal Nose: no mucosal erythema, no mucosal edema, no purulent discharge Oropharynx: no exudate, no erythema, lips, buccal mucosa, and tongue normal, and mucous membranes are moist Neck: supple, no adenopathy, no bruits, thyroid normal size, non-tender, without nodularity, trachea midline Heart: regular rate & rhythm, no murmur, and no gallops, s1 and s2 Lungs: chest symmetric with normal AP diameter, no chest deformities noted, no chest wall tenderness, lungs clear to auscultation Abdomen: abdomen soft, non-tender, normal bowel sounds, and no masses or organomegaly Back: back symmetric, no curvature, no costovertebral angle tenderness, range of motion is normal Extremities: less than 2 second capillary refill, no joint deformities, effusion, or inflammation Neuro Exam: alert & oriented x 3 with fluent speech, no focal motor/sensory deficits, gait normal, reflexes normal and symmetric Skin: skin color, texture, turgor are normal, no rashes or significant lesions Assessment and Plan Age-related osteoporosis without current pathological fracture (Primary) - DEXA SCAN/BONE MINERAL AXIAL; Future; Expected date: 03/14/2024 - COMPREHENSIVE METABOLIC PANEL; Future; Expected date: 08/11/2024 - 25-HYDROXY VITAMIN D; Future; Expected date: 08/11/2024 Type 2 diabetes mellitus with stage 2 chronic kidney disease and hypertension (HCC) - TELEMEDICINE DIABETIC EYE - DIABETES FOOT EXAM - HEMOGLOBIN A1C; Future; Expected date: 08/11/2024 - ALBUMIN / CREATININE RATIO, URINE; Future; Expected date: 08/11/2024 - VITAMIN B12; Future; Expected date: 08/11/2024 - LIPID PANEL WITH DIRECT LDL IF TG IS HIGH; Future; Expected date: 08/11/2024 - COMPREHENSIVE METABOLIC PANEL; Future; Expected date: 08/11/2024 - 25-HYDROXY VITAMIN D; Future; Expected date: 08/11/2024 Encounter for screening mammogram for breast cancer - MAMMOGRAM SCREENING ANTHONY BILATERAL; Future; Expected date: 07/26/2024 Primary open angle glaucoma (POAG) of both eyes, indeterminate stage Dyslipidemia, goal LDL below 70 - LIPID PANEL WITH DIRECT LDL IF TG IS HIGH; Future; Expected date: 08/11/2024 - COMPREHENSIVE METABOLIC PANEL; Future; Expected date: 08/11/2024 HTN, goal below 150/90 - ALBUMIN / CREATININE RATIO, URINE; Future; Expected date: 08/11/2024 - LIPID PANEL WITH DIRECT LDL IF TG IS HIGH; Future; Expected date: 08/11/2024 - COMPREHENSIVE METABOLIC PANEL; Future; Expected date: 08/11/2024 Other iron deficiency anemia - CBC; Future; Expected date: 08/11/2024 - FERRITIN; Future; Expected date: 08/11/2024 Diffuse connective tissue disease (HCC) - CBC; Future; Expected date: 08/11/2024 - FERRITIN; Future; Expected date: 08/11/2024 - HEMOGLOBIN A1C; Future; Expected date: 08/11/2024 - ALBUMIN / CREATININE RATIO, URINE; Future; Expected date: 08/11/2024 - VITAMIN B12; Future; Expected date: 08/11/2024 - LIPID PANEL WITH DIRECT LDL IF TG IS HIGH; Future; Expected date: 08/11/2024 - COMPREHENSIVE METABOLIC PANEL; Future; Expected date: 08/11/2024 - 25-HYDROXY VITAMIN D; Future; Expected date: 08/11/2024 Deficiency of other specified B group vitamins - VITAMIN B12; Future; Expected date: 08/11/2024 Rev lab work No med changes Cont with rheum, cardiology Discuss diet Wrap-Up Time: I spent a total of 40-54 minutes (exact time 45 mins) on the date of service in preparation, delivery, and documentation of the care provided to Nemo Plata excluding any time spent in the performance of separately billed services. Cyn Vivar PA-C 03/14/2024 8:25 AM documented in this encounter Nursing Notes * Casandra Alvarez LPN - 03/14/2024 7:54 AM EDT The patient has been properly identified by confirmation of name and date of . Chief Complaint Patient presents with Follow Up Patient is here today for a follow up. Patient states no concerns. documented in this encounter Plan of Treatment Upcoming Encounters Date Type Department Care Team (Late st Contact Info) Description 06/26/2024 9:30 AM EDT Office Visit Cardiology, [facility] [address] [facility] [address] [place] [id number] Jose Carlos Fuchs PA-C [address] [place] [id number] 09/24/2024 8:20 AM EST [facility] [address] [facility] [phone] Cyn Vivar PA-C [address] [facility] [place] [address] 01/22/2025 9:40 AM EDT Office Visit Rheumatology [place] [id number] [place] [address] Genaro Johnson MD [address] [place] [address] Scheduled Orders Name Type Priority Associated Diagnoses Orde r Schedule DEXA SCAN/BONE MINERAL AXIAL Medical Imaging Routine Age-related osteoporosis without current pathological fracture Expected: 03/14/2024 (Approximate), Expires: 04/13/2025 MAMMOGRAM SCREENING ANTHONY BILATERAL Medical Imaging Routine Encounter for screening mammogram for breast cancer Expected: 07/26/2024, Expires: 04/13/2025 CBC Lab Routine Other iron deficiency anemia Diffuse connective tissue disease (HCC) Expected: 08/11/2024 (Approximate), Expires: 03/14/2025 FERRITIN Lab Routine Other iron deficiency anemia Diffuse connective tissue disease (HCC) Expected: 08/11/2024 (Approximate), Expires: 03/14/2025 HEMOGLOBIN A1C Lab Routine Type 2 diabetes mellitus with stage 2 chronic kidney disease and hypertension (HCC) Diffuse connective tissue disease (HCC) Expected: 08/11/2024 (Approximate), Expires: 03/14/2025 ALBUMIN / CREATININE RATIO, URINE Lab Routine Type 2 diabetes mellitus with stage 2 chronic kidney disease and hypertension (HCC) HTN, goal below 150/90 Diffuse connective tissue disease (HCC) Expected: 08/11/2024 (Approximate), Expires: 03/14/2025 VITAMIN B12 Lab Routine Type 2 diabetes mellitus with stage 2 chronic kidney disease and hypertension (HCC) Diffuse connective tissue disease (HCC) Deficiency of other specified B group vitamins Expected: 08/11/2024 (Approximate), Expires: 03/14/2025 LIPID PANEL WITH DIRECT LDL IF TG IS HIGH Lab Routine Type 2 diabetes mellitus with stage 2 chronic kidney disease and hypertension (HCC) Dyslipidemia, goal LDL below 70 HTN, goal below 150/90 Diffuse connective tissue disease (HCC) Expected: 08/11/2024 (Approximate), Expires: 03/14/2025 COMPREHENSIVE METABOLIC PANEL Lab Routine Type 2 diabetes mellitus with stage 2 chronic kidney disease and hypertension (HCC) Age-related osteoporosis without current pathological fracture Dyslipidemia, goal LDL below 70 HTN, goal below 150/90 Diffuse connective tissue disease (HCC) Expected: 08/11/2024 (Approximate), Expires: 03/14/2025 25-HYDROXY VITAMIN D Lab Routine Type 2 diabetes mellitus with stage 2 chronic kidney disease and hypertension (HCC) Age-related osteoporosis without current pathological fracture Diffuse connective tissue disease (HCC) Expected: 08/11/2024 (Approximate), Expires: 03/14/2025 Health Maintenance Due Date Last Done Comments Hepatitis C Screening 1971 DTaP,Tdap,and Td Vaccines (1 - Tdap) 01/18/1972 Cologuard 1998 Sigmoidoscopy 1998 DXA Scan 02/19/2015 02/19/2013, 12/2010, 02/14/2011 Colonoscopy 03/14/2018 03/14/2013, 02/14, 04/06/2010 Colorectal Cancer Screening 10/01/2018 Fecal Occult Blood Test 09/30/2019 09/30/2018, 09/24 Diabetic Eye Exam 02/06/2023 02/06/2022 (Do ne elsewhere), 02/04/2021, 03/01/2020, Additional history exists COVID-19 Vaccine ( season) 2023 08/09/2023, 08/07/2022, 09/28/2021, Additional history exists Mammogram 07/25/2024 07/25/2023, 06/16, 07/07/2022, Additional history exists HbA1c 08/29/2024 02/27/2024, 08/17, [...] D LEVEL ONCE IN A LIFETIME-USE SMARTSET# [id number] Completed 04/30/2020, 03/26/2018, 08/24/2015, Additional history exists [...] as of this encounter Visit Diagnoses Diagnosis Age-related osteoporosis without current pathological fracture- Primary Senile osteoporosis Type 2 diabetes mellitus with stage 2 chronic kidney disease and hypertension (HCC) Encounter for screening mammogram for breast cancer Primary open angle glaucoma (POAG) of both eyes, indeterminate stage Dyslipidemia, goal LDL below 70 Other and unspecified hyperlipidemia HTN, goal below 150/90 Other iron deficiency anemia Diffuse connective tissue disease (HCC) Unspecified diffuse connective tissue disease Deficiency of other specified B group vitamins documented in this encounter Care Teams Financial Project Manager Relationship Specialty Start Date End Date Cyn Vivar PA-C [address] [facility] [address] PCP - General Physician Packaging Sales Representative 05/03/22 documented as of this encounter
--- OUTSIDE RECORDS SUMMARY | 2024-09-01 09:32 | External Medical Summary | Summary of Care ---
Author Name Unknown Organization [facility] Address [address] [address] Phone [phone] Care Team Providers Care Neighborhood Planner Name Role Phone Cyn Vivar PA-C Primary Care Provider [phone] [phone] Reason for Visit * Reason Onset Date Comments MyCode Consent 03/25/2024 Encounter Details Date Type Department Care Team (Late st Contact Info) Description 03/25/2024 Orders Only Outcomes Research Department [address] [id number] Marni Giles CHRA MyCode Research Other*[id number]* Allergies Active Allergy Reactions Criticality Noted Date [...] mRNA, LNP-s, No Pre serve, 2-Dose Series ([employer]) 09/28/2021,01/28/2021,12/31/2020 COVID-19, MRNA-LNP, 23-24, P F, 30 MCG/0.3 mL, 12 YRS AND ABOVE, IM (ZapMe-ComirCopyright Agent) 08/09/2023 Covid-19, Mrna, Lnp-s, Pf, B ivalent, 30 Mcg, IM, 12 yrs and above ([employer]) 08/07/2022 Pneumococcal Conjugate Vacc, 13 Valent (Prevnar) [...] as of this encounter Progress Notes * Marni Giles CHRA - 03/25/2024 10:18 AM EDT [employer] Consent Documentation Nemo Plata provided consent/authorization to participate in the [employer] Project. documented in this encounter Plan of Treatment Upcoming Encounters Date Type Department Care Team (Late st Contact Info) Description 06/26/2024 9:30 AM EDT Office Visit Cardiology, [facility] [address] [facility] [place] [address] Jose Carlos Fuchs PA-C [facility] [place] [address] 09/24/2024 8:20 AM EST [facility] [address] [facility] [place] [phone] Cyn Vivar PA-C [address] [place] [address] 01/22/2025 9:40 AM EDT Office Visit Rheumatology [place] [id number] [facility] [place] [address] Genaro Johnson MD [address] [place] [address] Scheduled Orders Name Type Priority Associated Diagnoses Orde r Schedule MYCODE INITIAL ADULT Lab Routine MyCode Research Other*[id number] Expected: 03/25/2024 (Approximate), Expires: 04/14/2025 Health Maintenance Due Date Last Done Comments [...] D LEVEL ONCE IN A LIFETIME-USE SMARTSET# [id number] Completed 04/30/2020, 03/26/2018, 08/24/2015, Additional history exists [...] this encounter Visit Diagnoses Diagnosis MyCode Research Other*[id number]- Primary documented in this encounter Care Teams Neighborhood Planner Relationship Specialty Start Date End Date Cyn Vivar PA-C [address] [place] [facility] [place] [address] PCP - General Physician Hospital Aide 05/03/22 documented as of this encounter
--- OUTSIDE RECORDS SUMMARY | 2024-09-01 09:32 | External Medical Summary | Summary of Care ---
Author Name Unknown Organization [facility] Address [address] [address] Phone [phone] Care Team Providers Care Teacher Learning Disabled Name Role Phone Cyn Vivar PA-C Primary Care Provider [phone] [phone] Encounter Details Date Type Department Care Team (Late st Contact Info) Description [facility] [address] [place] [address] Mik Clark PA-C [address] [place] [address] Allergies Active Allergy Reactions Criticality [...] hemoglobin A1c goal of less than 7.0% ([facility]) Use as directed. 04/28/2019 Active Glucose Blood In Vitro StripIndications:T ype 2 diabetes mellitus with hemoglobin A1c goal of less than 7.0% ([facility]) Check blood sugars two times [...] mRNA, LNP-s, No Pre serve, 2-Dose Series ([employer]) 09/28/2021,01/28/2021,12/31/2020 COVID-19, MRNA-LNP, 23-24, P F, 30 MCG/0.3 mL, 12 YRS AND ABOVE, IM ([employer] 08/09/2023 Covid-19, Mrna, Lnp-s, Pf, B ivalent, [...] for urgent surgical consult. Patient is requesting [facility]. Could she please be added to Dr. Nelson's schedule this week? Thank you so much! --Mik Spoke with Holger regarding this, he will discuss this with dr. nelson documented in this encounter Plan of Treatment Upcoming Encounters Date Type Department Care Team (Late st Contact Info) Description 06/26/2024 9:30 AM EDT Office Visit Cardiology, [facility] [address] [place] [address] Jose Carlos Fuchs PA-C [address] [place] [address] 09/24/2024 8:20 AM EST Office Visit [address] [place] [address] Cyn Vivar PA-C [address] [place] [address] 01/22/2025 9:40 AM EDT Office Visit Rheumatology [facility] [address] [facility] [place] [address] Genaro Johnson MD [address] [place] [address] Health Maintenance Due Date Last Done Comments [...] D LEVEL ONCE IN A LIFETIME-USE SMARTSET# [id number] Completed 04/30/2020, 03/26/2018, 08/24/2015, Additional history exists [...] filedocumented as of this encounter Care Teams Teacher Learning Disabled Relationship Specialty Start Date End Date Cyn Vivar PA-C [address] [place] [address] PCP - General Physician Thermal Intelligence Analyst 05/03/22 documented as of this encounter
--- OUTSIDE RECORDS SUMMARY | 2024-09-01 09:32 | External Medical Summary | Summary of Care ---
Author Name Unknown Organization [facility] Address [address] [facility] [place] [address] Phone [phone] Care Team Providers Care Web Press Jogger Name Role Phone Cyn Vivar PA-C Primary Care Provider [phone] [phone] Reason for Referral * Evaluate & Treat - Unlimited Visits (Within 3 days (urgent)) - Authorized Specialty Diagnoses / Procedures Referred By Linda casillas Referred To Contact Orthopaedic Surgery / Orthopedics Diagnoses Injury of right shoulder, initial encounter Loretta Leon PA-C [address] [place] [address] [place] [address] Referral ID Status Reason Start Date Expiration Date Visits Requested Visits Authorized [id number] Authorized Specialty Services Required 03/25/2024 999 999 Question Answer Referral Priority Within 3 days (urgent) Where should this appointment be scheduled? [facility] What body part is the patient being seen for? Shoulder What condition is the patient being seen for? Sprain/Strain/Tear/Other Reason for Visit * Reason Comments Acute Patient is here with complaints of a fall on Sunday and she hurt her R arm/shoulder, she has a lot of bruising on her R arm and pain below the shoulder- requesting xrays. Encounter Details Date Type Department Care Team ([facility] Contact Info) Description 03/25/2024 10:20 AM EDT Office Visit [facility] [address] [facility] [place] [address] Loretta Leon PA-C [address] [place] [id number] Injury of right shoulder, initial encounter* Allergies Active Allergy Reactions Criticality [...] hemoglobin A1c goal of less than 7.0% ([facility]) Use as directed. 04/28/2019 Active Glucose Blood In Vitro StripIndications:T ype 2 diabetes mellitus with hemoglobin A1c goal of less than 7.0% ([facility]) Check blood sugars two times [...] mRNA, LNP-s, No Pre serve, 2-Dose Series ([employer]) 09/28/2021,01/28/2021,12/31/2020 COVID-19, MRNA-LNP, 23-24, P F, 30 MCG/0.3 mL, 12 YRS AND ABOVE, IM ([employer] technologies-Comirnaty) 08/09/2023 Covid-19, Mrna, Lnp-s, Pf, B ivalent, 30 Mcg, IM, 12 yrs and above ([employer]) 08/07/2022 Pneumococcal Conjugate Vacc, 13 Valent (Prevnar) [...] Sign Reading Time Taken Comments Blood Pressure 114/68 03/25/2024 10:45 AM EDT Pulse 108 03/25/2024 10:45 AM EDT Temperature 36.4 C (97.5 F) 03/25/2024 1 0:45 AM EDT Respiratory Rate 17 03/25/2024 10:4 5 AM EDT Oxygen Saturation 99% 03/25/2024 10: 45 AM EDT Inhaled Oxygen Concentration - - Weight 62.5 kg (137 lb 12.8 oz) 024 10:45 AM EDT Height - - Body Mass Index 24.11 03/14/2024 7:49 AM EDT documented in this encounter Progress Notes * Loretta Leon PA-C - 03/25/2024 10:59 AM EDT Subjective: Nemo Plata is a 69 year old female. Chief Complaint Patient presents with Acute Patient is here with complaints of a fall on Sunday and she hurt her R arm/shoulder, she has a lot of bruising on her R arm and pain below the shoulder- requesting xrays. HPI: Tripped over threashold on bottom of door 03/22 landing on right shoulder. Confirms fall was strictlymechanical. Denies any dizziness or lightheadedness leading up to fall. Denies head strike. Denies LOC. Reports increased swelling and echymosis on 03/23. Reports worst of pain is over lateral distal humerus. PMH: Patient Active Problem List Diagnosis Cerebrovascular disease, arteriosclerotic, post-stroke Diffuse connective tissue disease (HCC) Asymptomatic left ventricular dysfunction Iron deficiency anemia HTN, goal below 150/90 Dyslipidemia, goal LDL below 70 Age-related osteoporosis without current pathological fracture Hypercalcemia Type 2 diabetes mellitus with hemoglobin A1c goal of less than 7.0% (HCC) Type 2 diabetes mellitus with stage 2 chronic kidney disease and hypertension (HCC) Normochromic normocytic anemia Pulmonary hypertension (HCC) Current Outpatient Medications Medication Sig Dispense Refill [...] in the morning. Blood Glucose Monitoring Suppl (GooseChaseIVE BLOOD GLUCOSE METER) OTTO Use as directed. [...] No current facility-administered medications for this visit. Review of patient's allergies indicates: Allergen Reactions Hctz [Hydrochlorothiazide] Hyponatremia Objective: BP 114/68 | Pulse 108 | Temp 36.4 C (97.5 F) (Tympanic) | Resp 17 | Wt 62.5 kg (137 lb 12.8 oz)| SpO2 99% | BMI 24.11 kg/m | BSA 1.67 m Extremities: Decreased range of motion of right shoulder. Tenderness over humeral head. Significant swelling and ecchymosis of right upper extremity noted. Patient has full range of motion of elbow and wrist. ASSESSMENT: Injury of right shoulder, initial encounter (Primary) - XR SHOULDER, 2 OR MORE VIEWS - ORTHOPAEDICS REFERRAL OP Plan: Plain film obtained in office and appears to show a right proximal humerus fracture with dislocation. Spoke with orthopedics team who will evaluate patient immediately. Follow Up: Return for directly to orthopedics (upstairs) to be added to schedule . | For: directly to orthopedics (upstairs) to be added to schedule I spent a total of 20-29 minutes (exact time 29 mins) on the date of service in preparation, delivery, and documentation of the care provided to Nemo Plata excluding any time spent in the performance of separately billed services. Loretta Leon PA-C documented in this encounter Nursing Notes * Angeline Botello LPN - 03/25/2024 10:47 AM EDT The patient has been properly identified by confirmation of name and date of . Chief Complaint Patient presents with Acute Patient is here with complaints of a fall on Sunday and she hurt her R arm/shoulder, she has a lot of bruising on her R arm and pain below the shoulder- requesting xrays. documented in this encounter Plan of Treatment Upcoming Encounters Date Type Department Care Team (Late st Contact Info) Description 06/26/2024 9:30 AM EDT Office Visit Cardiology, [facility] [address] [place] [address] Jose Carlos Fuchs PA-C [address] [place] [address] 09/24/2024 8:20 AM EST Office Visit [place] [address] [facility] [place] [phone] Cyn Vivar PA-C [address] [facility] [place] [place] [address] 01/22/2025 9:40 AM EDT Office Visit Rheumatology [place] [address] [facility] [place] [address] Genaro Johnson MD [address] [employer] [place] [address] Pending Results Name Type Priority Associated Diagnoses Date /Time XR SHOULDER, 2 OR MORE VIEWS Medical Imaging Routine Injury of right shoulder, initial encounter 03/25/2024 11:26 AM EDT Scheduled Referrals Name Type Priority Associated Diagnoses Order Schedule ORTHOPAEDICS REFERRAL OP Referral Within 3 days (urgent) Injury of right shoulder, initial encounter Ordered: 03/25/2024 Health Maintenance Due [...] D LEVEL ONCE IN A LIFETIME-USE SMARTSET# [id number] Completed 04/30/2020, 03/26/2018, 08/24/2015, Additional history exists [...] as of this encounter Visit Diagnoses Diagnosis Injury of right shoulder, initial encounter- Primary documented in this encounter Care Teams Web Press Jogger Relationship Specialty Start Date End Date Cyn Vivar PA-C [address] [facility] [place] [address] PCP - General Physician Fermentation Engineer 05/03/22 documented as of this encounter"
--- OUTSIDE RECORDS SUMMARY | 2024-09-01 09:32 | External Medical Summary | Summary of Care ---
Author Name Unknown Organization [facility] Address [address] [facility] [place] [address] Phone [phone] Care Team Providers Care Absorption Plant Operator Helper Name Role Phone Cyn Vivar PA-C Primary Care Provider [phone] [phone] Reason for Referral * Evaluate & Treat - Unlimited Visits (Within 3 days (urgent)) - Authorized Specialty Diagnoses / Procedures Referred By Linda casillas Referred To Contact Orthopaedic Surgery / Orthopedics Diagnoses Injury of right shoulder, initial encounter Loretta Leon PA-C [address] [place] [address] [place] [address] Referral ID Status Reason Start Date Expiration Date Visits Requested Visits Authorized [id number] Authorized Specialty Services Required 03/25/2024 999 999 [...] Encounter Details Date Type Department Care Team ([facility] Contact Info) Description 03/25/2024 10:20 AM EDT Office Visit [facility] [address] [facility] [place] [address] Loretta Leon PA-C [address] [place] [address] [phone] (work) Closed fracture of head of right humerus, initial encounter*; Injury of right shoulder, initial encounter Allergies Active Allergy Reactions Criticality Noted Date [...] hemoglobin A1c goal of less than 7.0% ([facility]) Use as directed. 04/28/2019 Active Glucose Blood In Vitro StripIndications:T ype 2 diabetes mellitus with hemoglobin A1c goal of less than 7.0% ([facility]) Check blood sugars two times [...] mRNA, LNP-s, No Pre serve, 2-Dose Series ([employer]) 09/28/2021,01/28/2021,12/31/2020 COVID-19, MRNA-LNP, 23-24, P F, 30 MCG/0.3 mL, 12 YRS AND ABOVE, IM ([employer]) 08/09/2023 Covid-19, Mrna, Lnp-s, Pf, B ivalent, 30 Mcg, IM, 12 yrs and above ([employer]) 08/07/2022 Pneumococcal Conjugate Vacc, 13 Valent (Prevnar) [...] in the morning. Blood Glucose Monitoring Suppl (LifeBookIVE BLOOD GLUCOSE METER) OTTO Use as directed. [...] 06/26/2024 9:30 AM EDT Office Visit Cardiology, [facility] [address] [place] [address] Jose Carlos Fuchs PA-C [address] [place] [address] 09/24/2024 8:20 AM EST [address] [phone] Cyn Vivar PA-C [address] [place] [address] 01/22/2025 9:40 AM EDT Office Visit Rheumatology [place] [address] [employer] [place] [address] Genaro Johnson MD [address] [facility] [place] [address] Pending Results Name Type Priority Associated Diagnoses [...] D LEVEL ONCE IN A LIFETIME-USE SMARTSET# [id number] Completed 04/30/2020, 03/26/2018, 08/24/2015, Additional history exists [...] encounter Visit Diagnoses Diagnosis Closed fracture of head of right humerus, initial encounter- Primary Injury of right shoulder, initial encounter documented in this encounter Care Teams Absorption Plant Operator Helper Relationship Specialty Start Date End Date Cyn Vivar PA-C [address] [facility] [place] [address] PCP - General Physician Ceramic Design Engineer 05/03/22 documented as of this encounter"
--- OUTSIDE RECORDS SUMMARY | 2024-09-01 09:32 | External Medical Summary | Summary of Care ---
Author Name Unknown Organization [facility] Address [address] [address] Phone [phone] Care Team Providers Care Pipe Fitter Apprentice Name Role Phone Cyn Vivar PA-C Primary Care Provider +1 [phone] Reason for Visit * Reason Comments Follow Up Patient is here toda y for a follow up. Patient states no concerns. Encounter Details Date Type Department Care Team (Latest Contact Info) Description 03/14/2024 8:00 AM EDT Office Visit [facility] [address] [place] [phone] Cyn Vivar PA-C [address] [place] [address] Age-related osteoporosis without current pathological [...] as of this encounter (statuses as of 03/17/2024) Medications Medication Sig Dispensed Refills Start Date [...] A1c goal of less than 7.0% ([facility]) Use as directed. 04/28/2019 Active Glucose Blood In Vitro StripIndications:T ype 2 diabetes mellitus with hemoglobin A1c goal of less than 7.0% ([facility]) Check blood sugars two times daily. [...] as of this encounter (statuses as of 03/17/2024) Active Problems Problem Noted Date Diagnosed Date [...] as of this encounter (statuses as of 03/17/2024) Resolved Problems Problem Noted Date Diagnosed Date [...] as of this encounter (statuses as of 03/17/2024) Immunizations Name Administration Dates Next Due COVID-19 mRNA, LNP-s, No Pre serve, 2-Dose Series ([employer]) 09/28/2021,01/28/2021,12/31/2020 COVID-19, MRNA-LNP, 23-24, P F, 30 MCG/0.3 mL, 12 YRS AND ABOVE, IM (L[employer]tyLion-Comirnat) 08/09/2023 Covid-19, Mrna, Lnp-s, Pf, B ivalent, 30 Mcg, IM, 12 yrs and above ([employer]) 08/07/2022 Pneumococcal Conjugate Vacc, 13 Valent (Prevnar) [...] more than one site may be scanned. [phone] [facility], [address] [place] [address]. All rights reserved. This information is not [...] calluses yourself. Talk to your doctor or assistant winemaker (a doctor who specializes in foot care) [...] the area doesnt appear to be healing. [phone] [employer], [address] [place] [address], [place] [address]. All rights reserved. This information is not [...] information about this test. Date Last Reviewed: 03/15/201619994546-[address] [employer] [place] [address]. All rights reserved. This information is not [...] performed by Germaine Monteiro MD at [facility], normal tissue at previous polyp site, repeat [...] states no concerns. documented in this encounter Miscellaneous Notes * Addendum Note - Heidy Culver OSA - 03/17/2024 1:22 PM EDTAddended by: HEIDY CULVER on: 03/17/2024 01:22 PM Modules accepted: Orders documented in this encounter Plan of Treatment Upcoming Encounters Date Type Department Care Team (Late st Contact Info) Description 06/26/2024 9:30 AM EDT Office Visit Cardiology, [facility] [address] [place] [address] Jose Carlos Fuchs PA-C [address] [place] [address] 09/24/2024 8:20 AM EST [facility] [address] [place] [phone] Cyn Vivar PA-C [address] [facility] [place] [address] 01/22/2025 9:40 AM EDT Office Visit Rheumatology [facility] [address] [facility] [place] [address] Genaro Johnson MD [facility] [employer] [facility] [place] [address] Scheduled Orders Name Type Priority Associated Diagnoses [...] D LEVEL ONCE IN A LIFETIME-USE SMARTSET# [id number] Completed 04/30/2020, 03/26/2018, 08/24/2015, Additional history exists [...] vitamins documented in this encounter Care Teams Pipe Fitter Apprentice Relationship Specialty Start Date End Date Cyn Vivar PA-C [address] [place] [address] PCP - General Physician Feeder Associate 05/03/22 documented as of this encounter
--- OUTSIDE RECORDS SUMMARY | 2024-09-01 09:32 | External Medical Summary | Summary of Care ---
Author Name Unknown Organization [facility] Address [address] [address] Phone [phone] Care Team Providers Care Home Performance Consultant Name Role Phone Cyn Vivar PA-C Primary Care Provider [phone] Encounter Details Date Type Department Care Team (Late st Contact Info) Description [facility] [address] [place] [address] Mik Clark PA-C [address] [place] [address] Allergies Active Allergy Reactions Criticality [...] goal of less than 7.0% ([facility]) Use as directed. 04/28/2019 Active Glucose Blood In Vitro StripIndications:T ype 2 diabetes mellitus with hemoglobin A1c goal of less than 7.0% ([facility]) Check blood sugars two times daily. 1 [...] mRNA, LNP-s, No Pre serve, 2-Dose Series ([employer]) 09/28/2021,01/28/2021,12/31/2020 COVID-19, MRNA-LNP, 23-24, P F, 30 MCG/0.3 mL, 12 YRS AND ABOVE, IM ([employer]) 08/09/2023 Covid-19, Mrna, Lnp-s, Pf, B ivalent, [...] for urgent surgical consult. Patient is requesting [facility]. Could she please be added to Dr. Nelson's schedule this week? Thank you so much! --Mik Spoke with [facility] regarding this, he will discuss this with dr. nelson documented in this encounter Plan of Treatment Upcoming Encounters Date Type Department Care Team (Late st Contact Info) Description 06/26/2024 9:30 AM EDT Office Visit Cardiology, [facility] [address] [place] [address] Jose Carlos Fuchs PA-C [address] [place] [phone] 09/24/2024 8:20 AM EST [facility] [address] [facility] [address] Cyn Vivar PA-C [address] [place] [address] 01/22/2025 9:40 AM EDT Office Visit Rheumatology [facility] [address] [place] [address] Genaro Johnson MD [address] [place] [address] Health Maintenance Due Date Last Done Comments [...] D LEVEL ONCE IN A LIFETIME-USE SMARTSET# [id number] Completed 04/30/2020, 03/26/2018, 08/24/2015, Additional history exists [...] filedocumented as of this encounter Care Teams Home Performance Consultant Relationship Specialty Start Date End Date Cyn Vivar PA-C [address] [place] [address] PCP - General Physician Resident Assistant Cna 05/03/22 documented as of this encounter
--- NOTE | 2024-09-01 09:47 | XRay Report ---
XR chest 1V portable HISTORY: 69 years-old Female Chest pain, nonspecific COMPARISON: Chest CT 04/03/2010 TECHNIQUE: AP view of the chest FINDINGS: Heart size is normal. Atherosclerosis of the aorta. Blunting of the costophrenic angles without pleur al effusion. Degenerative changes of the shoulders and spine. Corticated ossification surrounding the right glenohumeral joint measure up to 3.7 cm which appear chronic. IMPRESSION: No acute process. ACT 112: Negative or not required by law. The above report was generated using voice recognition software. It may contain grammatical, syntax o r spelling errors. Electronically signed by: Tristin Hurt M.D. 09/01/2024 9:45 AM
[2024-09-01 10:01] LABS: Partial Thromboplastin Time 28 Seconds (21-31); Prothrombin Time 11.2 Seconds (9.0-12.0)
[2024-09-01 10:12] LABS: D Dimer 1040 ug/L FEU (0-500)
[2024-09-01] MEDS: OPTIRAY 320 125ml IV ONE (10:32)
--- NOTE | 2024-09-01 11:29 | CT Scan Report ---
CT ANGIOGRAPHY OF THE CHEST, PULMONARY EMBOLUS PROTOCOL CLINICAL HISTORY: Left-sided chest pain. Evaluate for pulmonary embolus. COMPARISON STUDY: Chest CT April 03, 2010. Chest radiograph performed earlier today. TECHNIQUE: Following IV administration of 119 mL of Optiray, helical axial images of the chest were o btained utilizing the pulmonary embolus protocol. Maximal intensity projections and sagittal and cor onal reformats were viewed on an independent 3D workstation. IV contrast was administered without co mplication. Automated exposure control was utilized for the study. A dose lowering technique was ut ilized adhering to the principles of ALARA. CT DOSE: 508.63 mGy.cm FINDINGS: No pulmonary emboli are identified. There is no thoracic aortic dissection. A multinodular thyroid goiter similar appearance to CT of April 03, 2010. There is no pneumothorax. There are small bilateral pleural effusions. There is no consolidation to suggest pneumonia. Groundglass opacities fa vor atelectasis or pulmonary edema. Interlobular septal thickening is present. T7 compression fractur e is unchanged. IMPRESSION: 1. No pulmonary emboli identified. 2. Pulmonary edema with small bilateral pleural effusions. 3. Cardiomegaly. ACT 112: Negative or not required by law. Electronically signed by: Derian Chacko M.D. 09/01/2024 11:27 AM
[2024-09-01] MEDS ORDERED: HEPARIN SOD (PORCINE) 1000 UNIT/ML IV ONE (13:07)
--- NOTE | 2024-09-01 13:08 | History & Physical Report ---
Date of Service September 01, 2024 Assessment & Plan (1) Pleuritic chest pain: (2) New onset atrial fibrillation: (3) Connective tissue disease: (4) Iron deficiency anemia: (5) Diabetes mellitus, type 2: (6) Hypertension: Plan This is a 69 y/o female with pulmonary hypertension, DM2 w/ proteinuria, HTN, diffuse connective tissue disease, multifactorial anemia, prior small vessel CVA, chronic resting tachycardia, mitral regurgitation, and other history as outlined who presented to the ED today with left sided chest pain and palpitations. Work-up in the ED showed atrial fibrillation with rates in the 110s to 130s so patient was referred for admission. D-dimer was elevated at 1040 so CTA chest ordered and was negative for PE. Initial troponin normal at 7.3. #New-onset atrial fibrillation - rates in the 110s to 130s #Pleuritic chest pain - negative CTA chest #Hypertension Admit to PCU Consult cardiology for recommendations - spoke with Dr. Flores who recommended to stop metoprolol succinate and start metoprolol tartrate 50 mg po QID Update ECHO Elevated [id number] - start heparin gtt and monitor H&H Received IV furosemide in the ED x 1 dose - repeat BMP in the AM and reassess volume status Trend troponin, repeat EKG in the AM and prn worsening chest pain #Type 2 Diabetes BSG ACHS Diabetic Diet Insulin sliding scale A1c in the AM #Diffuse Connective Tissue Disease - follows with rheumatology Continue hydroxychloroquine #Iron deficiency anemia Follow H&H on heparin gtt Pt seen and reviewed with collaborating physician, Dr. Park. Plan of care discussed and as outlined above. Code status: Full code DVT prophylaxis: on heparin gtt Admit to PCU. PT/OT evaluations. Yazan Vale PA-C History of Present Illness Chief Complaint: chest pain Primary Care Provider: Cyn Vivar PA-C This is a 69 y/o female with pulmonary hypertension, DM2 w/ proteinuria, HTN, diffuse connective tissue disease, multifactorial anemia, prior small vessel CVA, chronic resting tachycardia, and other history as outlined who presented to the ED today with left sided chest pain and palpitations. Pt reports symptoms started abruptly early this morning - describes pain in the left lateral chest that was worse with breathing. Associated sensation of heart racing and "thumping" but denies sensation of skipping beats or feeling lightheaded. The symptoms have improved at present but are not completely resolved. She does have a history of chronic resting tachycardia, which has been controlled on metoprolol succinate 50 mg BID. She denies prior history of atrial fibrillation. She denies significant dyspnea or peripheral edema. She denies fevers, chills, N/V, urinary symptoms. She has a small amount of diarrhea with a recent URI but this seems to have improved. ECHO September 03, 2023: The left ventricular cavity size is normal. The LV wall thickness is borderline increased (concentric). The left ventricular wall motion is normal. The qualitative LV ejection fraction is 60-64% (normal). The left ventricular diastolic function is abnormal by 2-D findings. The left atrium is severely enlarged (>48 ml/m^2,). The mitral valve leaflets thickness is moderately increased. There is focal calcification of the posterior mitral valve annulus with shadowing below Moderate to severe mitral regurgitation is present with an eccentric posteriorly directed jet. Mild tricuspid regurgitation is present. Mild pulmonary hypertension is present. The estimated pulmonary artery systolic pressure is 35-40mm Hg. Allergies Allergy/AdvReac Type Severity Reaction Status Date / Time tomato Allergy Unknown Verified 09/01/24 11:01 hydrochlorothiazide AdvReac hyponatremi Verified 09/01/24 11:01 a Home Medications Medication Instructions Recorded Confirmed Type ascorbic acid (vitamin C) 500 mg 500 mg PO DAILY 11/22/18 09/01/24 History tablet (Vitamin C) atorvastatin 10 mg tablet 10 mg PO PM 11/22/18 09/01/24 History bimatoprost 0.01 % eye drops 1 drp OPB PM 11/22/18 09/01/24 History (Lumigan) cholecalciferol (vitamin D3) 25 1,000 unit PO DAILY 11/22/18 09/01/24 History mcg (1,000 unit) tablet (Vitamin D3) cinnamon bark 500 mg capsule 1 dose PO BID 11/22/18 09/01/24 History (Cinnamon) coenzyme Q10 100 mg capsule 100 mg PO DAILY 11/22/18 09/01/24 History (CoQ-10) cyanocobalamin (vitamin B-12) 1,000 mcg PO QAM 11/22/18 09/01/24 History 1,000 mcg tablet (Vitamin B-12) ferrous gluconate 240 mg (27 mg 240 mg PO BID 11/22/18 09/01/24 History iron) tablet hydroxychloroquine 200 mg tablet 200 mg PO PM 11/22/18 09/01/24 History metformin 1,000 mg tablet 1,000 mg PO BID 11/22/18 09/01/24 History metoprolol succinate 50 mg capsule 50 mg PO BID 11/22/18 09/01/24 History sprinkle, ext. release 24 hr vit A 300 mcg-C 200 mg-E 27 1 tab PO DAILY 11/22/18 09/01/24 History mg-lutein 2 mg and minerals tablet (Ocuvite with Lutein) glucosamine sulf dipot 1 cap PO BID 05/27/19 09/01/24 History chlr,msm,chond 550 mg-C 30 mg-eleno 1 mg capsule (Glucosamine Chondroitin) furosemide 20 mg tablet 40 mg PO QAM 09/22/22 09/01/24 History glyburide 5 mg tablet 5 mg PO BID 09/22/22 09/01/24 History amlodipine 5 mg tablet 5 mg PO QAM 09/01/24 09/01/24 History aspirin 81 mg tablet,delayed 81 mg PO BID 09/01/24 09/01/24 History release calcium carbonate 500 mg PO DAILY 09/01/24 09/01/24 History Past Med/Surg History Problem List (Updated 09/01/24 @ 17:40 by Ines Vale PA-C) Iron deficiency anemia Connective tissue disease Mitral regurgitation New onset atrial fibrillation Pleuritic chest pain Chest pain (Acute) Atrial fibrillation (Acute) Medical History Dyslipidemia Connective tissue disease Diabetes mellitus, type 2 NIDDM Anemia Valvular heart disease follows w/ dr. fuchs Pulmonary hypertension Hypertension Age related osteoporosis Intertrochanteric fracture of left hip Transient ischemic attack (TIA) 2009 Glaucoma (increased eye pressure) "PRE-GLAUCOMA" Degenerative disc disease Sjogren's disease Chronic kidney disease follows w/ dr. 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 Beliefs That Will Affect Care: None Current Living Situation: Family Current Living Situation Comment: Lives with sister Feels Safe at Home: Yes Safety Concerns: Feels Safe At This Time Assistive Devices: Cane, Denture - Upper, Denture - Lower, Glasses, Lift Chair, Raised Toilet Seat and Walker Assistive Devices Comment: walking stick Review of Systems Review of Systems: All systems reviewed & are unremarkable except as noted in Subjective Physical Exam Physical Exam: General: awake, alert, NAD HEENT: no scleral icterus, moist oral mucosa Neck: supple, trachea midline Heart: tachycardic in the 110s, irregularly irregular Lungs: CTA bilaterally, no W/R/R Abdomen: soft, NTND, +BS Extremities: no pedal edema, distal pulses intact and equal Neurologic: OX3, no confusion or dysarthria, moving all extremities, no focal deficits Skin: warm, dry, no jaundice Results & Data Results & Data Vital Signs (Past 12 Hours) Vital Signs Temp Pulse Pulse Resp BP BP Pulse Ox 09/01/24 12:51 105 H 09/01/24 12:00 91 H 17 128/86 98 09/01/24 10:34 93 H 17 118/63 98 09/01/24 08:34 37.2 C 119 H 17 150/93 H 99 09/01/24 08:34 99 09/01/24 08:34 119 H 17 99 09/01/24 08:34 37.2 C 119 H 17 150/93 H 99 09/01/24 08:34 124 H O2 Del Method 09/01/24 12:51 09/01/24 12:00 Room Air 09/01/24 10:34 Room Air 09/01/24 08:34 Room Air 09/01/24 08:34 Room Air 09/01/24 08:34 Room Air 09/01/24 08:34 Room Air 11/18/24 08:34 Laboratory Results Lab Results 09/01/24 Range/Units 08:40 WBC 9.75 (4.8-10.8) K/ul RBC 3.11 L (4.20-5.40) M/uL Hgb 9.5 L (12.0-16.0) g/dl Hct 28.3 L (37.0-47.0) % MCV 91.0 (80.0-100.0) fL MCH 30.5 (25.0-34.0) pg MCHC 33.6 (32.0-36.0) g/dL RDW Std Deviation 42.3 (36.4-46.3) fL RDW Coeff of Elvira 12.9 (11.5-14.5) % Plt Count 282 (130-400) K/uL MPV 9.3 L (9.4-12.4) fL Immature Gran % (Auto) 0.6 % Neut % (Auto) 81.4 % Lymph % (Auto) 11.6 % [place] % (Auto) 5.1 % Eos % (Auto) 0.8 % Baso % (Auto) 0.5 % Neut # (Auto) 7.93 H (1.40-6.50) K/uL Lymph # (Auto) 1.13 L (1.20-3.40) K/uL [place] # (Auto) 0.50 (0.11-0.59) K/uL Eos # (Auto) 0.08 (0.00-0.50) K/uL Baso # (Auto) 0.05 (0.00-0.20) K/uL Immature Gran # (Auto) 0.06 (0.01-0.20) K/uL PT 11.2 (9.0-12.0) Seconds INR 1.0 (0.9-1.1) APTT 28 (21-31) Seconds PTT Ratio 1.0 D-Dimer 1040 H* (0-500) ug/L FEU Sodium 136 (136-145) mmol/L Potassium 4.3 (3.5-5.1) mmol/L Chloride 99 (98-107) mmol/L Carbon Dioxide 26 (21-32) mmol/L Anion Gap 11 (3-11) BUN 11 (6-23) mg/dl Creatinine 0.68 (0.6-1.2) mg/dl Est Cr Clr Drug Dosing 62.8 ml/min eGFR 93.05 BUN/Creatinine Ratio 16.2 (10-20) Glucose 249 H (70-99(Fasting)) mg/dl Calcium 9.2 (8.6-10.3) mg/dl Troponin I High Sens 7.3 (0-14) pg/ml Lipase 39 (11-82) U/L Diagnostic Findings Chest X-Ray 09/01/24 08:29 XR chest 1V portable HISTORY: 69 years-old Female Chest pain, nonspecific COMPARISON: Chest CT 04/03/2010 TECHNIQUE: AP view of the chest FINDINGS: Heart size is normal. Atherosclerosis of the aorta. Blunting of the costophrenic angles without pleural effusion. Degenerative changes of the shoulders and spine. Corticated ossification surrounding the right glenohumeral joint measure up to 3.7 cm which appear chronic. IMPRESSION: No acute process. ACT 112: Negative or not required by law. The above report was generated using voice recognition software. It may contain grammatical, syntax or spelling errors. Electronically signed by: Tristin Hurt M.D. 09/01/2024 9:45 AM Chest CTA 09/01/24 10:12 CT ANGIOGRAPHY OF THE CHEST, PULMONARY EMBOLUS PROTOCOL CLINICAL HISTORY: Left-sided chest pain. Evaluate for pulmonary embolus. COMPARISON STUDY: Chest CT April 03, 2010. Chest radiograph performed earlier today. TECHNIQUE: Following IV administration of 119 mL of Optiray, helical axial images of the chest were obtained utilizing the pulmonary embolus protocol. Maximal intensity projections and sagittal and coronal reformats were viewed on an independent 3D workstation. IV contrast was administered without complication. Automated exposure control was utilized for the study. A dose lowering technique was utilized adhering to the principles of ALARA. CT DOSE: 508.63 mGy.cm FINDINGS: No pulmonary emboli are identified. There is no thoracic aortic dissection. A multinodular thyroid goiter similar appearance to CT of April 03, 2010. There is no pneumothorax. There are small bilateral pleural effusions. There is no consolidation to suggest pneumonia. Groundglass opacities favor atelectasis or pulmonary edema. Interlobular septal thickening is present. T7 compression fracture is unchanged. IMPRESSION: 1. No pulmonary emboli identified. 2. Pulmonary edema with small bilateral pleural effusions. 3. Cardiomegaly. ACT 112: Negative or not required by law. Electronically signed by: Derian Chacko M.D. 09/01/2024 11:27 AM Medications Administered Discontinued Medications Aspirin (Aspirin Chew 324 Mg) 324 mg PO NOW STA Stop: 09/01/24 08:30 Last Admin: 09/01/24 08:46 Dose: 324 mg Documented By: LISA Furosemide (Furosemide 40 Mg/4 Ml Vial) 40 mg IV ONE ONE Stop: 09/01/24 12:50 Last Admin: 09/01/24 13:17 Dose: 40 mg Documented By: LISA Ioversol (Optiray 320 125ml) 119 ml IV ONCE ONE Stop: 09/01/24 10:33 Last Admin: 09/01/24 10:32 Dose: 119 ml Documented By: ZAIN Supervising Physician Co-Signing Physician Notes Chart and data reviewed. Pt seen in the ED at bedside. Patient presents with chest pain and new onset atrial fibrillation with rapid ventricular response. Cardiology consulted, continue IV heparin and metoprolol. Trend troponins. I agree with the BELLA's assessment and plan of care. A total of 25 minutes spent in the care and care collaboration for this patient. (4) Iron deficiency anemia Iron deficiency anemia type: unspecified iron deficiency Qualified Code(s): D50.9 - Iron deficiency anemia, unspecified (5) Diabetes mellitus, type 2 Diabetes mellitus complication detail: with diabetic microalbuminuria Diabetes mellitus complication status: with kidney complications Diabetes mellitus buttermilk drier operator insulin use: without buttermilk drier operator use Qualified Code(s): E11.29 - Type 2 diabetes mellitus with other diabetic kidney complication; R80.9 - Proteinuria, unspecified (6) Hypertension Hypertension type: unspecified Qualified Code(s): I10 - Essential (primary) hypertension
[2024-09-01] MEDS ORDERED: Heparin IV Adult Wt-Based Low-Dose w/ INITIAL Bolus Protocol IV SCH (13:15)
[2024-09-01] MEDS: FUROSEMIDE 40 MG/4 ML VIAL IV ONE (13:17)
[2024-09-01] MEDS ORDERED: DEXTROSE 50% 50 ML SYRINGE IV PRN (13:47)
[2024-09-01] MEDS ORDERED: GLUCOSE 40% GEL 15 GM TUBE PO PRN (13:47)
[2024-09-01] MEDS ORDERED: GLUCOSE 10 TAB/TUBE PO PRN (13:47)
[2024-09-01] MEDS ORDERED: CARBOHYDRATES FOR HYPOGLYCEMIA PO PRN (13:47)
[2024-09-01] MEDS ORDERED: GLUCAGON FOR INJ 1 MG VIAL SQ PRN (13:47)
[2024-09-01] MEDS: HEPARIN SOD (PORCINE) 1000 UNIT/ML IV ONE ×2 (13:53→22:20)
[2024-09-01] MEDS: HEPARIN SODIUM/DEXTROSE 25,000 UNITS/500 ML BAG IV SCH (13:54)
[2024-09-01] MEDS ORDERED: ACETAMINOPHEN 325 MG TAB PO PRN (14:39)
[2024-09-01] MEDS ORDERED: NITROGLYCERIN SL 0.4 MG/TAB TAB SL PRN (14:39)
--- NOTE | 2024-09-01 14:49 | Cardiology Consultation ---
Date of Consultation September 01, 2024 Assessment & Plan (1) Pleuritic chest pain: (2) New onset atrial fibrillation: (3) Mitral regurgitation: (4) Pulmonary hypertension: (5) Connective tissue disease: (6) Iron deficiency anemia: Plan Pleuritic chest pain, new onset atrial fibrillation with a rapid ventricular response. [id number] Score 8 points Known moderate to severe mitral regurgitation Pulmonary hypertension (? poorly controlled systemic hypertension versus valv ular disease versus untreated sleep apnea/hypoxemia) Past reduced LV systolic function. Diffuse connective tissue disease, followed by Rheumatology. Iron deficiency anemia Ambulatory dysfunction, recurrent falls Recommendations: Serial troponin's Resting echocardiography Increase beta-morelia therapy, changing to metoprolol tartrate, 50 mg QID for now. IV heparin, with caution Evaluate need for additional IV furosemide in AM Daily labs Maintain telemetry Supervising Physician Co-Signing Physician Notes Attending attestation: Case reviewed with the advanced practitioner. I have personally performed a history and physical examination on the patient. I have reviewed the advanced practitioner's documentation on the date of service referenced in note, and I agree with, and take responsibility for the plan of care. Subjective: No acute distress during my assessment Exam: CV : Irregular rhythm, mildly elevated rate Data: Summary of transthoracic echocardiogram performed 09/01/2024: The study is technically adequate for the evaluation of the referral indication. Atrial fibrillation with elevated ventricular rate present during the echocardiogram study. There is mild concentric left ventricular hypertrophy. The left ventricular wall motion is normal. Left ventricular systolic function is normal. Left Ventricular Ejection Fraction = 60-65%. The right ventricle is normal in size and function. The left atrium is mildly dilated. There is moderate mitral annular calcification. There is moderate to severe mitral regurgitation. There is mild tricuspid regurgitation. The pulmonary systolic pressure is estimated to be 38 mmHg (mildly elevated). Impression/ Plan: as outlined in Mr Fuchs's note. Jan Flores DO History of Present Illness Reason for Consultation: Atrial fibrillation Requesting Physician: Ely Collins Service Attending Physician: Dr. Moses Park, DO History of Present Illness Nemo Plata is a 69-year-old female who presented to the [facility] ER via ambulance early this morning with chest pain and palpitations. Patient notes being in her usual state of health until approximately 2 weeks ago when she had mild URI symptoms which included a cough productive of phlegm and some "shivers." Those issues seem to resolve after a few days. Last night the patient did not feel well with some nausea. She awoke in the middle the night with sharp, 2 out of 10, left sided chest discomfort that was worse with a deep breath. Shortly thereafter she developed tachypalpitations, describing a feeling " like there are horses running in there." Symptoms were significant enough to warrant EMS. EKG on presentation revealed new onset atrial fibrillation with a rapid ventricular response (121 bpm) with diffuse nonspecific STT wave abnormality. QTc was normal at 443 ms. Chest x-ray showed no acute process. CTA was negative for PE, revealing pulmonary edema with small bilateral pleural effusions. In the ER patient received 50 mg of metoprolol to tartrate, 40 mg of IV furosemide, and IV heparin. High sensitivity troponin negative x 1. Admitted to [facility] in September 2023 after a mechanical fall with resultant comminuted mildly displaced intertrochanteric fracture of the left proxima femur status post 09/23/2022 intramedullary nail fixation by Dr. Foley. Required transfusion of 2 U PRBC's for a hemoglobin of 5.8 g/dL postoperatively. Notes taking Eliquis x 1 month after [facility] for DVT prophylaxis. In March 2024 Nemo suffered a mechanical fall in March 2024 with resultant proximal right humeral fracture. She denies activity related chest pain, orthopnea, PND, edema, dizziness, near syncope, or syncope, fevers, chills, or sweats. Bowels are dark and stable, on ferrous gluconate three times per day; following with Elenita Overton of Hematology/Oncology. Problem List: Moderate to severe mitral regurgitation with moderate left atrial enlargement Pulmonary hypertension (estimated PASP 57 mmHg). Etiology of pulmonary hypertension unknown, ? possibly secondary to poorly controlled systemic hypertension verses valvular disease verses untreated sleep apnea/hypoxemia versus diffuse connective tissue disease etc. Nocturnal pulse oximetry recommended and declined Chronic resting tachycardia. SVT. History of reduced LV systolic function, normalization with rate control. Evidence for small vessel CVA. Mild bilateral internal carotid artery disease Hypertension Thiazide induced hyponatremia. Dyslipidemia Type II diabetes mellitus with proteinuria. Diffuse connective tissue disease, followed by Rheumatology. Anemia of iron deficiency and chronic disease. Family history of colon cancer (brother), father with leukemia. Allergies Allergy/AdvReac Type Severity Reaction Status Date / Time tomato Allergy Unknown Verified 09/01/24 11:01 hydrochlorothiazide AdvReac hyponatremi Verified 09/01/24 11:01 a Home Medications Medication Instructions Recorded Confirmed Type ascorbic acid (vitamin C) 500 mg 500 mg PO DAILY 11/22/18 09/01/24 History tablet (Vitamin C) atorvastatin 10 mg tablet 10 mg PO PM 11/22/18 09/01/24 History bimatoprost 0.01 % eye drops 1 drp OPB PM 11/22/18 09/01/24 History (Lumigan) cholecalciferol (vitamin D3) 25 1,000 unit PO DAILY 11/22/18 09/01/24 History mcg (1,000 unit) tablet (Vitamin D3) cinnamon bark 500 mg capsule 1 dose PO BID 11/22/18 09/01/24 History (Cinnamon) coenzyme Q10 100 mg capsule 100 mg PO DAILY 11/22/18 09/01/24 History (CoQ-10) cyanocobalamin (vitamin B-12) 1,000 mcg PO QAM 11/22/18 09/01/24 History 1,000 mcg tablet (Vitamin B-12) ferrous gluconate 240 mg (27 mg 240 mg PO BID 11/22/18 09/01/24 History iron) tablet hydroxychloroquine 200 mg tablet 200 mg PO PM 11/22/18 09/01/24 History metformin 1,000 mg tablet 1,000 mg PO BID 11/22/18 09/01/24 History metoprolol succinate 50 mg capsule 50 mg PO BID 11/22/18 09/01/24 History sprinkle, ext. release 24 hr vit A 300 mcg-C 200 mg-E 27 1 tab PO DAILY 11/22/18 09/01/24 History mg-lutein 2 mg and minerals tablet (Ocuvite with Lutein) glucosamine sulf dipot 1 cap PO BID 05/27/19 09/01/24 History chlr,msm,chond 550 mg-C 30 mg-eleno 1 mg capsule (Glucosamine Chondroitin) furosemide 20 mg tablet 40 mg PO QAM 09/22/22 09/01/24 History glyburide 5 mg tablet 5 mg PO BID 09/22/22 09/01/24 History amlodipine 5 mg tablet 5 mg PO QAM 09/01/24 09/01/24 History aspirin 81 mg tablet,delayed 81 mg PO BID 09/01/24 09/01/24 History release calcium carbonate 500 mg PO DAILY 09/01/24 09/01/24 History Patient History Medical History Dyslipidemia Connective tissue disease Diabetes mellitus, type 2 NIDDM Anemia Valvular heart disease follows w/ dr. fuchs Pulmonary hypertension Hypertension Age related osteoporosis Intertrochanteric fracture of left hip Transient ischemic attack (TIA) 2009 Glaucoma (increased eye pressure) "PRE-GLAUCOMA" Degenerative disc disease Sjogren's disease Chronic kidney disease follows w/ dr. pineda ([facility]) Surgical History History of cataract surgery RT CATARACT History of adenoidectomy History of tonsillectomy History of tooth extraction History of esophagogastroduodenoscopy (EGD) History of colonoscopy Family History Father Family history of diabetes mellitus Brother Family hx of colon cancer Social History Smoking Status: Never smoker Second Hand Exposure: No; Do You Dip or Chew Tobacco: No; Hx Alcohol Use: No Hx Substance Use: No Preferred Language: Burkinan Communication Ability: Effective Pharmacy Informatics Specialist Required: No Beliefs That Will Affect Care: None Current Living Situation: Family Current Living Situation Comment: Lives with sister Feels Safe at Home: Yes Safety Concerns: Feels Safe At This Time Assistive Devices: Cane, Denture - Upper, Denture - Lower, Glasses, Lift Chair, Raised Toilet Seat and Walker Assistive Devices Comment: walking stick Review of Systems 2 Review of Systems: Complete Review of Systems is as stated above, negative, or noncontributory. Physical Exam Physical Exam: General: A&Ox3. NAD. Skin: Pale complexion chronically, stable. HENT: Normocephalic. Atraumatic. Eyes: PER. Conjunctiva pink, sclera pale. Neck: Soft right carotid bruit. No JVD. Heart: Irregularly irregular at 130 bpm. No rub. Lungs: Clear to auscultation. Abdomen: +BS. Extremities: No clubbing, cyanosis, or edema. Pulses: radial=2/4, posterior tibial=2/4. Results & Data Vital Signs (Past 12 Hours) Vital Signs Temp Pulse Pulse Resp BP BP Pulse Ox 09/01/24 13:47 112 H 17 124/89 98 09/01/24 12:51 105 H 09/01/24 12:00 91 H 17 128/86 98 09/01/24 10:34 93 H 17 118/63 98 09/01/24 08:34 37.2 C 119 H 17 150/93 H 99 09/01/24 08:34 99 09/01/24 08:34 119 H 17 99 09/01/24 08:34 37.2 C 119 H 17 150/93 H 99 09/01/24 08:34 124 H O2 Del Method 09/01/24 13:47 Room Air 09/01/24 12:51 09/01/24 12:00 Room Air 09/01/24 10:34 Room Air 09/01/24 08:34 Room Air 09/01/24 08:34 Room Air 09/01/24 08:34 Room Air 09/01/24 08:34 Room Air 09/01/24 08:34 Laboratory Results Cardiac Enzymes 09/01/24 Range/Units 08:40 Troponin I High Sens 7.3 (0-14) pg/ml Coagulation 09/01/24 Range/Units 08:40 PT 11.2 (9.0-12.0) Seconds APTT 28 (21-31) Seconds CBC 09/01/24 Range/Units 08:40 WBC 9.75 (4.8-10.8) K/ul RBC 3.11 L (4.20-5.40) M/uL Hgb 9.5 L (12.0-16.0) g/dl Hct 28.3 L (37.0-47.0) % Plt Count 282 (130-400) K/uL Neut # (Auto) 7.93 H (1.40-6.50) K/uL Lymph # (Auto) 1.13 L (1.20-3.40) K/uL [place] # (Auto) 0.50 (0.11-0.59) K/uL Eos # (Auto) 0.08 (0.00-0.50) K/uL Baso # (Auto) 0.05 (0.00-0.20) K/uL Comprehensive Metabolic Panel 09/01/24 Range/Units 08:40 Sodium 136 (136-145) mmol/L Potassium 4.3 (3.5-5.1) mmol/L Chloride 99 (98-107) mmol/L Carbon Dioxide 26 (21-32) mmol/L BUN 11 (6-23) mg/dl Creatinine 0.68 (0.6-1.2) mg/dl Glucose 249 H (70-99(Fasting)) mg/dl Calcium 9.2 (8.6-10.3) mg/dl Intake and Output 09/01/24 09/01/24 09/01/24 06:59 14:59 22:59 Intake Total 15.6 / 15.6 Balance 15.6 / 15.6 Intake: IV 15.6 / 15.6 Heparin Sodium/Dextrose 25,000 15.6 / 15.6 units In 500 ml @ 650 UNITS/HR 13 mls/hr IV .Q24H [facility] Rx#: [id number] Other: Weight 62.2 kg Weight Measurement Method Built in [facility] Patient Weight 09/02/24 06:59 Weight 62.2 kg Diagnostic Findings Telemetry: Atrial fibrillation with a rapid ventricular response TTE: Pending, to be completed.
--- NOTE | 2024-09-01 14:51 | Emergency Department Note ---
History of Present Illness General Chief Complaint: Chest Pain Stated Complaint: CHEST PAIN, PALPITATIONS Time Seen by Provider: 09/01/24 08:27 History of Present Illness Provider Complaint: chest pain Onset (ago): day(s) 1 Duration: now resolved Onset: during rest Pain Location: left chest Severity: mild Maximum Pain Intensity: 3 Current Pain Intensity: 3 Quality: + sharp Relieved By: + nothing Exacerbated By: + nothing Context: no recent illness, no recent surgery, no recent immobilization, no recent travel, no trauma/injury, no new medications or no history of DVT/PE Associated symptoms: + dyspnea and + palpitations; no vomiting, no fever, no cough or no leg swelling History of tachybradycardia syndrome but no history of atrial fibrillation. Home Medications Medication Instructions Recorded Confirmed Type ascorbic acid (vitamin C) 500 mg 500 mg PO DAILY 11/22/18 09/01/24 History tablet (Vitamin C) atorvastatin 10 mg tablet 10 mg PO PM 11/22/18 09/01/24 History bimatoprost 0.01 % eye drops 1 drp OPB PM 11/22/18 09/01/24 History (Lumigan) cholecalciferol (vitamin D3) 25 1,000 unit PO DAILY 11/22/18 09/01/24 History mcg (1,000 unit) tablet (Vitamin D3) cinnamon bark 500 mg capsule 1 dose PO BID 11/22/18 09/01/24 History (Cinnamon) coenzyme Q10 100 mg capsule 100 mg PO DAILY 11/22/18 09/01/24 History (CoQ-10) cyanocobalamin (vitamin B-12) 1,000 mcg PO QAM 11/22/18 09/01/24 History 1,000 mcg tablet (Vitamin B-12) ferrous gluconate 240 mg (27 mg 240 mg PO BID 11/22/18 09/01/24 History iron) tablet hydroxychloroquine 200 mg tablet 200 mg PO PM 11/22/18 09/01/24 History metformin 1,000 mg tablet 1,000 mg PO BID 11/22/18 09/01/24 History metoprolol succinate 50 mg capsule 50 mg PO BID 11/22/18 09/01/24 History sprinkle, ext. release 24 hr vit A 300 mcg-C 200 mg-E 27 1 tab PO DAILY 11/22/18 09/01/24 History mg-lutein 2 mg and minerals tablet (Ocuvite with Lutein) glucosamine sulf dipot 1 cap PO BID 05/27/19 09/01/24 History chlr,msm,chond 550 mg-C 30 mg-eleno 1 mg capsule (Glucosamine Chondroitin) furosemide 20 mg tablet 40 mg PO QAM 09/22/22 09/01/24 History glyburide 5 mg tablet 5 mg PO BID 09/22/22 09/01/24 History amlodipine 5 mg tablet 5 mg PO QAM 09/01/24 09/01/24 History aspirin 81 mg tablet,delayed 81 mg PO BID 09/01/24 09/01/24 History release calcium carbonate 500 mg PO DAILY 09/01/24 09/01/24 History Allergies Allergy/AdvReac Type Severity Reaction Status Date / Time tomato Allergy Unknown Verified 09/01/24 11:01 hydrochlorothiazide AdvReac hyponatremi Verified 09/01/24 11:01 a Past Med/Surg History Problem List (Updated 09/01/24 @ 14:50 by Silas Prater MD) Chest pain (Acute) Atrial fibrillation (Acute) Medical History Dyslipidemia Connective tissue disease Diabetes mellitus, type 2 NIDDM Anemia Valvular heart disease follows w/ dr. chan Pulmonary hypertension Hypertension Age related osteoporosis Intertrochanteric fracture of left hip Transient ischemic attack (TIA) 2009 Glaucoma (increased eye pressure) "PRE-GLAUCOMA" Degenerative disc disease Sjogren's disease Chronic kidney disease follows w/ dr. pineda ([facility]) Surgical History History of cataract surgery RT CATARACT History of adenoidectomy History of tonsillectomy History of tooth extraction History of esophagogastroduodenoscopy (EGD) History of colonoscopy Family History Father Family history of diabetes mellitus Brother Family hx of colon cancer Social History Smoking Status: Never smoker Second Hand Exposure: No; Do You Dip or Chew Tobacco: No; Hx Alcohol Use: No Hx Substance Use: No Preferred Language: Monegasque Communication Ability: Effective Ski Molder Required: No Beliefs That Will Affect Care: None Current Living Situation: Family Current Living Situation Comment: lives w/ sister Feels Safe at Home: Yes Assistive Devices: Bedside Commode, Lift Chair and Walker Physical Exam Vital Signs Vital Signs - 24 hr 09/01/24 08:34 09/01/24 08:34 09/01/24 08:34 Temperature 37.2 C Temperature Source Oral Pulse Rate 124 H 119 H 119 H Pulse Rate [Apical] Respiratory Rate 17 17 Respiratory Effort / Characteristics Non-Labored Spontaneous Respiratory Depth Normal Blood Pressure 150/93 H Blood Pressure [Right Arm] Blood Pressure Mean 112 Blood Pressure Mean [Right Arm] Blood Pressure Position Semi-fowlers Blood Pressure Position [Right Arm] Pulse Oximetry 99 99 Oxygen Delivery Method Room Air Room Air Sepsis Recent Fever Within 48 Hours No Sepsis New/Unexplained Change in Mental Status N/A Sepsis Action Taken by Nursing No Action Required 09/01/24 08:34 09/01/24 08:34 09/01/24 10:34 Temperature 37.2 C Temperature Source Oral Pulse Rate Pulse Rate [Apical] 119 H 93 H Respiratory Rate 17 17 Respiratory Effort / Characteristics Non-Labored Spontaneous Non-Labored Spontaneous Respiratory Depth Normal Normal Blood Pressure Blood Pressure [Right Arm] 150/93 H 118/63 Blood Pressure Mean Blood Pressure Mean [Right Arm] 112 81 Blood Pressure Position Blood Pressure Position [Right Arm] Semi-fowlers Sitting Pulse Oximetry 99 99 98 Oxygen Delivery Method Room Air Room Air Room Air Sepsis Recent Fever Within 48 Hours Sepsis New/Unexplained Change in Mental Status Sepsis Action Taken by Nursing 09/01/24 12:00 09/01/24 12:51 Temperature Temperature Source Pulse Rate 105 H Pulse Rate [Apical] 91 H Respiratory Rate 17 Respiratory Effort / Characteristics Non-Labored Spontaneous Respiratory Depth Normal Blood Pressure Blood Pressure [Right Arm] 128/86 Blood Pressure Mean Blood Pressure Mean [Right Arm] 100 Blood Pressure Position Blood Pressure Position [Right Arm] Semi-fowlers Pulse Oximetry 98 Oxygen Delivery Method Room Air Sepsis Recent Fever Within 48 Hours Sepsis New/Unexplained Change in Mental Status Sepsis Action Taken by Nursing Physical Exam GENERAL: oriented to person, place, and time. appears well-developed and well- nourished. HENT: Exam performed. - Head: Normocephalic and atraumatic. EYES: Conjunctivae and EOM are normal. Right eye exhibits no discharge. Left eye exhibits no discharge. No scleral icterus. NECK: Normal range of motion. Neck supple. No JVD present. CV: Normal rate, irregular rhythm, normal heart sounds and intact distal pulses. There is no peripheral edema. Palpable radial pulses bue. PULM/CHEST: Effort normal and breath sounds normal. No respiratory distress. No stridor. no wheezes. no rales. ABD: The abdomen is soft. There is no tenderness. NEURO: Motor and sensation grossly intact. SKIN: Skin is warm and dry. He is not diaphoretic. PSYCH: normal mood and affect. Behavior is normal. Judgment and thought content normal. Course Course 826: The patient was evaluated in room C4. A complete history and physical exam was performed Cardiac monitoring: An order was placed for continuous cardiac monitoring. The monitor shows a rate of 90-115 with atrial fibrilation rhythm interpreted by wv 1248: Vital signs stable. Patient remains in atrial fibrillation with a controlled ventricular rate. Labs are unremarkable with exception of a elevated D-dimer. CT of the chest negative for PE does show some pulmonary vascular congestion. Discussed case with on-call [facility] cardiology Dr. Pedro who recommends admission at this time. Lasix will be ordered for patient as well as heparin bolus and drip. Patient is agreement with the plan. Administered Medications Heparin Sodium/Dextrose (Heparin Sodium/Dextrose) 25,000 units in 500 mls @ 13 mls/hr IV .Q24H [facility]; Protocol Stop: 10/01/24 13:14 Last Admin: 09/01/24 13:54 Dose: 650 units/hr, 13 mls/hr Documented By: LISA Co-signed By: KRUPA Discontinued Medications Aspirin (Aspirin Chew 324 Mg) 324 mg PO NOW STA Stop: 09/01/24 08:30 Last Admin: 09/01/24 08:46 Dose: 324 mg Documented By: AMS Furosemide (Furosemide 40 Mg/4 Ml Vial) 40 mg IV ONE ONE Stop: 09/01/24 12:50 Last Admin: 09/01/24 13:17 Dose: 40 mg Documented By: LISA Heparin Sodium (Porcine) (Heparin Sod (Porcine) 1000 Unit/Ml) 3,000 units IV NOW ONE Stop: 09/01/24 13:16 Last Admin: 09/01/24 13:53 Dose: 3,000 units Documented By: LISA Co-signed By: KRUPA Ioversol (Optiray 320 125ml) 119 ml IV ONCE ONE Stop: 09/01/24 10:33 Last Admin: 09/01/24 10:32 Dose: 119 ml Documented By: ZAIN Medical Decision Making Laboratory Data Attestation: I reviewed the patient's lab results. 09/01/24 08:40 09/01/24 08:40 Labs: Lab Results 09/01/24 Range/Units 08:40 WBC 9.75 (4.8-10.8) K/ul RBC 3.11 L (4.20-5.40) M/uL Hgb 9.5 L (12.0-16.0) g/dl Hct 28.3 L (37.0-47.0) % MCV 91.0 (80.0-100.0) fL MCH 30.5 (25.0-34.0) pg MCHC 33.6 (32.0-36.0) g/dL RDW Std Deviation 42.3 (36.4-46.3) fL RDW Coeff of Elvira 12.9 (11.5-14.5) % Plt Count 282 (130-400) K/uL MPV 9.3 L (9.4-12.4) fL Immature Gran % (Auto) 0.6 % Neut % (Auto) 81.4 % Lymph % (Auto) 11.6 % Sibley % (Auto) 5.1 % Eos % (Auto) 0.8 % Baso % (Auto) 0.5 % Neut # (Auto) 7.93 H (1.40-6.50) K/uL Lymph # (Auto) 1.13 L (1.20-3.40) K/uL Sibley # (Auto) 0.50 (0.11-0.59) K/uL Eos # (Auto) 0.08 (0.00-0.50) K/uL Baso # (Auto) 0.05 (0.00-0.20) K/uL Immature Gran # (Auto) 0.06 (0.01-0.20) K/uL PT 11.2 (9.0-12.0) Seconds INR 1.0 (0.9-1.1) APTT 28 (21-31) Seconds PTT Ratio 1.0 D-Dimer 1040 H* (0-500) ug/L FEU Sodium 136 (136-145) mmol/L Potassium 4.3 (3.5-5.1) mmol/L Chloride 99 (98-107) mmol/L Carbon Dioxide 26 (21-32) mmol/L Anion Gap 11 (3-11) BUN 11 (6-23) mg/dl Creatinine 0.68 (0.6-1.2) mg/dl Est Cr Clr Drug Dosing 62.8 ml/min eGFR 93.05 BUN/Creatinine Ratio 16.2 (10-20) Glucose 249 H (70-99(Fasting)) mg/dl Calcium 9.2 (8.6-10.3) mg/dl Troponin I High Sens 7.3 (0-14) pg/ml Lipase 39 (11-82) U/L Imaging Data Chest x-ray: Attestation: I personally reviewed and interpreted this imaging study as follows: My impression: Chest x-ray negative. Airway clear. No pneumothorax. No consolidation. No cardiomegaly or cephalization.. No free air under the diaphragm. No fractures of the skeletal structures. Radiologist's impression: XR chest 1V portable HISTORY: 69 years-old Female Chest pain, nonspecific COMPARISON: Chest CT 04/03/2010 TECHNIQUE: AP view of the chest FINDINGS: Heart size is normal. Atherosclerosis of the aorta. Blunting of the costophrenic angles without pleural effusion. Degenerative changes of the shoulders and spine. Corticated ossification surrounding the right glenohumeral joint measure up to 3.7 cm which appear chronic. IMPRESSION: No acute process. ACT 112: Negative or not required by law. The above report was generated using voice recognition software. It may contain grammatical, syntax or spelling errors. Electronically signed by: Tristin Hurt M.D. 09/01/2024 9:45 AM Dictated: 09/01/2443 Transcribed: 09/01/2443 CT scan - chest: Radiologist's impression: CT ANGIOGRAPHY OF THE CHEST, PULMONARY EMBOLUS PROTOCOL CLINICAL HISTORY: Left-sided chest pain. Evaluate for pulmonary embolus. COMPARISON STUDY: Chest CT April 03, 2010. Chest radiograph performed earlier today. TECHNIQUE: Following IV administration of 119 mL of Optiray, helical axial images of the chest were obtained utilizing the pulmonary embolus protocol. Maximal intensity projections and sagittal and coronal reformats were viewed on an independent 3D workstation. IV contrast was administered without complication. Automated exposure control was utilized for the study. A dose lowering technique was utilized adhering to the principles of ALARA. CT DOSE: 508.63 mGy.cm FINDINGS: No pulmonary emboli are identified. There is no thoracic aortic dissection. A multinodular thyroid goiter similar appearance to CT of April 03, 2010. There is no pneumothorax. There are small bilateral pleural effusions. There is no consolidation to suggest pneumonia. Groundglass opacities favor atelectasis or pulmonary edema. Interlobular septal thickening is present. T7 compression fracture is unchanged. IMPRESSION: 1. No pulmonary emboli identified. 2. Pulmonary edema with small bilateral pleural effusions. 3. Cardiomegaly. ACT 112: Negative or not required by law. Electronically signed by: Derian Chacko M.D. 09/01/2024 11:27 AM Dictated: 09/01/24 1043 Transcribed: 09/01/24 1043 ECG Data Attestation: I personally reviewed and interpreted this ECG as follows: Indication: chest pain and palpitations Rate (beats per minute): 121 Rhythm: atrial fibrillation Findings: no ST depression, no ST elevation or no prolonged QT Additional Comments: QRS 76 MDM Narrative 0827: The patient was evaluated in room C4. A complete history and physical exam was performed Cardiac monitoring: An order was placed for continuous cardiac monitoring. The monitor shows a rate of 90-115 with atrial fibrilation rhythm interpreted by me 1248: Vital signs stable. Patient remains in atrial fibrillation with a controlled ventricular rate. Labs are unremarkable with exception of a elevated D-dimer. CT of the chest negative for PE does show some pulmonary vascular congestion. Discussed case with on-call [facility] cardiology Dr. Pedro who recommends admission at this time. Lasix will be ordered for patient as well as heparin bolus and drip. Patient is agreement with the plan. Impression & Plan Atrial fibrillation, Chest pain Critical Care Time Critical Care Time: Yes Total Critical Care Time: 49 I have personally spent greater than 49 minutes of critical care time in the direct management of this patient. This includes bedside care, interpretation of diagnostic studies, and testing, discussion with consultants, patient, and family members, and other required patient management activities. This 49 minutes is in excess of all separately billable procedures. Discharge Plan Visit Data Chief Complaint: Chest Pain Stated Complaint: CHEST PAIN, PALPITATIONS ED Provider: Silas Prater Discharge Problem: Atrial fibrillation, Chest pain Patient Disposition: Admitted As Inpatient Discharge Problem: Atrial fibrillation Qualifiers: Atrial fibrillation type: unspecified Qualified Code(s): I48.91 - Unspecified atrial fibrillation Chest pain Qualifiers: Chest pain type: unspecified Qualified Code(s): R07.9 - Chest pain, unspecified
[2024-09-01] MEDS: METOPROLOL TARTRATE 50 MG TAB PO STA (15:10)
[2024-09-01] MEDS: Heparin IV Adult Wt-Based Low-Dose w/ INITIAL Bolus Protocol IV STA (15:10)
--- NOTE | 2024-09-01 16:21 | Electrocardiogram Report ---
Test Reason : Blood Pressure : */* mmHG Vent. Rate : 121 BPM Atrial Rate : * BPM P-R Int : * ms QRS Dur : 76 ms QT Int : 312 ms P-R-T Axes : * 18 250 degrees QTcB Int : 443 ms Atrial fibrillation with rapid ventricular response Nonspecific ST and T wave abnormality Abnormal ECG When compared with ECG of 22-Sep-2022 15:24, Atrial fibrillation has replaced Sinus rhythm Confirmed by Ricco Disla ([id number]) on 09/01/2024 4:21:05 PM Referred By: REFERRED SELF Confirmed By: Ricco Disla
[2024-09-01] MEDS: INSULIN ASPART PER UNIT CHARGE SC SCH (17:42)
[2024-09-01] MEDS: METOPROLOL TARTRATE 50 MG TAB PO SCH (18:11)
[2024-09-01] MEDS: HYDROXYCHLOROQUINE SULFATE 200 MG TAB PO SCH (19:47)
[2024-09-01] MEDS: ATORVASTATIN 10 MG TAB PO SCH (19:47)
[2024-09-01] MEDS: BIMATOPROST 0.01% OP SOLN 2.5 ML BTL OPB SCH (19:47)
[2024-09-01 21:28] LABS: ANTI-Xa, UFH(UnfractionatedHep 0.16 IU/ml (0.3-0.7)
[2024-09-02 04:19] LABS: Basophils # (auto) 0.06 K/uL (0.00-0.20); Basophils % (auto) 0.8 %; Eosinophils # (auto) 0.21 K/uL (0.00-0.50); Eosinophils % (auto) 2.7 %; Hematocrit (blood only) 28.4 % (37.0-47.0); Hemoglobin 9.6 g/dl (12.0-16.0); Immature Granulocytes # (auto) 0.04 K/uL (0.01-0.20); Immature Granulocytes % (auto) 0.5 %; Lymphocytes # (auto) 2.34 K/uL (1.20-3.40); Lymphocytes % (auto) 29.8 %; Mean Corpuscular Hemoglobin 29.9 pg (25.0-34.0); Mean Corpuscular Hgb Conc 33.8 g/dL (32.0-36.0); Mean Corpuscular Volume 88.5 fL (80.0-100.0); Mean Platelet Volume 9.2 fL (9.4-12.4); Monocytes # (auto) 0.57 K/uL (0.11-0.59); Monocytes % (auto) 7.3 %; Neutrophils # (auto) 4.62 K/uL (1.40-6.50); Neutrophils % (auto) 58.9 %; Platelet Count 271 K/uL (130-400); RDW Coefficient of Variation 12.5 % (11.5-14.5); RDW Standard Deviation 40.3 fL (36.4-46.3); Red Blood Count 3.21 M/uL (4.20-5.40); White Blood Count 7.84 K/ul (4.8-10.8)
[2024-09-02 04:31] LABS: BUN Creatinine Ratio 22.6 (10-20); Creatinine Clr Calc Pharmacy 47.9 ml/min; Magnesium 1.4 mg/dl (1.7-2.4); Potassium 3.8 mmol/L (3.5-5.1)
[2024-09-02 04:52] LABS: ANTI-Xa, UFH(UnfractionatedHep 0.26 IU/ml (0.3-0.7)
--- NOTE | 2024-09-02 08:23 | Electrocardiogram Report ---
Test Reason : Blood Pressure : */* mmHG Vent. Rate : 114 BPM Atrial Rate : 286 BPM P-R Int : * ms QRS Dur : 76 ms QT Int : 282 ms P-R-T Axes : 84 0 -69 degrees QTcB Int : 388 ms Atrial flutter with variable A-V block Nonspecific T wave abnormality Abnormal ECG When compared with ECG of 01-Sep-2024 08:27, No significant change Confirmed by Ricco Disla ([id number]) on 09/02/2024 8:23:23 AM Referred By: REFERRED SELF Confirmed By: Ricco Disla
[2024-09-02] MEDS: MAGNESIUM SULFATE / D5W 1 GM/100 ML BAG IV SCH (08:32)
[2024-09-02] MEDS: FUROSEMIDE 40 MG TAB PO SCH (08:35)
[2024-09-02] MEDS: MAGNESIUM OXIDE 400 MG TAB PO SCH (09:30)
--- NOTE | 2024-09-02 10:30 | Cardiology Progress Note ---
Date of Service September 02, 2024 Assessment & Plan (1) New onset atrial fibrillation: (2) Pleuritic chest pain: (3) Mitral regurgitation: (4) Pulmonary hypertension: (5) Connective tissue disease: (6) Iron deficiency anemia: Plan Admission with new onset atrial fibrillation with a rapid ventricular response. [id number] Score 8 points Known moderate to severe mitral regurgitation Pulmonary hypertension (? poorly controlled systemic hypertension versus valvular disease versus untreated sleep apnea/hypoxemia) Past reduced LV systolic function. Diffuse connective tissue disease, followed by Rheumatology. Iron deficiency anemia Ambulatory dysfunction, recurrent falls Recommendations: Change metoprolol tartrate to metoprolol succinate 100 mg BID Continue IV heparin to Eliquis anticoagulation. Supplement potassium and magnesium. Maintain telemetry Daily labs Admission and Anticipated Discharge Date Admission Date: September 01, 2024 Supervising Physician Co-Signing Physician Notes Attending attestation: Case reviewed with the advanced practitioner. I have personally performed a history and physical examination on the patient. I have reviewed the advanced practitioner's documentation on the date of service referenced in note, and I agree with, and take responsibility for the plan of care. Jan Flores, DO Subjective Patient seen and examined. Chart, medications, telemetry reviewed. Feeling better. Palpitations have considerably improved. No shortness of breath. No chest discomfort Review of Systems Review of Systems: Complete Review of Systems is as stated above, negative, or noncontributory. Physical Exam Physical Exam: General: A&Ox3. NAD. Skin: Pale complexion chronically, stable. HENT: Normocephalic. Atraumatic. Eyes: PER. Conjunctiva pink, sclera pale. Neck: Soft right carotid bruit. No JVD. Heart: Irregularly irregular at 110 bpm. No rub. Lungs: Clear to auscultation. Abdomen: +BS. Extremities: No clubbing, cyanosis, or edema. Pulses: radial=2/4, posterior tibial=2/4. Results & Data Vital Signs (Past 12 Hours) Vital Signs Temp Pulse Pulse Resp BP Pulse Ox O2 Del Method 09/02/24 07:35 36.8 C 103 H 19 122/73 96 Room Air 09/02/24 07:00 104 H 09/02/24 04:09 36.5 C 113 H 16 120/76 96 Room Air 09/01/24 23:16 36.5 C 105 H 16 108/69 93 Room Air Laboratory Results Cardiac Enzymes 09/01/24 09/01/24 Range/Units 17:53 23:06 Troponin I High Sens 10.4 9.0 (0-14) pg/ml CBC 09/02/24 Range/Units 03:58 WBC 7.84 (4.8-10.8) K/ul RBC 3.21 L (4.20-5.40) M/uL Hgb 9.6 L (12.0-16.0) g/dl Hct 28.4 L (37.0-47.0) % Plt Count 271 (130-400) K/uL Neut # (Auto) 4.62 (1.40-6.50) K/uL Lymph # (Auto) 2.34 (1.20-3.40) K/uL Bradford # (Auto) 0.57 (0.11-0.59) K/uL Eos # (Auto) 0.21 (0.00-0.50) K/uL Baso # (Auto) 0.06 (0.00-0.20) K/uL Comprehensive Metabolic Panel 09/02/24 Range/Units 03:58 Sodium 136 (136-145) mmol/L Potassium 3.8 (3.5-5.1) mmol/L Chloride 96 L (98-107) mmol/L Carbon Dioxide 28 (21-32) mmol/L BUN 21 (6-23) mg/dl Creatinine 0.93 (0.6-1.2) mg/dl Glucose 126 H (70-99(Fasting)) mg/dl Calcium 9.0 (8.6-10.3) mg/dl Intake and Output 09/01/24 09/02/24 09/02/24 22:59 06:59 14:59 Intake Total 309.850 / 609.100 299.25 / 609.100 131.367 / 131.367 Output Total 100 / 100 Balance 209.850 / 509.100 299.25 / 509.100 131.367 / 131.367 Intake: IV 109.850 / 209.100 99.25 / 209.100 131.367 / 131.367 Heparin Sodium/Dextrose 25,000 109.850 / 209.100 99.25 / 209.100 33.867 / 33.867 units In 500 ml @ 650 UNITS/HR 13 mls/hr IV .Q24H [facility] Rx#: [id number] Magnesium Sulfate / D5w 1 gm In 97.5 / 97.5 100 ml @ 50 mls/hr IV Q2H [facility] Rx#:[id number] Oral 200 / 400 200 / 400 Output: Urine 100 / 100 Other: # Unmeasured Voids 2 200 Weight 58.5 kg Weight Measurement Method Standing Scale Diagnostic Findings High-sensitivity troponin negative: 7.3 -> 10.4 -> 9.0 EKG on 09/02/2024: Atrial flutter with variable AV block, ventricular rate 114 bpm, nonspecific T wave abnormality. QTc 388 ms Telemetry: Atrial fibrillation with occasional PVC or aberrantly conducted beat, heart rates in the 80s to 1 teens predominantly. September 01, 2024 TTE ([facility]): Atrial fibrillation with elevated ventricular rate present during the echocardiogram study. Mild concentric LVH. Normal LV wall motion. Normal LV systolic function. EF 60 to 65%. Normal RV size and function. Mildly dilated left atrium. Moderate mitral annular calcification. Moderate to severe mitral regurgitation. Mild tricuspid regurgitation. PASP 38 mmHg. (6) Iron deficiency anemia Iron deficiency anemia type: unspecified iron deficiency Qualified Code(s): D 50.9 - Iron deficiency anemia, unspecified
--- NOTE | 2024-09-02 11:17 | Hospitalist Progress Note ---
Date of Service September 02, 2024 Assessment & Plan (1) New onset atrial fibrillation: (2) Acute on chronic heart failure with preserved ejection fraction: (3) Severe mitral regurgitation: (4) Diabetes mellitus, type 2: (5) Connective tissue disease: (6) Iron deficiency anemia: (7) Hypertension: Plan Patient presents with new onset atrial fibrillation with rapid ventricular response and decompensated heart failure due to valvular disease and RVR in the setting of preserved ejection fraction. Reviewed cardiology recommendations Transition to metoprolol succinate for rate control Transition to Eliquis for anticoagulation for secondary stroke prevention Replace magnesium Patient does not examine volume overload at this time we will continue oral diuretic Monitor laboratory studies Activity as tolerated Anticipate discharge in 1 to 2 days. Admission and Anticipated Discharge Date Admission Date: September 01, 2024 Subjective Patient breathing significantly better. Feels better when compared to yesterday. Physical Exam Physical Exam: Constitutional: Alert, no acute distress HEENT: Mucous membranes moist. Lungs: Decreased, few crackles at the bases CV: S1-S2, irregular, tachycardic, systolic murmur Abdomen: Soft, nontender, nondistended Extremities: Minimal edema Neuro: No focal deficits Psych: Cooperative, normal mood Results & Data Results & Data Vital Signs (Past 12 Hours) Vital Signs Temp Pulse Pulse Resp BP Pulse Ox O2 Del Method 09/02/24 11:01 36.6 C 104 H 17 119/72 96 Room Air 09/02/24 07:35 36.8 C 103 H 19 122/73 96 Room Air 09/02/24 07:00 104 H 09/02/24 04:09 36.5 C 113 H 16 120/76 96 Room Air 09/01/24 23:16 36.5 C 105 H 16 108/69 93 Room Air Diagnostic Findings Reviewed imaging, laboratory and diagnostic studies. Pertinent findings as below. Hemoglobin 9.6 Potassium 3.8 Magnesium 1.4 (4) Diabetes mellitus, type 2 Diabetes mellitus terminal make up operator insulin use: without terminal make up operator use Diabetes m ellitus complication status: with kidney complications Diabetes mellitus complication detail: with diabetic microalbuminuria Qualified Code(s): E11.29 - Type 2 diabetes mellitus with other diabetic kidney complication; R80.9 - Proteinuria, unspecified (6) Iron deficiency anemia Iron deficiency anemia type: unspecified iron deficiency Qualified Code(s): D50.9 - Iron deficiency anemia, unspecified (7) Hypertension Hypertension type: unspecified Qualified Code(s): I10 - Essential (primary) hypertension
[2024-09-02] MEDS: POTASSIUM CHLORIDE CRTAB 20 MEQ TABCR PO ONE (12:02)
[2024-09-02] MEDS: APIXABAN 5 MG TABLET PO SCH (12:03)
[2024-09-02 18:19] LABS: Estimated Average Glucose 148 mg/dl; Hemoglobin A1C 6.8 % (4.5-5.6)
[2024-09-02] MEDS: METOPROLOL SUCC 50MG EXT REL TAB PO SCH (20:15)
[2024-09-03 06:26] LABS: Hemoglobin 9.7 g/dl (12.0-16.0); Mean Corpuscular Hemoglobin 30.6 pg (25.0-34.0); Mean Corpuscular Hgb Conc 34.6 g/dL (32.0-36.0); Mean Corpuscular Volume 88.3 fL (80.0-100.0); Mean Platelet Volume 9.5 fL (9.4-12.4); Platelet Count 266 K/uL (130-400); RDW Coefficient of Variation 12.5 % (11.5-14.5); RDW Standard Deviation 40.1 fL (36.4-46.3); Red Blood Count 3.17 M/uL (4.20-5.40); White Blood Count 7.28 K/ul (4.8-10.8)
[2024-09-03 06:50] LABS: BUN Creatinine Ratio 23.8 (10-20); Calcium 9.1 mg/dl (8.6-10.3); Creatinine Clr Calc Pharmacy 35.4 ml/min; Magnesium 2.4 mg/dl (1.7-2.4); Potassium 4.4 mmol/L (3.5-5.1)
--- NOTE | 2024-09-03 10:49 | Cardiology Progress Note ---
Date of Service September 03, 2024 Assessment & Plan (1) New onset atrial fibrillation: (2) Pleuritic chest pain: (3) Mitral regurgitation: (4) Pulmonary hypertension: (5) Connective tissue disease: (6) Iron deficiency anemia: Plan Admission with new onset atrial fibrillation with a rapid ventricular response. [id number] Score 8 points Known moderate to severe mitral regurgitation Pulmonary hypertension (? poorly controlled systemic hypertension versus valvular disease versus untreated sleep apnea/hypoxemia) Past reduced LV systolic function. Diffuse connective tissue disease, followed by Rheumatology. Iron deficiency anemia Ambulatory dysfunction, recurrent falls Recommendations: * Continue metoprolol succinate, increased to 100 mg BID this admission * Add digoxin for additional rate control, IV dose today then low dose oral digoxin, 125 mcg only on MWF post discharge given concurrent use of hydroxychloroquine. * Eliquis anticoagulation, new this admission. * Aspirin and amlodipine discontinued this admission Admission and Anticipated Discharge Date Admission Date: September 01, 2024 Supervising Physician Co-Signing Physician Notes Attending attestation: Case reviewed with the advanced practitioner. I have personally performed a history and physical examination on the patient. I have reviewed the advanced practitioner's documentation on the date of service referenced in note, and I agree with, and take responsibility for the plan of care. Jan Flores, DO Subjective Patient seen and examined. Chart, medications, telemetry reviewed. Feeling well. No complaints or concerns. Denies chest pain, palpitations, shortness of breath, orthopnea, PND, peripheral edema, dizziness, near syncope, or syncope, melena, hematochezia, or hematuria. Telemetry: Atrial fibrillation, rates in the 90s to 130s, not adequately rate controlled despite titration of metoprolol succinate to 100 mg BID. Blood pressure borderline, asymptomatic. Review of Systems Review of Systems: Complete Review of Systems is as stated above, negative, or noncontributory. Physical Exam Physical Exam: General: A&Ox3. NAD. Skin: Pale complexion chronically, stable. HENT: Normocephalic. Atraumatic. Eyes: PER. Conjunctiva pink, sclera pale. Neck: Soft right carotid bruit. No JVD. Heart: Irregularly irregular at 110 bpm. No rub. Lungs: Clear to auscultation. Abdomen: +BS. Extremities: No clubbing, cyanosis, or edema. Pulses: radial=2/4, posterior tibial=2/4. Results & Data Vital Signs (Past 12 Hours) Vital Signs Temp Pulse Pulse Resp BP Pulse Ox O2 Del Method 09/03/24 08:00 103 H 09/03/24 07:15 36.7 C 108 H 18 106/74 96 Room Air 09/03/24 03:50 36.4 C L 95 H 18 118/77 99 Room Air 09/02/24 23:17 36.5 C 131 H 18 113/79 97 Room Air Laboratory Results CBC 09/03/24 Range/Units 05:46 WBC 7.28 (4.8-10.8) K/ul RBC 3.17 L (4.20-5.40) M/uL Hgb 9.7 L (12.0-16.0) g/dl Hct 28.0 L (37.0-47.0) % Plt Count 266 (130-400) K/uL Comprehensive Metabolic Panel 09/03/24 Range/Units 05:46 Sodium 136 (136-145) mmol/L Potassium 4.4 (3.5-5.1) mmol/L Chloride 96 L (98-107) mmol/L Carbon Dioxide 29 (21-32) mmol/L BUN 30 H (6-23) mg/dl Creatinine 1.26 H D (0.6-1.2) mg/dl Glucose 200 H (70-99(Fasting)) mg/dl Calcium 9.1 (8.6-10.3) mg/dl Intake and Output 09/02/24 09/03/24 09/03/24 22:59 06:59 14:59 Intake Total 450 / 1363.767 300 / 1363.767 Output Total 300 / 800 400 / 800 Balance 150 / 563.767 -100 / 563.767 Intake: Oral 450 / 1050 300 / 1050 Output: Urine 300 / 800 400 / 800 Other: Weight 57.1 kg Weight Measurement Method Built in [facility] (6) Iron deficiency anemia Iron deficiency anemia type: unspecified iron deficiency Qualified Code(s): D50.9 - Iron deficiency anemia, unspecified
--- NOTE | 2024-09-03 11:17 | Hospitalist Progress Note ---
Date of Service September 03, 2024 Assessment & Plan (1) New onset atrial fibrillation: (2) Acute on chronic heart failure with preserved ejection fraction: (3) Severe mitral regurgitation: (4) Diabetes mellitus, type 2: (5) Connective tissue disease: (6) Iron deficiency anemia: (7) Hypertension: Plan Patient with new onset atrial fibrillation with rapid ventricular spots, rate starting to improve Continue higher dose metoprolol succinate Digoxin added by cardiology for better heart rate control, IV dose today then will continue oral digoxin Continue anticoagulation with Eliquis Anticipate home tomorrow if rates show improved control Case management to investigate cost of Eliquis, patient confident she will be able to afford Admission and Anticipated Discharge Date Admission Date: September 01, 2024 Subjective Patient denies any chest pain. Feeling better. No significant palpitations Physical Exam Physical Exam: Constitutional: Alert, sitting in chair, no acute distress HEENT: Mucous membranes moist. Lungs: Clear to auscultation, decreased, no wheezes rales or rhonchi CV: S1-S2, irregular irregular, systolic murmur Abdomen: Soft, nontender, nondistended Extremities: No significant edema Neuro: No focal deficits Psych: Cooperative, normal mood Results & Data Results & Data Vital Signs (Past 12 Hours) Vital Signs Temp Pulse Pulse Resp BP Pulse Ox O2 Del Method 09/03/24 10:48 36.5 C 89 18 105/71 94 Room Air 09/03/24 08:00 103 H 09/03/24 07:15 36.7 C 108 H 18 106/74 96 Room Air 09/03/24 03:50 36.4 C L 95 H 18 118/77 99 Room Air 09/02/24 23:17 36.5 C 131 H 18 113/79 97 Room Air Diagnostic Findings Reviewed imaging, laboratory and diagnostic studies. Pertinent findings as below. Hemoglobin 9.7 Creatinine 1.2 Glucose 252 Magnesium 2.4 (4) Diabetes mellitus, type 2 Diabetes mellitus ad terminal makeup operator insulin use: without ad terminal makeup operator use Diabetes mellitus complication status: with kidney complications Diabetes mellitus complication detail: with diabetic microalbuminuria Qualified Code(s): E11.29 - Type 2 diabetes mellitus with other diabetic kidney complication; R80.9 - Proteinuria, unspecified (6) Iron deficiency anemia Iron deficiency anemia type: unspecified iron deficiency Qualified Code(s): D50.9 - Iron deficiency anemia, unspecified (7) Hypertension Hypertension type: unspecified Qualified Code(s): I10 - Essential (primary) hypertension
[2024-09-03] MEDS: DIGOXIN 250 MCG in SYRINGE 9 ML IV ONE (11:54)
[2024-09-04 06:46] LABS: Creatinine Clr Calc Pharmacy 29.3 ml/min; Potassium 4.6 mmol/L (3.5-5.1)
[2024-09-04 07:53] VITALS: BP 125/80; RESP 19; TEMP 97.9
--- NOTE | 2024-09-04 10:22 | Discharge Summary ---
Discharge Summary Date of Service September 04, 2024 Principal Dx & Hospital Course #1 = Principal Diagnosis (1) New onset atrial fibrillation: (2) Acute on chronic heart failure with preserved ejection fraction: (3) Severe mitral regurgitation: (4) Diabetes mellitus, type 2: (5) Connective tissue disease: (6) Iron deficiency anemia: (7) Hypertension: (8) Acute kidney injury: Plan Patient presented to the emergency room with some chest pain and palpitations. Started earlier in the day. In the emergency room EKG noted atrial fibrillation with rapid ventricular response. Patient was admitted to a monitored unit. Car diology consultation was obtained. She ruled out for acute pulmonary embolism with CTA of the chest. Patient underwent echocardiogram which showed normal ejection fraction and normal right ventricular function. Left atrium was dilated. Cardiology recommended increasing metoprolol. This showed some improvement in her heart rate. Digoxin was added to her medical regimen and this worked very well in addition to the metoprolol. She was initially started on IV heparin for anticoagulation, transition to oral Eliquis. There was some evidence of volume overload on the time of admission. She was given a few doses of IV Lasix. She responded quite well to this. The rapid diuresis did have some mild acute kidney injury. The setting of chronic renal disease. Anticipate this improving as we hold her furosemide. Will check BMP in approximately 1 week and follow-up with her outpatient painter touch up. Day of discharge she is feeling well. Palpitations and chest pain have completely resolved. To be discharged home on these medication adjustments and follow-up with outpatient providers. Notes For Next Care Provider BMP in 7 to 10 days Digoxin level 3 to 4 weeks Medication Changes From Visit Metoprolol dose increased Digoxin started for rate control Admission HPI Per Admitting Provider This is a 69 y/o female with pulmonary hypertension, DM2 w/ proteinuria, HTN, diffuse connective tissue disease, multifactorial anemia, prior small vessel CVA, chronic resting tachycardia, and other history as outlined who presented to the ED today with left sided chest pain and palpitations. Pt reports symptoms started abruptly early this morning - describes pain in the left lateral chest that was worse with breathing. Associated sensation of heart racing and "thumping" but denies sensation of skipping beats or feeling lightheaded. The symptoms have improved at present but are not completely resolved. She does have a history of chronic resting tachycardia, which has been controlled on metoprolol succinate 50 mg BID. She denies prior history of atrial fibrillation. She denies significant dyspnea or peripheral edema. She denies fevers, chills, N/V, urinary symptoms. She has a small amount of diarrhea with a recent URI but this seems to have improved. ECHO September 03, 2023: The left ventricular cavity size is normal. The LV wall thickness is borderline increased (concentric). The left ventricular wall motion is normal. The qualitative LV ejection fraction is 60-64% (normal). The left ventricular diastolic function is abnormal by 2-D findings. The left atrium is severely enlarged (>48 ml/m^2,). The mitral valve leaflets thickness is moderately increased. There is focal calcification of the posterior mitral valve annulus with shadowing below Moderate to severe mitral regurgitation is present with an eccentric posteriorly directed jet. Mild tricuspid regurgitation is present. Mild pulmonary hypertension is present. The estimated pulmonary artery systolic pressure is 35-40mm Hg. Admission Exam Per Admitting Provider See H&P Discharge Exam Constitutional: Alert, no acute distress HEENT: Mucous membranes moist. Lungs: Clear to auscultation, decreased, no wheezes rales or rhonchi CV: S1-S2, irregular Abdomen: Soft, nontender, nondistended Extremities: No significant edema Neuro: No focal deficits Psych: Cooperative, normal mood Updated Medication List Medication Instructions Recorded Confirmed Type ascorbic acid (vitamin C) 500 mg 500 mg PO DAILY 11/22/18 09/01/24 History tablet (Vitamin C) atorvastatin 10 mg tablet 10 mg PO PM 11/22/18 09/01/24 History bimatoprost 0.01 % eye drops 1 drp OPB PM 11/22/18 09/01/24 History (Lumigan) cholecalciferol (vitamin D3) 25 1,000 unit PO DAILY 11/22/18 09/01/24 History mcg (1,000 unit) tablet (Vitamin D3) cinnamon bark 500 mg capsule 1 dose PO BID 11/22/18 09/01/24 History (Cinnamon) coenzyme Q10 100 mg capsule 100 mg PO DAILY 11/22/18 09/01/24 History (CoQ-10) cyanocobalamin (vitamin B-12) 1,000 mcg PO QAM 11/22/18 09/01/24 History 1,000 mcg tablet (Vitamin B-12) ferrous gluconate 240 mg (27 mg 240 mg PO BID 11/22/18 09/01/24 History iron) tablet hydroxychloroquine 200 mg tablet 200 mg PO PM 11/22/18 09/01/24 History metformin 1,000 mg tablet 1,000 mg PO BID 11/22/18 09/01/24 History metoprolol succinate 50 mg capsule 50 mg PO BID 11/22/18 09/01/24 History sprinkle, ext. release 24 hr vit A 300 mcg-C 200 mg-E 27 1 tab PO DAILY 11/22/18 09/01/24 History mg-lutein 2 mg and minerals tablet (Ocuvite with Lutein) glucosamine sulf dipot 1 cap PO BID 05/27/19 09/01/24 History chlr,msm,chond 550 mg-C 30 mg-eleno 1 mg capsule (Glucosamine Chondroitin) furosemide 20 mg tablet 40 mg PO QAM 09/22/22 09/01/24 History glyburide 5 mg tablet 5 mg PO BID 09/22/22 09/01/24 History amlodipine 5 mg tablet 5 mg PO QAM 09/01/24 09/01/24 History aspirin 81 mg tablet,delayed 81 mg PO BID 09/01/24 09/01/24 History release calcium carbonate 500 mg PO DAILY 09/01/24 09/01/24 History apixaban 5 mg tablet (Eliquis) 5 mg PO BID #60 tabs 09/03/24 Rx digoxin 125 mcg (0.125 mg) tablet 0.125 mg PO .MW #30 tabs 09/03/24 Rx Hospital Stay Data Consultations 09/01/24 12:49 ED Decision to Admit Stat 09/01/24 14:39 Consult Cardiology Routine Diagnostic Imagining Performed 09/01/24 10:12 CT angio chest PE protocol Stat Reviewed imaging, laboratory and diagnostic studies. Pertinent findings as below. Echocardiogram as mentioned above, I refer you to the full report for details Creatinine 1.52 Electrolytes stable Pending Results Patient Have Any Pending Studies at Discharge: No Discharge Instructions Given to Patient (Per Discharging Provider) Follow-up with cardiology Your kidneys remain a little bit dry. Recommend you continue to hold your furosemide until instructed to resume by your PCP or tile trimmer. Get a blood test in 7 to 10 days to be ordered by your PCP Total Time Total Time Spent Total Time Spent (In Minutes): 35
[2024-09-04 10:43] VITALS: PULSE 80; O2SAT 93
--- NOTE | 2024-09-04 10:50 | Cardiology Progress Note ---
Date of Service September 04, 2024 Assessment & Plan (1) New onset atrial fibrillation: (2) Pleuritic chest pain: (3) Mitral regurgitation: (4) Pulmonary hypertension: (5) Connective tissue disease: (6) Iron deficiency anemia: Plan Admission with new onset atrial fibrillation with a rapid ventricular response. [id number] Score 8 points Known moderate to severe mitral regurgitation Pulmonary hypertension (? poorly controlled systemic hypertension versus valvular disease versus untreated sleep apnea/hypoxemia) Past reduced LV systolic function. Diffuse connective tissue disease, followed by Rheumatology. Iron deficiency anemia Ambulatory dysfunction, recurrent falls Recommendations: * Rate control strategy as long as patient remains asymptomatic and rate controlled * Metoprolol succinate increased to 100 mg BID. * Digoxin added, 125 mcg only on MWF noting renal dysfunction and concurrent use of hydroxychloroquine. * Eliquis anticoagulation prescribed this admission. Weight is less than 60 kg. Dosing will need to be decreased if creatinine remains 1.5 or greater * Aspirin and amlodipine discontinued this admission * Outpatient cardiology follow-up as scheduled on September 26, 2024 at 9:30 AM; Zio monitor to be applied at that time along with follow-up laboratory work Admission and Anticipated Discharge Date Admission Date: September 01, 2024 Supervising Physician Co-Signing Physician Notes Case discussed with Jose Carlos Fuchs PA-C. Agree with findings and plan as outlined. Patient discharged before I had the opportunity to examine her in person. Rui Flores DO Subjective Patient seen and examined. Chart, medications, telemetry reviewed. No complaints or concerns. Denies chest pain, palpitations, shortness of breath, orthopnea, PND, peripheral edema, dizziness, near syncope, or syncope, melena, hematochezia, or hematuria. Telemetry: Rate controlled atrial fibrillation over the last 24 hours. Review of Systems Review of Systems: Complete Review of Systems is as stated above, negative, or noncontributory. Physical Exam Physical Exam: Examined in the bedside chair General: NAD. Skin: Pale complexion chronically, stable. HENT: Normocephalic. Atraumatic. Eyes: PER. Conjunctiva pink, sclera pale. Neck: No overt JVD. Heart: Irregularly irregular in the 80's. Lungs: Clear to auscultation. Abdomen: +BS. Extremities: No clubbing, cyanosis, or edema. Pulses: radial=2/4, posterior tibial=2/4. Results & Data Vital Signs (Past 12 Hours) Vital Signs Temp Pulse Pulse Resp BP BP Pulse Ox 09/04/24 10:40 36.6 C 80 19 116/73 125/80 93 09/04/24 09:39 09/04/24 09:37 120 H 09/04/24 07:51 36.6 C 80 19 125/80 93 09/04/24 03:41 36.4 C L 83 18 116/73 94 09/04/24 00:01 36.5 C 90 20 120/75 99 Pulse Ox O2 Del Method O2 Del Method 09/04/24 10:40 09/04/24 09:39 96 Room Air 09/04/24 09:37 09/04/24 07:51 Room Air 09/04/24 03:41 Room Air 09/04/24 00:01 Room Air Laboratory Results Comprehensive Metabolic Panel 09/04/24 Range/Units 05:42 Sodium 137 (136-145) mmol/L Potassium 4.6 (3.5-5.1) mmol/L Chloride 99 (98-107) mmol/L Carbon Dioxide 29 (21-32) mmol/L BUN 35 H (6-23) mg/dl Creatinine 1.52 H (0.6-1.2) mg/dl Glucose 197 H (70-99(Fasting)) mg/dl Calcium 9.0 (8.6-10.3) mg/dl Intake and Output 09/03/24 09/04/24 09/04/24 22:59 06:59 14:59 Intake Total 300 / 1230 350 / 1230 Output Total 400 / 400 Balance -100 / 830 350 / 830 Intake: Oral 300 / 1230 350 / 1230 Output: Urine 400 / 400 Other: # Unmeasured Voids 1 Weight 57 kg 57 kg Weight Measurement Method Built in [facility] Patient Weight 09/05/24 06:59 Weight 57 kg (6) Iron deficiency anemia Iron deficiency anemia type: unspecified iron deficiency Qualified Code(s): D50.9 - Iron deficiency anemia, unspecified
== END 2024-09-04 11:42 | disposition home or self-care (01) | DRG 308 ==
LOC: ED 08:20 → 4W 13:04 → SUATTDRO 13:04 → 4W 14:10